=== PATIENT | female | born 1965 | race Asian ===

== ENCOUNTER 2020-07-30 09:34 | Outpatient (REF) | payer OTHER, SELFPAY ==
[2020-07-30 11:17] LABS: MANUAL DIFF FLAG NO
[2020-07-30 11:41] LABS: Basophils Percent Auto 0.4 % (0-2); Eosinophils Absolute Auto 0.1 X10*3/uL (0.0-0.4); Eosinophils Percent Auto 1.9 % (0-4); Hematocrit 39.3 % (37-47); Imm Gran Abs Auto 0.02 X10*3/uL (0.00-0.03); Imm Gran Pct Auto 0.3 % (0.0-0.4); Lymphocytes Absolute Auto 1.4 X10*3/uL (1.2-4.9); Lymphocytes Percent Auto 20.5 % (20-40); Mean Corpuscular HGB Conc 33.1 g/dl (31.0-35.0); Mean Corpuscular Volume 93.6 fL (80-98); Mean Platelet Volume 9.7 fL (9.4-12.3); Monocytes Absolute Auto 0.4 X10*3/uL (0.1-1.2); Monocytes Percent Auto 6.2 % (2-11); Neutrophils Absolute Auto 4.9 X10*3/uL (2.0-8.3); Neutrophils Percent Auto 70.7 % (45-73); Platelet Count 332 X10*3/uL (160-400); Red Cell Distribution Width 12.4 % (11.0-16.0)
[2020-07-30 12:25] LABS: Alanine Aminotransferase 29 U/L (0-31); Albumin Level 4.3 g/dL (3.5-5.0); Alkaline Phosphatase 74 U/L (39-117); Amylase 59 U/L (28-100); Anion Gap 15 (12-20); Aspartate Amino Transferase 17 U/L (5-31); Bilirubin Total 0.6 mg/dL (0.0-1.0); Blood Urea Nitrogen 9 mg/dL (9-16); Calcium 9.4 mg/dL (8.4-10.2); Carbon Dioxide 32 mmol/L (22-29); Chloride 99 mmol/L (96-108); Estimated Glomerular Filt Rate > 60; Glucose Random 104 mg/dL (60-115); Lipase 21 U/L (8-78); Potassium 3.5 mmol/L (3.3-5.1); Sodium 142 mmol/L (135-145); Total Protein 7.9 g/dL (6.5-8.0)
[2020-07-30 12:26] LABS: TSH reflex Free T4 (Prenatal) 0.55 uIU/mL (0.32-4.0)
== END 2020-07-30 09:35 | disposition home or self-care (01) ==
LOC: HO.HMGCLDS 09:34
PROVIDERS: PCP Internal Medicine; Visit Provider Nurse Practitioner Family
DX: R10.13 Epigastric pain (principal)
CPT/HCPCS: 36415; 80053; 82150; 83690; 85025

== ENCOUNTER 2020-08-19 11:58 | Outpatient (REF) | payer OTHER, SELFPAY ==
--- NOTE | ~2020-08-19 | CT_ITS ---
EXAMINATION: CT ABDOMEN AND PELVIS WITH CONTRAST CLINICAL INFORMATION: Epigastric pain COMPARISON: None TECHNIQUE: Multidetector volumetric images were obtained from the superior aspect of the liver through the pubic symphysis following administration 85 mL of Omnipaque 350 intravenous contrast. Sagittal and coronal reformatted images were obtained on the technologist's workstation. Oral contrast: Yes This CT examination was performed using dose optimization techniques as appropriate, variously including the following: *Automated exposure control *Adjustment of mA and/or kV according to patient size (this includes techniques or standardized protocols for targeted exams where dose is matched to indication/reason for exam; i.e. extremities or head) *Use of iterative reconstruction technique DLP: 447 mGy-cm FINDINGS: LUNG BASES: The visualized lung bases are unremarkable. LIVER, GALLBLADDER, AND BILIARY TREE: The liver is low in attenuation suggestive of fatty infiltration. No focal liver lesion is seen. There is no biliary duct dilatation. The gallbladder is unremarkable with no evidence of radiopaque gallstones, gallbladder wall thickening, or obvious pericholecystic inflammatory changes. PANCREAS: Unremarkable. SPLEEN: Unremarkable. ADRENAL GLANDS: Unremarkable. KIDNEYS AND URETERS: The kidneys are normal in size, shape, and attenuation. No hydronephrosis, hydroureter, or calculi seen. No perinephric stranding. BLADDER: Unremarkable. GASTROINTESTINAL TRACT: The small and large bowel are unremarkable. The appendix is not seen. The stomach is normal appearing. ABDOMINAL WALL: No significant hernia is appreciated. LYMPH NODES: Normal. VASCULAR: Unremarkable. PELVIC VISCERA: Uterus appears heterogeneous in attenuation. There is a question of a central low-attenuation in the endometrial cavity suggestive of endometrial fluid or thickening. There is a low-attenuation lesion in the anterior uterine body probably representing a fibroid. Adnexa appear unremarkable. OSSEOUS STRUCTURES: There are degenerative changes of the spine. CT/CT abdomen pelvis w con IMPRESSION: Fatty liver. Heterogeneous-appearing uterus with question endometrial fluid or thickening and fibroid. This could be better evaluated with pelvic ultrasound if clinically indicated, i.e. history of bleeding.
[2020-08-19] MEDS: iohexoL 350 MG/ML 100 ML INFUS..BTL IV (14:55)
== END 2020-08-19 11:59 | disposition home or self-care (01) ==
LOC: HO.CT 11:58
PROVIDERS: PCP Internal Medicine; Visit Provider Nurse Practitioner Family
DX: R10.13 Epigastric pain (principal); R14.0 Abdominal distension (gaseous); R10.9 Unspecified abdominal pain
CPT/HCPCS: 74177; Q9967

== ENCOUNTER → 2020-09-09 10:05 | Outpatient (BNVA) | payer OTHER, SELFPAY | PROVIDERS: PCP Internal Medicine; Visit Provider Obstetrics & Gynecology | DX: R93.5 Abnormal findings on diagnostic imaging of other abdominal regions, including retroperitoneum (principal) | CPT/HCPCS: 99212 ==

== ENCOUNTER → 2020-09-29 14:11 | Outpatient (BNVA) | payer OTHER, SELFPAY | PROVIDERS: PCP Internal Medicine; Visit Provider Obstetrics & Gynecology ==

== ENCOUNTER 2020-11-13 08:58 | Outpatient (REF) | payer OTHER, SELFPAY ==
--- NOTE | ~2020-11-13 | MM_ITS ---
EXAMINATION: MM SCREENING DIGITAL BREAST TOMOSYNTHESIS, BILATERAL CLINICAL INFORMATION: Screening. Asymptomatic. Prior benign right stereotactic biopsy by Dr. Blake on 12/21/2016. The lifetime risk of breast cancer based on the Tyrer-Cuzick Model is 13%. COMPARISON: Mammography: 11/08/2019, 01/15/2018, 07/12/2017, 12/21/2016 TECHNIQUE: Digital breast tomosynthesis is performed in both the craniocaudal and mediolateral oblique views along with computer-aided detection (CAD). Synthesized 2D images are generated from the tomosynthesis. FINDINGS: There are scattered areas of fibroglandular density (ACR BI-RADS breast composition Category b). Parenchymal pattern is similar to prior exams. There is no developing density or interval mass or interval architectural abnormality. Minor smooth subdermal scarring inferior left breast on MLO view is stable. There are scattered bilateral punctate calcifications again seen. The axilla are unremarkable. There are no significant changes. MM/MM tomosynthesis screening BI IMPRESSION: No significant changes from prior studies. ASSESSMENT: BI-RADS 2: Benign RECOMMENDATION: Routine annual mammography screening. This patient's information was entered into a reminder system with a target due date for their next mammogram.
== END 2020-11-13 08:59 | disposition home or self-care (01) ==
LOC: HO.MAMMO 08:58
PROVIDERS: PCP Internal Medicine; Visit Provider Internal Medicine
DX: Z12.31 Encounter for screening mammogram for malignant neoplasm of breast (principal)
CPT/HCPCS: 77063; 77067

== ENCOUNTER 2021-02-15 14:14 | Outpatient (REF) | payer OTHER, SELFPAY ==
--- NOTE | ~2021-02-15 | XR_ITS ---
EXAMINATION: XR FOOT, LEFT XR FOOT, RIGHT CLINICAL INFORMATION: Other specified soft tissue disorder COMPARISON: Left foot x-ray October 2012 TECHNIQUE: 3 views of each foot FINDINGS: Left: Bone alignment is normal. No fracture or dislocation is seen. The joint spaces are normal. There is a small bony osteophyte projecting off the lateral aspect of the 5th metatarsal head. This is similar to 2013 exam. There are small calcaneal spurs. Right: Bone alignment is normal. No fracture or dislocation is seen. There are postoperative osteotomy changes of the 1st metatarsal head. The joint spaces are normal. There is a small osteophyte projecting off the lateral aspect of the 5th metatarsal head. There are calcaneal spurs. XR/XR foot RT min 3V IMPRESSION: Postoperative changes to the right 1st metatarsal head. Bilateral calcaneal spurs. Small osteophytes projecting off the lateral lateral 5th metatarsal headS.
--- NOTE | ~2021-02-15 | XR_ITS ---
EXAMINATION: XR FOOT, LEFT XR FOOT, RIGHT CLINICAL INFORMATION: Other specified soft tissue disorder COMPARISON: Left foot x-ray October 2012 TECHNIQUE: 3 views of each foot FINDINGS: Left: Bone alignment is normal. No fracture or dislocation is seen. The joint spaces are normal. There is a small bony osteophyte projecting off the lateral aspect of the 5th metatarsal head. This is similar to 2013 exam. There are small calcaneal spurs. Right: Bone alignment is normal. No fracture or dislocation is seen. There are postoperative osteotomy changes of the 1st metatarsal head. The joint spaces are normal. There is a small osteophyte projecting off the lateral aspect of the 5th metatarsal head. There are calcaneal spurs. XR/XR foot LT min 3V IMPRESSION: Postoperative changes to the right 1st metatarsal head. Bilateral calcaneal spurs. Small osteophytes projecting off the lateral lateral 5th metatarsal headS.
[2021-02-15 14:29] LABS: MANUAL DIFF FLAG NO
[2021-02-15 16:36] LABS: Basophils Percent Auto 0.3 % (0-2); Eosinophils Absolute Auto 0.1 X10*3/uL (0.0-0.4); Eosinophils Percent Auto 1.8 % (0-4); Hematocrit 39.1 % (37.0-47.0); Hemoglobin 13.3 g/dl (12.0-16.0); Imm Gran Abs Auto 0.03 X10*3/uL (0.00-0.03); Imm Gran Pct Auto 0.4 % (0.0-0.4); Lymphocytes Absolute Auto 1.8 X10*3/uL (1.2-4.9); Lymphocytes Percent Auto 24.8 % (20-40); Mean Corpuscular Hemoglobin 31.1 pg (27.0-33.0); Mean Corpuscular Volume 91.6 fL (80.0-98.0); Mean Platelet Volume 9.9 fL (9.4-12.3); Monocytes Absolute Auto 0.3 X10*3/uL (0.1-1.2); Monocytes Percent Auto 4.3 % (2-11); Neutrophils Absolute Auto 4.9 x10*3/uL (2.0-8.3); Neutrophils Percent Auto 68.4 % (45-73); Platelet Count 342 X10*3/uL (160-400); Red Blood Count 4.27 X10*6/uL (4.20-5.50); White Blood Count 7.2 X10*3/uL (4.8-10.8)
[2021-02-15 16:48] LABS: Alanine Aminotransferase 24 U/L (0-31); Anion Gap 13 (12-20); Aspartate Amino Transferase 17 U/L (5-31); Blood Urea Nitrogen 12 mg/dL (9-16); C Reactive Protein 0.63 mg/dL (< or = 0.50); Calcium 9.6 mg/dL (8.4-10.2); Carbon Dioxide 32 mmol/L (22-29); Chloride 99 mmol/L (96-108); Cholesterol 215 mg/dL; Estimated Glomerular Filt Rate > 60; Glucose Fasting 165 mg/dL (60-99); HDL Cholesterol 70 mg/dL; Iron 117 mcg/dL (30-160); LDL Cholesterol Calculated 116 mg/dl; Percent Iron Saturation 46 % (15-50); Sodium 141 mmol/L (135-145); Total Iron Binding Capacity 252 mcg/dL (228-428); Triglycerides 148 mg/dL; Unsaturated Iron Binding 135 ug/dL
[2021-02-15 16:59] LABS: Uric Acid 7.5 mg/dL (2.4-5.7)
[2021-02-15 17:08] LABS: Free T4 (Free Thyroxine) 1.17 ng/dL (0.71-1.85); Vitamin D 25-OH Total 74.5 ng/mL (>30)
[2021-02-15 17:55] LABS: Erythrocyte Sedimentation Rate 33 MM/HR (0-20)
== END 2021-02-15 14:15 | disposition home or self-care (01) ==
LOC: HO.HMGCX 14:14
PROVIDERS: PCP Internal Medicine; Visit Provider Internal Medicine
DX: Z00.00 Encounter for general adult medical examination without abnormal findings (principal); I10 Essential (primary) hypertension; E03.9 Hypothyroidism, unspecified; M79.671 Pain in right foot; M79.672 Pain in left foot; M79.89 Other specified soft tissue disorders
CPT/HCPCS: 36415; 73630; 80048; 80061; 82306; 83540; 84439; 84443; 84450; 84460; 84550; 85025; 85652; 86140

== ENCOUNTER 2021-03-19 08:30 | Outpatient (REF) | payer OTHER, SELFPAY ==
[2021-03-19 11:44] LABS: Anion Gap 11 (12-20); Blood Urea Nitrogen 8 mg/dL (9-16); Calcium 9.7 mg/dL (8.4-10.2); Carbon Dioxide 31 mmol/L (22-29); Chloride 106 mmol/L (96-108); Estimated Glomerular Filt Rate > 60; Glucose Fasting 94 mg/dL (60-99); Potassium 4.3 mmol/L (3.3-5.1); Sodium 144 mmol/L (135-145); Uric Acid 5.9 mg/dL (2.4-5.7)
[2021-03-19 11:48] LABS: Estimated Average Glucose 100 mg/dL; Hemoglobin A1c % 5.1 %
== END 2021-03-19 08:31 | disposition home or self-care (01) ==
LOC: HO.HMGCLDS 08:30
PROVIDERS: PCP Internal Medicine; Visit Provider Internal Medicine
DX: E79.0 Hyperuricemia without signs of inflammatory arthritis and tophaceous disease (principal); E87.6 Hypokalemia; I10 Essential (primary) hypertension; R73.9 Hyperglycemia, unspecified
CPT/HCPCS: 36415; 80048; 83036; 84550

== ENCOUNTER 2021-10-25 14:24 | Outpatient (REF) | payer OTHER, SELFPAY ==
--- NOTE | ~2021-10-25 | XR_ITS ---
EXAMINATION: XR KNEE, RIGHT CLINICAL INFORMATION: Right knee effusion COMPARISON: None TECHNIQUE: Four views of the right knee. FINDINGS: Small joint effusion. No acute fracture or dislocation. Joint spaces appear fairly well-maintained. There are small patellar marginal osteophytes compatible with mild osteoarthritis. Small 2 mm calcification projects along the posterior lateral joint line of the knee, possibly a small intra-articular body. Prominent enthesophyte formation at the superior patellar pole. No osseous lesion. XR/XR knee RT 4V IMPRESSION: 1. Small knee joint effusion. No acute fracture or dislocation. 2. Mild patellofemoral compartment osteoarthropathy and small 2 mm calcification possibly a tiny intra-articular body in the posterolateral joint.
== END 2021-10-25 14:25 | disposition home or self-care (01) ==
LOC: HO.HMGCX 14:24
PROVIDERS: PCP Internal Medicine; Visit Provider Physician Assistant
DX: M25.461 Effusion, right knee (principal)
CPT/HCPCS: 73564

== ENCOUNTER 2021-10-27 08:43 | Outpatient (REF) | payer OTHER, SELFPAY ==
--- NOTE | ~2021-10-27 | XR_ITS ---
EXAMINATION: XR KNEE AP STANDING. Right knee. CLINICAL INFORMATION: Pain right knee. COMPARISON: None TECHNIQUE: AP bilateral standing view of the knees was obtained. FINDINGS: AP bilateral knee standing: There is minimal loss of medial compartment joint space both knees. No bony erosive changes. No visible acute fracture, dislocation or subluxation seen. There is no bony erosive changes. Right knee: There is small to moderate joint effusion. Small superior patellar spur and anterior superior moderate size enthesophyte is seen. No visible fracture, loose body or bony erosive changes. XR/XR knee standing BI IMPRESSION: Mild degenerative changes medial compartment both knees. Small spur and enthesophyte along the superior patella right knee and small suprapatellar joint effusion. No visible acute fracture or dislocation seen.
--- NOTE | ~2021-10-27 | XR_ITS ---
EXAMINATION: XR KNEE AP STANDING. Right knee. CLINICAL INFORMATION: Pain right knee. COMPARISON: None TECHNIQUE: AP bilateral standing view of the knees was obtained. FINDINGS: AP bilateral knee standing: There is minimal loss of medial compartment joint space both knees. No bony erosive changes. No visible acute fracture, dislocation or subluxation seen. There is no bony erosive changes. Right knee: There is small to moderate joint effusion. Small superior patellar spur and anterior superior moderate size enthesophyte is seen. No visible fracture, loose body or bony erosive changes. XR/XR knee RT 1V IMPRESSION: Mild degenerative changes medial compartment both knees. Small spur and enthesophyte along the superior patella right knee and small suprapatellar joint effusion. No visible acute fracture or dislocation seen.
== END 2021-10-27 08:44 | disposition home or self-care (01) ==
LOC: HO.HOSX 08:43
PROVIDERS: Visit Provider Physician Assistant
DX: M23.91 Unspecified internal derangement of right knee (principal); M23.92 Unspecified internal derangement of left knee
CPT/HCPCS: 20610; 73560; 73565; 99202; J1040

== ENCOUNTER 2021-11-01 17:57 | Outpatient (REF) | payer OTHER, SELFPAY ==
--- NOTE | ~2021-11-01 | MR_ITS ---
EXAMINATION: MR KNEE WITHOUT CONTRAST, RIGHT CLINICAL INFORMATION: Arthritis. Patient reports pain, fall. COMPARISON: X-ray 10/27/2021 TECHNIQUE: MRI of the knee without contrast was performed using routine sequences on a high-field scanner. FINDINGS: MENISCI: Medial Meniscus: Horizontal and undersurface tear in the body. Horizontal, undersurface and free edge tearing in the posterior horn. Lateral Meniscus: Intact LIGAMENTS: Cruciate: Intact Collateral: Intact EXTENSOR MECHANISM: Intact. Mild distal quadriceps tendinosis. Insertional enthesopathy. ARTICULAR CARTILAGE/BONE: Patellofemoral Compartment: Mild lateral patellar subluxation. No significant cartilage loss. Medial Compartment: Marginal osteophytes, mild joint space loss, foci of cartilage thinning and irregularity in the weightbearing compartment. Lateral Compartment: No significant cartilage loss. No fracture. JOINT FLUID AND BURSAE: Small to moderate effusion. Tiny Carias's cyst. There are small loose bodies posteriorly in the region of the popliteus myotendinous region.. MR/MR knee RT wo con IMPRESSION: 1. Tear of the medial meniscal body and posterior horn. 2. Mild distal quadriceps tendinosis. 3. Mild medial compartment arthritis. 4. Small to moderate effusion. Tiny Carias's cyst. Loose bodies in the region of the popliteus myotendinous region.
== END 2021-11-01 17:58 | disposition home or self-care (01) ==
LOC: HO.MRI 17:57
PROVIDERS: Visit Provider Physician Assistant
DX: M17.11 Unilateral primary osteoarthritis, right knee (principal); M23.90 Unspecified internal derangement of unspecified knee
CPT/HCPCS: 73721

== ENCOUNTER 2021-11-24 10:53 | Outpatient (REF) | payer OTHER, SELFPAY ==
--- NOTE | ~2021-11-24 | MM_ITS ---
EXAMINATION: MM SCREENING DIGITAL BREAST TOMOSYNTHESIS, BILATERAL CLINICAL INFORMATION: Screening. Asymptomatic. The lifetime risk of breast cancer based on the Tyrer-Cuzick Model is 8.9%. COMPARISON: Mammography: November 13, 2020 and studies dating back to September 27, 2009 TECHNIQUE: Digital breast tomosynthesis is performed in both the craniocaudal and mediolateral oblique views along with computer-aided detection (CAD). Synthesized 2D images are generated from the tomosynthesis. FINDINGS: The breasts are heterogeneously dense, which may obscure small masses (ACR BI-RADS breast composition Category c). There are no new significant masses, abnormal calcifications, or other abnormalities. MM/MM tomosynthesis screening BI IMPRESSION: No significant changes from prior exam. ASSESSMENT: BI-RADS 1: Negative RECOMMENDATION: Routine annual mammography screening. This patient's information was entered into a reminder system with a target due date for their next mammogram.
== END 2021-11-24 10:54 | disposition home or self-care (01) ==
LOC: HO.MAMMO 10:53
PROVIDERS: Visit Provider Internal Medicine
DX: Z12.31 Encounter for screening mammogram for malignant neoplasm of breast (principal)
CPT/HCPCS: 77063; 77067

== ENCOUNTER → 2021-11-25 10:21 | Outpatient (BNVA) | payer OTHER, SELFPAY | PROVIDERS: PCP Internal Medicine; Visit Provider Orthopaedic Surgery | DX: S83.206A Unspecified tear of unspecified meniscus, current injury, right knee, initial encounter (principal); M17.11 Unilateral primary osteoarthritis, right knee | CPT/HCPCS: 99212 ==

== ENCOUNTER 2021-12-03 09:50 | Outpatient (REF) | payer OTHER, SELFPAY ==
[2021-12-03 12:20] LABS: Alanine Aminotransferase 14 U/L (0-31); Anion Gap 17 (12-20); Aspartate Amino Transferase 13 U/L (5-31); Blood Urea Nitrogen 11 mg/dL (9-16); Calcium 9.5 mg/dL (8.4-10.2); Carbon Dioxide 31 mmol/L (22-29); Chloride 99 mmol/L (96-108); Cholesterol 226 mg/dL; Estimated Glomerular Filt Rate > 60; Glucose Fasting 101 mg/dL (60-99); HDL Cholesterol 78 mg/dL; LDL Cholesterol Calculated 128 mg/dl; Potassium 3.4 mmol/L (3.3-5.1); Sodium 144 mmol/L (135-145); Triglycerides 101 mg/dL; Vitamin D 25-OH Total 62.4 ng/mL (>30)
== END 2021-12-03 09:51 | disposition home or self-care (01) ==
LOC: HO.HMGCLDS 09:50
PROVIDERS: PCP Internal Medicine; Visit Provider Internal Medicine
DX: Z00.01 Encounter for general adult medical examination with abnormal findings (principal); S83.206A Unspecified tear of unspecified meniscus, current injury, right knee, initial encounter; E79.0 Hyperuricemia without signs of inflammatory arthritis and tophaceous disease; I10 Essential (primary) hypertension
CPT/HCPCS: 36415; 80048; 80061; 82306; 84450; 84460; 84550

== ENCOUNTER 2022-02-16 08:00 | Outpatient (RCR) | payer OTHER, SELFPAY ==
--- NOTE | 2021-12-15 11:02 | MHC.PT.EP ---
[facility] [place] Office [place] Office [place] Office [address] Hermelinda Valverde [address] [phone] F: [phone] F: [phone] F: [phone] F: [phone] Physical Therapy Plan of Care Date of Evaluation: Date of Surgery: Diagnosis: injury to R knee/ unspecified tear of R meniscus. Assessment: Pt is a 56 y/o female referred to PT PT for eval and treat of R knee meniscal injury who reports long Hx of off and on R knee pain though states about 1 month ago she was negotiating her stairs and reports a shooting pain of her knee with swelling. She presents with R knee dysfunction resulting in decreased tolerance for walking, performing stairs, squatting activities, heavy HH chores, and standing for duration secondary to decreased R knee ROM and strength, decreased hip strength, gait abnormality, evidence of meniscal injury on MRI, and pain. Pt is deemed an appropriate candidate to receive skilled PT in order to address her physical limitations to improve her functional ability. Frequency and Duration: The patient will be seen 2 x /wk x 5 wks. Short Term Goals: initiate HEP. Improve baseline pain with activity to < 6/10; initial: 8/10. Regional Driver Goals: I with HEP. Pt will be able to perform heavy HH chores with at most a little bit of difficulty. Pt will be able to walk 2 blocks without difficulty; initial: moderate difficulty. Improve R knee extension MMT by at least 1/2 MMT grade; initial: 4/5 limited by pain. Treatment Plan: Modalities to reduce pain, spasms and effusion. Manual therapy to restore motion and function. Therapeutic exercise to improve strength and flexibility. Neuromuscular re-education for posture and balance. Therapeutic activities to return to functional activities of daily living. Electronically signed by: Basilio Lindsey PT. Please sign and return to therapist. Thank you for your referral.
--- NOTE | 2022-04-15 07:04 | MHC.PT.DC ---
[facility] [place] Office [place] Office [place] Office [address] Hermelinda Valverde [address] [facility] [phone] F: [phone] F: [phone] F: [phone] F: [phone] Physical Therapy Discharge Report Diagnosis: injury to R knee/ unspecified tear of R meniscus. Date of Surgery: Date of Evaluation: 12/15/21 Date of Discharge: Treatments to Date: 9 Cancellations to Date: No Shows to Date: Discharge Status: Patient Elected to Stop Discharge Summary: Pt elected for surgery. Electronically signed by: Basilio Lindsey PT. Please sign and return to therapist. Thank you for your referral.
== END 2022-04-15 07:07 | disposition home or self-care (01) ==
LOC: HO.PTCHIC 08:00
PROVIDERS: PCP Internal Medicine; Visit Provider Internal Medicine
DX: S83.206A Unspecified tear of unspecified meniscus, current injury, right knee, initial encounter (principal)
CPT/HCPCS: 97110; 97112; 97161

== ENCOUNTER → 2022-02-21 09:45 | Outpatient (BNVA) | payer OTHER, SELFPAY | PROVIDERS: PCP Internal Medicine; Visit Provider Orthopaedic Surgery | DX: S83.241D Other tear of medial meniscus, current injury, right knee, subsequent encounter (principal) | CPT/HCPCS: 99212 ==

== ENCOUNTER → 2022-03-25 11:26 | Outpatient (BNVA) | payer OTHER, SELFPAY | PROVIDERS: PCP Internal Medicine; Visit Provider Physician Assistant | DX: Z01.818 Encounter for other preprocedural examination (principal); S83.206A Unspecified tear of unspecified meniscus, current injury, right knee, initial encounter | CPT/HCPCS: 99212 ==

== ENCOUNTER 2022-03-29 07:28 | Day surgery (SDC) | payer OTHER, SELFPAY ==
--- NOTE | 2022-03-25 09:14 | HO.ANESPROP2 ---
Documented by User: Irena Michaud NP 03/25/22 09:15 HPI - Anesthesia Eval Consult details Narrative: 56yo F for Right Knee Arthroscopy PMFSH Active Problems Active Problems: All Active Problems (Updated 03/22/22 @ 14:50 by Annemarie Rodriguez RN) Right knee meniscal tear (Acute) Hyperuricemia (Acute) Essential hypertension (Acute) Uterine fibroid (Acute) Past Medical History Medical History Essential hypertension History of palpitations Hyperuricemia Lactose intolerance JASON (obstructive sleep apnea) Seasonal allergies Uterine fibroid Surgical History Surgical History History of appendectomy History of repair of right rotator cuff Hx of colonoscopy Hx of left breast biopsy S/P removal of left ovary S/P thyroid biopsy Social History Social History Housing: House Alcohol intake: current Alcohol intake frequency: does not drink Patient Tobacco Use Status: Never used Tobacco e-Cigarette/Vaping Use: Never Used Second Hand Smoke Exposure: No Are you DNR?: No Advance Directives: No Advance Directives Information Provided: Yes Recently lost weight without trying: No Nutrition Risks: No Nutritional Risk service: No Current occupational status: employed 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 Gender identity: Female Cognitive needs: No Hearing needs: No Vision needs: Yes Meds Allergies Allergy/AdvReac Type Severity Reaction Status Date / Time adhesive [ADHESIVE] Allergy Intermediate ITCHING Verified 03/25/22 11:41 FRUIT, SKINS Allergy Severe THROAT Uncoded 03/22/22 14:47 CLOSES Home Medications Medication Instructions Recorded Confirmed Last Taken Type cholecalciferol (vitamin D3) 50 50 mcg PO DAILY 12/01/20 03/25/22 03/28/22 History mcg (2,000 unit) capsule Exam Exam Date and Time: March 25, 2022 0914 Pertinent Lab Results Pertinent Lab Results: Laboratory Tests 12/03/21 09:57 Sodium 144 Potassium 3.4 D Chloride 99 Carbon Dioxide 31 H BUN 11 Creatinine 0.67 Assessment and Plan Assessment Anesthesia Assessment: Chart Reviewed Documented by User: Laron Bobby MD 03/29/22 10:21 [facility] Past Medical History Medical History Essential hypertension History of palpitations Hyperuricemia Lactose intolerance JASON (obstructive sleep apnea) Seasonal allergies Uterine fibroid Family History Family history of problems with anesthesia: No Surgical History Surgical History History of appendectomy History of repair of right rotator cuff Hx of colonoscopy Hx of left breast biopsy S/P removal of left ovary S/P thyroid biopsy History of Problems with Anesthesia: No Social History Social History Housing: House Alcohol intake: current Alcohol intake frequency: does not drink Patient Tobacco Use Status: Never used Tobacco e-Cigarette/Vaping Use: Never Used Second Hand Smoke Exposure: No Are you DNR?: No Advance Directives: No Advance Directives Information Provided: Yes Recently lost weight without trying: No Nutrition Risks: No Nutritional Risk service: No Current occupational status: employed 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 Gender identity: Female Cognitive needs: No Hearing needs: No Vision needs: Yes Meds Allergies Allergy/AdvReac Type Severity Reaction Status Date / Time adhesive [ADHESIVE] Allergy Intermediate ITCHING Verified 03/25/22 11:41 FRUIT, SKINS Allergy Severe THROAT Uncoded 03/22/22 14:47 CLOSES Home Medications Medication Instructions Recorded Confirmed Last Taken Type cholecalciferol (vitamin D3) 50 50 mcg PO DAILY 12/01/20 03/25/22 03/28/22 History mcg (2,000 unit) capsule Exam Airway Mallampati Class: II TM Dist: >3cm Neck ROM: Full Loose/Missing/Broken Teeth: No Assessment and Plan Assessment Anesthesia Assessment: Anesthesia Plan Discussed Final Anesthetic Review Family History of Problems with Anesthesia: No History of Problems with Anesthesia: No NPO: Yes ASA Class: III Final Preanesthetic Review: No Changes in Pt Med Stat, Meds/Allgs Chart Reviewed, Consent Obtained/Reviewed and Anes Risks/Benef Reviewed Patient Risk: Low Procedure Risk: Low Anesthetic Plan Anesthetic Plan: GA Disposition: Standard PACU
[2022-03-29] VITALS (11 sets, daily range): BP systolic 97–128; BP diastolic 47–71; PULSE 58–73; RESP 18–20; TEMP 36.1–36.3; O2SAT 96–100
[2022-03-29] MEDS: Lactated Ringers 1,000 ML 100 ML IVCONT (08:08)
--- NOTE | 2022-03-29 09:30 | MHC.SHP ---
Pre-Procedural Eval Section A Date of Service: 03/29/22 The patient is an INPATIENT: No Changes since office visit: No Cold of Flu in the past 2 weeks, No New Medical Problems, No Changes in Medication and No Patient answered all questions The History & Physical has been completed within 30 days and I have reviewed it.: Yes Section B Chief Complaint: Unspecified tear of unspecified meniscus, current Allergies: Allergies Allergy/AdvReac Type Severity Reaction Status Date / Time adhesive [ADHESIVE] Allergy Intermediate ITCHING Verified 03/25/22 11:41 FRUIT, SKINS Allergy Severe THROAT Uncoded 03/22/22 14:47 CLOSES Plan I have reviewed the history and physical and performed a pertinent physical examination on my patient. No changes have occurred unless specified. Time Spent With Patient Time: Total time managing care of this patient today ____ minutes.
--- NOTE | 2022-03-29 10:37 | PM.OP ---
Brief Operative Note Date of Service: 03/29/22 Pre-op diagnosis: right knee MMT Post-op diagnosis: other (1) right knee OA 2) right knee MMT 3) Right knee plica) Procedure: Chondroplasty with partial medial meniscectomy and plica resection Implants: none Surgeon: Joseluis Sweet MD Anesthesia: GETA and local Was an Consumer Experience Consultant used for this Procedure?: No Estimated blood loss (mL): 0 Tourniquet time (min): 18 IV fluids (mL): 600 Pathology: none sent Condition: stable Disposition: PACU
--- NOTE | 2022-03-29 10:44 | W.PM.OPN ---
Operative Note Operative Note Date of Service: 03/29/22 Narrative: Date of Service: 03/29/22 Pre-op diagnosis: right knee MMT Post-op diagnosis: other (1) right knee OA 2) right knee MMT 3) Right knee plica) Procedure: Chondroplasty with partial medial meniscectomy and plica resection Implants: none Surgeon: Joseluis Sweet MD Anesthesia: GETA and local Was an Armature Connector used for this Procedure?: No Estimated blood loss (mL): 0 Tourniquet time (min): 18 IV fluids (mL): 600 Pathology: none sent Condition: stable Disposition: PACU Procedure in detail: Patient was brought to the operating room placed supine on the arthroscopic table and prepped and draped in standard sterile fashion. A time-out was called to identify proper site proper procedure proper surgeon and IV antibiotics per weight were administered. I began by exsanguinating the limb and insufflating tourniquet to 300 mm Hg. Then made a standard anterolateral stab incision. THe knee was insufflated with water and 30 degree arthroscope was placed. There was grade 0 fibrillations of the patella and the suprapatellar pouch was plane and the gutters were clean. I descended into the medial compartment where I made my medial portal under direct visualization. There was a mecial plica that made entry into the medial compartment difficult. Onmce I established my medial portal the plica was resected with a shaver. There was an obvious of complex tear of the body and posterior horn of the medial meniscus. The root was intact and there was grade 3/4 changes of the plateau and the MFC. I used a combination of biter shaver and cautery to remove unstable portions of the meniscus. Approximately 40% of the meniscal volume was removed. Once I was happy with this the ACL was examined and found to be intact and the lateral compartment also was without the need for intervention. I then removed all instrumentation and closed the portals with skin glue. 25 mL of 2% Marcaine with epinephrine was injected into the joint and the surrounding soft tissues. Patient was then placed in sterile dressing extubated brought recovery room stable condition. There were no known complications.
[2022-03-29] MEDS: Acetaminophen 325 MG TABLET 650 MG PO (11:51)
[2022-03-29] MEDS: Ketorolac Tromethamine 15 MG/ML VIAL IVPUSH (11:52)
[2022-03-29] MEDS: oxyCODONE HCl Immed Release 5 MG TABLET PO (11:53)
== END 2022-03-29 13:19 | disposition home or self-care (01) ==
LOC: HO.SSS 07:29
PROVIDERS: PCP Internal Medicine; Visit Provider Orthopaedic Surgery
PROC: (CPT 29870; principal; 2022-03-29 09:40)
DX: S83.231A Complex tear of medial meniscus, current injury, right knee, initial encounter (principal); M17.11 Unilateral primary osteoarthritis, right knee; M67.51 Plica syndrome, right knee; M25.561 Pain in right knee; M25.461 Effusion, right knee; M71.21 Synovial cyst of popliteal space [Baker], right knee; X58.XXXA Exposure to other specified factors, initial encounter; Y93.9 Activity, unspecified; Y92.9 Unspecified place or not applicable; Y99.8 Other external cause status; I10 Essential (primary) hypertension; E79.0 Hyperuricemia without signs of inflammatory arthritis and tophaceous disease; J30.2 Other seasonal allergic rhinitis; Z79.899 Other long term (current) drug therapy; Z91.040 Latex allergy status
CPT/HCPCS: 29881; 29875; A4649; J0171; J0690; J1100; J1170; J1885; J2250; J2405; J2795; J3010

== ENCOUNTER → 2022-04-11 08:31 | Outpatient (BNVA) | payer OTHER, SELFPAY | PROVIDERS: PCP Internal Medicine; Visit Provider Physician Assistant | DX: Z13.89 Encounter for screening for other disorder (principal) ==

== ENCOUNTER 2022-07-11 08:37 | Outpatient (REF) | payer OTHER, SELFPAY ==
[2022-07-11 11:10] LABS: MANUAL DIFF FLAG NO
[2022-07-11 11:23] LABS: Basophils Percent Auto 0.4 % (0-2); Eosinophils Absolute Auto 0.1 X10*3/uL (0.0-0.4); Eosinophils Percent Auto 2.1 % (0-4); Hematocrit 39.4 % (37.0-47.0); Hemoglobin 13.2 g/dl (12.0-16.0); Imm Gran Abs Auto 0.03 X10*3/uL (0.00-0.03); Imm Gran Pct Auto 0.4 % (0.0-0.4); Lymphocytes Absolute Auto 1.5 X10*3/uL (1.2-4.9); Lymphocytes Percent Auto 22.9 % (20-40); Mean Corpuscular HGB Conc 33.5 g/dl (31.0-35.0); Mean Corpuscular Hemoglobin 31.2 pg (27.0-33.0); Mean Corpuscular Volume 93.1 fL (80.0-98.0); Mean Platelet Volume 10.1 fL (9.4-12.3); Monocytes Absolute Auto 0.4 X10*3/uL (0.1-1.2); Monocytes Percent Auto 5.8 % (2-11); Neutrophils Absolute Auto 4.6 x10*3/uL (2.0-8.3); Neutrophils Percent Auto 68.4 % (45-73); Platelet Count 311 X10*3/uL (160-400); Red Blood Count 4.23 X10*6/uL (4.20-5.50); Red Cell Distribution Width 12.3 % (11.0-16.0); White Blood Count 6.7 X10*3/uL (4.8-10.8)
[2022-07-11 11:58] LABS: Alanine Aminotransferase 27 U/L (0-31); Anion Gap 14 (12-20); Aspartate Amino Transferase 19 U/L (5-31); Blood Urea Nitrogen 11 mg/dL (9-16); Calcium 9.4 mg/dL (8.4-10.2); Carbon Dioxide 34 mmol/L (22-29); Chloride 101 mmol/L (96-108); Cholesterol 223 mg/dL; Estimated Glomerular Filt Rate > 60; Glucose Fasting 101 mg/dL (60-99); HDL Cholesterol 74 mg/dL; Iron 126 mcg/dL (30-160); LDL Cholesterol Calculated 128 mg/dl; Percent Iron Saturation 57 % (15-50); Potassium 3.9 mmol/L (3.3-5.1); Sodium 145 mmol/L (135-145); Total Iron Binding Capacity 223 mcg/dL (228-428); Triglycerides 109 mg/dL; Unsaturated Iron Binding 97 ug/dL; Uric Acid 7.4 mg/dL (2.4-5.7); Vitamin D 25-OH Total 82.7 ng/mL (>30)
== END 2022-07-11 08:38 | disposition home or self-care (01) ==
LOC: HO.HMGCLDS 08:37
PROVIDERS: PCP Internal Medicine; Visit Provider Internal Medicine
DX: I10 Essential (primary) hypertension (principal); E66.9 Obesity, unspecified; E79.0 Hyperuricemia without signs of inflammatory arthritis and tophaceous disease; Z86.2 Personal history of diseases of the blood and blood-forming organs and certain disorders involving the immune mechanism
CPT/HCPCS: 36415; 80048; 80061; 82306; 83540; 84450; 84460; 84550; 85025

== ENCOUNTER → 2022-09-30 07:54 | Outpatient (BNVA) | payer OTHER, SELFPAY | PROVIDERS: PCP Internal Medicine; Visit Provider Nurse Practitioner Family | DX: G47.33 Obstructive sleep apnea (adult) (pediatric) (principal); Z99.89 Dependence on other enabling machines and devices | CPT/HCPCS: 99202 ==

== ENCOUNTER 2022-11-28 07:29 | Outpatient (REF) | payer OTHER, SELFPAY ==
--- NOTE | ~2022-11-28 | MM_ITS ---
EXAMINATION: MM SCREENING DIGITAL BREAST TOMOSYNTHESIS, BILATERAL CLINICAL INFORMATION: Screening. Asymptomatic. Prior benign right stereotactic biopsy by Dr. Blake on 12/21/2016. COMPARISON: Mammography: 11/24/2021, 11/13/2020, 11/08/2019, and dating back to 2014. TECHNIQUE: Digital breast tomosynthesis is performed in both the craniocaudal and mediolateral oblique views along with computer-aided detection (CAD). Synthesized 2D images are generated from the tomosynthesis. FINDINGS: There are scattered areas of fibroglandular density (ACR BI-RADS breast composition Category b). There are bilateral scattered punctate likely skin calcifications present. Parenchymal pattern is similar to prior exams. There is no developing density or interval mass or interval architectural abnormality. Minor smooth subdermal scarring inferior left breast on MLO view is stable. A small circumscribed oval nodule seen on the CC projection of the right breast just lateral to the nipple line, mid depth, is unchanged over several prior exams. This is benign. No change in left axillary lymph node with large fatty hilum. MM/MM tomosynthesis screening BI IMPRESSION: No mammographic evidence of malignancy. Stable benign findings. ASSESSMENT: BI-RADS BI-RADS 2 - Benign Findings RECOMMENDATION: Routine annual mammography screening. 1 year F/U This examination should not preclude the clinical evaluation of a suspicious palpable abnormality. This patient's information was entered into a reminder system with a target due date for their next mammogram.
== END 2022-11-28 07:30 | disposition home or self-care (01) ==
LOC: HO.MAMMO 07:29
PROVIDERS: PCP Internal Medicine; Visit Provider Internal Medicine
DX: Z12.31 Encounter for screening mammogram for malignant neoplasm of breast (principal)
CPT/HCPCS: 77063; 77067

== ENCOUNTER → 2022-11-28 07:30 | Outpatient (BNV) | payer OTHER, SELFPAY | PROVIDERS: PCP Internal Medicine; Visit Provider Radiology Diagnostic Radiology | DX: Z12.31 Encounter for screening mammogram for malignant neoplasm of breast (principal) | CPT/HCPCS: 77063; 77067 ==

== ENCOUNTER 2022-12-06 08:58 | Outpatient (AMB) | payer OTHER, SELFPAY ==
[2022-12-06 09:05] VITALS: BP 110/78; PULSE 75; O2SAT 97; BMI 29.6
--- NOTE | 2022-12-06 09:05 | A.OFFPC_ITS ---
Vital Signs 12/06/22 09:05 Height 5 ft 2 in Weight 162 lb BMI 29.6 BP 110/78 Blood Pressure Location Lt brachial Position Sitting Pulse 75 Pulse Source Pulse Oximeter Pulse Oximetry (%) 97 Oxygen Delivery Method Room Air Intake Visit Reasons: Annual PE Intake Note: Pt is here today for her PE Allergies adhesive [ADHESIVE] Allergy (Intermediate, Verified 12/12/22 16:10) ITCHING FRUIT, SKINS Allergy (Severe, Uncoded 12/12/22 16:10) THROAT CLOSES Medication List - Last Reconciled 12/06/22 by Jacqueline De Leon MD cholecalciferol (vitamin D3) 50 mcg PO DAILY ferrous sulfate 325 mg PO DAILY hydrochlorothiazide 25 mg PO QAM Tobacco use date assessed: 12/06/22 Dental Screening Dental Screen Date: 12/06/22 Did you have a dental visit in the last 12 months?: Yes Did you have a dental problem in the last 6 months where you did not have access to dental care?: No Was dental information given to patient?: Patient has dentist HPI Annual PE HPI Details 57-year-old lady with history of prediab etes, obesity, hyperuricemia, hypertension, here today for her physical exam. She has been feeling well, has been trying to lose weight but has been unsuccessful through diet and exercise, place golf regularly, cutting back on a lot of her carb intake especially rice. Would like to try taking Mounjaro for assistance with losing weight. She is currently being followed at [facility] for follow-up on her obstructive sleep apnea, getting a recheck on her CPAP. She is up-to-date with her screening mammogram as well as her colonoscopy [place] [address] Hallman, with removal of hyperplastic polyp, screening to be repeated again in 2025. She has an appointment for [facility]. She is up-to-date with all her vaccinations including her COVID vaccine, reminded to get the booster. [facility] Medical History (Updated 12/12/22 @ 16:19 by Jacqueline De Leon MD) History of iron deficiency anemia Annual visit for general adult medical examination with abnormal findings Environmental and seasonal allergies Obesity JASON on CPAP Lactose intolerance Hyperuricemia Essential hypertension Uterine fibroid Surgical History S/P thyroid biopsy History of appendectomy Hx of left breast biopsy Hx of colonoscopy History of repair of right rotator cuff S/P removal of left ovary Family History Father HTN (hypertension) Heart disease Emphysema of lung Mother HTN (hypertension) Dementia Seizure Family/Other HTN (hypertension) Cancer Social History Housing: House Alcohol intake: current Alcohol intake frequency: does not drink Patient Tobacco Use Status: Never used Tobacco e-Cigarette/Vaping Use: Never Used Second Hand Smoke Exposure: No service: No Current occupational status: employed 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 1. Little interest or pleasure in doing things: not at all 2. Feeling down, depressed, or hopeless: not at all 3. Trouble falling or staying asleep, or sleeping too much: several days 4. Feeling tired or having little energy: several days 5. Poor appetite or overeating: not at all 6. Feeling bad about yourself - or that you are a failure or have let yourself or your family down: not at all 7. Trouble concentrating on things, such as reading the newspaper or watching television: not at all 8. Moving or speaking so slowly that other people could have noticed. Or the opposite - being so fidgety or restless that you have been moving around a lot more than usual: not at all 9. Thoughts that you would be better off or of hurting yourself in some way: not at all Total score: 2 Depression Screening Interpretation: Negative [id number] - PHQ-9 Billing: Yes Source: Developed by Drs. Garth Youssef, Maria Isabel Beckman, Jose Farley and colleagues, with an educational yahaira from [employer]. Thrive Questionnaire Date Thrive assessed: 12/06/22 I am a: Patient What is your living situation today?: I have a steady place to live Within the past 12 months, did the food you bought not last and you didn't have the money to get more?: Never true Within the past 12 months, did you worry whether your food would run out before you got money to buy more?: Never true Do you have trouble paying for medicines?: No Do you have trouble getting transportation to medical appointments?: No Do you have trouble paying your heating and electricity bill?: No Do you have trouble taking care of your child, family member or friend?: No Do you have trouble with day-to-day activities such as bathing, preparing meals, shopping, managing finances, etc.?: No Are you currently unemployed and looking for a job?: No Are you interested in more education?: No MERCEDEZ-7 AMB Questionnaire MERCEDEZ-7 Date MERCEDEZ - 7 assessed: 12/06/22 Feeling nervous, anxious, or on edge: 0 = Not at all Not being able to stop or control worryin = Not at all Worrying too much about different things: 0 = Not at all Trouble relaxin = Not at all Being so restless that it is hard to sit still: 0 = Not at all Becoming easily annoyed or irritable: 0 = Not at all Feeling afraid as if something awful might happen: 0 = Not at all Total MERCEDEZ-7 score (0-4 normal; 5-9 mild; 10-14 moderate; 15-21 severe): 0 Source: Developed by Drs. Garth Youssef, Maria Isabel Beckman, Jose Farley and colleagues, with an educational yahaira from [employer]. MERCEDEZ-7 Assessment Billing MERCEDEZ-7 Assessment Tool: MERCEDEZ-7 Assessment 07761 Review of Systems Const Denies body aches, Denies fatigue, Denies headache(s) and Denies weakness Eyes Denies change in vision ENT Denies dizziness, Denies headache(s), Denies nasal congestion, Denies disequilibrium and Denies sore throat Card Denies chest pain, Denies lightheadedness, Denies palpitations and Denies dyspnea Resp Denies chest congestion, Denies cough and Denies dyspnea GI Denies abdominal pain and Denies change in bowel habits Reports no additional complaints Musc Details: Has intermittent pain in her right elbow, and shoulder Skin/Breast Denies breast pain, Denies breast mass, Denies change in breast shape, Denies lesions and Denies rash Neuro Denies dizziness, Denies headache(s), Denies disequilibrium and Denies weakness Psych Reports no additional complaints Endo Denies fatigue, Denies polydipsia, Denies polyuria and Denies palpitations Oral/Lymph Denies easy bleeding and Denies easy bruising Aller/Immun Denies seasonal rhinorrhea Physical exam (Primary Care) Vital Signs: Last Vital Signs Pulse 75 12/06/22 09:05 BP 110/78 12/06/22 09:05 Pulse Ox 97 12/06/22 09:05 Oxygen Delivery Method Room Air 12/06/22 09:05 BMI result Body Mass Index 29.6 Tobacco/Smoking Status: Tobacco use Status Tobacco use date assessed 12/06/22 12/06/22 09:07 Patient Tobacco Use Status Never used Tobacco 12/06/22 09:07 e-Cigarette/Vaping Use Never Used 12/06/22 09:07 PHQ-9: PHQ-9 Score PHQ-9: Total score 3 12/12/22 16:09 Depression Screening Interpretation: Negative Thrive Assessment: Date of Thrive Assessment Date Thrive assessed 12/06/22 12/06/22 09:14 Const General: comfortable, no acute distress, alert, awake and Physically active Nutritional Appearance: obese Orientation/consciousness: patient oriented x3 Limitations: no limitations HENMT Head: Yes normocephalic Ears: hearing grossly normal bilaterally, external ears normal, TM's normal bilaterally and EAC's normal General nose exam: Normal external nose present and No nasal discharge present Face and sinus: Yes face symmetric Mouth: Normal oral and palatal mucosa present, oropharynx normal and moist mucous membranes Eyes General: appearance normal, both eyes and all related structures Neck Other: Supple with no lymphadenopathy, full range of motion Chest Chest palpation & inspection: normal inspection of the chest Breast/axilla palpation: normal palpation of the breasts and normal palpation of the axillae Resp Effort & Inspection: normal respiratory effort and able to speak in complete sentences Auscultation: clear to auscultation bilaterally Cardio Rate: regular rate Rhythm: regular rhythm Heart sounds: S1 normal heart sound present and S2 normal heart sound present GI Inspection: Yes obesity Palpation (GI): Soft to palpation, nontender, no guarding and no masses Auscultation: normal bowel sounds General: Yes no CVA tenderness Back/Spine/Pelvis Back: no CVA tenderness and No back tenderness Skin General skin exam: no rashes or lesions noted Neuro General: patient oriented x3, tone normal, moves all extremities, Normal light touch and pain sensation, no focal motor deficits and CN's II-XI intact bilaterally Extrem General: Yes full ROM, Yes no joint enlargement, Yes no clubbing, cyanosis or edema, Yes no calf tenderness and Yes normal gait Psych Appearance: grossly normal Mental Status: mental status grossly normal Speech and movement: Normal speech and movement present Affect: normal affect Attitude: cooperative Thought process: Normal thought process present Thought content: Normal thought content present Assessment and Plan Assessment & Plan (1) Annual visit for general adult medical examination with abnormal findings: Code(s): Z00.01 - Encounter for general adult medical examination with abnormal findings Plan: Will check appropriate labs. Continue regular dental visit every 6 months and regular eye exams, at least every 2 years. Take adequate calcium in diet and vitamin-D 3 at 2000 IU per cap once a day, in addition to weight-bearing exercises to help maintain good muscle tone and weight control. Instructed to do self-breast exam, and continue to get yearly mammogram, currently up-to-date. Goes to [facility] for her routine Pap and pelvic exam. Up-to-date with her screening colonoscopy due again in 2025. Reminded to get her COVID booster, coming out soon, get her yearly flu vaccine, up-to-date with her Shingrix vaccination and Tdap (2) Essential hypertension: Code(s): I10 - Essential (primary) hypertension Plan: Blood pressure at goal of less than 130/80. Continue with current medication. Reinforced importance of following a low sodium diet, getting regular exercise, and lowering stress levels. (3) Obesity: Code(s): E66.9 - Obesity, unspecified Plan: Recommended focusing on improving your health instead of dieting. : Eat Medi terranean diet, limit foods high in fat, sugar, and calories, eat slowly, pay attention to portion sizes, plan your meals ahead of time, continue with regular physical activity 150 minutes of moderate intensity exercise or 90 minutes/week of vigorous exercise and increase water intake. Will try on Mounjaro 2.5 mg per injection to administer subcutaneously once a week, as possible adverse reaction from medication which may include nausea abdominal cramping diarrhea. (4) Hyperuricemia: Code(s): E79.0 - Hyperuricemia without signs of inflammatory arthritis and tophaceous disease Plan: Stressed importance of following a low purine diet. (5) JASON on CPAP: Comment: previously seen at [facility] 2018 Code(s): G47.33 - Obstructive sleep apnea (adult) (pediatric); Z99.89 - Dependence on other enabling machines and devices Plan: Currently followed at [facility] Orders: Orders Alanine Aminotransferase 12/07/22 E66.9 - Obesity, unspecified, E79.0 - Hyperuricemia without signs of inflammatory arthritis and tophaceous disease, I10 - Essential (primary) hypertension, Z00.01 - Encounter for general adult medical examination with abnormal findings Aspartate Amino Transferase 12/07/22 E66.9 - Obesity, unspecified, E79.0 - Hyperuricemia without signs of inflammatory arthritis and tophaceous disease, I10 - Essential (primary) hypertension, Z00.01 - Encounter for general adult medical examination with abnormal findings Lipid Panel 12/07/22 E66.9 - Obesity, unspecified, E79.0 - Hyperuricemia without signs of inflammatory arthritis and tophaceous disease, I10 - Essential (primary) hypertension, Z00.01 - Encounter for general adult medical examination with abnormal findings Basic Metabolic Panel Fasting 12/07/22 E66.9 - Obesity, unspecified, E79.0 - Hyperuricemia without signs of inflammatory arthritis and tophaceous disease, I10 - Essential (primary) hypertension, Z00.01 - Encounter for general adult medical examination with abnormal findings Uric Acid 12/07/22 E66.9 - Obesity, unspecified, E79.0 - Hyperuricemia without signs of inflammatory arthritis and tophaceous disease, I10 - Essential (primary) hypertension, Z00.01 - Encounter for general adult medical examination with abnormal findings Medications: New tirzepatide (Mounjaro) 2.5 mg (0.5 mL) subcut QWEEK 4 weeks 2 mL 0RF Coding Level of Care Code Est Pt Prev Care 40-64y(52075) Diagnoses Annual visit for general adult medical examination with abnormal findings Z00.01 Essential hypertension I10 Obesity E66.9 Hyperuricemia E79.0 JASON on CPAP G47.33; Z99.89 Additional Codes MERCEDEZ-7 Assessment Billing - MERCEDEZ-7 Assessment Tool: MERCEDEZ-7 Assessment 33619 ([id number])
== END 2022-12-06 10:07 | disposition home or self-care (01) ==
PROVIDERS: PCP Internal Medicine; Visit Provider Internal Medicine
DX: Z00.00 Encounter for general adult medical examination without abnormal findings (principal); I10 Essential (primary) hypertension; E66.9 Obesity, unspecified; Z68.29 Body mass index [BMI] 29.0-29.9, adult; E79.0 Hyperuricemia without signs of inflammatory arthritis and tophaceous disease; G47.33 Obstructive sleep apnea (adult) (pediatric); Z99.89 Dependence on other enabling machines and devices
CPT/HCPCS: 99396

== ENCOUNTER 2022-12-07 10:47 | Outpatient (REF) | payer OTHER, SELFPAY ==
[2022-12-07 13:44] LABS: Alanine Aminotransferase 25 U/L (0-31); Anion Gap 16 (12-20); Aspartate Amino Transferase 19 U/L (5-31); Blood Urea Nitrogen 9 mg/dL (9-16); Calcium 9.7 mg/dL (8.4-10.2); Carbon Dioxide 33 mmol/L (22-29); Chloride 99 mmol/L (96-108); Cholesterol 214 mg/dL (<200); Estimated Glomerular Filt Rate > 60; Glucose Fasting 96 mg/dL (60-99); HDL Cholesterol 70 mg/dL (>40); LDL Cholesterol Calculated 124 mg/dL (<100); Sodium 145 mmol/L (135-145); Triglycerides 100 mg/dL (<150); Uric Acid 7.3 mg/dL (2.4-5.7)
== END 2022-12-07 10:48 | disposition home or self-care (01) ==
LOC: HO.HMGCLDS 10:47
PROVIDERS: PCP Internal Medicine; Visit Provider Internal Medicine
DX: Z00.01 Encounter for general adult medical examination with abnormal findings (principal); E66.9 Obesity, unspecified; E79.0 Hyperuricemia without signs of inflammatory arthritis and tophaceous disease; I10 Essential (primary) hypertension
CPT/HCPCS: 36415; 80048; 80061; 84450; 84460; 84550

== ENCOUNTER → 2022-12-12 10:48 | Outpatient (REF) | payer OTHER, SELFPAY | LOC: HO.SL 10:48 | PROVIDERS: PCP Internal Medicine; Visit Provider Nurse Practitioner Family | DX: G47.33 Obstructive sleep apnea (adult) (pediatric) (principal); G47.19 Other hypersomnia; Z99.89 Dependence on other enabling machines and devices | CPT/HCPCS: 95806 ==

== ENCOUNTER → 2022-12-12 11:09 | Outpatient (BNV) | payer OTHER, SELFPAY | PROVIDERS: PCP Internal Medicine; Visit Provider Internal Medicine | DX: G47.33 Obstructive sleep apnea (adult) (pediatric) (principal) | CPT/HCPCS: 95806 ==

== ENCOUNTER 2023-01-03 09:03 | Outpatient (AMB) | payer OTHER, SELFPAY ==
--- NOTE | 2023-01-03 09:06 | A.OFFVIS_ITS ---
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 The home sleep study result was significant for moderate degree of sleep apnea. The AHI was 18/hr and oxygen beronica was 80%. Pt is on APAP [id number]. The compliance and therapy response report (09/23/21-10/22/22) is available and reviewed. The usage days 50% and the average usage hours 6 hrs and 20 min. The max pressure was 11.5 and the residual AHI was 2/hr. ON LICENSE OF [facility] Medical History (Updated 01/09/23 @ 15:54 by Jacqueline De Leon MD) Pre-diabetes History of iron deficiency anemia Annual visit for general adult medical examination with abnormal findings Environmental and seasonal allergies Obesity JASON on CPAP Lactose intolerance Hyperuricemia Essential hypertension Uterine fibroid Surgical History S/P thyroid biopsy History of appendectomy Hx of left breast biopsy Hx of colonoscopy History of repair of right rotator cuff S/P removal of left ovary Family History Father HTN (hypertension) Heart disease Emphysema of lung Mother HTN (hypertension) Dementia Seizure Family/Other HTN (hypertension) Cancer Social History Housing: House Alcohol intake: current Alcohol intake frequency: does not drink Patient Tobacco Use Status: Never used Tobacco e-Cigarette/Vaping Use: Never Used Second Hand Smoke Exposure: No service: No Current occupational status: employed 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 New mask fitting prescription and supply order given to patient. Stressed compliance, use CPAP nightly and more than 4 hrs. Coding Level of Care Code Est Pt Level 3 (07560) Diagnoses JASON on CPAP G47.33; Z99.89
[2023-01-03 09:09] VITALS: BP 120/68; PULSE 78; O2SAT 99
== END 2023-01-03 09:36 | disposition home or self-care (01) ==
PROVIDERS: PCP Internal Medicine; Visit Provider Nurse Practitioner Family
DX: G47.33 Obstructive sleep apnea (adult) (pediatric) (principal); Z99.89 Dependence on other enabling machines and devices
CPT/HCPCS: 99213

== ENCOUNTER → 2023-01-03 09:03 | Outpatient (BNVA) | payer OTHER, SELFPAY | PROVIDERS: PCP Internal Medicine; Visit Provider Nurse Practitioner Family | DX: G47.33 Obstructive sleep apnea (adult) (pediatric) (principal); Z99.89 Dependence on other enabling machines and devices | CPT/HCPCS: 99212 ==

== ENCOUNTER 2023-01-04 10:24 | Outpatient (AMB) | payer OTHER, SELFPAY ==
--- NOTE | 2023-01-04 11:02 | MHC.PC.OV ---
Vital Signs 01/04/23 11:05 Height 5 ft 2 in Weight 161 lb BMI 29.4 BP 140/72 H Blood Pressure Location Lt brachial Position Sitting Pulse 86 Pulse Source Pulse Oximeter Pulse Oximetry (%) 100 Oxygen Delivery Method Room Air Intake Visit Reasons: 4 week follow up Intake Note: Pt is here today for f/u wgt in Allergies adhesive [ADHESIVE] Allergy (Intermediate, Verified 01/04/23 11:24) ITCHING FRUIT, SKINS Allergy (Severe, Uncoded 01/04/23 11:24) THROAT CLOSES Medication List - Last Reconciled 01/04/23 by Jacqueline De Leon MD cholecalciferol (vitamin D3) 50 mcg PO DAILY ferrous sulfate 325 mg PO DAILY phentermine 15 mg PO DAILY Tobacco use date assessed: 12/06/22 Dental Screening Dental Screen Date: 01/04/23 Did you have a dental visit in the last 12 months?: Yes Did you have a dental problem in the last 6 months where you did not have access to dental care?: No Was dental information given to patient?: Patient has dentist HPI 4 week follow up HPI Details 57-year-old lady here today for follow-up after starting phentermine 15 mg per tablet taken once a day on last visit here approximately a month ago for help with weight loss. She has been taking it as instructed, has been following recommended diet, and stays active, plays golf every week and walks for exercise. She however states that medication has not helped curb her appetite, has not lost any weight while taking it and has made her blood pressure go up. She has tried also several diets in the past but has not been successful and making her lose weight. Reviewed last labs done, it was noted she had hypokalemia with a potassium of 3.0. Patient denies any leg weakness, no muscle cramps. She also had elevated uric acid on last blood work. [facility] Medical History (Updated 01/09/23 @ 15:54 by Jacqueline De Leon MD) Pre-diabetes History of iron deficiency anemia Annual visit for general adult medical examination with abnormal findings Environmental and seasonal allergies Obesity JASON on CPAP Lactose intolerance Hyperuricemia Essential hypertension Uterine fibroid Surgical History S/P thyroid biopsy History of appendectomy Hx of left breast biopsy Hx of colonoscopy History of repair of right rotator cuff S/P removal of left ovary Family History Father HTN (hypertension) Heart disease Emphysema of lung Mother HTN (hypertension) Dementia Seizure Family/Other HTN (hypertension) Cancer Social History Housing: House Alcohol intake: current Alcohol intake frequency: does not drink Patient Tobacco Use Status: Never used Tobacco e-Cigarette/Vaping Use: Never Used Second Hand Smoke Exposure: No service: No Current occupational status: employed 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 Depression Screening Interpretation: Negative Depression Screening Done: Yes Source: Developed by Drs. Garth Youssef, Maria Isabel Beckman, Jose Farley and colleagues, with an educational yahaira from [employer]. Thrive Questionnaire Date Thrive assessed: 12/06/22 MERCEDEZ-7 AMB Questionnaire MERCEDEZ-7 Date MERCEDEZ - 7 assessed: 12/06/22 Source: Developed by Drs. Garth Youssef, Maria Isabel Beckman, Jose Farley and colleagues, with an educational yahaira from [employer]. Review of Systems Const Denies body aches, Denies fatigue, Denies headache(s) and Denies weakness ENT Denies dizziness, Denies headache(s), Denies nasal congestion and Denies disequilibrium Card Denies chest pain, Denies lightheadedness, Denies palpitations and Denies dyspnea Resp Denies chest congestion, Denies cough and Denies dyspnea GI Denies abdominal pain and Denies change in bowel habits Reports no additional complaints Neuro Denies dizziness, Denies headache(s), Denies disequilibrium and Denies weakness Psych Reports no additional complaints Endo Denies fatigue, Denies polydipsia, Denies polyuria and Denies palpitations Oral/Lymph Denies easy bleeding and Denies easy bruising Aller/Immun Denies seasonal rhinorrhea Physical exam (Primary Care) Vital Signs: Last Vital Signs Pulse 86 01/04/23 11:05 BP 140/72 H 01/04/23 11:05 Pulse Ox 100 01/04/23 11:05 Oxygen Delivery Method Room Air 01/04/23 11:05 BMI result Body Mass Index 29.4 Tobacco/Smoking Status: Tobacco use Status Tobacco use date assessed 12/06/22 01/04/23 11:07 Patient Tobacco Use Status Never used Tobacco 01/04/23 11:07 e-Cigarette/Vaping Use Never Used 01/04/23 11:07 Depression Screening Interpretation: Negative Thrive Assessment: Date of Thrive Assessment Date Thrive assessed 12/06/22 01/04/23 11:07 Const General: no acute distress, alert, awake and Physically active Nutritional Appearance: obese Orientation/consciousness: patient oriented x3 HENMT Head: Yes normocephalic Ears: hearing grossly normal bilaterally and external ears normal General nose exam: Normal external nose present Face and sinus: Yes face symmetric Mouth: Normal oral and palatal mucosa present, oropharynx normal and moist mucous membranes Eyes General: appearance normal, both eyes and all related structures Neck Other: Supple with no lymphadenopathy, full range of motion Resp Effort & Inspection: normal respiratory effort and able to speak in complete sentences Auscultation: clear to auscultation bilaterally Cardio Rate: regular rate Rhythm: regular rhythm Heart sounds: S1 normal heart sound present and S2 normal heart sound present GI Inspection: Yes obesity Palpation (GI): Soft to palpation, nontender, no guarding and no masses Auscultation: normal bowel sounds Back/Spine/Pelvis Back: No back tenderness Neuro General: patient oriented x3, tone normal, moves all extremities, Normal light touch and pain sensation, no focal motor deficits and CN's II-XI intact bilaterally Extrem General: Yes full ROM, Yes no joint enlargement, Yes no clubbing, cyanosis or edema, Yes no calf tenderness and Yes normal gait Results Reviewed Results Reviewed: NTERED: 12/07/22-[address]: ORDERED: Met Prof Fast, Uric, AST, ALT, Lipid Panel Test Result Flag Reference Site Sodium 145 135-145 mmol/L Potassium 3.0 # L 3.3-5.1 mmol/L CL 99 96-108 mmol/L CO2 33 H 22-29 mmol/L Gap 16 12-20 BUN 9 9-16 mg/dL Creat 0.68 0.5-1.4 mg/dL EGFR > 60 NOTE: For -[place] individuals, multiply the result by 1.210. Chronic Kidney Disease: Estimated GFR < 60 mL/min/1.73m2 Severe Kidney Disease: Estimated GFR < 15 mL/min/1.73m2 FBS 96 60-99 mg/dL Uric Acid 7.3 H 2.4-5.7 mg/dL CA 9.7 8.4-10.2 mg/dL AST (GOT) 19 5-31 U/L ALT (GPT) 25 0-31 U/L Triglyceride 100 <150 mg/dL Desirable Triglyceride: less than 150 mg/dL Borderline High Triglyceride 150-199 mg/dL High Triglyceride: 200-499 mg/dL Very High Triglyceride: greater than or equal to 5OO mg/dL Cholesterol 214 H <200 mg/dL Desirable Cholesterol: less than 200 mg/dL Borderline High Cholesterol: 200-239 mg/dL High Cholesterol: greater than 239 mg/dL LDL Calculated 124 H <100 mg/dL Desirable LDL: less than 100 mg/dL Near Optimal/Above Optimal LDL: 110-129 mg/dL Borderline High LDL: 130-159 mg/dL High LDL: 160-189 mg/dL Very High LDL: greater than or equal to 190 mg/dL HDL 70 >40 mg/dL Desirable HDL: greater than 40 mg/dL Assessment and Plan Assessment & Plan (1) Obesity: Code(s): E66.9 - Obesity, unspecified Qualifiers: Body mass index: BMI 30.0-30.9 Obesity classification: adult class 1 (BMI 30 - 34.9) Obesity type: due to excess calories Serious obesity comorbidity presence: without serious comorbidity Qualified Code(s): E66.09 - Other obesity due to excess calories; Z68.30 - Body mass index [BMI] 30.0-30.9, adult Plan: Patient unable to tolerate phentermine, was not successful with losing weight on medication, and it was making her blood pressure go up. Will try her on Wegovy, to use as directed, and combine it with adhering to healthy eating habits and getting regular exercise. Will see her back for follow-up 4 weeks after starting the medication (2) Pre-diabetes: Code(s): R73.03 - Prediabetes Plan: Your fasting blood sugars in the past were elevated above 100 mg/dL. Impaired glucose metabolism O2 at risk for developing diabetes mellitus type 2, as well as heart attack and stroke later on. Lifestyle changes at just weight loss, healthy eating habits, and regular exercise are important, and can prevent the progression to diabetes (3) Hypokalemia: Code(s): E87.6 - Hypokalemia Plan: Prescription sent for potential chloride ER 10 mg per tablet to take once a day for 7 days, repeat another potassium level after a week (4) Hyperuricemia: Code(s): E79.0 - Hyperuricemia without signs of inflammatory arthritis and tophaceous disease Plan: Prescription started for allopurinol 100 mg per tablet to take once a day, advised to follow a low purine diet. (5) Essential hypertension: Code(s): I10 - Essential (primary) hypertension Plan: Blood pressure mildly elevated, discontinued phentermine . Her hydrochlorothiazide was discontinued as well due to development of hypokalemia. Will monitor blood pressure, goal is less than 130/80, stressed importance of following a low-salt diet and continue with regular exercise Orders: Orders Potassium 1 Week E87.6 - Hypokalemia Medications: New allopurinol 100 mg PO DAILY 90 tabs 1RF potassium chloride ER 10 mEq PO DAILY 7 caps 0RF E87.6 - Hypokalemia Wegovy (semaglutide (weight loss)) administer weeks 1 through 4 of therapy 0.25 mg (0.5 mL) subcut QWEEK 4 weeks 2 mL 0RF NS E66.9 - Obesity, unspecified, R73.03 - Prediabetes Discontinued phentermine must administer 2 hours after breakfast Discontinued Reason: Doctor's Order 15 mg PO DAILY 30 caps 0RF E66.9 - Obesity, unspecified Coding Level of Care Code Est Pt Level 4 (79741) Diagnoses Class 1 obesity due to excess calories without serious comorbidity with body mass index (BMI) of 30.0 to 30.9 in adult E66.09; Z68.30 Body mass index: BMI 30.0-30.9 Obesity classification: adult class 1 (BMI 30 - 34.9) Obesity type: due to excess calories Serious obesity comorbidity presence: without serious comorbidity Pre-diabetes R73.03 Hypokalemia E87.6 Hyperuricemia E79.0 Essential hypertension I10
[2023-01-04 11:05] VITALS: BP 140/72; PULSE 86; O2SAT 100; BMI 29.4
== END 2023-01-04 11:44 | disposition home or self-care (01) ==
PROVIDERS: PCP Internal Medicine; Visit Provider Internal Medicine
DX: E66.09 Other obesity due to excess calories (principal); Z68.30 Body mass index [BMI] 30.0-30.9, adult; R73.03 Prediabetes; E87.6 Hypokalemia; E79.0 Hyperuricemia without signs of inflammatory arthritis and tophaceous disease; I10 Essential (primary) hypertension
CPT/HCPCS: 99214

== ENCOUNTER 2023-01-27 10:24 | Outpatient (REF) | payer OTHER, SELFPAY ==
[2023-01-27 13:52] LABS: Potassium 3.5 mmol/L (3.3-5.1)
== END 2023-01-27 10:25 | disposition home or self-care (01) ==
LOC: HO.HMGCLDS 10:24
PROVIDERS: PCP Internal Medicine; Visit Provider Internal Medicine
DX: E87.6 Hypokalemia (principal)
CPT/HCPCS: 36415; 84132

== ENCOUNTER 2023-02-01 10:55 | Outpatient (AMB) | payer OTHER, SELFPAY ==
--- NOTE | 2023-02-01 10:58 | AM.OFFWIN_ITS ---
Intake Vital Signs 02/01/23 11:02 Height 5 ft 1 in Weight 160 lb BMI 30.2 BP 140/72 H Blood Pressure Location Rt brachial Position Sitting Pulse 85 Pulse Source Pulse Oximeter Temp 97.1 F Temp Source Temporal Artery Scan Pulse Oximetry (%) 96 Oxygen Delivery Method Room Air Intake Visit Reasons: EP Right eye concern due to recent diag 01/29/23 Intake Note: Pt is here c/o right eye discomfort. Pt states she was diagnosed with moreno's palsy at the emergency room on 01/29/23. Patient Tobacco Use Status: Never used Tobacco Allergies adhesive [ADHESIVE] Allergy (Intermediate, Verified 02/01/23 10:59) ITCHING FRUIT, SKINS Allergy (Severe, Uncoded 02/01/23 10:59) THROAT CLOSES Do you need a note to return to daycare/school/sports/work: No HPI HPI Comments History of Present Illness Details 57-year-old female recently diagnosed with Moreno's palsy presents for concern of worsening symptoms. States it feels like eyelid is drooping more was told of her vision changes to come be seen again. [facility] Medical History (Updated 01/09/23 @ 15:54 by Jacqueline De Leon MD) Pre-diabetes History of iron deficiency anemia Annual visit for general adult medical examination with abnormal findings Environmental and seasonal allergies Obesity JASON on CPAP Lactose intolerance Hyperuricemia Essential hypertension Uterine fibroid Surgical History S/P thyroid biopsy History of appendectomy Hx of left breast biopsy Hx of colonoscopy History of repair of right rotator cuff S/P removal of left ovary Family History Father HTN (hypertension) Heart disease Emphysema of lung Mother HTN (hypertension) Dementia Seizure Family/Other HTN (hypertension) Cancer Social History Housing: House Alcohol intake: current Alcohol intake frequency: does not drink Patient Tobacco Use Status: Never used Tobacco e-Cigarette/Vaping Use: Never Used Second Hand Smoke Exposure: No service: No Current occupational status: employed 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 Gender identity: Female Cognitive needs: No Hearing needs: No Vision needs: Yes Review of Systems Eyes Details: Excessive tearing and droopy eyelid Physical Exam Vital Signs: Last Vital Signs Temp 97.1 F 02/01/23 11:02 Pulse 85 02/01/23 11:02 BP 140/72 H 02/01/23 11:02 Pulse Ox 96 02/01/23 11:02 Oxygen Delivery Method Room Air 02/01/23 11:02 BMI result Body Mass Index 30.2 Const General: cooperative, healthy appearing, no acute distress and alert Orientation/consciousness: patient oriented x3 Limitations: no limitations HEENT Head: Yes normal to inspection Ears: hearing grossly normal bilaterally General nose exam: Normal external nose present Resp Effort & Inspection: normal respiratory effort and able to speak in complete sentences Cardio Rate: regular rate Skin General skin exam: no rashes or lesions noted Neuro General: patient oriented x3 Extrem General: Yes normal to inspection Assessment & Plan Assessment & Plan (1) Moreno's palsy: Code(s): G51.0 - Moreno's palsy Plan: VSs. Discussed and counseled with patient that the concern is for actual visual changes such as corneal abrasions or ulcerations due to dry eyes. Some form of eyelid drooping is expected. Discuss with patient if her vision should change she should present to the emergency department where they have access to further tools to assess her eye better. Discharge instructions, follow up and treatment are discussed with patient in my usual fashion. Alternatives in treatment are also discussed. The patient will return for worsening symptoms or as needed. Advised that any labs/imaging ordered will be followed up on and contact made if further treatment needed. Counseled that patient's condition may require further evaluation and/or treatment. Symptoms of concern for worsening disorder discussed in detail in my customary manner. Patient does verbalize understanding of the plan, there are no apparent barriers to communication. The patient is given the opportunity to ask questions and have them answered to his/her satisfaction Coding Level of Care Code Est Pt Level 3 (08818) Diagnoses Moreno's palsy G51.0
[2023-02-01 11:02] VITALS: BP 140/72; PULSE 85; TEMP 36.2; O2SAT 96; BMI 30.2
== END 2023-02-01 11:16 | disposition home or self-care (01) ==
PROVIDERS: PCP Internal Medicine; Visit Provider Physician Assistant
DX: G51.0 Bell's palsy (principal)
CPT/HCPCS: 99213

== ENCOUNTER 2023-02-15 13:36 | Outpatient (AMB) | payer OTHER, SELFPAY ==
--- NOTE | 2023-02-15 14:15 | MHC.PC.OV ---
Vital Signs 02/15/23 14:16 Height 5 ft 1 in Weight 162 lb 4 oz BMI 30.7 BP 160/88 H Blood Pressure Location Lt brachial Position Sitting Pulse 87 Pulse Source Pulse Oximeter Pulse Oximetry (%) 98 Oxygen Delivery Method Room Air Intake Visit Reasons: 4W follow up Intake Note: pt is here for 4 week follow up for wegovy but pt has not been able to get it pt potassium level has been off and she was Dx with Moreno's Palsy Allergies adhesive [ADHESIVE] Allergy (Intermediate, Verified 03/29/23 09:36) ITCHING FRUIT, SKINS Allergy (Severe, Uncoded 03/29/23 09:36) THROAT CLOSES Medication List - Last Reconciled 02/15/23 by Jacqueline De Leon MD allopurinol 100 mg PO DAILY cholecalciferol (vitamin D3) 50 mcg PO DAILY ferrous sulfate 325 mg PO DAILY Tobacco use date assessed: 02/15/23 Dental Screening Dental Screen Date: 02/15/23 Did you have a dental visit in the last 12 months?: Yes Did you have a dental problem in the last 6 months where you did not have access to dental care?: No Was dental information given to patient?: Patient has dentist HPI 4W follow up HPI Details 57-year-old lady with obesity, who prescribed every go very on last visit but was unable to get prescription filled. She however has been trying to lose weight through avoidance of lot of carbohydrates in her diet, and has been trying to get regular exercise. She also recently developed Moreno's palsy, currently slowly resolving. Blood pressure noted to be elevated on this visit. Denies any accompanying chest pain no headache no lightheadedness, shortness of breath or chest pressure. No antihypertensive medications taken at this time. [facility] Medical History History of Moreno's palsy Pre-diabetes History of iron deficiency anemia Annual visit for general adult medical examination with abnormal findings Environmental and seasonal allergies Obesity JASON on CPAP Lactose intolerance Hyperuricemia Essential hypertension Uterine fibroid Surgical History S/P thyroid biopsy History of appendectomy Hx of left breast biopsy Hx of colonoscopy History of repair of right rotator cuff S/P removal of left ovary Family History Father HTN (hypertension) Heart disease Emphysema of lung Mother HTN (hypertension) Dementia Seizure Family/Other HTN (hypertension) Cancer Social History Housing: House Alcohol intake: current Alcohol intake frequency: does not drink Patient Tobacco Use Status: Never used Tobacco e-Cigarette/Vaping Use: Never Used Second Hand Smoke Exposure: No service: No Current occupational status: employed 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 Garth Youssef, Maria Isabel Beckman, Jose Farley and colleagues, with an educational yahaira from [employer]. Review of Systems Const Denies body aches, Denies fatigue, Denies headache(s) and Denies weakness Eyes Denies change in vision, Denies irritation, Denies itchy eyes and Denies eye pain ENT Denies dizziness, Denies otalgia, Denies facial pain, Denies headache(s) and Denies disequilibrium Card Denies chest pain, Denies lightheadedness, Denies palpitations and Denies dyspnea Resp Denies cough and Denies dyspnea GI Denies abdominal pain and Denies change in bowel habits Reports no additional complaints Neuro Denies dizziness, Denies headache(s), Denies disequilibrium and Denies weakness Endo Denies fatigue, Denies polydipsia, Denies polyuria and Denies palpitations Aller/Immun Denies itchy eyes and Denies seasonal rhinorrhea Physical exam (Primary Care) Vital Signs: Last Vital Signs Pulse 87 02/15/23 14:16 BP 160/88 H 02/15/23 14:16 Pulse Ox 98 02/15/23 14:16 Oxygen Delivery Method Room Air 02/15/23 14:16 BMI result Body Mass Index 30.7 Tobacco/Smoking Status: Tobacco use Status Tobacco use date assessed 02/15/23 02/15/23 14:23 Patient Tobacco Use Status Never used Tobacco 02/15/23 14:17 e-Cigarette/Vaping Use Never Used 02/15/23 14:17 Thrive Assessment: Date of Thrive Assessment Date Thrive assessed 12/06/22 02/15/23 14:17 Const General: no acute distress, alert and awake Nutritional Appearance: obese Orientation/consciousness: patient oriented x3 HENWY Head: Yes normocephalic Ears: external ears normal General nose exam: Normal external nose present Face and sinus: Yes face symmetric Mouth: Normal oral and palatal mucosa present, oropharynx normal and moist mucous membranes Eyes Other: Slight drooping of right upper lid, Alignment and Position: alignment normal and position normal Conjunctivae: conjunctivae normal Sclerae: sclerae normal Pupils: Equal, round and reactive pupils present EOM: EOMs intact bilaterally Neck Other: Supple with no lymphadenopathy, full range of motion Resp Effort & Inspection: normal respiratory effort and able to speak in complete sentences Auscultation: clear to auscultation bilaterally Cardio Rate: regular rate Rhythm: regular rhythm Heart sounds: S1 normal heart sound present and S2 normal heart sound present GI Inspection: Yes obesity Palpation (GI): Soft to palpation, nontender, no guarding and no masses Auscultation: normal bowel sounds Back/Spine/Pelvis Back: No back tenderness Neuro General: patient oriented x3, tone normal, moves all extremities, Normal light touch and pain sensation, no focal motor deficits and CN's II-XI intact bilaterally Cranial nerves: Yes Equal, round and reactive pupils present Extrem General: Yes full ROM, Yes no joint enlargement, Yes no clubbing, cyanosis or edema, Yes no calf tenderness and Yes normal gait Assessment and Plan Assessment & Plan (1) History of Moreno's palsy: Code(s): Z86.69 - Personal history of other diseases of the nervous system and sense organs Plan: Symptoms slowly resolving, patient with no limitations in visual field (2) Essential hypertension: Code(s): I10 - Essential (primary) hypertension Plan: Systolic Blood pressure elevated. Will start on hydrochlorothiazide 25 mg per tablet to take once a day in a.m.. Blood pressure goal is less than 130/80. Reinforced importance of following a low sodium diet, getting regular exercise, and lowering stress levels. Return to the clinic in a month for blood pressure follow-up Medications: New hydrochlorothiazide 25 mg PO QAM 30 tabs 0RF Refilled potassium chloride ER 10 mEq PO DAILY 30 caps 0RF Coding Level of Care Code Est Pt Level 3 (13535) Diagnoses History of Moreno's palsy Z86.69 Essential hypertension I10
[2023-02-15 14:16] VITALS: BP 160/88; PULSE 87; O2SAT 98; BMI 30.7
== END 2023-02-15 14:37 | disposition home or self-care (01) ==
PROVIDERS: PCP Internal Medicine; Visit Provider Internal Medicine
DX: Z86.69 Personal history of other diseases of the nervous system and sense organs (principal); I10 Essential (primary) hypertension
CPT/HCPCS: 99213; 99499

== ENCOUNTER 2023-03-29 08:32 | Outpatient (AMB) | payer OTHER, SELFPAY ==
[2023-03-29 08:50] VITALS: BP 138/82; PULSE 80; O2SAT 95; BMI 30.5
--- NOTE | 2023-03-29 08:50 | MHC.PC.OV ---
Vital Signs 03/29/23 08:50 Height 5 ft 1 in Weight 161 lb 6 oz BMI 30.5 BP 138/82 Blood Pressure Location Lt brachial Position Sitting Pulse 80 Pulse Source Pulse Oximeter Pulse Oximetry (%) 95 Oxygen Delivery Method Room Air Intake Visit Reasons: BP Check per Dr. De Leon Allergies adhesive [ADHESIVE] Allergy (Intermediate, Verified 03/29/23 09:36) ITCHING FRUIT, SKINS Allergy (Severe, Uncoded 03/29/23 09:36) THROAT CLOSES Medication List - Last Reconciled 03/29/23 by Jacqueline De Leon MD allopurinol 100 mg PO DAILY cholecalciferol (vitamin D3) 50 mcg PO DAILY ferrous sulfate 325 mg PO DAILY hydrochlorothiazide 25 mg PO QAM potassium chloride ER 10 mEq PO DAILY Tobacco use date assessed: 03/29/23 Dental Screening Dental Screen Date: 03/29/23 Did you have a dental visit in the last 12 months?: Yes Did you have a dental problem in the last 6 months where you did not have access to dental care?: No Was dental information given to patient?: Patient has dentist HPI BP Check per Dr. De Leon HPI Details 57-year-old lady with hypertension, here today for follow-up on her blood pressure. She is currently taking hydrochlorothiazide 25 mg mg tablet taken once in the morning, and has been staying away from salty food and meat products. Has been feeling well, with no complaints at present time. Systolic Blood pressure however remains slightly elevated still above normal range, but lower than previous blood pressure readings. [facility] Medical History History of Moreno's palsy Pre-diabetes History of iron deficiency anemia Annual visit for general adult medical examination with abnormal findings Environmental and seasonal allergies Obesity JASON on CPAP Lactose intolerance Hyperuricemia Essential hypertension Uterine fibroid Surgical History S/P thyroid biopsy History of appendectomy Hx of left breast biopsy Hx of colonoscopy History of repair of right rotator cuff S/P removal of left ovary Family History Father HTN (hypertension) Heart disease Emphysema of lung Mother HTN (hypertension) Dementia Seizure Family/Other HTN (hypertension) Cancer Social History Housing: House Alcohol intake: current Alcohol intake frequency: does not drink Patient Tobacco Use Status: Never used Tobacco e-Cigarette/Vaping Use: Never Used Second Hand Smoke Exposure: No service: No Current occupational status: employed 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 Garth Youssef, Maria Isabel Beckman, Jose Farley and colleagues, with an educational yahaira from [employer]. Review of Systems Const Denies headache(s) and Denies weakness ENT Denies dizziness, Denies headache(s) and Denies disequilibrium Card Denies chest pain, Denies lightheadedness and Denies dyspnea Resp Denies cough and Denies dyspnea GI Denies abdominal pain and Denies change in bowel habits Neuro Denies dizziness, Denies headache(s), Denies disequilibrium and Denies weakness Aller/Immun Denies seasonal rhinorrhea Physical exam (Primary Care) Vital Signs: Last Vital Signs Pulse 80 03/29/23 08:50 BP 138/82 03/29/23 08:50 Pulse Ox 95 03/29/23 08:50 Oxygen Delivery Method Room Air 03/29/23 08:50 BMI result Body Mass Index 30.5 Tobacco/Smoking Status: Tobacco use Status Tobacco use date assessed 03/29/23 03/29/23 09:01 Patient Tobacco Use Status Never used Tobacco 03/29/23 08:50 e-Cigarette/Vaping Use Never Used 03/29/23 08:50 Thrive Assessment: Date of Thrive Assessment Date Thrive assessed 12/06/22 03/29/23 08:50 Const General: no acute distress, alert, awake and Physically active Nutritional Appearance: obese Orientation/consciousness: patient oriented x3 HENMT Head: Yes normocephalic Ears: external ears normal General nose exam: Normal external nose present Face and sinus: Yes face symmetric Mouth: Normal oral and palatal mucosa present, oropharynx normal and moist mucous membranes Eyes General: appearance normal, both eyes and all related structures Neck Other: Supple with no lymphadenopathy, full range of motion Resp Effort & Inspection: normal respiratory effort and able to speak in complete sentences Auscultation: clear to auscultation bilaterally Cardio Rate: regular rate Rhythm: regular rhythm Heart sounds: S1 normal heart sound present and S2 normal heart sound present GI Inspection: Yes obesity Palpation (GI): Soft to palpation, nontender, no guarding and no masses Auscultation: normal bowel sounds Back/Spine/Pelvis Back: No back tenderness Neuro General: patient oriented x3, tone normal, moves all extremities, Normal light touch and pain sensation, no focal motor deficits and CN's II-XI intact bilaterally Extrem General: Yes full ROM, Yes no joint enlargement, Yes no clubbing, cyanosis or edema, Yes no calf tenderness and Yes normal gait Assessment and Plan Assessment & Plan (1) Essential hypertension: Code(s): I10 - Essential (primary) hypertension Plan: Blood pressure not at goal of less than 130/80. Stopped hydrochlorothiazide, and switched to lisinopril-HCTZ at 10-12.5 mg per tablet taken once a day in a.m.. Reinforced importance of following a low sodium diet, getting regular exercise, and lowering stress levels. Medications: New lisinopril-hydrochlorothiazide 10-12.5 mg 1 tab PO DAILY 30 tabs 1RF Coding Level of Care Code Est Pt Level 3 (82202) Diagnoses Essential hypertension I10
== END 2023-03-29 09:53 | disposition home or self-care (01) ==
PROVIDERS: PCP Internal Medicine; Visit Provider Internal Medicine
DX: I10 Essential (primary) hypertension (principal)
CPT/HCPCS: 99213

== ENCOUNTER 2023-04-13 08:39 | Outpatient (AMB) | payer OTHER, SELFPAY ==
--- NOTE | 2023-04-13 08:41 | A.OFFVIS_ITS ---
Intake Intake Visit Reasons: ov- right knee 03/30/22 NE Intake Note: Barby is a 57 year old female who presents today for a follow up of her right knee. History of Right Knee Arthroscopy 03/30/2022. Patient reports that her pain has worsened about 3 weeks ago, denies injury. Pain dilshad felt on the medial aspect of the knee, pain was felt on and off with no particular triggers. She epxlains that the pain has improved today. Allergies adhesive [ADHESIVE] Allergy (Intermediate, Verified 03/29/23 09:36) ITCHING FRUIT, SKINS Allergy (Severe, Uncoded 03/29/23 09:36) THROAT CLOSES HPI ov- right knee 03/30/22 NE HPI Details Barby is a 57 year old woman who presents with complaints of right knee pain. She is ~1 year S/P right knee chondroplasty with partial medial meniscectomy and plica resection. She complains of pain primarily in the medial aspect of her knee, which she says began ~3 weeks ago. She denies any falls or known injury and cannot identify what triggers her pain, just that it is intermittent. She did pretty well after surgery but over the last several months has been having worsening pain. She still active in the pain does not prevent her from doing things but it certainly decreases her enjoyment of daily activities. [facility] Medical History (Updated 04/13/23 @ 10:24 by Joseluis Sweet MD) History of Moreno's palsy Pre-diabetes History of iron deficiency anemia Annual visit for general adult medical examination with abnormal findings Environmental and seasonal allergies Obesity JASON on CPAP Lactose intolerance Hyperuricemia Essential hypertension Uterine fibroid Surgical History S/P thyroid biopsy History of appendectomy Hx of left breast biopsy Hx of colonoscopy History of repair of right rotator cuff S/P removal of left ovary Family History Father HTN (hypertension) Heart disease Emphysema of lung Mother HTN (hypertension) Dementia Seizure Family/Other HTN (hypertension) Cancer Social History Housing: House Alcohol intake: current Alcohol intake frequency: does not drink Patient Tobacco Use Status: Never used Tobacco e-Cigarette/Vaping Use: Never Used Second Hand Smoke Exposure: No service: No Current occupational status: employed 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 Gender identity: Female Cognitive needs: No Hearing needs: No Vision needs: Yes Review of Systems Const All systems reviewed & are unremarkable except as noted in HPI and below Physical Exam Const General: no acute distress, alert and awake Orientation/consciousness: patient oriented x3 HEENT Head: Yes normocephalic and Yes atraumatic Eyes EOM: EOMs intact bilaterally Resp Effort & Inspection: normal respiratory effort and able to speak in complete sentences Cardio Jugular venous distension: no JVD Skin General skin exam: turgor normal Rashes: no rashes Neuro General: patient oriented x3 Extrem Other: No effusion Full range of motion Tenderness to palpation medial joint line 1+ varus instability Psych Appearance: grossly normal Affect: normal affect Attitude: cooperative Office Procedures Joint Injection/Drain Joint Injection/Drain Details: Injected 1 mL of Decadron and 3 mL 1% lidocaine and 3 mL of 0.25% Marcaine. Site was prepped using aseptic technique. Patient tolerated the procedure well. Primary Site: right knee Approach Used: anterolateral Coding - Large joint Procedure code (CPT) selection complete Assessment & Plan Assessment & Plan (1) Arthritis of right knee: Code(s): M17.11 - Unilateral primary osteoarthritis, right knee Plan: This is a 57-year-old woman with right knee osteoarthritis. She is active. She had meniscal surgery a year ago in which grade 3/4 changes of the medial compar tment were identified. We discussed this. I injected her knee with cortisone today. I ordered an unloading brace. She will see me in 3 months. Plan Scribed for Joseluis Sweet MD by Kirill Madera, medical administrative technician, on 04/13/23 at 8:45 AM, EST. Coding Level of Care Code Est Pt Level 3 (40528) Diagnoses Arthritis of right knee M17.11 CPT Codes Coding - Large joint: 98408 - Large joint ([id number])
== END 2023-04-13 09:26 | disposition home or self-care (01) ==
PROVIDERS: PCP Internal Medicine; Visit Provider Orthopaedic Surgery
DX: M17.11 Unilateral primary osteoarthritis, right knee (principal)
CPT/HCPCS: 20610; 99213

== ENCOUNTER → 2023-04-13 08:39 | Outpatient (BNVA) | payer OTHER, SELFPAY | PROVIDERS: PCP Internal Medicine; Visit Provider Orthopaedic Surgery | DX: M17.11 Unilateral primary osteoarthritis, right knee (principal) | CPT/HCPCS: 20610; 99212; J0665; J1100 ==

== ENCOUNTER 2023-06-17 08:21 | Outpatient (REF) | payer OTHER, SELFPAY ==
[2023-06-17 12:37] LABS: Alanine Aminotransferase 16 U/L (0-31); Anion Gap 15 (12-20); Aspartate Amino Transferase 13 U/L (5-31); Blood Urea Nitrogen 10 mg/dL (9-16); Calcium 9.2 mg/dL (8.4-10.2); Carbon Dioxide 30 mmol/L (22-29); Chloride 103 mmol/L (96-108); Cholesterol 193 mg/dL (<200); Estimated Glomerular Filt Rate > 60; Glucose Fasting 94 mg/dL (60-99); HDL Cholesterol 64 mg/dL (>40); LDL Cholesterol Calculated 110 mg/dL (<100); Potassium 3.9 mmol/L (3.3-5.1); Sodium 144 mmol/L (135-145); Triglycerides 99 mg/dL (<150); Uric Acid 6.1 mg/dL (2.4-5.7)
[2023-06-17 12:53] LABS: Vitamin D 25-OH Total 80.1 ng/mL (>30)
== END 2023-06-17 08:22 | disposition home or self-care (01) ==
LOC: HO.HMGCLDS 08:21
PROVIDERS: PCP Internal Medicine; Visit Provider Internal Medicine
DX: R73.03 Prediabetes (principal); E66.09 Other obesity due to excess calories; E79.0 Hyperuricemia without signs of inflammatory arthritis and tophaceous disease; I10 Essential (primary) hypertension; Z68.30 Body mass index [BMI] 30.0-30.9, adult; Z78.0 Asymptomatic menopausal state
CPT/HCPCS: 36415; 80048; 80061; 82306; 84450; 84460; 84550

== ENCOUNTER 2023-06-20 11:29 | Outpatient (AMB) | payer OTHER, SELFPAY ==
[2023-06-20 11:35] VITALS: BP 114/64; PULSE 91; O2SAT 97; BMI 31.4
--- NOTE | 2023-06-20 11:35 | MHC.PC.OV ---
Vital Signs 06/20/23 11:35 Height 5 ft 1 in Weight 166 lb BMI 31.4 BP 114/64 Blood Pressure Location Lt brachial Position Sitting Pulse 91 Pulse Source Pulse Oximeter Pulse Oximetry (%) 97 Oxygen Delivery Method Room Air Intake Visit Reasons: 3 month follow up Intake Note: Pt is here today for her 3 months f/u Allergies adhesive [ADHESIVE] Allergy (Intermediate, Verified 06/20/23 13:27) ITCHING FRUIT, SKINS Allergy (Severe, Uncoded 06/20/23 13:27) THROAT CLOSES Medication List - Last Reconciled 06/20/23 by Jacqueline De Leon MD allopurinol 300 mg PO DAILY cephalexin 500 mg PO Q12H cholecalciferol (vitamin D3) 50 mcg PO DAILY lisinopril-hydrochlorothiazide 10-12.5 mg 1 tab PO DAILY montelukast 10 mg PO DAILY Tobacco use date assessed: 06/20/23 Dental Screening Dental Screen Date: 06/20/23 Did you have a dental visit in the last 12 months?: Yes Did you have a dental problem in the last 6 months where you did not have access to dental care?: No Was dental information given to patient?: Patient has dentist HPI 3 month follow up HPI Details 57-year-old lady with history of obstructive sleep apnea , obesity, osteoarthritis, followed by Dr. Sweet, here today for follow-up on her hypertension and hyperuricemia. She has been compliant with her medications, but admits to not frequently non compliance with diet, admits to eating a lot of [place] food, she goes to the gym for exercise but has not been able to do much due to osteoarthritis in her right knee. She has already received cortisone injection in her right knee as well as physical therapy by Dr. Sweet with not much improvement, now was given a brace to wear for added support. Complains of a burning pain with rash on her lower abdomen which started 2 days ago. She also has been complaining of frequent nasal congestion and postnasal drainage present now for the last several weeks. She has been taking Claritin D 12 hour tablets which affords temporary relief. [facility] Medical History (Updated 06/20/23 @ 13:35 by Jacqueline De Leon MD) Cellulitis History of Moreno's palsy Pre-diabetes History of iron deficiency anemia Environmental and seasonal allergies Obesity JASON on CPAP Lactose intolerance Hyperuricemia Essential hypertension Uterine fibroid Surgical History S/P thyroid biopsy History of appendectomy Hx of left breast biopsy Hx of colonoscopy History of repair of right rotator cuff S/P removal of left ovary Family History Father HTN (hypertension) Heart disease Emphysema of lung Mother HTN (hypertension) Dementia Seizure Family/Other HTN (hypertension) Cancer Social History Housing: House Alcohol intake: current Alcohol intake frequency: does not drink Patient Tobacco Use Status: Never used Tobacco e-Cigarette/Vaping Use: Never Used Second Hand Smoke Exposure: No service: No Current occupational status: employed 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 1. Little interest or pleasure in doing things: not at all 2. Feeling down, depressed, or hopeless: not at all 3. Trouble falling or staying asleep, or sleeping too much: several days 4. Feeling tired or having little energy: several days 5. Poor appetite or overeating: not at all 6. Feeling bad about yourself - or that you are a failure or have let yourself or your family down: not at all 7. Trouble concentrating on things, such as reading the newspaper or watching television: not at all 8. Moving or speaking so slowly that other people could have noticed. Or the opposite - being so fidgety or restless that you have been moving around a lot more than usual: not at all 9. Thoughts that you would be better off or of hurting yourself in some way: not at all Total score: 2 Depression Screening Interpretation: Negative Depression Screening Done: Yes 74498 - PHQ-9 Billing: Yes Source: Developed by Drs. Garth Youssef, Maria Isabel Beckman, Jose Farley and colleagues, with an educational yahaira from [employer]. Thrive Questionnaire Date Thrive assessed: 06/20/23 I am a: Patient What is your living situation today?: I have a steady place to live Within the past 12 months, did the food you bought not last and you didn't have the money to get more?: Never true Within the past 12 months, did you worry whether your food would run out before you got money to buy more?: Never true Do you have trouble paying for medicines?: No Do you have trouble getting transportation to medical appointments?: No Do you have trouble paying your heating and electricity bill?: No Do you have trouble taking care of your child, family member or friend?: No Do you have trouble with day-to-day activities such as bathing, preparing meals, shopping, managing finances, etc.?: No Are you currently unemployed and looking for a job?: No Are you interested in more education?: No Please select the resources that you would like help with: Food THRIVE Score: 0 AUDIT C Alcohol Use Questionnaire (AUDIT-C) 1. How often do you have a drink containing alcohol?: Monthly or less 2. How many drinks containing alcohol do you have on a typical day when you are drinking?: 1 or 2 3. How often do you have six or more drinks on one occasion?: Never Total Score: 1 MERCEDEZ-7 AMB Questionnaire MERCEDEZ-7 Date MERCEDEZ - 7 assessed: 06/20/23 Feeling nervous, anxious, or on edge: 0 = Not at all Not being able to stop or control worryin = Not at all Worrying too much about different things: 0 = Not at all Trouble relaxin = Several days Being so restless that it is hard to sit still: 0 = Not at all Becoming easily annoyed or irritable: 1 = Several days Feeling afraid as if something awful might happen: 0 = Not at all Total MERCEDEZ-7 score (0-4 normal; 5-9 mild; 10-14 moderate; 15-21 severe): 2 Source: Developed by Drs. Garth Youssef, Maria Isabel Beckman, Jose Farley and colleagues, with an educational yahaira from [employer]. MERCEDEZ-7 Assessment Billing MERCEDEZ-7 Assessment Tool: MERCEDEZ-7 Assessment 48409 Review of Systems Const Denies headache(s) and Denies weakness ENT Denies dizziness, Denies headache(s) and Denies disequilibrium Card Denies chest pain, Denies lightheadedness and Denies dyspnea Resp Denies cough, Denies dyspnea and Denies wheezing GI Denies abdominal pain and Denies change in bowel habits Reports no additional complaints Musc Reports as per HPI Neuro Denies dizziness, Denies headache(s), Denies disequilibrium and Denies weakness Endo Reports no additional complaints Aller/Immun Reports seasonal rhinorrhea and Denies wheezing Physical exam (Primary Care) Vital Signs: Last Vital Signs Pulse 91 06/20/23 11:35 BP 114/64 06/20/23 11:35 Pulse Ox 97 06/20/23 11:35 Oxygen Delivery Method Room Air 06/20/23 11:35 BMI result Body Mass Index 31.4 Tobacco/Smoking Status: Tobacco use Status Tobacco use date assessed 06/20/23 06/20/23 11:39 Patient Tobacco Use Status Never used Tobacco 06/20/23 11:39 e-Cigarette/Vaping Use Never Used 06/20/23 11:39 PHQ-9: PHQ-9 Score PHQ-9: Total score 3 06/20/23 12:02 Depression Screening Interpretation: Negative Thrive Assessment: Date of Thrive Assessment Date Thrive assessed 06/20/23 06/20/23 11:42 Const General: no acute distress, alert and awake Nutritional Appearance: obese Orientation/consciousness: patient oriented x3 HENMT Head: Yes normocephalic Ears: external ears normal General nose exam: Normal external nose present Face and sinus: Yes face symmetric Mouth: Normal oral and palatal mucosa present, oropharynx normal and moist mucous membranes Eyes General: appearance normal, both eyes and all related structures Neck Other: Supple with no lymphadenopathy, full range of motion Resp Effort & Inspection: normal respiratory effort and able to speak in complete sentences Auscultation: clear to auscultation bilaterally Cardio Rate: regular rate Rhythm: regular rhythm Heart sounds: S1 normal heart sound present and S2 normal heart sound present GI Inspection: Yes obesity Palpation (GI): Soft to palpation, nontender, no guarding and no masses Auscultation: normal bowel sounds Back/Spine/Pelvis Back: No back tenderness Neuro General: patient oriented x3, tone normal, moves all extremities, Normal light touch and pain sensation, no focal motor deficits and CN's II-XI intact bilaterally Extrem General: Yes full ROM, Yes no joint enlargement, Yes no clubbing, cyanosis or edema, Yes no calf tenderness and Yes normal gait Results Reviewed Results Reviewed: cct#: [id number] Unit#: [id number] Attend Dr: Jacqueline De Leon MD Re06/17/23 Status: DEP REF Location: [facility] Disch: SPEC : [id number] DAIN: 06/17/23 STATUS: COMP REQ : [id number] RECD: 06/17/23-[address]: Jacqueline De Leon MD COMP: 06/17/23-1252 ENTERED: 06/17/23-[address] [facility] [address]: ORDERED: Met Prof Fast, Uric, AST, ALT, Lipid Panel, Vitamin D 25-OH Test Result Flag Reference Sodium 144 135-145 mmol/L Potassium 3.9 3.3-5.1 mmol/L CL 103 96-108 mmol/L CO2 30 H 22-29 mmol/L Gap 15 12-20 BUN 10 9-16 mg/dL Creat 0.59 0.5-1.4 mg/dL EGFR > 60 NOTE: For -[place]rist[place] individuals, multiply the result by 1.210. Chronic Kidney Disease: Estimated GFR < 60 mL/min/1.73m2 Severe Kidney Disease: Estimated GFR < 15 mL/min/1.73m2 FBS 94 60-99 mg/dL Uric Acid 6.1 H 2.4-5.7 mg/dL CA 9.2 8.4-10.2 mg/dL AST (GOT) 13 5-31 U/L ALT (GPT) 16 0-31 U/L Triglyceride 99 <150 mg/dL Desirable Triglyceride: less than 150 mg/dL Borderline High Triglyceride 150-199 mg/dL High Triglyceride: 200-499 mg/dL Very High Triglyceride: greater than or equal to 5OO mg/dL Cholesterol 193 <200 mg/dL Desirable Cholesterol: less than 200 mg/dL Borderline High Cholesterol: 200-239 mg/dL High Cholesterol: greater than 239 mg/dL LDL Calculated 110 H <100 mg/dL Desirable LDL: less than 100 mg/dL Near Optimal/Above Optimal LDL: 110-129 mg/dL Borderline High LDL: 130-159 mg/dL High LDL: 160-189 mg/dL Very High LDL: greater than or equal to 190 mg/dL HDL 64 >40 mg/dL Desirable HDL: greater than 40 mg/dL Note: This HDL assay may give artificially low results in patients with liver disease. Vit D 25-OH Tot 80.1 >30 ng/mL Health Based Reference Values* < 20 ng/mL Deficient 20-30 ng/mL Insufficient > 30 ng/mL Sufficient Assessment and Plan Assessment & Plan (1) Cellulitis: Code(s): L03.90 - Cellulitis, unspecified Qualifiers: Site of cellulitis: trunk Site of cellulitis of trunk: umbilicus Qualified Code(s): L03.316 - Cellulitis of umbilicus Plan: Started on cephalexin 500 mg per capsule to take 1 every 12 hours for 10 days. Advised to call if symptoms unresolved after completion of antibiotic. (2) Environmental and seasonal allergies: Code(s): J30.89 - Other allergic rhinitis Plan: Will start on montelukast 10 mg per tablet to take once a day in a.m.. Avoid taking Claritin D for a long time as it can raise blood pressure may just continue taking [id number]-ifybbis Claritin 10 mg tablet once a day. Advised to do saline nasal washes to flush out allergen (3) Obesity: Code(s): E66.9 - Obesity, unspecified Qualifiers: Obesity type: due to excess calories Obesity classification: adult class 1 (BMI 30 - 34.9) Serious obesity comorbidity presence: without serious comorbidity Body mass index: BMI 30.0-30.9 Qualified Code(s): E66.09 - Other obesity due to excess calories; Z68.30 - Body mass index [BMI] 30.0-30.9, adult Plan: Try eating a Mediterranean diet, limit foods high in fat, sugar, and calories, eat slowly, pay attention to portion sizes, plan your meals ahead of time, start regular physical activity 150 minutes of moderate intensity exercise or 90 minutes/week of vigorous exercise and increase water intake. (4) Hyperuricemia: Code(s): E79.0 - Hyperuricemia without signs of inflammatory arthritis and tophaceous disease Plan: Serum uric acid still mildly elevated at 6.1, will increase allopurinol dose to 300 mg taken once a day. (5) Essential hypertension: Code(s): I10 - Essential (primary) hypertension Plan: Blood pressure at goal of less than 130/80. Continue with lisinopril-HCTZ 10-12.5 mg tablet taken once daily in a.m.. Reinforced importance of following a low sodium diet, getting regular exercise, and lowering stress levels. Medications: New cephalexin 500 mg PO Q12H 20 caps 0RF L03.90 - Cellulitis, unspecified montelukast 10 mg PO DAILY 90 tabs 1RF Changed From allopurinol 100 mg PO DAILY 90 tabs 1RF To allopurinol 300 mg PO DAILY 90 tabs 2RF Coding Level of Care Code Est Pt Level 4 (48329) Diagnoses Cellulitis of umbilicus L03.316 Site of cellulitis: trunk Site of cellulitis of trunk: umbilicus Environmental and seasonal allergies J30.89 Class 1 obesity due to excess calories without serious comorbidity with body mass index (BMI) of 30.0 to 30.9 in adult E66.09; Z68.30 Obesity type: due to excess calories Obesity classification: adult class 1 (BMI 30 - 34.9) Serious obesity comorbidity presence: without serious comorbidity Body mass index: BMI 30.0-30.9 Hyperuricemia E79.0 Essential hypertension I10 Additional Codes MERCEDEZ-7 Assessment Billing - MERCEDEZ-7 Assessment Tool: MERCEDEZ-7 Assessment 26826 ([id number])
== END 2023-06-20 12:32 | disposition home or self-care (01) ==
PROVIDERS: PCP Internal Medicine; Visit Provider Internal Medicine
DX: L03.316 Cellulitis of umbilicus (principal); J30.89 Other allergic rhinitis; E66.09 Other obesity due to excess calories; Z68.30 Body mass index [BMI] 30.0-30.9, adult; E79.0 Hyperuricemia without signs of inflammatory arthritis and tophaceous disease; I10 Essential (primary) hypertension
CPT/HCPCS: 99214

== ENCOUNTER → 2023-07-05 09:23 | Outpatient (BNVA) | payer OTHER, SELFPAY | PROVIDERS: PCP Internal Medicine; Visit Provider Nurse Practitioner Family | DX: G47.33 Obstructive sleep apnea (adult) (pediatric) (principal); Z99.89 Dependence on other enabling machines and devices | CPT/HCPCS: 99212 ==

== ENCOUNTER 2023-07-05 09:25 | Outpatient (AMB) | payer OTHER, SELFPAY ==
--- NOTE | 2023-07-05 09:36 | A.OFFVIS_ITS ---
Intake Vital Signs 07/05/23 09:41 Height 5 ft 1 in Weight 160 lb 8 oz BMI 30.3 BP 122/70 Blood Pressure Location Lt brachial Position Sitting Intake Visit Reasons: 6m f/u JASON - CONF w/address Intake Note: Patient presents for 6 months F/U. wasn't able to record Sp02 and bpm. Allergies adhesive [ADHESIVE] Allergy (Intermediate, Verified 07/05/23 09:40) ITCHING FRUIT, SKINS Allergy (Severe, Uncoded 06/20/23 13:27) THROAT CLOSES HPI HPI Comments History of Present Illness Details 57 y/o female patient presents for follo w up of JASON on CPAP. The home sleep study result was significant for moderate degree of sleep apnea. The AHI was 18/hr and oxygen beronica was 80%. Pt is on APAP [id number]. The compliance and therapy response report (04/04/23-07/02/23) is available and reviewed. The usage days 62 % and the average usage hours 4 hrs and 40 min. The max pressure was 10.9 and the residual AHI was 1.9/hr. Pt reports she forgets to use CPAP sometimes, but feels better and refreshed in the morning when she uses CPAP. She still wakes up frequently at night. [facility] Medical History (Updated 06/20/23 @ 13:35 by Jacqueline De Leon MD) Cellulitis History of Moreno's palsy Pre-diabetes History of iron deficiency anemia Environmental and seasonal allergies Obesity JASON on CPAP Lactose intolerance Hyperuricemia Essential hypertension Uterine fibroid Surgical History S/P thyroid biopsy History of appendectomy Hx of left breast biopsy Hx of colonoscopy History of repair of right rotator cuff S/P removal of left ovary Family History Father HTN (hypertension) Heart disease Emphysema of lung Mother HTN (hypertension) Dementia Seizure Family/Other HTN (hypertension) Cancer Social History Housing: House Alcohol intake: current Alcohol intake frequency: does not drink Patient Tobacco Use Status: Never used Tobacco e-Cigarette/Vaping Use: Never Used Second Hand Smoke Exposure: No service: No Current occupational status: employed 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 Gender identity: Female Cognitive needs: No Hearing needs: No Vision needs: Yes Review of Systems Const All systems reviewed & are unremarkable except as noted in HPI and below ENT Reports Normal hearing present Neuro Reports Normal hearing present Physical Exam Vital Signs: Last Vital Signs BP 122/70 07/05/23 09:41 BMI result Body Mass Index 30.3 Const General: cooperative Nutritional Appearance: average body habitus Orientation/consciousness: patient oriented x3 Neck Neck: Yes full ROM and Yes supple Resp Effort & Inspection: normal respiratory effort and able to speak in complete sentences Neuro General: patient oriented x3 Cranial nerves: Yes Bilaterally intact EOM present, Yes Normal facial strength present, Yes Midline tongue present, Yes Normal hearing present, Yes Ability to bilaterally rotate head present and Yes Ability to bilaterally elevate shoulders present Cognition (Neuro): normal cognition Gait exam (Neuro): Antalgic gait present Motor exam (neuro): 5/5 motor strength present throughout, Pronator motor function not present and no tremor noted Psych Appearance: grossly normal Mental Status: mental status grossly normal Speech and movement: Normal speech and movement present Affect: normal affect Attitude: cooperative Assessment & Plan Assessment & Plan (1) JASON on CPAP: Comment: previously seen at [facility] sleep clinic 2019 Code(s): G47.33 - Obstructive sleep apnea (adult) (pediatric); Z99.89 - Dependence on other enabling machines and devices Plan Advised patient to continue to use APAP [id number], as patient experiences good clinical effects. Stressed compliance, use CPAP nightly and more than 4 hrs. Advised patient to try melatonin 3 mg and manesium 400 mg qHS for sleep. Continue to practice good sleep hygiene. Coding Level of Care Code Est Pt Level 3 (72535) Diagnoses JASON on CPAP G47.33; Z99.89
[2023-07-05 09:41] VITALS: BP 122/70; BMI 30.3
== END 2023-07-05 10:04 | disposition home or self-care (01) ==
PROVIDERS: PCP Internal Medicine; Visit Provider Nurse Practitioner Family
DX: G47.33 Obstructive sleep apnea (adult) (pediatric) (principal); Z99.89 Dependence on other enabling machines and devices
CPT/HCPCS: 99213

== ENCOUNTER 2023-07-14 09:28 | Outpatient (AMB) | payer OTHER, SELFPAY ==
--- NOTE | 2023-07-14 09:31 | MHC.OFFVIS ---
Intake Vital Signs 07/14/23 09:38 Height 5 ft 1 in Weight 160 lb BMI 30.2 Intake Visit Reasons: OV - Right Knee OA Intake Note: Barby is a 57 year old female who presents today for a follow up of her right knee OA. Hx of Right Knee 03/30/2022. Last injection done 04/13/23. Patient reports she still has discomfort in her right knee, her unloading brace does give her relief but she is only able to wear it for about 4 hours a day due to skin irritation on the posterior aspect of her knee. She states her last injection gave her no relief but does want to try another injection today. Allergies adhesive [ADHESIVE] Allergy (Intermediate, Verified 07/14/23 09:36) ITCHING FRUIT, SKINS Allergy (Severe, Uncoded 06/20/23 13:27) THROAT CLOSES HPI OV - Right Knee OA HPI Details Barby is a 57 year old female who presents today for a follow up of her right knee OA. Hx of Right Knee 03/30/2022. Last injection done 04/13/23. Patient reports she still has discomfort in her right knee, her unloading brace does give her relief but she is only able to wear it for about 4 hours a day due to skin irritation on the posterior aspect of her knee. She states her last injection gave her no relief but does want to try another injection today. [facility] Medical History Cellulitis History of Moreno's palsy Pre-diabetes History of iron deficiency anemia Environmental and seasonal allergies Obesity JASON on CPAP Lactose intolerance Hyperuricemia Essential hypertension Uterine fibroid Surgical History S/P thyroid biopsy History of appendectomy Hx of left breast biopsy Hx of colonoscopy History of repair of right rotator cuff S/P removal of left ovary Family History Father HTN (hypertension) Heart disease Emphysema of lung Mother HTN (hypertension) Dementia Seizure Family/Other HTN (hypertension) Cancer Social History Housing: House Alcohol intake: current Alcohol intake frequency: does not drink Patient Tobacco Use Status: Never used Tobacco e-Cigarette/Vaping Use: Never Used Second Hand Smoke Exposure: No service: No Current occupational status: employed 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 She will get a neoprene sleeve for discomfort under the brace but was given cotton stockinette in the meantime. Follow up once approval for viscosupplementation is received Coding Level of Care Code Est Pt Level 3 (44833) Diagnoses Arthritis of right knee M17.11
[2023-07-14 09:38] VITALS: BMI 30.2
== END 2023-07-14 09:59 | disposition home or self-care (01) ==
PROVIDERS: PCP Internal Medicine; Visit Provider Orthopaedic Surgery
DX: M17.11 Unilateral primary osteoarthritis, right knee (principal)
CPT/HCPCS: 99213

== ENCOUNTER → 2023-07-14 09:28 | Outpatient (BNVA) | payer OTHER, SELFPAY | PROVIDERS: PCP Internal Medicine; Visit Provider Orthopaedic Surgery | DX: M17.11 Unilateral primary osteoarthritis, right knee (principal) | CPT/HCPCS: 99212 ==

== ENCOUNTER 2023-09-11 14:08 | Outpatient (AMB) | payer OTHER, SELFPAY ==
[2023-09-11 14:20] VITALS: BMI 30.2
--- NOTE | 2023-09-11 14:20 | A.OFFVIS_ITS ---
Vital Signs 09/11/23 14:20 Height 5 ft 1 in Weight 160 lb BMI 30.2 Intake Visit Reasons: O/V RT knee Euflexxa #1 Intake Note: Barby is a 57 year old female who presents today for her first right knee Euflexxa injection. Allergies adhesive [ADHESIVE] Allergy (Intermediate, Verified 09/11/23 14:21) ITCHING FRUIT, SKINS Allergy (Severe, Uncoded 06/20/23 13:27) THROAT CLOSES HPI HPI O/V RT knee Euflexxa #1: Details: Barby is a 57 year old female who presents today for her first right knee Euflexxa injection. [facility] Medical History Cellulitis History of Moreno's palsy Pre-diabetes History of iron deficiency anemia Environmental and seasonal allergies Obesity JASON on CPAP Lactose intolerance Hyperuricemia Essential hypertension Uterine fibroid Surgical History S/P thyroid biopsy History of appendectomy Hx of left breast biopsy Hx of colonoscopy History of repair of right rotator cuff S/P removal of left ovary Family History Father HTN (hypertension) Heart disease Emphysema of lung Mother HTN (hypertension) Dementia Seizure Family/Other HTN (hypertension) Cancer Social History Housing: House Alcohol intake: current Alcohol intake frequency: does not drink Patient Tobacco Use Status: Never used Tobacco e-Cigarette/Vaping Use: Never Used Second Hand Smoke Exposure: No service: No Current occupational status: employed 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 Site was prepped using aseptic technique. Patient tolerated the procedure well. Primary Site: right knee Approach Used: anterolateral Coding 11691 - Large joint Procedure code (CPT) selection complete Assessment & Plan Assessment & Plan (1) Arthritis of right knee: Code(s): M17.11 - Unilateral primary osteoarthritis, right knee Category: Medical Plan: Euflexxa#1 Coding Level of Care Code Est Pt Level 2 (79316) Diagnoses Arthritis of right knee M17.11 CPT Codes Coding - 28289 Large joint: 81453 - Large joint ([id number])
== END 2023-09-11 14:31 | disposition home or self-care (01) ==
PROVIDERS: PCP Internal Medicine; Visit Provider Orthopaedic Surgery
DX: M17.11 Unilateral primary osteoarthritis, right knee (principal)
CPT/HCPCS: 20610

== ENCOUNTER → 2023-09-11 14:08 | Outpatient (BNVA) | payer OTHER, SELFPAY | PROVIDERS: PCP Internal Medicine; Visit Provider Orthopaedic Surgery | DX: M17.11 Unilateral primary osteoarthritis, right knee (principal) | CPT/HCPCS: 20610; J7323 ==

== ENCOUNTER 2023-09-18 14:11 | Outpatient (AMB) | payer OTHER, SELFPAY ==
--- NOTE | 2023-09-18 14:16 | A.OFFVIS_ITS ---
Vital Signs 09/18/23 14:17 Height 5 ft 1 in Weight 160 lb BMI 30.2 Intake Visit Reasons: O/V RT knee Euflexxa #2 Intake Note: Barby is a 57 year old female who presents today for her second right knee euflexxa injection. Patient reports the location of the pain has moved from the laterals aspects to the medial aspect of the right knee. Allergies adhesive [ADHESIVE] Allergy (Intermediate, Verified 09/18/23 14:22) ITCHING FRUIT, SKINS Allergy (Severe, Uncoded 09/18/23 14:22) THROAT CLOSES HPI HPI O/V RT knee Euflexxa #2: Details: Barby is a 57 year old female who presents today for her second right knee euflexxa injection. Patient reports the location of the pain has moved from the laterals aspects to the medial aspect of the right knee. [facility] Medical History Cellulitis History of Moreno's palsy Pre-diabetes History of iron deficiency anemia Environmental and seasonal allergies Obesity JASON on CPAP Lactose intolerance Hyperuricemia Essential hypertension Uterine fibroid Surgical History S/P thyroid biopsy History of appendectomy Hx of left breast biopsy Hx of colonoscopy History of repair of right rotator cuff S/P removal of left ovary Family History Father HTN (hypertension) Heart disease Emphysema of lung Mother HTN (hypertension) Dementia Seizure Family/Other HTN (hypertension) Cancer Social History Housing: House Alcohol intake: current Alcohol intake frequency: does not drink Patient Tobacco Use Status: Never used Tobacco e-Cigarette/Vaping Use: Never Used Second Hand Smoke Exposure: No service: No Current occupational status: employed 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 Site was prepped using aseptic technique. Patient tolerated the procedure well. Primary Site: right knee Approach Used: anterolateral Coding 89303 - Large joint Procedure code (CPT) selection complete Assessment & Plan Assessment & Plan (1) Arthritis of right knee: Code(s): M17.11 - Unilateral primary osteoarthritis, right knee Category: Medical Plan: Euflexxa#2 Coding Level of Care Code Est Pt Level 2 (74409) Diagnoses Arthritis of right knee M17.11 CPT Codes Coding - 74591 Large joint: 13469 - Large joint ([id number])
[2023-09-18 14:17] VITALS: BMI 30.2
== END 2023-09-18 14:35 | disposition home or self-care (01) ==
PROVIDERS: PCP Internal Medicine; Visit Provider Orthopaedic Surgery
DX: M17.11 Unilateral primary osteoarthritis, right knee (principal)
CPT/HCPCS: 20610

== ENCOUNTER → 2023-09-18 14:11 | Outpatient (BNVA) | payer OTHER, SELFPAY | PROVIDERS: PCP Internal Medicine; Visit Provider Orthopaedic Surgery | DX: M17.11 Unilateral primary osteoarthritis, right knee (principal) | CPT/HCPCS: 20610; J7323 ==

== ENCOUNTER 2023-09-25 14:02 | Outpatient (AMB) | payer OTHER, SELFPAY ==
[2023-09-25 14:21] VITALS: BMI 30.2
--- NOTE | 2023-09-25 14:21 | MHC.OFFVIS ---
Vital Signs 09/25/23 14:21 Height 5 ft 1 in Weight 160 lb BMI 30.2 Intake Visit Reasons: O/V RT knee Euflexxa #3 Intake Note: Barby is a 57 yr old female who presents today for her RT knee Euflexxa injection. She reports pain in the back of her neck as well and is looking to go to physical therapy. Allergies adhesive [ADHESIVE] Allergy (Intermediate, Verified 09/25/23 14:22) ITCHING FRUIT, SKINS Allergy (Severe, Uncoded 09/25/23 14:22) THROAT CLOSES HPI HPI O/V RT knee Euflexxa #3: Details: No issues since last visit PFSH Medical History Cellulitis History of Moreno's palsy Pre-diabetes History of iron deficiency anemia Environmental and seasonal allergies Obesity JASON on CPAP Lactose intolerance Hyperuricemia Essential hypertension Uterine fibroid Surgical History S/P thyroid biopsy History of appendectomy Hx of left breast biopsy Hx of colonoscopy History of repair of right rotator cuff S/P removal of left ovary Family History Father HTN (hypertension) Heart disease Emphysema of lung Mother HTN (hypertension) Dementia Seizure Family/Other HTN (hypertension) Cancer Social History Housing: House Alcohol intake: current Alcohol intake frequency: does not drink Patient Tobacco Use Status: Never used Tobacco e-Cigarette/Vaping Use: Never Used Second Hand Smoke Exposure: No service: No Current occupational status: employed 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 Site was prepped using aseptic technique. Patient tolerated the procedure well. Primary Site: right knee Approach Used: anterolateral Coding 50875 - Large joint Procedure code (CPT) selection complete Assessment & Plan Assessment & Plan (1) Arthritis of right knee: Code(s): M17.11 - Unilateral primary osteoarthritis, right knee Category: Medical Plan: Injected Euflexxa #3. f.u 3 months Coding Level of Care Code Est Pt Level 2 (23697) Diagnoses Arthritis of right knee M17.11 CPT Codes Coding - 13539 Large joint: 74432 - Large joint ([id number])
== END 2023-09-25 14:46 | disposition home or self-care (01) ==
PROVIDERS: PCP Internal Medicine; Visit Provider Orthopaedic Surgery
DX: M17.11 Unilateral primary osteoarthritis, right knee (principal)
CPT/HCPCS: 20610

== ENCOUNTER → 2023-09-25 14:02 | Outpatient (BNVA) | payer OTHER, SELFPAY | PROVIDERS: PCP Internal Medicine; Visit Provider Orthopaedic Surgery | DX: M17.11 Unilateral primary osteoarthritis, right knee (principal) | CPT/HCPCS: 20610; J7323 ==

== ENCOUNTER 2023-12-11 07:21 | Outpatient (REF) | payer MEDICAID, SELFPAY ==
--- NOTE | ~2023-12-11 | MM_ITS ---
EXAMINATION: MM SCREENING DIGITAL BREAST TOMOSYNTHESIS, BILATERAL CLINICAL INFORMATION: Screening. Asymptomatic. COMPARISON: Mammography: Comparison is made with available priors TECHNIQUE: Digital breast mammography with tomosynthesis is performed in both the craniocaudal and mediolateral oblique views along with computer-aided detection (CAD). FINDINGS: The breasts are heterogeneously dense, which may obscure small masses (ACR BI-RADS breast composition Category c). There are no significant masses, abnormal calcifications, or other abnormalities. MM/MM tomosynthesis screening BI IMPRESSION: No mammographic evidence of malignancy. ASSESSMENT: BI-RADS BI-RADS 1 - Negative RECOMMENDATION: Routine annual mammography screening. 1 year F/U This examination should not preclude the clinical evaluation of a suspicious palpable abnormality. This patient's information was entered into a reminder system with a target due date for their next mammogram. Electronically signed by: Raven Casas DO 12/25/2023 06:18 AM EDT
== END 2023-12-11 07:22 | disposition home or self-care (01) ==
LOC: HO.MAMMO 07:21
PROVIDERS: PCP Internal Medicine; Visit Provider Internal Medicine
DX: Z12.31 Encounter for screening mammogram for malignant neoplasm of breast (principal)
CPT/HCPCS: 77063; 77067

== ENCOUNTER → 2023-12-11 07:30 | Outpatient (BNV) | payer MEDICAID, SELFPAY | PROVIDERS: PCP Internal Medicine; Visit Provider Internal Medicine | DX: Z12.31 Encounter for screening mammogram for malignant neoplasm of breast (principal) | CPT/HCPCS: 77063; 77067 ==

== ENCOUNTER 2024-01-03 12:39 | Outpatient (AMB) | payer OTHER, SELFPAY ==
[2024-01-03 12:48] VITALS: BP 122/70; PULSE 90; O2SAT 98; BMI 27.8
--- NOTE | 2024-01-03 12:48 | MHC.PC.OV ---
Vital Signs 01/03/24 12:48 Height 5 ft 1 in Weight 147 lb BMI 27.8 BP 122/70 Blood Pressure Location Lt brachial Position Sitting Pulse 90 Pulse Source Pulse Oximeter Pulse Oximetry (%) 98 Oxygen Delivery Method Room Air Intake Visit Reasons: Annual physical Intake Note: Pt is here today for PE. Allergies adhesive [ADHESIVE] Allergy (Intermediate, Verified 01/03/24 13:18) ITCHING FRUIT, SKINS Allergy (Severe, Uncoded 01/03/24 13:18) THROAT CLOSES Medication List - Last Reconciled 01/03/24 by Jacqueline De Leon MD allopurinol 300 mg PO DAILY cholecalciferol (vitamin D3) 50 mcg PO DAILY lisinopril-hydrochlorothiazide 10-12.5 mg 1 tab PO DAILY montelukast 10 mg PO DAILY tirzepatide (Mounjaro) 10 mg subcut QWEEK Tobacco use date assessed: 01/03/24 Dental Screening Dental Screen Date: 01/03/24 Did you have a dental visit in the last 12 months?: Yes Did you have a dental problem in the last 6 months where you did not have access to dental care?: No Was dental information given to patient?: Patient has dentist HPI Annual physical HPI Details 58-year-old lady with history of obesity, hyperuricemia, hypertension, obstructive sleep apnea on CPAP, impaired fasting glucose, here today for physical exam. She is up-to-date with her screening mammogram, has never had a bone density scan done. Sees Dr. Hays her OBGYN for her routine Pap and pelvic exam, which patient states is currently up-to-date as well. She had a screening mammogram done in 2015 with removal of hyperplastic polyp by Dr. Hallman, due again in 2025. She has lost weight, through diet and exercise in addition to using Mounjaro, now at 10 mg dose which she only injects every 3 weeks. Has been combining this with eating a healthy habit, and exercises regularly, plays golf. Patient states that she is getting her Mounjaro from a weight loss spot and has lost approximately 20 lb since starting it. Denies having any side effects from taking the medication. Has been feeling well with no complaints at present time. [facility] Medical History History of Moreno's palsy Pre-diabetes History of iron deficiency anemia Environmental and seasonal allergies Obesity JASON on CPAP Lactose intolerance Hyperuricemia Essential hypertension Uterine fibroid Surgical History S/P thyroid biopsy History of appendectomy Hx of left breast biopsy Hx of colonoscopy History of repair of right rotator cuff S/P removal of left ovary Family History Father HTN (hypertension) Heart disease Emphysema of lung Mother HTN (hypertension) Dementia Seizure Family/Other HTN (hypertension) Cancer Social History Housing: House Alcohol intake: current Alcohol intake frequency: does not drink Patient Tobacco Use Status: Never used Tobacco e-Cigarette/Vaping Use: Never Used Second Hand Smoke Exposure: No service: No Current occupational status: employed 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 1. Little interest or pleasure in doing things: not at all 2. Feeling down, depressed, or hopeless: not at all 3. Trouble falling or staying asleep, or sleeping too much: not at all 4. Feeling tired or having little energy: not at all 5. Poor appetite or overeating: not at all 6. Feeling bad about yourself - or that you are a failure or have let yourself or your family down: not at all 7. Trouble concentrating on things, such as reading the newspaper or watching television: not at all 8. Moving or speaking so slowly that other people could have noticed. Or the opposite - being so fidgety or restless that you have been moving around a lot more than usual: not at all 9. Thoughts that you would be better off or of hurting yourself in some way: not at all Total score: 0 Depression Screening Interpretation: Negative Depression Screening Done: Yes 21351 - PHQ-9 Billing: Yes Source: Developed by Drs. Garth Youssef, Maria Isabel Beckman, Jose Farley and colleagues, with an educational yahaira from [employer]. Thrive Questionnaire Date Thrive assessed: 01/03/24 I am a: Patient What is your living situation today?: I have a steady place to live Within the past 12 months, did the food you bought not last and you didn't have the money to get more?: Often true Within the past 12 months, did you worry whether your food would run out before you got money to buy more?: Never true Do you have trouble paying for medicines?: No Do you have trouble getting transportation to medical appointments?: No Do you have trouble paying your heating and electricity bill?: No Do you have trouble taking care of your child, family member or friend?: No Do you have trouble with day-to-day activities such as bathing, preparing meals, shopping, managing finances, etc.?: No Are you interested in more education?: No Please select the resources that you would like help with: None Currently or been in a relationship where the following occur: No concerns reported THRIVE Score: 1 AUDIT C Alcohol Use Questionnaire (AUDIT-C) 1. How often do you have a drink containing alcohol?: Never 3. How often do you have six or more drinks on one occasion?: Never Total Score: 0 MERCEDEZ-7 AMB Questionnaire MERCEDEZ-7 Date MERCEDEZ - 7 assessed: 01/03/24 Feeling nervous, anxious, or on edge: 0 = Not at all Not being able to stop or control worryin = Not at all Worrying too much about different things: 0 = Not at all Trouble relaxin = Not at all Being so restless that it is hard to sit still: 0 = Not at all Becoming easily annoyed or irritable: 0 = Not at all Feeling afraid as if something awful might happen: 0 = Not at all Total MERCEDEZ-7 score (0-4 normal; 5-9 mild; 10-14 moderate; 15-21 severe): 0 Source: Developed by Drs. Garth Youssef, Maria Isabel Beckman, Jose Farley and colleagues, with an educational yahaira from [employer]. MERCEDEZ-7 Assessment Billing MERCEDEZ-7 Assessment Tool: MERCEDEZ-7 Assessment 21521 Review of Systems Const Denies body aches, Denies fatigue, Denies headache(s), Denies poor appetite, Denies weakness and Reports weight loss Eyes Denies change in vision and Reports requires corrective lenses ENT Denies dizziness, Denies headache(s) and Denies disequilibrium Card Denies chest pain, Denies lightheadedness and Denies dyspnea Resp Denies cough, Denies dyspnea and Denies wheezing GI Denies abdominal pain and Denies change in bowel habits Reports no additional complaints Musc Reports as per HPI Skin/Breast Denies breast pain and Denies breast mass Neuro Denies dizziness, Denies headache(s), Denies disequilibrium and Denies weakness Psych Reports no additional complaints Endo Reports no additional complaints and Denies fatigue Oral/Lymph Reports no additional complaints Aller/Immun Reports seasonal rhinorrhea and Denies wheezing Physical exam (Primary Care) Vital Signs: Last Vital Signs Pulse 90 01/03/24 12:48 BP 122/70 01/03/24 12:48 Pulse Ox 98 01/03/24 12:48 Oxygen Delivery Method Room Air 01/03/24 12:48 BMI result Body Mass Index 27.8 Tobacco/Smoking Status: Tobacco use Status Tobacco use date assessed 01/03/24 01/03/24 12:53 Patient Tobacco Use Status Never used Tobacco 01/03/24 12:53 e-Cigarette/Vaping Use Never Used 01/03/24 12:49 PHQ-9: PHQ-9 Score PHQ-9: Total score 0 01/03/24 13:41 Depression Screening Interpretation: Negative Thrive Assessment: Date of Thrive Assessment Date Thrive assessed 01/03/24 01/03/24 12:53 Currently or been in a relationship where the following occur: No concerns reported Const General: no acute distress, alert and awake Nutritional Appearance: obese Orientation/consciousness: patient oriented x3 HENMT Head: Yes normocephalic Ears: external ears normal General nose exam: Normal external nose present Face and sinus: Yes face symmetric Mouth: Normal oral and palatal mucosa present, oropharynx normal and moist mucous membranes Eyes General: appearance normal, both eyes and all related structures Neck Other: Supple with no lymphadenopathy, full range of motion Chest Breast/axilla palpation: normal palpation of the breasts Resp Effort & Inspection: normal respiratory effort and able to speak in complete sentences Auscultation: clear to auscultation bilaterally Cardio Rate: regular rate Rhythm: regular rhythm Heart sounds: S1 normal heart sound present and S2 normal heart sound present GI Palpation (GI): Soft to palpation, nontender, no guarding and no masses Auscultation: normal bowel sounds Other: Booster on OBGYN Dr. Hays for her routine Pap and pelvic exam General: Yes deferred Back/Spine/Pelvis Back: No back tenderness Skin General skin exam: no rashes or lesions noted Neuro General: patient oriented x3, tone normal, moves all extremities, Normal light touch and pain sensation, no focal motor deficits and CN's II-XI intact bilaterally Extrem General: Yes full ROM, Yes no joint enlargement, Yes no clubbing, cyanosis or edema, Yes no calf tenderness and Yes normal gait Psych Appearance: grossly normal and well kempt Mental Status: mental status grossly normal Speech and movement: Normal speech and movement present Affect: normal affect Attitude: cooperative Coding Level of Care Code Est Pt Prev Care 40-64y(64439) Diagnoses Hyperuricemia E79.0 Essential hypertension I10 Pre-diabetes R73.03 JASON on CPAP G47.33; Z99.89 Annual visit for general adult medical examination with abnormal findings Z00.01 Additional Codes MERCEDEZ-7 Assessment Billing - MERCEDEZ-7 Assessment Tool: MERCEDEZ-7 Assessment 20541 ([id number]) Assessment & Plan Assessment & Plan (1) Hyperuricemia: Code(s): E79.0 - Hyperuricemia without signs of inflammatory arthritis and tophaceous disease Category: Medical Plan: Continue on allopurinol 300 mg once a day, in addition to adhering to a low purine diet, advised to stay well-hydrated (2) Essential hypertension: Code(s): I10 - Essential (primary) hypertension Category: Medical Plan: Blood pressure at goal of less than 130/80. Continue lisinopril-HCTZ. Reinforced importance of following a low sodium diet, getting regular exercise, and lowering stress levels. (3) Pre-diabetes: Code(s): R73.03 - Prediabetes Category: Medical Plan: Your previous fasting blood sugars were elevated above 100 mg/dL. Impaired glucose metabolism increases the risk for developing diabetes mellitus type 2, as well as heart attack and stroke later on. Lifestyle changes that promotes weight loss, healthy eating habits, and regular exercise are important, and can prevent the progression to diabetes (4) JASON on CPAP: Comment: previously seen at [facility] sleep clinic 2019 Code(s): G47.33 - Obstructive sleep apnea (adult) (pediatric); Z99.89 - Dependence on other enabling machines and devices Category: Medical Plan: Compliant with CPAP (5) Annual visit for general adult medical examination with abnormal findings: Code(s): Z00.01 - Encounter for general adult medical examination with abnormal findings Category: Medical Plan: Will check appropriate labs. Continue with regular dental visit every 6 months and regular eye exams, at least every 2 years. Take adequate calcium in diet and vitamin-D 3 at 2000 IU per cap once a day, in addition to weight-bearing exercises to help maintain good muscle tone and weight control. Instructed to do self-breast exam, and continue with yearly mammogram, she sees Dr. Hays for routine Pap and pelvic exam, which is currently up-to-date. She is up-to-date with her screening colonoscopy due again in 2025. Reminded to get her flu shot and COVID booster Orders: Orders Alanine Aminotransferase 01/03/24 E66.3 - Overweight, E79.0 - Hyperuricemia without signs of inflammatory arthritis and tophaceous disease, I10 - Essential (primary) hypertension, R73.03 - Prediabetes Aspartate Amino Transferase 01/03/24 E66.3 - Overweight, E79.0 - Hyperuricemia without signs of inflammatory arthritis and tophaceous disease, I10 - Essential (primary) hypertension, R73.03 - Prediabetes Basic Metabolic Panel Fasting 01/03/24 E66.3 - Overweight, E79.0 - Hyperuricemia without signs of inflammatory arthritis and tophaceous disease, I10 - Essential (primary) hypertension, R73.03 - Prediabetes Lipid Panel 01/03/24 E66.3 - Overweight, E79.0 - Hyperuricemia without signs of inflammatory arthritis and tophaceous disease, I10 - Essential (primary) hypertension, R73.03 - Prediabetes Uric Acid 01/03/24 E66.3 - Overweight, E79.0 - Hyperuricemia without signs of inflammatory arthritis and tophaceous disease, I10 - Essential (primary) hypertension, R73.03 - Prediabetes TSH reflex Free T4 01/03/24 E66.3 - Overweight, E79.0 - Hyperuricemia without signs of inflammatory arthritis and tophaceous disease, I10 - Essential (primary) hypertension, R73.03 - Prediabetes Vitamin D 25-OH Total 01/03/24 E66.3 - Overweight, E79.0 - Hyperuricemia without signs of inflammatory arthritis and tophaceous disease, I10 - Essential (primary) hypertension, R73.03 - Prediabetes
== END 2024-01-03 13:38 | disposition home or self-care (01) ==
PROVIDERS: PCP Internal Medicine; Visit Provider Internal Medicine
DX: Z00.00 Encounter for general adult medical examination without abnormal findings (principal); E79.0 Hyperuricemia without signs of inflammatory arthritis and tophaceous disease; I10 Essential (primary) hypertension; R73.03 Prediabetes; G47.33 Obstructive sleep apnea (adult) (pediatric); Z99.89 Dependence on other enabling machines and devices

== ENCOUNTER → 2024-01-03 12:39 | Outpatient (BNVA) | payer OTHER, SELFPAY | PROVIDERS: PCP Internal Medicine; Visit Provider Internal Medicine | DX: Z00.00 Encounter for general adult medical examination without abnormal findings (principal); E79.0 Hyperuricemia without signs of inflammatory arthritis and tophaceous disease; I10 Essential (primary) hypertension; R73.03 Prediabetes; G47.33 Obstructive sleep apnea (adult) (pediatric); Z79.899 Other long term (current) drug therapy; Z99.89 Dependence on other enabling machines and devices | CPT/HCPCS: 96127; 99396 ==

== ENCOUNTER 2024-02-27 12:10 | Outpatient (AMB) | payer OTHER, SELFPAY ==
--- NOTE | 2024-02-27 12:29 | A.OFFVIS_ITS ---
Intake Visit Reasons: OV - Right Knee OA - S/P Euflexxa Intake Note: Barby is a 58 year old female who presents today for a follow up of her right knee OA. Euflexxa series 09/10-09/24. Patient reports that the Euflexxa was helpful for her lateral right knee pain but she continues to have pain in the medial aspect of the knee. She also mentions pain in the medial aspect of the left knee. She takes Ibuprofen which is not helpful Allergies adhesive [ADHESIVE] Allergy (Intermediate, Verified 01/03/24 13:18) ITCHING FRUIT, SKINS Allergy (Severe, Uncoded 01/03/24 13:18) THROAT CLOSES HPI HPI OV - Right Knee OA - S/P Euflexxa: Details: Barby is a 58 year old female who presents today for a follow up of her right knee OA. Euflexxa series 09/10-09/24. She continues to have focal right knee medial compartment tenderness to palpation. She has an unloading brace and she has tried gel. She had arthroscopic surgery for partial meniscectomy which revealed grade 3/4 changes of the medial compartment. She has no anterior or lateral pain. She is very active. She likes to travel, walk and play golf. [facility] Medical History History of Moreno's palsy Pre-diabetes History of iron deficiency anemia Environmental and seasonal allergies Obesity JASON on CPAP Lactose intolerance Hyperuricemia Essential hypertension Uterine fibroid Surgical History S/P thyroid biopsy History of appendectomy Hx of left breast biopsy Hx of colonoscopy History of repair of right rotator cuff S/P removal of left ovary Family History Father HTN (hypertension) Heart disease Emphysema of lung Mother HTN (hypertension) Dementia Seizure Family/Other HTN (hypertension) Cancer Social History Housing: House Alcohol intake: current Alcohol intake frequency: does not drink Patient Tobacco Use Status: Never used Tobacco e-Cigarette/Vaping Use: Never Used Second Hand Smoke Exposure: No service: No Current occupational status: employed 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 Gender identity: Female Cognitive needs: No Hearing needs: No Vision needs: Yes Physical Exam Const General: no acute distress, alert and awake Orientation/consciousness: patient oriented x3 HEENT Head: Yes normocephalic and Yes atraumatic Eyes EOM: EOMs intact bilaterally Resp Effort & Inspection: normal respiratory effort and able to speak in complete sentences Cardio Jugular venous distension: no JVD Skin General skin exam: turgor normal Rashes: no rashes Neuro General: patient oriented x3 Extrem Other: No effusion Full range of motion Tenderness to palpation medial compartment 1+ varus instability Stable Dez's Negative posterior drawer Psych Appearance: grossly normal Affect: normal affect Attitude: cooperative Results Reviewed Results Reviewed: I personally reviewed relevant radiographs. MRI and intraoperative images and x-rays were reviewed and they all demonstrate moderate to severe medial compartment osteoarthritis right knee Assessment & Plan Assessment & Plan (1) Arthritis of right knee: Code(s): M17.11 - Unilateral primary osteoarthritis, right knee Category: Medical Plan: This is a very pleasant 58-year-old woman who is active and has right knee medial compartment osteoarthritis that has been refractory to corticosteroids, viscosupplementation, unloading bracing, knee arthroscopy and physical therapy. I recommend a unicompartmental knee arthroplasty of the right medial compartment. I reviewed with her the risks, benefits and alternatives as well as the rationale for a Uni versus a total. She is healthy and has isolated medial compartment pain. I think this will allow her to resume activities more quickly. I explained the risk of infection, aseptic loosening, septic loosening, stiffness, medical complications associated with surgery such as blood clots and pulmonary emboli among others. She expressed understanding and we will proceed forward accordingly. Coding Level of Care Code Est Pt Level 4 (39575) Diagnoses Arthritis of right knee M17.11
== END 2024-02-27 13:31 | disposition home or self-care (01) ==
PROVIDERS: PCP Internal Medicine; Visit Provider Orthopaedic Surgery
DX: M17.11 Unilateral primary osteoarthritis, right knee (principal)
CPT/HCPCS: 99214

== ENCOUNTER → 2024-02-27 12:10 | Outpatient (BNVA) | payer OTHER, SELFPAY | PROVIDERS: PCP Internal Medicine; Visit Provider Orthopaedic Surgery | DX: M17.11 Unilateral primary osteoarthritis, right knee (principal) | CPT/HCPCS: 99212 ==

== ENCOUNTER 2024-03-22 11:17 | Outpatient (REF) | payer OTHER, SELFPAY ==
--- NOTE | ~2024-03-22 | MM_ITS ---
EXAMINATION: BONE DENSITOMETRY CLINICAL INDICATION: Postmenopausal. COMPARISON: This is the patient's baseline examination. TECHNIQUE: Using a [employer] DXA System (software version: 13.1) manufactured by [employer], dual-energy x-ray absorptiometry was performed of the lumbar spine and left hip. The images are of good technical quality. Summary results are attached. FINDINGS: LEFT FEMUR, NECK: BMD 1.056 g/cm2, Z-score 1.3, T-score 0.1, normal. LEFT FEMUR, TOTAL: BMD 1.186 g/cm2, Z-score 2.3, T-score 1.4, normal. AP SPINE L1-L4: BMD 1.593 g/cm2, Z-score 4.6, T-score 3.4, normal. IDENTIFIED RISK FACTORS: Menopause, left oophorectomy, thiazide. HISTORY OF FRACTURE: None listed. MEDICATIONS: Calcium, vitamin D. MM/XR DEXA axial skeleton IMPRESSION: 1. DIAGNOSIS: Normal bone density based on the lowest T-score value of 0.1 in the femoral neck applying World Health Organization criteria. 2. 10-YEAR FRACTURE RISK PREDICTION, FRAX: According to the guidelines, FRAX calculation should only be performed on patients in the osteopenia bone density category. Therefore, FRAX was not performed on this patient. 3. Treatment Recommendations: NOF guidelines recommend consideration for treatment in postmenopausal women and men age 50 and older presenting with the following: -A hip or vertebral (clinical or morphometric) fracture. -T-score less than or equal to -2.5 at the femoral neck or spine after appropriate evaluation to exclude secondary causes. -Low bone mass at the hip or spine and a 10-year fracture probability by FRAX of greater than or equal to 3% for hip fracture or greater than or equal to 20% for major osteoporotic fracture based on the [place] adapted WHO algorithm. 4. Other Recommendations: All treatment decisions require clinical judgment and consideration of individual patient factors, including patient preferences, comorbidities, previous drug use, risk factors not captured in the FRAX model (e.g. frailty, falls, vitamin D deficiency, increased bone turnover, interval significant decline in bone density) and possible under or overestimation of fracture risk by FRAX. FUTURE SCAN RECOMMENDATION: People with diagnosed cases of osteoporosis or at high risk for fracture should have regular bone mineral density tests. For patients eligible for Medicare, routine testing is allowed once every 2 years. The testing frequency can be increased to one year for patients who have rapidly progressing disease, those who are receiving or discontinuing medical therapy to restore bone mass, or have additional risk factors. Electronically signed by: Jose Benson MD 03/22/2024 01:53 PM SIM VELAZQUEZ
== END 2024-03-22 11:18 | disposition home or self-care (01) ==
LOC: HO.MAMMO 11:17
PROVIDERS: PCP Internal Medicine; Visit Provider Obstetrics & Gynecology Gynecology
DX: Z13.820 Encounter for screening for osteoporosis (principal)
CPT/HCPCS: 77080

== ENCOUNTER 2024-04-16 11:24 | Outpatient (AMB) | payer OTHER, SELFPAY ==
[2024-04-16 11:56] VITALS: BP 106/60; PULSE 86; O2SAT 96; BMI 28.0
--- NOTE | 2024-04-16 11:56 | MHC.PC.OV ---
Vital Signs 04/16/24 11:56 Height 5 ft 1 in Weight 148 lb BMI 28.0 BP 106/60 Blood Pressure Location Rt brachial Position Sitting Pulse 86 Pulse Source Pulse Oximeter Pulse Oximetry (%) 96 Oxygen Delivery Method Room Air Intake Visit Reasons: Rt knee partial replacement Dr. Sweet 06/18/24 Intake Note: Pt is here today for her pre-op for Rt knee partial replacement by Dr. Sweet on 06/18/24 Allergies adhesive [ADHESIVE] Allergy (Intermediate, Verified 04/20/24 02:37) ITCHING FRUIT, SKINS Allergy (Severe, Uncoded 04/20/24 02:37) THROAT CLOSES Medication List - Last Reconciled 04/16/24 by Jacqueline De Leon MD allopurinol 300 mg PO DAILY cholecalciferol (vitamin D3) 50 mcg PO DAILY lisinopril-hydrochlorothiazide 10-12.5 mg 1 tab PO DAILY montelukast 10 mg PO DAILY tirzepatide (Mounjaro) 10 mg subcut QWEEK walker Folding Front wheeled walker DURATION 99 DAYS Tobacco use date assessed: 04/16/24 Dental Screening Dental Screen Date: 04/16/24 Did you have a dental visit in the last 12 months?: Yes Did you have a dental problem in the last 6 months where you did not have access to dental care?: No Was dental information given to patient?: Patient has dentist HPI Rt knee partial replacement Dr. Sweet 06/18/24 HPI Details 58 year old lady with past medical history of Hypertension , JASON on CPAP, seasonal allergies , and Osteoarthritis presents today for a preoperative examination for Right knee partial replacement. She has right knee medial compartment osteoarthritis making it difficult to walk for extended periods of time, has been refractory to corticosteroids, viscous supplementation, unloading bracing, knee arthroscopy and physical therapy, and it was recommend by her orthopedist that the next step is to do a unicompartmental knee arthroplasty of the right medial compartment. She has been feeling well, still remains active, plays golf frequently and continues to travel. Blood pressure is stable controlled on present treatment, and [place] an [place] [facility] [place] with regards to intermittent episodes of palpitations. She is currently asymptomatic..She has been going to a [facility] weight loss clinic, and was prescribed Mounjaro which has helped with losing weight . She states that she has just been taking it every 3 weeks instead of once a week. [facility] Medical History History of Moreno's palsy Pre-diabetes History of iron deficiency anemia Environmental and seasonal allergies Obesity JASON on CPAP Lactose intolerance Hyperuricemia Essential hypertension Uterine fibroid Surgical History S/P thyroid biopsy History of appendectomy Hx of left breast biopsy Hx of colonoscopy History of repair of right rotator cuff S/P removal of left ovary Family History Father HTN (hypertension) Heart disease Emphysema of lung Mother HTN (hypertension) Dementia Seizure Family/Other HTN (hypertension) Cancer Social History Housing: House Alcohol intake: current Alcohol intake frequency: does not drink Patient Tobacco Use Status: Never used Tobacco e-Cigarette/Vaping Use: Never Used Second Hand Smoke Exposure: No service: No Current occupational status: employed Current occupation: [employer] Gender identity: Female Cognitive needs: No Hearing needs: No Vision needs: Yes Questionnaire PHQ-9 Over the last 2 weeks, how often have you been bothered by any of the following problems? 1. Little interest or pleasure in doing things: not at all 2. Feeling down, depressed, or hopeless: not at all 3. Trouble falling or staying asleep, or sleeping too much: not at all 4. Feeling tired or having little energy: not at all 5. Poor appetite or overeating: not at all 6. Feeling bad about yourself - or that you are a failure or have let yourself or your family down: not at all 7. Trouble concentrating on things, such as reading the newspaper or watching television: not at all 8. Moving or speaking so slowly that other people could have noticed. Or the opposite - being so fidgety or restless that you have been moving around a lot more than usual: not at all 9. Thoughts that you would be better off or of hurting yourself in some way: not at all Total score: 0 Depression Screening Interpretation: Negative Depression Screening Done: Yes 49934 - PHQ-9 Billing: Yes Source: Developed by Drs. Garth Youssef, Maria Isabel Beckman, Jose Farley and colleagues, with an educational yahaira from [employer]. Thrive Questionnaire Date Thrive assessed: 04/16/24 I am a: Patient What is your living situation today?: I have a steady place to live Within the past 12 months, did the food you bought not last and you didn't have the money to get more?: Never true Within the past 12 months, did you worry whether your food would run out before you got money to buy more?: Never true Do you have trouble paying for medicines?: No Do you have trouble getting transportation to medical appointments?: No Do you have trouble paying your heating and electricity bill?: No Do you have trouble taking care of your child, family member or friend?: No Do you have trouble with day-to-day activities such as bathing, preparing meals, shopping, managing finances, etc.?: No Are you currently unemployed and looking for a job?: No Are you interested in more education?: No Please select the resources that you would like help with: None Currently or been in a relationship where the following occur: No concerns reported THRIVE Score: 0 AUDIT C Alcohol Use Questionnaire (AUDIT-C) 1. How often do you have a drink containing alcohol?: Monthly or less 2. How many drinks containing alcohol do you have on a typical day when you are drinking?: 1 or 2 3. How often do you have six or more drinks on one occasion?: Never Total Score: 1 MERCEDEZ-7 AMB Questionnaire MERCEDEZ-7 Date MERCEDEZ - 7 assessed: 04/16/24 Feeling nervous, anxious, or on edge: 0 = Not at all Not being able to stop or control worryin = Not at all Worrying too much about different things: 0 = Not at all Trouble relaxin = Not at all Being so restless that it is hard to sit still: 0 = Not at all Becoming easily annoyed or irritable: 0 = Not at all Feeling afraid as if something awful might happen: 0 = Not at all Total MERCEDEZ-7 score (0-4 normal; 5-9 mild; 10-14 moderate; 15-21 severe): 0 Source: Developed by Maria Isabel AngelesW. Rk, Jose Farley and colleagues, with an educational yahaira from [employer]. MERCEDEZ-7 Assessment Billing MERCEDEZ-7 Assessment Tool: MERCEDEZ-7 Assessment 57814 Review of Systems Const Denies body aches, Denies fatigue, Denies headache(s), Denies poor appetite and Denies weakness Eyes Denies change in vision and Reports requires corrective lenses ENT Denies dizziness, Denies headache(s) and Denies disequilibrium Card Denies chest pain, Denies lightheadedness and Denies dyspnea Resp Denies cough, Denies dyspnea and Denies wheezing GI Denies abdominal pain and Denies change in bowel habits Reports no additional complaints Musc Reports as per HPI Skin/Breast Denies breast pain and Denies breast mass Neuro Denies dizziness, Denies headache(s), Denies disequilibrium and Denies weakness Psych Reports no additional complaints Endo Reports no additional complaints and Denies fatigue Oral/Lymph Reports no additional complaints Aller/Immun Reports seasonal rhinorrhea and Denies wheezing Physical exam (Primary Care) Vital Signs: Last Vital Signs Pulse 86 04/16/24 11:56 BP 106/60 04/16/24 11:56 Pulse Ox 96 04/16/24 11:56 Oxygen Delivery Method Room Air 04/16/24 11:56 BMI result Body Mass Index 28.0 Tobacco/Smoking Status: Tobacco use Status Tobacco use date assessed 04/16/24 04/16/24 11:59 Patient Tobacco Use Status Never used Tobacco 04/16/24 11:59 e-Cigarette/Vaping Use Never Used 04/16/24 11:59 PHQ-9: PHQ-9 Score PHQ-9: Total score 0 04/16/24 12:30 Depression Screening Interpretation: Negative Thrive Assessment: Date of Thrive Assessment Date Thrive assessed 04/16/24 04/16/24 11:59 Currently or been in a relationship where the following occur: No concerns reported Const General: no acute distress and alert Nutritional Appearance: obese HENMT Head: Yes normocephalic Ears: external ears normal General nose exam: Normal external nose present Face and sinus: Yes face symmetric Mouth: Normal oral and palatal mucosa present, oropharynx normal and moist mucous membranes Eyes General: appearance normal, both eyes and all related structures Neck Other: Supple with no lymphadenopathy, full range of motion Chest Breast/axilla palpation: normal palpation of the breasts Resp Effort & Inspection: normal respiratory effort and able to speak in complete sentences Auscultation: clear to auscultation bilaterally Cardio Rate: regular rate Rhythm: regular rhythm Heart sounds: S1 normal heart sound present and S2 normal heart sound present GI Palpation (GI): Soft to palpation, nontender, no guarding and no masses Auscultation: normal bowel sounds General: Yes deferred Back/Spine/Pelvis Back: No back tenderness Skin General skin exam: no rashes or lesions noted Neuro General: tone normal, moves all extremities, Normal light touch and pain sensation, no focal motor deficits and CN's II-XI intact bilaterally Extrem Other: Slight tenderness on palpation over medial aspect of right need road, no swelling seen General: Yes full ROM, Yes no joint enlargement, Yes no clubbing, cyanosis or edema, Yes no calf tenderness and Yes normal gait Psych Appearance: grossly normal and well kempt Mental Status: mental status grossly normal Speech and movement: Normal speech and movement present Affect: normal affect Attitude: cooperative Coding Level of Care Code Est Pt Level 4 (11059) Diagnoses Preoperative examination Z01.818 Arthritis of right knee M17.11 Environmental and seasonal allergies J30.89 JASON on CPAP G47.33; Z99.89 Essential hypertension I10 Additional Codes PHQ-9 - 27988 - PHQ-9 Billing: Yes ([id number]) MERCEDEZ-7 Assessment Billing - MERCEDEZ-7 Assessment Tool: MERCEDEZ-7 Assessment 15596 ([id number]) Assessment & Plan Assessment & Plan (1) Preoperative examination: Code(s): Z01.818 - Encounter for other preprocedural examination Plan: 58 year old lady, here for preoperative clearance for right knee partial arthroplasty . She has hypertension currently stable controlled on present treatment, she has Obstructive Sleep apnea, compliant with his CPAP. She has an appointment with Cardiology on 05/10/2024 for evaluation of intermittent palpitations. She has no known history of coronary artery disease or pulmonary disease, preoperative exam is unremarkable. She has an appointment scheduled with Cardiology on 05/10/2024 for further evaluation of intermittent palpitations and obtain cardiac clearance forf scheduled surgery. She has a low cardiac risk index for proposed procedure (2) Arthritis of right knee: Code(s): M17.11 - Unilateral primary osteoarthritis, right knee Category: Medical Plan: Scheduled for partial right knee transplant (3) Environmental and seasonal allergies: Code(s): J30.89 - Other allergic rhinitis Category: Medical Plan: Continue with montelukast 10 mg daily. Prescription sent for Azelastine- fluticasone nasal spray with instructions to do 1 inhalation per nostril twice a day (4) JASON on CPAP: Comment: previously seen at [facility] sleep clinic 2019 Code(s): G47.33 - Obstructive sleep apnea (adult) (pediatric); Z99.89 - Dependence on other enabling machines and devices Category: Medical Plan: Compliant with CPAP, has lost weight with the help Daljit (5) Essential hypertension: Code(s): I10 - Essential (primary) hypertension Category: Medical Plan: Blood pressure at goal of less than 130/80. Continue with current medication. Reinforced importance of following a low sodium diet, getting regular exercise, and lowering stress levels. Medications: New azelastine-fluticasone 137-50 mcg/spray administer into each nostril 1 spray intranasal BID 23 grams 2RF
== END 2024-04-16 12:52 | disposition home or self-care (01) ==
PROVIDERS: PCP Internal Medicine; Visit Provider Internal Medicine
DX: Z01.818 Encounter for other preprocedural examination (principal); M17.11 Unilateral primary osteoarthritis, right knee; J30.89 Other allergic rhinitis; G47.33 Obstructive sleep apnea (adult) (pediatric); Z99.89 Dependence on other enabling machines and devices; I10 Essential (primary) hypertension

== ENCOUNTER → 2024-04-16 11:24 | Outpatient (BNVA) | payer OTHER, SELFPAY | PROVIDERS: PCP Internal Medicine; Visit Provider Internal Medicine | DX: Z01.818 Encounter for other preprocedural examination (principal); M17.11 Unilateral primary osteoarthritis, right knee; I10 Essential (primary) hypertension; G47.33 Obstructive sleep apnea (adult) (pediatric); J30.89 Other allergic rhinitis; Z99.89 Dependence on other enabling machines and devices | CPT/HCPCS: 96127; 99212 ==

== ENCOUNTER → 2024-05-10 10:47 | Outpatient (AMB) | payer OTHER, SELFPAY | END | disposition home or self-care (01) | PROVIDERS: PCP Internal Medicine; Visit Provider Internal Medicine Cardiovascular Disease | CPT/HCPCS: 93010; 99204; G2211 ==

== ENCOUNTER → 2024-05-10 10:47 | Outpatient (BNVA) | payer OTHER, SELFPAY | PROVIDERS: PCP Internal Medicine; Visit Provider Internal Medicine Cardiovascular Disease | DX: R00.2 Palpitations (principal) | CPT/HCPCS: 93005; 99202 ==

== ENCOUNTER 2024-05-16 10:33 | Outpatient (AMB) | payer OTHER, SELFPAY ==
--- OUTSIDE RECORDS SUMMARY | 2024-05-16 11:15 | XMS_ITS ---
Author Organization [facility] [employer] [facility] Address [address] [address] Care Team Providers Care Conveyor Feeder Offbearer Name Role Phone YESI SANFORD, SHILPI Primary Care Provider Meghna Ambriz Unavailable [phone] Allergies No Known Allergies Results Component Value Reference Range Notes Urinalysis Reviewed date:02/28/2024 08:39:44 AM Interpretation: Performing Lab: Notes/Report: PH 5.0 PROTEIN Neg GLUCOSE Neg BLOOD Neg REASON FOR VISIT Annual TEACHER LIP READING Physical, Annual TEACHER LIP READING Physical 60-85+ Medications Medication SIG (Take, Route, Frequency, Duration) Notes Start Date End Date Status hydroCHLOROthiazide 25 MG Oral for 90 Active Allopurinol 100 MG Oral for 90 Active Social History Tobacco Use: Social History Observation Description Date Details (start date - stop date) Never Smoker NA - NA Sexual History Question Answer Notes Had sex in the past 12 months (vaginal, oral, or anal)? No Have you ever had a Sexually transmitted disease ? No AUDIT-C (Standard) Question Answer Notes Did you have a drink containing alcohol in the p ast year? No Points 0 Interpretation Negative Tobacco Control (Standard) Question Answer Notes Tobacco use: Nonsmoker Vital Signs Temperature 98.1 degrees Fahrenheit 02/28/20 24 Blood pressure systolic 108 mm Hg 02/28/20 24 Blood pressure diastolic 64 mm Hg 024 Height 61 in 02/28/2024 Weight 143 lbs 02/28/2024 BMI 27.02 kg/m2 02/28/2024 Encounters Encounter Location Date Provider Diagnosis [facility] [employer] [facility] [address] [facility] [address] [place] [address] 02/28/2024 Meghna Hays Encounter for screening mammogram for malignant neoplasm of breast Z12.31 ; Encounter for screening for osteoporosis Z13.820 and Encounter for gynecological examination (general) (routine) without abnormal findings Z01.419 Assessments Encounter Date Diagnosis (ICD Code) Assessment Notes Treatment Notes Treatment Clinical Notes Section Notes 02/28/2024 Encounter for screening mammogram for malignant neoplasm of breast (ICD-10 - Z12.31) REGULAR MAMMOGRAMS AND SBE'S WERE RECOMMENDED. 02/28/2024 Encounter for screening for osteoporosis (ICD-10 - Z13.820) PAT IS OF DISCENT AND IS THIN BONED. HER MOTHER WAS OSTEOPOROTIC AT AGE 60. WE WILL ORDER A BONE DENSITY STUDY FOR THIS PAT. ADEQUATE CALCIUM AND VIT D. WEIGHT BEARING EXERCISES. 02/28/2024 Encounter for gynecological examination (general) (routine) without abnormal findings (ICD-10 - Z01.419) NO PAP TEST, DUE IN 2025. Plan Of Treatment Treatment Notes Assessment Notes Encounter for screening mamm ogram for malignant neoplasm of breast REGULAR MAMMOGRAMS AND SBE'S WERE RECOMMENDED. Encounter for screening for osteoporosis PAT IS OF DISCENT AND IS THIN BONED. HER MOTHER WAS OSTEOPOROTIC AT AGE 60. WE WILL ORDER A BONE DENSITY STUDY FOR THIS PAT. ADEQUATE CALCIUM AND VIT D. WEIGHT BEARING EXERCISES. Encounter for gynecological examination (general) (routine) without abnormal findings NO PAP TEST, DUE IN 2025. Pending Test Test Name Order Date MAMMOGRAM, SCREENING 02/28/2024 BONE DENSITY 02/28/2024 MM Digital Mammo Screening 02/28/2024 Next Appt Details Follow Up: 1 Year, Reason: Provider Name:Meghna cr, 03/06/2025 08:40:00 AM[facility] [address] [address], [place], [address], Progress Notes * REYES ANDUJAROB:1965 (58 yo F)Acc No.[id number]:02/28/2024 PROGRESS NOTES Patient:?GALEN ANDUJAR Appointment Provider:?Meghna cr M.D. :1965???Age:58 Y???Sex:Female D ate:02/28/2024 Address:[address] [place], [place] Pcp:SHILPI KEY MD Subjective: * Chief Complaints: * ???Annual TEACHER LIP READING PhysicalAnnual TEACHER LIP READING Physical 60-85+ * HPI: ???New/Follow-up Patient Consult:? PAT ENTERED MENOPAUSE IN 2019.? HER HAD PROSTATE CA.? THEY ARE NOT SEXUALLY ACTIVE. CT SCAN IN 2020 SHOWED A THICKENED ENDOMETRIUM.? PELVIC US SHOWED A 4.2MM THIN ENDOMETRIUM AND EMB WAS BENIGN. LEFT BREAST BX DONE IN 2014 AND RIGHT BREAST BIOPSY IN 2016 WERE BOTH NEGATIVE. SHE HAS HAD MAMMOGRAMS DONE AT [facility] IN 2022 AND 2023 BUT WE DO NOT HAVE THE RESULTS.? SHE WILL HAVE THEM FAX THE REPORTS TO US. HER LAST PAP TEST IN 2022 WAS NEGATIVE AND HPV NEGATIVE. SHE HAS NOT HAD A BMD DONE YET.? HER MOTHER WAS OSTEOPOROTIC AT AGE 60.? WE WILL ORDER A BMD THIS YEAR. SHE HAD A COLONOSCOPY DONE IN 2015. PFIZER X 3. ???Annual:? Patient presents for annual exam, ages 60-85, postmenopausal. ?General Health Maintenance:?Current breast complaints:?no breast pain, mass, discharge, or skin changes ?Urinary problems:?patient reports no urinary health problems or bowel health problems ?Calcium intake:?takes adequate calcium via diet and supplementation ?Significant TEACHER LIP READING problems:?no significant coordinator of placement symptoms or problems * ROS:?general:?no?chest pain.?no?palpitations.?no?headache.?no?cough.?no?shortness of breath.?no?fever.?no?unexplained weight loss.?no?nausea/vomiting.?no?change in bowel movements.?no blood in stool.?no?genitourinary complaints.?no?skin complaints.? * Medical History:? 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 * OB History:?Total pregnancies?4.?Total living children?3.?NVD?3.?Miscarriage(s)?1.? * Surgical History:?Rt Breast Bx - Benign 2016Right Shoulder Torn Rotator Cuff 04/2019Right Knee Surgery ppendectomy 1979 * Hospitalization/Major Diagno stic Procedure:?3 Vaginal Deliveries See Surgical Hx * Family History:?Mother: aliv e, Hyperlipidemia, Dementia, diagnosed with Unspecified heart disease, Unspecified essential hypertension.?Father: , hyperlipidemia, diagnosed with Unspecified essential hypertension, Unspecified heart disease.? Sister - Hypertension Brother: Lung Cancer. * Social History:?Tobacco Use:?Tobacco Control (Standard)?Tobacco use:?Nonsmoker ???Sexual History:?Sexual History?Had sex in the past 12 months (vaginal, oral, or anal)??No ?Have you ever had a Sexually transmitted disease??No ?Details of Sexual History?Are you sexually active??No ???Drugs/Alcohol:?Drugs?Have you used drugs other than those for medical reasons in the past 12 months??No ???Miscellaneous:?Children: yes, 3. ?Exercise: yes, walking, golfing, weight training. ?Home smoke detector use: yes. ?Living with: spouse. ?Marital status: . ?Natural support system: yes. 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 ?Sexually active: no. ???Drug/Alcohol:?AUDIT-C (Standard)?Did you have a drink containing alcohol in the past year??No ?Points?0 ?Interpretation?Negative * Medications:?TakinghydroCHLO ROthiazide 25 MG Tablet Oral Allopurinol 100 MG Tablet Oral Taking hydroCHLOROthiazide 25 MG Tablet Oral Taking Allopurinol 100 MG Tablet Oral DiscontinuedPotassium Chloride ER 10 MEQ Capsule Extended Release Oral Ferrous Sulfate 325 (65 Fe) MG Tablet Oral miSOPROStol 200 MCG Tablet 2 Orally night before procedure Medication List reviewed and reconciled with the patientDiscontinued Potassium Chloride ER 10 MEQ Capsule Extended Release Oral Discontinued Ferrous Sulfate 325 (65 Fe) MG Tablet Oral Discontinued miSOPROStol 200 MCG Tablet 2 Orally night before procedure Medication List reviewed and reconciled with the patient * Allergies:?N.K.D.A.no[Allerg ies Verified] Objective: * Vitals:?Ht: 61 in, Wt:143lbs , BMI:27.02Index, BP:108/64mm Hg, Temp:98.1F. * Examination: ???General Exam: ?CONSTITUTIONAL:?NECK/THYROID:?RESPIRATORY:?Auscultation: clear to auscultation bilaterally, Respiratory Effort: normal.?CARDIOVASCULAR:?Auscultation: regular rate and rhythm.?BREAST, Right:?BREAST, Left:?GASTROINTESTINAL:?MUSCULOSKELETAL:?SKIN:?NEURO/PSYCH:?Genitourinary: ?EXTERNAL GENITALIA:?VAGINA:?BLADDER:?URETHRA:?CERVIX:?UTERUS:?ADNEXA:?ANUS AND PERINEUM:? Assessment: * Assessment: 1.?Encounter for screening m ammogram for malignant neoplasm of breast - Z12.31???2.?Encounter for screening for osteoporosis - Z13.820???3.?Encounter for gynecological examination (general) (routine) without abnormal findings - Z01.419 (Primary)??? Plan: * Treatment: 2.?Encounter for screening m ammogram for malignant neoplasm of breast?Imaging: MM Digital Mammo Screening Notes: REGULAR MAMMOGRAMS AND SBE'S WERE RECOMMENDED.?? 3.?Encounter for screening f or osteoporosis?Imaging: BONE DENSITY Notes: PAT IS OF DISCENT AND IS THIN BONED. HER MOTHER WAS OSTEOPOROTIC AT AGE 60. WE WILL ORDER A BONE DENSITY STUDY FOR THIS PAT. ADEQUATE CALCIUM AND VIT D. WEIGHT BEARING EXERCISES.?? * Imaging:? * ?Imaging: MAMMOGRAM, SCR EENING * Labs:? * ?Lab: Urinalysis ([facility] tion Date & Time - 02/28/2024) ? Value Reference Range ?PH 5.0 * ?PROTEIN Neg * ?GLUCOSE Neg * ?BLOOD Neg * D.RADU 02/28/2024 08:39:4 1 AM EST > * Procedure Codes:? * Preventive Medicine:? ??YOUR PREVENTIVE WELLNESS PLAN:?Osteoporosis prevention?Calcium, D, strength training.?Breast Cancer Screening (Mammogram):?annually.?Cervical Cancer Screening (Pap Smear):?q 3 years with HPV screen.?Colorectal Cancer Screening:?q 10 years.? * Follow Up:?1 Year * Images: Billing Information: * Visit Code:? [id number] Preventive Care Est Pt. Age 65 and over. * Procedure Codes:? * Sign off status: Completed true * Appointment Provider:?Meghna Hays M.D. Date:?02/28/2024 Generated for Norbert escobar/Bola/eTbriansmitting on:?05/16/2024 11:15 AM EST History and Physical Notes * HPI (History of Present Illness) Category Sub-Category Detail Notes Category Not es New/Follow-up Patient Consult PAT ENTERED MENOPAUSE IN 2019. HER HAD PROSTATE CA. THEY ARE NOT SEXUALLY ACTIVE. CT SCAN IN 2020 SHOWED A THICKENED ENDOMETRIUM. PELVIC US SHOWED A 4.2MM THIN ENDOMETRIUM AND EMB WAS BENIGN. LEFT BREAST BX DONE IN 2014 AND RIGHT BREAST BIOPSY IN 2016 WERE BOTH NEGATIVE. SHE HAS HAD MAMMOGRAMS DONE AT [facility] IN 2022 AND 2023 BUT WE DO NOT HAVE THE RESULTS. SHE WILL HAVE THEM FAX THE REPORTS TO US. HER LAST PAP TEST IN 2022 WAS NEGATIVE AND HPV NEGATIVE. SHE HAS NOT HAD A BMD DONE YET. HER MOTHER WAS OSTEOPOROTIC AT AGE 60. WE WILL ORDER A BMD THIS YEAR. SHE HAD A COLONOSCOPY DONE IN 2015. Struq X 3. Annual General Health Maintenance: Current breast complaints:: no breast pain, mass, discharge, or skin changes Urinary problems:: patient r eports no urinary health problems or bowel health problems Calcium intake:: takes adequ ate calcium via diet and supplementation Significant TEACHER LIP READING problems:: n o significant coordinator of placement symptoms or problems Examination Category Sub-Category Detail Notes Category Not es General Exam CONSTITUTIONAL: General Appearan ce:: alert, in no acute distress, normal, well nourished NECK/THYROID: Thyroid:: normal size and shape Inspection/Palpation:: normal RESPIRATORY: Auscultation: clear to auscultation bilaterally, Respiratory Effort: normal CARDIOVASCULAR: Auscultation: regula r rate and rhythm GASTROINTESTINAL: Hernias:: no hernias present, no inguinal adenopathy Liver and Spleen:: normal Abdomen:: no masses, nontender, nondiste nded MUSCULOSKELETAL: Inspection/Palpation:: no clubb ing, cyanosis, or edema SKIN: Skin:: normal NEURO/PSYCH: Mood/Affect:: normal Orientation:: time , place, person BREAST, Right: Inspection/Palpation :: no discharge, no masses present, no nipple retraction, no skin changes, no skin dimpling, no tenderness, no lymphadenopathy, no axillary mass, no axillary tenderness BREAST, Left: Inspection/Palpation :: no discharge, no masses present, no nipple retraction, no skin changes, no skin dimpling, no tenderness, no lymphadenopathy, no axillary mass, no axillary tenderness Genitourinary EXTERNAL GENITALIA: External Genitalia:: nor mal, no lesions VAGINA: Vagina:: normal appearance, no a bnormal discharge, no lesions BLADDER: Bladder:: no mass, nontender URETHRA: Urethra:: no erythema or lesions present CERVIX: Cervix:: no lesions, nontender UTERUS: Uterus:: nontender, normal conto ur, normal mobility, normal size ADNEXA: Adnexa:: no masses, no tendernes s ANUS AND PERINEUM: Anus/Perineum:: visually norm al
--- OUTSIDE RECORDS SUMMARY | 2024-05-16 11:15 | XMS_ITS | Encounter Summary ---
Author Organization [employer] Address [address] [place] [address] [address] [place] [address] Care Team Providers Care Automatic Washer Mechanic Name Role Phone Unavailable Primary Care Provider Unavailabl e Encounter Details Date Type Department Care Team (Latest Contact Info) Description 10/24/2018 Abstract C CONVERSIONS Dental, Provider, DDS Social History Tobacco Use Types Packs/Day Years Used Date Smoking Tobacco: Never Assessed Comments Unknown Sex and Gender Information Value Date Recorded Sex Assigned at Female 01/31/2022 10:24 AM EDT Legal Sex Female 10:24 AM EDT Gender Identity Female 01/31/2022 10:24 AM EDT Sexual Orientation Straight 01/31/2022 10 :24 AM EDT documented as of this encounter Plan of Treatment Not on file documented as of this encounter Visit Diagnoses Not on filedocumented in this encounter
--- OUTSIDE RECORDS SUMMARY | 2024-05-16 11:15 | XMS_ITS | Clinical Summary ---
Author Organization [employer] Address [address] [place] [address] [address] [place] [address] Care Team Providers Care Association Executive Name Role Phone Unavailable Primary Care Provider Unavailabl e Social History Tobacco Use Types Packs/Day Years Used Date Smoking Tobacco: Never Assessed Comments Unknown Sex and Gender Information Value Date Recorded Sex Assigned at Female 01/31/2022 10:24 AM EDT Legal Sex Female 10:24 AM EDT Gender Identity Female 01/31/2022 10:24 AM EDT Sexual Orientation Straight 01/31/2022 10 :24 AM EDT Plan of Treatment Health Maintenance Due Date Last Done Comments CT Colonography 1965 Colonoscopy 1965 Colorectal Cancer Screening 1965 Depression Screening 1965 FIT DNA/Cologuard 1965 FIT 1965 FOBT 1965 Sigmoidoscopy 1965 Alcohol/Substance Use Screening 1975 Tobacco Screening 1975 DTaP/Tdap/Td Vaccines (1 - Tdap) 10/16/1982 Pap Smear 10/16/1984 Cervical Cancer Screening 10/16/1993 HPV/Cotest 10/16/1993 Mammogram 2003 Pneumococcal Vaccine: 50+ Ye ars (1 of 1 - PCV) 10/16/2013 Zoster Vaccines (1 of 2) 10/16/2013 COVID-19 Vaccine ( - 2023-2 5 season) 2023 Influenza Vaccine (#1) 2023 RSV Patients and Pa tients Aged 60 years or older (1 - 1-dose 75+ series) 10/16/2038 HIB Vaccines Aged Out No longer eligi ble based on patient's age to complete this topic HPV Vaccines Aged Out No longer eligi ble based on patient's age to complete this topic Hepatitis A Vaccines Aged Out No long er eligible based on patient's age to complete this topic Hepatitis B Vaccines Aged Out No long er eligible based on patient's age to complete this topic IPV Vaccines Aged Out No longer eligi ble based on patient's age to complete this topic Meningococcal Vaccine Aged Out No edd marta eligible based on patient's age to complete this topic Pneumococcal Vaccine: Pediat rics (0 to 5 Years) and At-Risk Patients (6 to 49) Years) Aged Out No longer eligible b ased on patient's age to complete this topic RSV under 20 months Aged Out No longe r eligible based on patient's age to complete this topic Rotavirus Vaccines Aged Out No longer eligible based on patient's age to complete this topic
--- OUTSIDE RECORDS SUMMARY | 2024-05-16 11:15 | XMS_ITS ---
Author Organization [employer] [facility] Address [address] [place] [address] Care Team Providers Care Sheep Herder Name Role Phone YESI SANFORD, SHILPI Primary Care Provider Brandieleigha erica Meghna Hasy Unavailable [phone] Results Component Value Reference Range Notes SURGICAL PATHOLOGY Reviewed date:03/09/2023 09:16:37 AM Interpretation: Performing Lab:Testing performed or reported by [facility], a Service of [facility], [address] [place] [address] Faustino Anthony MD, Car Dumper Operator Helper [facility]# [id number] Notes/Report: Patient Name: GALEN ANDUJAR Lab Patient : 1965 (Age: 57) Collection Date: 03/03/2023 Accession Date: 03/04/2023 Sign Out Date: 03/09/2023 Tissue Source: 1:ENDOMETRIUM BIOPSY Final Diagnosis: Endometrium, biopsy: - Scant superficial glandular tissue fragments (see note). - Endocervical glandular mucosa with squamous metaplasia, and abundant mucus. Note: The scant quantity of tissue received may not be security representative of the endometrium. Primary Pathologist:Nahomi Santana M.D.,Ph.D. electronically signed out by: Nahomi Santana M.D.,Ph.D. / [facility] Clinical History: Abnormal findings on diagnostic imaging. Gross Description: Labeled EMB . Received in formalin is a 1.7 x 1.2 x 0.3 cm aggregate of predominantly mucus containing scant granados and red-brown tissue fragments which is entirely submitted in 1 cassette following filtering. 1?multiple pieces, x 2. (MN)* Phone #: [phone], On-Call Pathologist: [id number] REASON FOR VISIT HSONO/EB/? THICK ENDO Medications Medication SIG (Take, Route, Frequency, Duration) Notes Start Date End Date Status miSOPROStol 200 MCG 2 Orally night befor e procedure for 1 days 02/22/2023 Active Ferrous Sulfate 325 (65 Fe) MG Oral for 90 Active Allopurinol 100 MG Oral for 90 Active Potassium Chloride ER 10 MEQ Oral for 30 Active hydroCHLOROthiazide 25 MG Oral for 90 Active Problems Problem Type SNOMED Code ICD Code Onset Dates Problem Status W/U Status Risk Notes Problem Imaging result abnormal (308233093) Abnormal findings on diagnostic imaging of other specified body structures (R93.89) Active confirmed Encounters Encounter Location Date Provider Diagnosis [facility] [address] [place] [address] 03/03/2023 Meghna Hays Abnormal findings on diagnostic imaging of other specified body structures R93.89 Assessments Encounter Date Diagnosis (ICD Code) Assessment Notes Treatment Notes Treatment Clinical Notes Section Notes 03/03/2023 Abnormal findings on diagnostic imaging of other specified body structures (ICD-10 - R93.89) DISCUSSED FINDINGS ON HSONO. THE ENDOMETRIUMM LOOKED SMOOTH AND MEASURED 4.2MM. PAT WAS GIVEN THE OPTION OF EITHER PROCEEDING WITH EMB OR DEFERRING IT. SHE CHOSE THE FORMER. EMB WAS PERFORMED AND SPECIMEN SENT TO PATHOLOGY. SHE TOLERATED BOTH PROCEDURES WELL. WILL CALL HER WITH EMB RESULTS. Plan Of Treatment Treatment Notes Assessment Notes Abnormal findings on diagnos tic imaging of other specified body structures DISCUSSED FINDINGS ON HSONO. THE ENDOMETRIUMM LOOKED SMOOTH AND MEASURED 4.2MM. PAT WAS GIVEN THE OPTION OF EITHER PROCEEDING WITH EMB OR DEFERRING IT. SHE CHOSE THE FORMER. EMB WAS PERFORMED AND SPECIMEN SENT TO PATHOLOGY. SHE TOLERATED BOTH PROCEDURES WELL. WILL CALL HER WITH EMB RESULTS. Next Appt Details Follow Up: prn, Reason: Provider Name:Meghna cr, 03/06/2025 08:40:00 AM, [address], [address], [place], [address], Procedure Notes * Category Sub-Category Detail Notes Endometrial biopsy Test: Not indic ated Indication: Abnormal endometrial stripe Consent: General procedure, i ndications, risks, benefits, alternative treatments, and expected outcomes have been discussed with this patient. She has had an opportunity to ask questions, and all questions have been answered by me. She verbalizes understanding and to the best of my knowledge I feel the patient has been adequately informed and consented. The consent form has been signed. Prep: The patient was plac ed in the dorsal lithotomy position and a pelvic examination performed with the results documented above. A speculum was inserted into the vagina and the cervix cleaned with an antiseptic solution Procedure: A speculum was place d in the vaginal vault. The cervix was visualized and cleansed with an aseptic solution. The cervix was grasped with a tenaculum. Gentle traction was used to align the cervix and uterine canal. A flexible endometrial biopsy instrument was then passed through the cervical canal into the uterine cavity without difficulty. The uterine cavity was sounded to 7.5 cm. An adequate specimen was obtained and submitted for pathological evaluation and hemostasis achieved. The instruments were removed from the vagina and the patient advised to report bleeding, fever, dizziness, or other symptoms. She tolerated the procedure well. She was discharged from the office in stable condition with follow-up instructions. Follow-up treatment will be determined when the results of the biopsy are available in approximately one week. Sonohysterogram procedure Cervix prepped with aseptic solution , Catheter advanced easily , Lining thick at 4.2 mm , Lining smooth Progress Notes * CON REYESOB:1965 (57 yo F)Acc No.[id number]:03/03/2023 Patient:?GALEN ANDUJAR Appointment Provider:?Meghna cr M.D. :1965???Age:57 Y???Sex:Female D ate:03/03/2023 Address:[address] [place], [place] [id number] Pcp:SHILPI KEY MD Subjective: * Chief Complaints: * ???HSONO/EB/? THICK ENDO * HPI: ???New/Follow-up Patient Consult:? PAT HAD A CT SCAN IN 2020 SHOWING A CENTRAL LOW ATTENUATION IN ENDOMETRIAL CAVITY SUGGESTIVE OF ENDOMETRIAL FLUID OR THICKENING. SHE HAS NOT HAD ANY PMB. SHE ENTERED MENOPAUSE IN 2020. SHE IS HERE FOR HSONO AND POSSIBLE EMB. * Medical History:? * Medications:?TakinghydroCHLO ROthiazide 25 MG Tablet Oral Potassium Chloride ER 10 MEQ Capsule Extended Release Oral Allopurinol 100 MG Tablet Oral Ferrous Sulfate 325 (65 Fe) MG Tablet Oral miSOPROStol 200 MCG Tablet 2 Orally night before procedureTaking hydroCHLOROthiazide 25 MG Tablet Oral Taking Potassium Chloride ER 10 MEQ Capsule Extended Release Oral Taking Allopurinol 100 MG Tablet Oral Taking Ferrous Sulfate 325 (65 Fe) MG Tablet Oral Taking miSOPROStol 200 MCG Tablet 2 Orally night before procedure Objective: Assessment: * Assessment: 1.?Abnormal findings on diag nostic imaging of other specified body structures - R93.89 (Primary)? Plan: * Treatment: ? Value Reference Range ?SURGICAL PATHOLOGY Patient Name: GALEN ANDUJAR - * ENDOMETRIAL BX Notes: DISCUSSED FINDINGS ON HSONO. THE ENDOMETRIUMM LOOKED SMOOTH AND MEASURED 4.2MM. PAT WAS GIVEN THE OPTION OF EITHER PROCEEDING WITH EMB OR DEFERRING IT. SHE CHOSE THE FORMER. EMB WAS PERFORMED AND SPECIMEN SENT TO PATHOLOGY. SHE TOLERATED BOTH PROCEDURES WELL. WILL CALL HER WITH EMB RESULTS.?? * Procedures:?Sonohysterogram:?procedure?Cervix prepped with aseptic solution ?, Catheter advanced easily ?, Lining thick at 4.2 mm ?, Lining smooth.?Endometrial biopsy :? Test:?Not indicated.?Indication:?Abnormal endometrial stripe.?Consent:?General procedure, indications, risks, benefits, alternative treatments, and expected outcomes have been discussed with this patient. She has had an opportunity to ask questions, and all questions have been answered by me. She verbalizes understanding and to the best of my knowledge I feel the patient has been adequately informed and consented. The consent form has been signed..?Prep:?The patient was placed in the dorsal lithotomy position and a pelvic examination performed with the results documented above. A speculum was inserted into the vagina and the cervix cleaned with an antiseptic solution.?Procedure:?A speculum was placed in the vaginal vault. The cervix was visualized and cleansed with an aseptic solution. The cervix was grasped with a tenaculum. Gentle traction was used to align the cervix and uterine canal. A flexible endometrial biopsy instrument was then passed through the cervical canal into the uterine cavity without difficulty. The uterine cavity was sounded to?7.5 cm. An adequate specimen was obtained and submitted for pathological evaluation and hemostasis achieved. The instruments were removed from the vagina and the patient advised to report bleeding, fever, dizziness, or other symptoms. She tolerated the procedure well. She was discharged from the office in stable condition with follow-up instructions. Follow-up treatment will be determined when the results of the biopsy are available in approximately one week..?UNDER STERILE CONDITIONS, HSONO WAS PERFORMED AND ENDOMETRIUM WAS SLIGHTLY THICKENED BUT SMOOTH. IT MEASURED 4.2MM. NO POLYPS WERE NOTED. EMB WAS PERFORMED AND SPECIMEN SENT TO PATHOLOGY. SHE TOLERATED BOTH PROCEDURES WELL. WILL CALL HER WITH EMB RESULTS. ? * Procedure Codes:? * Follow Up:?prn * Images: Billing Information: * Visit Code:? * Procedure Codes:? * Sign off status: Completed true * Appointment Provider:?Meghna Hays M.D. Date:?03/03/2023 Generated for Norbert escobar/Bola/Jolynnitting on:?05/16/2024 11:14 AM EST History and Physical Notes * HPI (History of Present Illness) Category Sub-Category Detail Notes Category Not es New/Follow-up Patient Consult PAT HAD A CT SCAN IN 2020 SHOWING A CENTRAL LOW ATTENUATION IN ENDOMETRIAL CAVITY SUGGESTIVE OF ENDOMETRIAL FLUID OR THICKENING. SHE HAS NOT HAD ANY PMB. SHE ENTERED MENOPAUSE IN 2020. SHE IS HERE FOR HSONO AND POSSIBLE EMB.
--- OUTSIDE RECORDS SUMMARY | 2024-05-16 11:15 | XMS_ITS ---
Author Organization [employer] [facility] Address [address] [place] [address] Care Team Providers Care Medical Office Technology Instructor Name Role Phone YESI SANFORD, SHILPI Primary Care Provider Meghna Ambriz Unavailable [phone] Allergies No Known Allergies Results Component Value Reference Range Notes Urinalysis Reviewed date:02/22/2023 12:09:55 PM Interpretation: Performing Lab: Notes/Report: PH 5.0 PROTEIN NEG GLUCOSE NEG BLOOD NEG THIN PREP,HPV,IVY IF HPV+ ( >29YR)(DIAG) Reviewed date:03/01/2023 11:41:10 AM Interpretation: Performing Lab:Testing performed or reported by [facility], a Service of [facility], [address] [place] [address] Faustino Anthony MD, Peer Specialist [facility]# [id number] Notes/Report: Patient Name: GALEN ANDUJAR Patient : 1965 (Age: 57) Lab Collection Date: 02/22/2023 Accession Date: 02/22/2023 Sign Out Date: 03/01/2023 Tissue Source: 1: THINPREP LIEUTENANT GENERAL PAP TEST, CERVICAL/VAGINAL: Final Diagnosis: NEGATIVE FOR INTRAEPITHELIAL LESION OR MALIGNANCY. Atrophy. Satisfactory for evaluation. Endocervical/transformation zone ABSENT. Procedures/Addenda: Human Papilloma Virus, High-Risk(Reflex GT) Status: Signed Out Interpretation: Negative Methodology: EyeQuant Aptima HPV mRNA assay (Nucleic Acid Amplification Test, NAAT) Clinical History: Date of Last Menstrual Period: anoop Menstrual History: not available Contraceptive History: not available Ancillary Testing: HPV (Reflex GT) Case imaged by the ThinPrep Imaging System with manual rescreening or review. Performed at [facility] department of Cytology, [place], [facility] Clinical History (other): Z01.419 Phone #: [phone], On-Call Pathologist: [id number] REASON FOR VISIT Annual LIEUTENANT GENERAL Physical, Annual LIEUTENANT GENERAL Physical 50-59* Medications Medication SIG (Take, Route, Frequency, Duration) Notes Start Date End Date Status miSOPROStol 200 MCG 2 Orally night befor e procedure for 1 days 02/22/2023 Active hydroCHLOROthiazide 25 MG Oral for 90 Active Potassium Chloride ER 10 MEQ Oral for 30 Active Allopurinol 100 MG Oral for 90 Active Ferrous Sulfate 325 (65 Fe) MG Oral for 90 Active Social History Tobacco Use: Social History Observation Description Date Details (start date - stop date) Never Smoker NA - NA Tobacco Use/Smoking Question Answer Notes Are you a nonsmoker Alcohol Screen (Audit-C) Question Answer Notes Did you have a drink containing alcohol in the p ast year? No Points 0 Interpretation Negative Sexual History Question Answer Notes Had sex in the past 12 months (vaginal, oral, or anal)? No Have you ever had a Sexually transmitted disease ? No Problems Problem Type SNOMED Code ICD Code Onset Dates Problem Status W/U Status Risk Notes Problem Autoimmune thyroiditis (19495702) Autoimmune thyroiditis (E06.3) Active confirmed Vital Signs Temperature 97.3 degrees Fahrenheit 02/23/20 23 Blood pressure systolic 122 mm Hg 02/23/20 23 Blood pressure diastolic 66 mm Hg 023 Height 61 in 02/22/2023 Weight 158 lbs 02/22/2023 BMI 29.85 kg/m2 02/22/2023 Encounters Encounter Location Date Provider Diagnosis Total [address] [place] [address] 02/22/2023 Meghna Hays Encounter for gynecological examination (general) (routine) without abnormal findings Z01.419 ; Encounter for screening mammogram for malignant neoplasm of breast Z12.31 and Other specified noninflammatory disorders of uterus N85.8 Assessments Encounter Date Diagnosis (ICD Code) Assessment Notes Treatment Notes Treatment Clinical Notes Section Notes 02/22/2023 Encounter for gynecological examination (general) (routine) without abnormal findings (ICD-10 - Z01.419) PAP TEST WITH HPV TYPING WAS OBTAINED. 02/22/2023 Encounter for screening mammogram for malignant neoplasm of breast (ICD-10 - Z12.31) REGULAR MAMMOGRAMS AND SBE'S WERE RECOMMENDED. 02/22/2023 Other specified noninflammatory disorders of uterus (ICD-10 - N85.8) DISCUSSED CT SCAN RESULTS AND NEED FOR FURTHER EVALUATION. DISCUSSED HSONO AND WHAT THIS ENTAILS AND WHAT THIS MAY SHOW. PAT AGREED TO PROCEED WITH HSONO. MISO/MOTRIN Plan Of Treatment Medication Medication Name Sig Start Date Stop Date Notes miSOPROStol 200 MCG 2 Orally night befor e procedure for 1 days 02/22/2023 Treatment Notes Assessment Notes Encounter for gynecological examination (general) (routine) without abnormal findings PAP TEST WITH HPV TYPING WAS OBTAINED. Encounter for screening mamm ogram for malignant neoplasm of breast REGULAR MAMMOGRAMS AND SBE'S WERE RECOMMENDED. Other specified noninflammat ory disorders of uterus DISCUSSED CT SCAN RESULTS AND NEED FOR FURTHER EVALUATION. DISCUSSED HSONO AND WHAT THIS ENTAILS AND WHAT THIS MAY SHOW. PAT AGREED TO PROCEED WITH HSONO. MISO/MOTRIN Pending Test Test Name Order Date Sonohysterogram 02/22/2023 ENDOMETRIAL BX 02/22/2023 MM Digital Mammo Screening 02/22/2023 Next Appt Details Follow Up: 1 Year, Reason: Provider Name:Meghna cr, 03/06/2025 08:40:00 AM[address] [facility] [address], [place], [address], Progress Notes * REYES ANDUJAROB:1965 (57 yo F)Acc No.[id number]:02/22/2023 PROGRESS NOTES Patient:?GALEN ANDUJAR Appointment Provider:?Meghna cr M.D. :1965???Age:57 Y???Sex:Female D ate:02/22/2023 Address:[address] [place], [place] [id number] Pcp:SHILPI KEY MD Subjective: * Chief Complaints: * ???Annual LIEUTENANT GENERAL PhysicalAnnual LIEUTENANT GENERAL Physical 50-59* * HPI: ???New/Follow-up Patient Consult:? PAT WAS LAST HERE IN 2017. ? SHE HAD A CT SCAN IN 2020 THAT SHOWED A CENTRAL LOW ATTENUATION IN THE ENDOMETRIAL CAVITY SUGGESTIVE OF ENDOMETRIAL FLUID OR THICKENING . THIS IS THE FIRST TIME I HAVE BEEN MADE AWARE OF THIS. JOSSELYN HAS NOT HAD ANY PMB SHE HAD ENTERED MENOPAUSE IN 2020. ?JOSSELYN'S HAD PROSTATE CA. THEY ARE NOT SEXUALLY ACTIVE. ?MIRENA IUD WAS INSERTED IN 2013 TO DECREASE MENORRHAGIA AND WAS REMOVED WHEN SHE ENTERED MENOPAUSE. ?LEFT BREAST BIOPSY DONE IN 2014 AND RIGHT BREAST BIOPSY DONE IN 2016 WERE BOTH NEGATIVE. ?HER LAST MAMMOGRAM DONE IN NOV 2022 WAS DONE AT [facility]. WE WILL GET THE RESULTS. ?HER LAST PAP TEST IN 2016 WAS NEGATIVE AND HPV NEGATIVE. SHE HAS NO HX OF ABNORMAL PAP TESTS. ?SHE HAD A COLONOSCOPY DONE IN 2015. ?PFIZER X 3. ???Annual:? Patient presents for annual exam, ages 50-59. ?General Health Maintenance:?Current breast complaints:?no breast pain, mass, discharge, or skin changes ?Urinary problems:?patient reports no urinary health problems or bowel health problems ?Calcium intake:?takes adequate calcium via diet and supplementation ?Significant LIEUTENANT GENERAL problems:?no significant certified nursing attendant symptoms or problems * ROS:?general:?no?chest pain.?no?palpitations.?no?headache.?no?cough.?no?shortness of breath.?no?fever.?no?unexplained weight loss.?no?nausea/vomiting.?no?change in bowel movements.?no blood in stool.?no?genitourinary complaints.?no?skin complaints.? * Medical History:? * Collar Worker History:?/ Para?4/3.?Sexual activity?currently sexually active.?Last Pap Smear:?01/31/17 NIL, NEG HPV, 08/29/13, neg.?Mammogram:?11/23/22, 10/2016 Bilateral Mammo with additional views and Biopsy Rt Breast - Benign.?LMP and menses?Anoop 2019.?Colonoscopy?2016.? * OB History:?Total pregnancies?4.?Total living children?3.?NVD?3.?Miscarriage(s)?1.? * Surgical History:?Rt Breast Bx - Benign 2016Right Shoulder Torn Rotator Cuff 04/2019Right Knee Surgery ppendectomy 1979 * Hospitalization/Major Diagno stic Procedure:?3 Vaginal Deliveries See Surgical Hx * Family History:?Mother: aliv e, Hyperlipidemia, Dementia, diagnosed with Unspecified essential hypertension, Unspecified heart disease.?Father: , hyperlipidemia, diagnosed with Unspecified essential hypertension, Unspecified heart disease.? Sister - Hypertension Brother: Lung Cancer. * Social History:?Tobacco Use:?Tobacco Use/Smoking?Are you a?nonsmoker ???Sexual History:?Sexual History?Had sex in the past 12 months (vaginal, oral, or anal)??No ?Have you ever had a Sexually transmitted disease??No ?Details of Sexual History?Are you sexually active??No ???Drugs/Alcohol:?Drugs?Have you used drugs other than those for medical reasons in the past 12 months??No ?Alcohol Screen (Audit-C)?Did you have a drink containing alcohol in the past year??No ?Points?0 ?Interpretation?Negative ???Miscellaneous:?Children: yes, 3. ?Exercise: yes, walking, golfing, weight training. ?Home smoke detector use: yes. ?Living with: spouse. ?Marital status: . ?Natural support system: yes. 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 ?no Sexually active. * Medications:?TakinghydroCHLO ROthiazide 25 MG Tablet Oral Potassium Chloride ER 10 MEQ Capsule Extended Release Oral Allopurinol 100 MG Tablet Oral Ferrous Sulfate 325 (65 Fe) MG Tablet Oral Taking hydroCHLOROthiazide 25 MG Tablet Oral Taking Potassium Chloride ER 10 MEQ Capsule Extended Release Oral Taking Allopurinol 100 MG Tablet Oral Taking Ferrous Sulfate 325 (65 Fe) MG Tablet Oral DiscontinuedMirena Lotrisone 1-0.05 % Cream 1 application to affected area Externally Twice a dayBactrim DS 800-160 MG Tablet 1 tablet Orally TWICE A DAYTerazol 7 0.4 % Cream 1 application at bedtime Vaginal Once a dayMedication List reviewed and reconciled with the patientDiscontinued Mirena Discontinued Lotrisone 1-0.05 % Cream 1 application to affected area Externally Twice a dayDiscontinued Bactrim DS 800-160 MG Tablet 1 tablet Orally TWICE A DAYDiscontinued Terazol 7 0.4 % Cream 1 application at bedtime Vaginal Once a dayMedication List reviewed and reconciled with the patient * Allergies:?N.K.D.A.no[Allerg ies Verified] Objective: * Vitals:?Ht: 61 in, Wt:158 lb s, BMI:29.85 Index, BP:122/66 mm Hg, Temp:97.3 F. * Examination: ???General Exam: ?CONSTITUTIONAL:?NECK/THYROID:?RESPIRATORY:?Auscultation: clear to auscultation bilaterally, Respiratory Effort: normal.?CARDIOVASCULAR:?Auscultation: regular rate and rhythm.?BREAST, Right:?BREAST, Left:?GASTROINTESTINAL:?MUSCULOSKELETAL:?SKIN:?NEURO/PSYCH:?Genitourinary: ?EXTERNAL GENITALIA:?VAGINA:?BLADDER:?URETHRA:?CERVIX:?UTERUS:?ADNEXA:?ANUS AND PERINEUM:? Assessment: * Assessment: 1.?Encounter for gynecologic al examination (general) (routine) without abnormal findings - Z01.419?2.?Encounter for screening mammogram for malignant neoplasm of breast - Z12.31?3.?Other specified noninflammatory disorders of uterus - N85.8? Plan: * Treatment: ?LAB: Urinalysis* ? Value Reference Range ?PH 5.0 * ?PROTEIN NEG * ?GLUCOSE NEG * ?BLOOD NEG * R,VY 02/22/2023 10:14:20 AM > ?Imaging: Sonohysterogram ?Imaging: ENDOMETRIAL BX* THICK ENDOMET ? POLYP ?FIBRO ID Notes: PAP TEST WITH HPV TYPING WAS OBTAINED.??2.?Encounter for screening mammogram for malignant neoplasm of breast?Imaging: MM Digital Mammo Screening Notes: REGULAR MAMMOGRAMS AND SBE'S WERE RECOMMENDED.??3.?Other specified noninflammatory disorders of uterus? Start miSOPROStol Tablet, 200 MCG, 2, Orally, night before procedure, 1 days, 2 Tablet, Refills 0. ? Notes: DISCUSSED CT SCAN RESULTS AND NEED FOR FURTHER EVALUATION. DISCUSSED HSONO AND WHAT THIS ENTAILS AND WHAT THIS MAY SHOW. PAT AGREED TO PROCEED WITH HSONO. MISO/MOTRIN?? * Procedure Codes:? * Preventive Medicine:? ??YOUR PREVENTIVE WELLNESS PLAN:?Osteoporosis prevention?Calcium, D, strength training.?Breast Cancer Screening (Mammogram):?annually.?Cervical Cancer Screening (Pap Smear):?q 3 years with HPV screen.?Colorectal Cancer Screening:?q 10 years.? * Follow Up:?1 Year * Images: Billing Information: * Visit Code:? 83330 Preventive Care New Pt. Age 40-64. 54536 Preventive Care Est Pt. Age 40-64. * Procedure Codes:? * Sign off status: Completed true * Appointment Provider:?Meghna Hays M.D. Date:?02/22/2023 Generated for Norbert escobar/Bola/Jolynnitting on:?05/16/2024 11:14 AM EST History and Physical Notes * HPI (History of Present Illness) Category Sub-Category Detail Notes Category Not es New/Follow-up Patient Consult JOSSELYN WAS LAST HERE IN 2016. SHE HAD A CT SCAN IN 2020 THAT SHOWED A CENTRAL LOW ATTENUATION IN THE ENDOMETRIAL CAVITY SUGGESTIVE OF ENDOMETRIAL FLUID OR THICKENING . THIS IS THE FIRST TIME I HAVE BEEN MADE AWARE OF THIS. JOSSELYN HAS NOT HAD ANY PMB SHE HAD ENTERED MENOPAUSE IN 2020. JOSSELYN'S HAD PROSTATE CA. THEY ARE NOT SEXUALLY ACTIVE. MIRENA IUD WAS INSERTED IN 2013 TO DECREASE MENORRHAGIA AND WAS REMOVED WHEN SHE ENTERED MENOPAUSE. LEFT BREAST BIOPSY DONE IN 2014 AND RIGHT BREAST BIOPSY DONE IN 2016 WERE BOTH NEGATIVE. HER LAST MAMMOGRAM DONE IN NOV 2022 WAS DONE AT [facility]. WE WILL GET THE RESULTS. HER LAST PAP TEST IN 2017 WAS NEGATIVE AND HPV NEGATIVE. SHE HAS NO HX OF ABNORMAL PAP TESTS. SHE HAD A COLONOSCOPY DONE IN 2015. PFIZER X 3. Annual General Health Maintenance: Current breast complaints:: no breast pain, mass, discharge, or skin changes Urinary problems:: patient r eports no urinary health problems or bowel health problems Calcium intake:: takes adequ ate calcium via diet and supplementation Significant LIEUTENANT GENERAL problems:: n o significant certified nursing attendant symptoms or problems Examination Category Sub-Category Detail [...]
--- OUTSIDE RECORDS SUMMARY | 2024-05-16 11:16 | XMS_ITS | Patient Health Record ---
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 Name Role Phone SHILPI KEY MD Primary Care Provider Meghna Ambriz Unavailable [phone] Allergies No Known Allergies Results Component Value Reference Range Notes Urinalysis Reviewed date:02/28/2024 08:39:44 AM Interpretation: Performing Lab: Notes/Report: PH 5.0 PROTEIN Neg GLUCOSE Neg BLOOD Neg Reason For Referral No Information Medications Medication SIG (Take, Route, Frequency, Duration) [...] (Standard) Question Answer Notes Tobacco use: Nonsmoker Section Notes: MARITAL STATUS: CHILDREN: 3 Children LIVES WITH: spouse OCCUPATION: employed full-time NUTRITION: average diet EXERCISE: none SEXUAL ACTIVITY: monogamous relationship. Heterosexual. CONTRACEPTION: N/A SMOKING: Never a smoker TOBACCO EXPOSURE: No smokers in home. .CE: ALCOHOL: occasional alcohol TEXT MESSAGING WHILE DRIVING: no SUNSCREEN: yes ILLICIT DRUGS: no SEATBEALT: yes Problems Problem Type SNOMED Code ICD Code Onset Dates Problem Status W/U Status Risk Notes Problem Autoimmune thyroiditis (42040946) Autoimmune thyroiditis (E06.3) Active confirmed Problem Imaging result abnormal (532513173) Abnormal findings on diagnostic imaging of other specified body structures (R93.89) Active confirmed Problem Candidal vulvovaginitis (95858148) Candidiasis of vulva and vagina (112.1) Active confirmed Other Problem Leiomyoma of uterus (09386251) Leiomyoma of uterus, unspecified (218.9) Active confirmed Major Problem Anemia (987669794) Unspecified anemia (285.9) Active confirmed Major Problem Excessive and frequent menstruation (487707883) Excessive or frequent menstruation (626.2) Active confirmed Major Problem Abnormal vaginal bleeding (907618029) Other disorder of menstruation and other abnormal bleeding from female genital tract (626.8) Active confirmed Major Problem Insertion of intrauterine contraceptive device (14073630) Insertion of intrauterine contraceptive device (V25.1) Active confirmed Major Problem Surveillance of intrauterine device contraception done (295310868903155) Surveillance of previously prescribed intrauterine contraceptive device (V25.42) Active confirmed Other Vital Signs Temperature 98.1 degrees Fahrenheit 02/28/2024 Blood pressure diastolic 64 mm Hg 02/28/2024 Height 61 in 02/28/2024 Blood pressure systolic 108 mm Hg 02/28/2024 Weight 143 lbs 02/28/2024 BMI 27.02 kg/m2 02/28/2024 Encounters Encounter Location Date Provider Diagnosis [address] [address] 02/28/2024 Meghna Hays Encounter for screening mammogram [...] TEST, DUE IN 2025. Plan Of Treatment Pending Test Test Name Order Date Sonohysterogram 02/22/2023 MAMMOGRAM, SCREENING 02/28/2024 ENDOMETRIAL BX 02/22/2023 COMPLETE URINALYSIS 02/08/2016 THIN PREP,HPV,IVY IF HPV+ (>29YR)(SCRN) 01/31/2017 URINE CULTURE 02/08/2016 BONE DENSITY 02/28/2024 MM Digital Mammo Screening 02/28/2024 MM Digital Mammo Screening 02/22/2023 MM Digital Mammo Screening 01/31/2017 Next Appt Details Provider Name:Meghna Raimrez shaye, 03/06/2025 08:40:00 AM, [address] [facility], [address], [place], [address], Insurance Providers Payer Name Payer Address Payer Phone Subscriber Number Group Number Insured Name Patient Relationship to Insured Coverage Start Date Coverage End Date [facility] [address] [address] [place] [address] [phone] [id number] GALEN ANDUJAR Self - patient is the insured Medical (General) History Medical History History ICD Code Excessive and frequent menstruation with regular cycle N92.0 Anemia, unspecified D64.9 Other specified abnormal uterine and vag inal bleeding N93.8 Insertion of intrauterine contraceptive device V25.1 Leiomyoma of uterus, unspecified D25.9 Candidiasis of vulva and vagina B37.3 Autoimmune thyroiditis E06.3 Abnormal findings on diagnostic imaging of other specified body structures R93.89 Surgical History Surgery Date(Month/Year) Rt Breast Bx - Benign 2016 Right Shoulder Torn Rotator Cuff 04/2019 Right Knee Surgery 03/2022 Appendectomy 1979 Hospitalization History Reason Date(Month/Year) See Surgical Hx 3 Vaginal Deliveries
[2024-05-16 11:29] VITALS: BP 100/60; PULSE 86; RESP 16; TEMP 36.7; O2SAT 97; BMI 27.8
--- NOTE | 2024-05-16 11:29 | A.OFFPC_ITS ---
Vital Signs 05/16/24 11:29 Height 5 ft 1 in Weight 147 lb BMI 27.8 BP 100/60 Blood Pressure Location Rt brachial Position Sitting Respiration 16 Pulse 86 Pulse Source Pulse Oximeter Temp 98.1 F Temp Source Oral Pulse Oximetry (%) 97 Oxygen Delivery Method Room Air Intake Visit Reasons: bilateral hands shooting pain Allergies adhesive [ADHESIVE] Allergy (Intermediate, Verified 04/20/24 02:37) ITCHING FRUIT, SKINS Allergy (Severe, Uncoded 04/20/24 02:37) THROAT CLOSES Medication List - Last Reconciled 05/16/24 by Jacqueline De Leon MD allopurinol 300 mg PO QAM azelastine-fluticasone 137-50 mcg/spray 1 spray intranasal BID cholecalciferol (vitamin D3) 50 mcg PO DAILY lisinopril-hydrochlorothiazide 10-12.5 mg 1 tab PO DAILY loratadine-pseudoephedrine 5-120 mg ER (Claritin-D 12 Hour) 1 tab PO Q12H PRN montelukast 10 mg PO BEDTIME tirzepatide (Mounjaro) 10 mg subcut Q3W walker Folding Front wheeled walker DURATION 99 DAYS Tobacco use date assessed: 05/16/24 Dental Screening Dental Screen Date: 04/16/24 HPI bilateral hands shooting pain HPI Details 58-year-old lady here today complaining of intermittent episodes of sharp shooting pains in palms of both hands were at more than left. Patient states that these are fleeting, comes and goes with no precipitating triggers. She states that it all started after going to the firing range several days ago. Not take anything for the pain as pain resolved spontaneously. Denies any accompanying weakness numbness in extremities. [facility] Medical History Gout James thyroiditis Palpitations Arthritis Iron deficiency anemia Moreno's palsy Pre-diabetes Environmental and seasonal allergies Obesity JASON on CPAP Lactose intolerance Hyperuricemia Essential hypertension Uterine fibroid Surgical History Hx of right knee surgery S/P thyroid biopsy History of appendectomy Hx of left breast biopsy Hx of colonoscopy History of repair of right rotator cuff S/P removal of left ovary Family History Father HTN (hypertension) Heart disease Emphysema of lung Mother HTN (hypertension) Dementia Seizure Family/Other HTN (hypertension) Cancer Social History Housing: House Are you a primary disabilities caregiver to a significant other at home: No Do you presently have visiting nurse or other home services: No Alcohol intake: current Alcohol intake frequency: holidays/special occasions only Comment: advised of trip hazard Patient Tobacco Use Status: Never used Tobacco e-Cigarette/Vaping Use: Never Used Second Hand Smoke Exposure: No service: No Current occupational status: employed 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 Gender identity: Female Cognitive needs: No Hearing needs: No Vision needs: Yes Questionnaire Thrive Questionnaire Date Thrive assessed: 04/16/24 I am a: Patient What is your living situation today?: I have a steady place to live Within the past 12 months, did the food you bought not last and you didn't have the money to get more?: Never true Within the past 12 months, did you worry whether your food would run out before you got money to buy more?: Never true Do you have trouble paying for medicines?: No Do you have trouble getting transportation to medical appointments?: No Do you have trouble paying your heating and electricity bill?: No Do you have trouble taking care of your child, family member or friend?: No Do you have trouble with day-to-day activities such as bathing, preparing meals, shopping, managing finances, etc.?: No Are you currently unemployed and looking for a job?: No Are you interested in more education?: No Please select the resources that you would like help with: None Currently or been in a relationship where the following occur: No concerns reported THRIVE Score: 0 MERCEDEZ-7 AMB Questionnaire MERCEDEZ-7 Date MERCEDEZ - 7 assessed: 04/16/24 Feeling nervous, anxious, or on edge: 0 = Not at all Not being able to stop or control worryin = Not at all Worrying too much about different things: 0 = Not at all Trouble relaxin = Not at all Being so restless that it is hard to sit still: 0 = Not at all Becoming easily annoyed or irritable: 0 = Not at all Feeling afraid as if something awful might happen: 0 = Not at all Total MERCEDEZ-7 score (0-4 normal; 5-9 mild; 10-14 moderate; 15-21 severe): 0 Source: Developed by Drs. Garth Youssef, Maria Isabel Beckman, Jose Farley and colleagues, with an educational yahaira from [employer]. Review of Systems Const All systems reviewed & are unremarkable except as noted in HPI and below Physical exam (Primary Care) Vital Signs: Last Vital Signs Temp 98.1 F 05/16/24 11:29 Pulse 86 05/16/24 11:29 Resp 16 05/16/24 11:29 BP 100/60 05/16/24 11:29 Pulse Ox 97 05/16/24 11:29 Oxygen Delivery Method Room Air 05/16/24 11:29 BMI result Body Mass Index 27.8 Tobacco/Smoking Status: Tobacco use Status Tobacco use date assessed 05/16/24 05/16/24 11:32 Patient Tobacco Use Status Never used Tobacco 05/16/24 11:32 e-Cigarette/Vaping Use Never Used 05/16/24 11:32 Thrive Assessment: Date of Thrive Assessment Date Thrive assessed 04/16/24 05/16/24 11:32 Currently or been in a relationship where the following occur: No concerns reported Const Other: Alert oriented x3, no acute distress noted ambulatory normal gait. Neck Other: Supple with no lymphadenopathy, motion of cervical spine noted Skin General skin exam: no rashes or lesions noted Extrem Other: With range of motion of finger joints and wrist in both hands. Negative Tinel's sign, no gross bone deformity or joint swelling seen in both hands Coding Level of Care Code Est Pt Level 3 (57233) Diagnoses Tendinitis of both hands M77.8 Assessment & Plan Assessment & Plan (1) Tendinitis of both hands: Code(s): M77.8 - Other enthesopathies, not elsewhere classified Category: Medical Plan: Likely due to recent activity in the firing range. Advised rest hands, may try massaging with absorbine jr or diclofenac gel to affected area palms of both hands. Return to clinic if no improvement of symptoms after 2 weeks
== END 2024-05-16 14:26 | disposition home or self-care (01) ==
PROVIDERS: PCP Internal Medicine; Visit Provider Internal Medicine
DX: M77.8 Other enthesopathies, not elsewhere classified (principal)

== ENCOUNTER → 2024-05-16 10:33 | Outpatient (BNVA) | payer OTHER, SELFPAY | PROVIDERS: PCP Internal Medicine; Visit Provider Internal Medicine | DX: M77.8 Other enthesopathies, not elsewhere classified (principal) | CPT/HCPCS: 99212 ==

== ENCOUNTER → 2024-05-21 08:55 | Outpatient (BNVA) | payer OTHER, SELFPAY | PROVIDERS: PCP Internal Medicine | DX: Z01.818 Encounter for other preprocedural examination (principal) ==

== ENCOUNTER 2024-05-27 09:39 | Outpatient (REF) | payer OTHER, SELFPAY ==
--- OUTSIDE RECORDS SUMMARY | 2024-05-27 10:33 | XMS_ITS | Clinical Summary ---
Author Organization [facility] Address [address] [place] [address] Care Team Providers Care Retail Management Keyholder Name Role Phone Jacqueline De Leon MD Primary Care Provider Social History Tobacco Use Types Packs/Day Years Used Date Smoking Tobacco: Never Smokeless Tobacco: Never Alcohol Use Standard Drinks/Week Comments Never 0 (1 standard drink = 0.6 oz pur e alcohol) Comments Unknown Sex and Gender Information Value Date Recorded Sex Assigned at Not on file Legal Sex Female 8:01 PM EST Gender Identity Not on file Sexual Orientation Not on file Obstetrics History Last Filed Vital Signs Vital Sign Reading Time Taken Comments Blood Pressure - - Pulse - - Temperature - - Respiratory Rate - - Oxygen Saturation - - Inhaled Oxygen Concentration - - Weight 71.7 kg (158 lb) 08/12/2021 8:17 AM EDT Height 157.5 cm (5' 2 ) 08/12/2021 8:17 AM EDT Body Mass Index 28.9 08/12/2021 8:17 AM EDT Plan of Treatment Health Maintenance Due Date Last Done Comments Breast Cancer Screening 1965 DTaP,Tdap,and Td Vaccines (1 - Tdap) 10/16/1982 Cervical Cancer Screening: P ap Smear 10/16/1984 Pneumococcal Vaccine: 50+ Ye ars (1 of 1 - PCV) 10/16/2013 Zoster Vaccines (1 of 2) 10/16/2013 Colorectal Cancer Screening: Colonoscopy 03/05/2022 Depression Screening 03/05/2022 HIV Screening 03/05/2022 Hepatitis C Screening 03/05/2022 Social Influencers of Health Screening 03/05/2022 COVID-19 Vaccine ( - 2023-2 5 season) 2023 Influenza Vaccine (#1) 2023 RSV Immunization Patients 60 + Years Old (1 - 1-dose 75+ series) 10/16/2038 HIB [...] on patient's age to complete this topic MMR Vaccines Aged Out No longer eligi ble based on patient's age to complete this topic Meningococcal ACWY Vaccine Aged Out N o longer eligible based on patient's age to complete this topic Meningococcal B Vacine Aged Out No lo nger eligible based on patient's age to complete this topic Pneumococcal Vaccine: Pediat rics (0 to 5 Years) and At-Risk Patients (6 to 64 Years) Aged Out No longer eligible b ased on patient's age to complete this topic RSV Immunization Patients Un chapo 20 months Aged Out No longer eligible b ased on patient's age to complete this topic Varicella Vaccines Aged Out No longer eligible based on patient's age to complete this topic Care Teams Retail Management Keyholder Relationship Specialty Start Date End Date Jacqueline De Leon MD [address] [place] [address] PCP - General Internal Medicine 04/01/21
--- OUTSIDE RECORDS SUMMARY | 2024-05-27 10:33 | XMS_ITS | Encounter Summary ---
Author Organization [employer] Address [address] [place] [address] [address] [place] [address] Care Team Providers Care Neonatal Icu Coordinator Name Role Phone Unavailable Primary Care Provider [...]
--- OUTSIDE RECORDS SUMMARY | 2024-05-27 10:33 | XMS_ITS | Clinical Summary ---
Author Organization [employer] Address [address] [place] [address] [address] [place] [address] Care Team Providers Care Exercise Instructor Name Role Phone Unavailable Primary Care Provider [...]
[2024-05-27 15:27] LABS: Alanine Aminotransferase 10 U/L (0-31); Anion Gap 15 (12-20); Aspartate Amino Transferase 21 U/L (5-31); Blood Urea Nitrogen 15 mg/dL (9-16); Calcium 9.2 mg/dL (8.4-10.2); Carbon Dioxide 27 mmol/L (22-29); Chloride 105 mmol/L (96-108); Cholesterol 189 mg/dL (<200); Estimated Glomerular Filt Rate > 60; Glucose Fasting 87 mg/dL (60-99); HDL Cholesterol 71 mg/dL (>40); LDL Cholesterol Calculated 106 mg/dL (<100); Potassium 4.5 mmol/L (3.3-5.1); Sodium 142 mmol/L (135-145); Triglycerides 63 mg/dL (<150); Uric Acid 4.4 mg/dL (2.4-5.7)
[2024-05-27 15:41] LABS: TSH reflex Free T4 0.88 uIU/mL (0.32-4.0); Vitamin D 25-OH Total 87.4 ng/mL (>30)
== END 2024-05-27 09:40 | disposition home or self-care (01) ==
LOC: HO.HMGCLDS 09:39
PROVIDERS: PCP Internal Medicine; Visit Provider Internal Medicine
DX: E79.0 Hyperuricemia without signs of inflammatory arthritis and tophaceous disease (principal); I10 Essential (primary) hypertension; R73.03 Prediabetes; E66.3 Overweight
CPT/HCPCS: 36415; 80048; 80061; 82306; 84443; 84450; 84460; 84550

== ENCOUNTER → 2024-06-04 07:42 | Outpatient (REF) | payer OTHER, SELFPAY ==
--- NOTE | 2024-06-04 07:45 | CA_ITS ---
Transthoracic Echocardiogram Patient (Last, First, Middle): Barby Steward L Gender: Female Date of : 1965 Age: 58 Procedure Date: 06/04/2024 Procedure Type: Transthoracic Echocardiogram Location: OP Height: 154.94 cm Weight: 75.75 kg BSA: 1.75 m2 Heart Rate: 72 bpm BP: 100 / 60 mmHg Medical Manager: AUBREE Referring MD: Shaun Jimenez MD Turnaround Engineer: Shaun Jimenez MD Symptoms: R00.2 - Palpitations Study Quality: Fair ECG Rhythm: Sinus Conclusions: - 1. Hyperdynamic LV ejection fraction greater than 70% with impaired relaxation filling pattern 2. Normal cardiac valvular Dopplers 3. Normal RV systolic pressure 4. No gross pericardial effusion Findings Procedure Information The quality of the study was technically difficult. The study quality is limited by lung artifact. Left Ventricle Normal left ventricular cavity size. There is normal left ventricular wall thickness. The left ventricular systolic function is hyperdynamic. The visually estimated ejection fraction is >70%. Spectral Doppler is indicative of an impaired relaxation filling pattern. E/E prime ratio is between 8 and 15 consistent with indeterminate filling pressures. Right Ventricle Normal right ventricular cavity size and systolic function. Atria The left atrium is normal in size. There is no evidence of interatrial shunt. The right atrium is normal in size. Aortic Valve Normal aortic valve structure and function. There is no aortic valve stenosis. There is no aortic valve regurgitation. Mitral Valve Normal mitral valve structure and function. There is trace mitral valve regurgitation. There is no mitral valve stenosis. Pulmonic Valve The pulmonic valve was not well visualized. Tricuspid Valve Likely normal tricuspid valve structure and function. There is trace tricuspid valve regurgitation. The right ventricular systolic pressure is normal. The right ventricular systolic pressure is 31 mmHg. Normal right atrial pressure. There is no evidence of pulmonary hypertension. Great Vessels All visible segments of the aorta are normal in size. The pulmonary artery was not well visualized. There is no dilatation of the ascending aorta measuring 3.20 cm. Venous The inferior vena cava is normal in size and collapses greater than 50% with inspiration. Pericardium/Pleural There is no evidence of pericardial effusion. Prior Study Comparison no previous study in the last 5 years for comparison Measurements 2D Linear Measurements IVSd: 0.89 0.6-0.9/0.6-1.0 cm LVIDd: 4.52 3.9-5.3/4.2-5.9 cm LVIDd Index: 2.58 2.4-3.2/2.2-3.1 cm/m2 LVIDs: 3.10 2.0-3.6 cm LVPWd: 0.90 0.7-1.1 cm LA Diam: 3.70 2.7-3.8/3.0-4.0 cm LAIDs Index: 2.11 1.5-2.3 cm/m2 LV Mass: 164.63 67-162/88-224 g LV Mass Index: 94.07 43-95/49-115 g/m2 LVOT Diam: 1.80 3.0+(-)1.3 cm 2D Systolic Function EF 4C: 74.80 >55% EF 2C: 73.10 >55% EF BiP: 72.90 >55% Mitral Valve MV Pk E: 0.85 MV PK A: 0.85 MV Decel Time: 225.00 E/A: 1.00 E'Lateral: 7.51 E'Medial: 6.74 E/E' Med: 12.60 E/E' Lat: 11.30 PHT: 66.00 MVA PHT: 3.33 Decel Sterling: 3.77 Aortic Valve AoV Pk Paulie: 1.19 AoV Pk Grad: 6.00 SWATI: 2.41 LVOT LVOT Pk Paulie: 1.13 LVOT Mn Paulie: 0.74 LVOT VTI: 0.24 LVOT Pk Grad: 5.00 LVOT Mn Grad: 3.00 LVOT Diam: 1.80 LVOT Area: 2.54 Diastolic Function MV Pk E: 0.85 MV Pk A: 0.85 E/A: 1.00 E'Medial: 6.74 E/E' Med: 12.60 E' Laterial: 7.51 E/E' Lat: 11.30 Right Ventricle TAPSE (mm): 24.20 TVS' Paulie: 11.20 Tricuspid Valve TR Pk Paulie: 2.63 TR Pk Grad: 28.00 RA Press: 3.00 RVSP: 31.00 Great Vessels Aorta Sinus of Valsalva: 2.60 2.0-3.5 cm Ao Asc: 3.20 2.1-3.4 cm Ao Arch: 2.90 Pulmonary Veins Pulm Vein S/D 1.40 Pulmonary Valve PV Pk Paulie: 0.94 Peak PV Grad: 4.00 Updated in Other Vendor System with Status of Final Shaun Jimenez MD electronically signed on 06/05/2024 3:40:23 PM with status of Final
--- OUTSIDE RECORDS SUMMARY | 2024-06-04 07:45 | XMS_ITS | Clinical Summary ---
Author Organization [facility] Address [address] [place] [address] Care Team Providers Care Turkey Egg Gatherer Name Role Phone Jacqueline De Leon MD [...] age to complete this topic Care Teams Turkey Egg Gatherer Relationship Specialty Start Date End Date Jacqueline De Leon MD [address] [place] [address] PCP - General Internal Medicine 04/01/21
--- OUTSIDE RECORDS SUMMARY | 2024-06-04 07:45 | XMS_ITS | Patient Health Record ---
Author Organization [facility] Address [address] [place] [address] Care Team Providers Care Sizer Machine Name Role Phone SHILPI KEY MD Primary Care Provider Meghna Ambriz Unavailable [phone] Allergies No Known Allergies Results Component Value [...] W/U Status Risk Notes Problem Autoimmune thyroiditis (00435928) Autoimmune thyroiditis (E06.3) Active confirmed Problem Imaging result abnormal (837144659) Abnormal findings on diagnostic imaging of other specified body structures (R93.89) Active confirmed Problem Candidal vulvovaginitis (53473282) Candidiasis of vulva and vagina (112.1) Active confirmed Other Problem Leiomyoma of uterus (17471430) Leiomyoma of uterus, unspecified (218.9) Active confirmed Major Problem Anemia (130990066) Unspecified anemia (285.9) Active confirmed Major Problem Excessive and frequent menstruation (164758428) Excessive or frequent menstruation (626.2) Active confirmed Major Problem Abnormal vaginal bleeding (086529511) Other disorder of menstruation and other abnormal bleeding from female genital tract (626.8) Active confirmed Major Problem Insertion of intrauterine contraceptive device (88897160) Insertion of intrauterine contraceptive device (V25.1) Active confirmed Major Problem Surveillance of intrauterine device contraception done (397661910389278) Surveillance of previously prescribed intrauterine contraceptive device (V25.42) Active confirmed Other Vital Signs Temperature 98.1 degrees Fahrenheit 02/28/2024 Blood pressure diastolic 64 mm Hg 02/28/2024 Height 61 in 02/28/2024 Blood pressure systolic 108 mm Hg 02/28/2024 Weight 143 lbs 02/28/2024 BMI 27.02 kg/m2 02/28/2024 Encounters Encounter Location Date Provider Diagnosis [address] [address] 02/28/2024 Meghna Hays Encounter for screening mammogram [...] Screening 01/31/2017 Next Appt Details Provider Name:Meghna Ramirez shaye, 03/06/2025 08:40:00 AM, [address] [facility], [address], [place], [address], Insurance Providers Payer Name Payer Address Payer Phone Subscriber Number Group Number Insured Name Patient Relationship to Insured Coverage Start Date Coverage End Date [facility] [address] [address] [place] [address] [phone] [id number] GALEN ANDUJAR Self - patient is the [...]
--- OUTSIDE RECORDS SUMMARY | 2024-06-04 07:45 | XMS_ITS ---
Author Organization [employer] [facility] Address [address] [place] [address] Care Team Providers Care Mixed Crop And Livestock Farmer Name Role Phone YESI SANFORD, SHILPI Primary Care Provider Meghna Ambriz Unavailable [phone] Allergies No Known Allergies Results Component Value Reference Range Notes Urinalysis Reviewed date:02/22/2023 12:09:55 PM Interpretation: Performing Lab: Notes/Report: PH 5.0 PROTEIN NEG GLUCOSE NEG BLOOD NEG THIN PREP,HPV,IVY IF HPV+ ( >29YR)(DIAG) Reviewed date:03/01/2023 11:41:10 AM Interpretation: Performing Lab:Testing performed or reported by [facility], a Service of [facility], [address] [place] [address] Faustino Anthony MD, Electromechanic [facility]# [id number] Notes/Report: Patient Name: GALEN ANDUJAR Patient : 1965 (Age: 57) Lab Collection Date: 02/22/2023 Accession Date: 02/22/2023 Sign Out Date: 03/01/2023 Tissue Source: 1: THINPREP TRANSVERSE ABDOMINAL MUSCLE SURGEON PAP TEST, CERVICAL/VAGINAL: Final Diagnosis: NEGATIVE FOR INTRAEPITHELIAL LESION OR MALIGNANCY. Atrophy. Satisfactory for evaluation. Endocervical/transformation zone ABSENT. Procedures/Addenda: Human Papilloma Virus, High-Risk(Reflex GT) Status: Signed Out Interpretation: Negative Methodology: [email or web address] Aptima HPV mRNA assay (Nucleic Acid Amplification Test, NAAT) Clinical History: Date of Last Menstrual Period: anoop Menstrual History: not available Contraceptive History: not available Ancillary Testing: HPV (Reflex GT) Case imaged by the ThinPrep Imaging System with manual rescreening or review. Performed at [facility] department of Cytology, [place], [facility] Clinical History (other): Z01.419 Phone #: [phone], On-Call Pathologist: [id number] REASON FOR VISIT Annual TRANSVERSE ABDOMINAL MUSCLE SURGEON Physical, Annual TRANSVERSE ABDOMINAL MUSCLE SURGEON Physical 50-59* Medications Medication SIG (Take, Route, [...] W/U Status Risk Notes Problem Autoimmune thyroiditis (93278049) Autoimmune thyroiditis (E06.3) Active confirmed Vital Signs Temperature 97.3 degrees Fahrenheit 02/23/20 23 Blood pressure systolic 122 mm Hg 02/23/20 23 Blood pressure diastolic 66 mm Hg 023 Height 61 in 02/22/2023 Weight 158 lbs 02/22/2023 BMI 29.85 kg/m2 02/22/2023 Encounters Encounter Location Date Provider Diagnosis Total [address] [place] [address] 02/22/2023 Meghna Hays Encounter for gynecological examination [...] Reason: Provider Name:Meghna cr, 03/06/2025 08:40:00 AM[facility] [address] [facility] [address], [place], [address], Progress Notes * REYES ANDUJAROB:1965 (57 yo F)Acc No.[id number]:02/22/2023 PROGRESS NOTES Patient:?GALEN ANDUJAR Appointment Provider:?Meghna cr M.D. :1965???Age:57 Y???Sex:Female D ate:02/22/2023 Address:[address] [place], [place] [id number] Pcp:SHILPI KEY MD Subjective: * Chief Complaints: * ???Annual TRANSVERSE ABDOMINAL MUSCLE SURGEON PhysicalAnnual TRANSVERSE ABDOMINAL MUSCLE SURGEON Physical 50-59* * HPI: ???New/Follow-up Patient Consult:? [...] DONE IN NOV 2022 WAS DONE AT [facility]. WE WILL GET THE RESULTS. ?HER LAST [...] adequate calcium via diet and supplementation ?Significant TRANSVERSE ABDOMINAL MUSCLE SURGEON problems:?no significant pressure tester operator symptoms or problems * ROS:?general:?no?chest pain.?no?palpitations.?no?headache.?no?cough.?no?shortness of breath.?no?fever.?no?unexplained weight loss.?no?nausea/vomiting.?no?change in bowel movements.?no blood in stool.?no?genitourinary complaints.?no?skin complaints.? * Medical History:? 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 * OB History:?Total pregnancies?4.?Total living children?3.?NVD?3.?Miscarriage(s)?1.? [...] Hg, Temp:97.3 F. * Examination: ???General Exam: ?CONSTITUTIONAL:?General Appearance:?alert, in no acute distress, normal, well nourished ?NECK/THYROID:?Inspection/Palpation:?normal ?Thyroid:?normal size and shape ?RESPIRATORY:?Auscultation: clear to auscultation bilaterally, Respiratory Effort: normal.?CARDIOVASCULAR:?Auscultation: regular rate and rhythm.?BREAST, Right:?Inspection/Palpation:?no discharge, no masses present, no nipple retraction, no skin changes, no skin dimpling, no tenderness, no lymphadenopathy, no axillary mass, no axillary tenderness ?BREAST, Left:?Inspection/Palpation:?no discharge, no masses present, no nipple retraction, no skin changes, no skin dimpling, no tenderness, no lymphadenopathy, no axillary mass, no axillary tenderness ?GASTROINTESTINAL:?Abdomen:?no masses, nontender, nondistended ?Liver and Spleen:?normal ?Hernias:?no hernias present, no inguinal adenopathy ?MUSCULOSKELETAL:?Inspection/Palpation:?no clubbing, cyanosis, or edema ?SKIN:?Skin:?normal ?NEURO/PSYCH:?Orientation:?time , place, person ?Mood/Affect:?normal?Genitourinary: ?EXTERNAL GENITALIA:?External Genitalia:?normal, no lesions ?VAGINA:?Vagina:?normal appearance, no abnormal discharge, no lesions ?BLADDER:?Bladder:?no mass, nontender ?URETHRA:?Urethra:?no erythema or lesions present ?CERVIX:?Cervix:?no lesions, nontender ?UTERUS:?Uterus:?nontender, normal contour, normal mobility, normal size ?ADNEXA:?Adnexa:?no masses, no tenderness ?ANUS AND PERINEUM:?Anus/Perineum:?visually normal??? Assessment: * Assessment: 1.?Encounter for gynecologic al [...] * Images: Billing Information: * Visit Code:? 27533 Preventive Care New Pt. Age 40-64. 15349 Preventive Care Est Pt. Age 40-64. * Procedure Codes:? * Sign off status: Completed true * Appointment Provider:?Meghna Hays M.D. Date:?02/22/2023 Generated for Norbert escobar/Bola/Lesa on:?06/04/2024 07:45 AM EST History and Physical Notes * [...] PMB SHE HAD ENTERED MENOPAUSE IN 2020. PAT'S HAD PROSTATE CA. THEY ARE NOT SEXUALLY ACTIVE. MIRENA IUD WAS INSERTED IN 2013 TO DECREASE MENORRHAGIA AND WAS REMOVED WHEN SHE ENTERED MENOPAUSE. LEFT BREAST BIOPSY DONE IN 2014 AND RIGHT BREAST BIOPSY DONE IN 2016 WERE BOTH NEGATIVE. HER LAST MAMMOGRAM DONE IN NOV 2022 WAS DONE AT [facility]. WE WILL GET THE RESULTS. HER LAST PAP TEST IN 2016 WAS NEGATIVE AND HPV NEGATIVE. SHE HAS NO HX OF ABNORMAL PAP TESTS. SHE HAD A COLONOSCOPY DONE IN 2015. [employer] X 3. Annual General Health Maintenance: Current breast complaints:: no breast pain, mass, discharge, or skin changes Urinary problems:: patient r eports no urinary health problems or bowel health problems Calcium intake:: takes adequ ate calcium via diet and supplementation Significant TRANSVERSE ABDOMINAL MUSCLE SURGEON problems:: n o significant pressure tester operator symptoms or problems Examination Category Sub-Category Detail [...]
--- OUTSIDE RECORDS SUMMARY | 2024-06-04 07:45 | XMS_ITS | Encounter Summary ---
Author Organization [employer] Address [address] [place] [address] 7 [place] [address] Care Team Providers Care Conditioning Coach Name Role Phone Unavailable Primary Care Provider [...]
--- OUTSIDE RECORDS SUMMARY | 2024-06-04 07:45 | XMS_ITS ---
Author Organization [employer] [facility] Address [address] [place] [address] Care Team Providers Care Component Overhaul Operator Name Role Phone YESI SANFORD, SHILPI Primary Care Provider Brandieleigha erica Meghna Hays Unavailable [phone] Results Component Value Reference Range Notes SURGICAL PATHOLOGY Reviewed date:03/09/2023 09:16:37 AM Interpretation: Performing Lab:Testing performed or reported by [facility], a Service of [facility], [address] [place] [address] Faustino Anthony MD, Front Desk Coordinator [facility]# [id number] Notes/Report: Patient Name: GALEN ANDUJAR Lab Patient : 1965 (Age: 57) Collection Date: 03/03/2023 Accession Date: 03/04/2023 Sign Out Date: 03/09/2023 Tissue Source: 1:ENDOMETRIUM BIOPSY Final Diagnosis: Endometrium, biopsy: - Scant superficial glandular tissue fragments (see note). - Endocervical glandular mucosa with squamous metaplasia, and abundant mucus. Note: The scant quantity of tissue received may not be sales representative facility services of the endometrium. Primary Pathologist:Nahomi Santana M.D.,Ph.D. electronically signed out by: Nahomi Santana M.D.,Ph.D. / [facility] Clinical History: Abnormal findings on diagnostic imaging. Gross Description: Labeled EMB . Received in formalin is a 1.7 x 1.2 x 0.3 cm aggregate of predominantly mucus containing scant granados and red-brown tissue fragments which is entirely submitted in 1 cassette following filtering. 1?multiple pieces, x 2. (MN)* Phone #: [phone], On-Call Pathologist: [id number] REASON FOR VISIT HSONO/EB/? THICK ENDO Medications [...] Status Risk Notes Problem Imaging result abnormal ([id number]) Abnormal findings on diagnostic imaging of other specified body structures (R93.89) Active confirmed Encounters Encounter Location Date Provider Diagnosis [facility] [address] [place] [address] 03/03/2023 Meghna Hays Abnormal findings on diagnostic [...] Provider Name:Meghna cr, 03/06/2025 08:40:00 AM, [address], [address], [place], [address], Procedure Notes * Category Sub-Category Detail Notes [...] Notes * CON REYESOB:1965 (57 yo F)Acc No.[id number]:03/03/2023 Patient:?GALEN ANDUJAR Appointment Provider:?Meghna cr M.D. :1965???Age:57 Y???Sex:Female D ate:03/03/2023 Address:[address] [place], [place] [id number] Pcp:SHILPI KEY MD Subjective: * Chief Complaints: [...] Hays M.D. Date:?03/03/2023 Generated for Norbert escobar/Bola/Jolynnitting on:?06/04/2024 07:44 AM EST History and Physical Notes * [...]
--- OUTSIDE RECORDS SUMMARY | 2024-06-04 07:45 | XMS_ITS | Clinical Summary ---
Author Organization [employer] Address [address] [place] [address] 7t [place] [address] Care Team Providers Care Gas Distribution And Emergency Clerk Name Role Phone Unavailable Primary Care Provider [...]
--- OUTSIDE RECORDS SUMMARY | 2024-06-04 07:45 | XMS_ITS ---
Author Organization [facility] Address [address] [address] Care Team Providers Care Tattoo Artist Name Role Phone YESI SANFORD, SHILPI Primary Care Provider Meghna Ambriz Unavailable [phone] Allergies No Known Allergies Results Component Value Reference Range Notes Urinalysis Reviewed date:02/28/2024 08:39:44 AM Interpretation: Performing Lab: Notes/Report: PH 5.0 PROTEIN Neg GLUCOSE Neg BLOOD Neg REASON FOR VISIT Annual RELIEF MASTER Physical, Annual RELIEF MASTER Physical 60-85+ Medications Medication SIG (Take, Route, [...] 02/28/2024 Encounters Encounter Location Date Provider Diagnosis [facility] [address] [place] [address] 02/28/2024 Meghna Hays Encounter for screening mammogram [...] Reason: Provider Name:Meghna cr, 03/06/2025 08:40:00 AM, [address], [facility] [address], [place], [address], Progress Notes * REYES ANDUJAROB:1965 (58 yo F)Acc No.[id number]:02/28/2024 PROGRESS NOTES Patient:?GALEN ANDUJAR Appointment Provider:?Meghna cr M.D. :1965???Age:58 Y???Sex:Female D ate:02/28/2024 Address[address] [place], [place] Pcp:SHILPI KEY MD Subjective: * Chief Complaints: * ???Annual RELIEF MASTER PhysicalAnnual RELIEF MASTER Physical 60-85+ * HPI: ???New/Follow-up Patient Consult:? PAT ENTERED MENOPAUSE IN 2019.? HER HAD PROSTATE CA.? THEY ARE NOT SEXUALLY ACTIVE. CT SCAN IN 2020 SHOWED A THICKENED ENDOMETRIUM.? PELVIC US SHOWED A 4.2MM THIN ENDOMETRIUM AND EMB WAS BENIGN. LEFT BREAST BX DONE IN 2014 AND RIGHT BREAST BIOPSY IN 2016 WERE BOTH NEGATIVE. SHE HAS HAD MAMMOGRAMS DONE AT [facility] IN 2022 AND 2023 BUT WE DO [...] adequate calcium via diet and supplementation ?Significant RELIEF MASTER problems:?no significant cardiovascular invasive specialist symptoms or problems * ROS:?general:?no?chest pain.?no?palpitations.?no?headache.?no?cough.?no?shortness of breath.?no?fever.?no?unexplained weight loss.?no?nausea/vomiting.?no?change in bowel movements.?no blood in stool.?no?genitourinary complaints.?no?skin complaints.? * Medical History:? 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 * OB History:?Total pregnancies?4.?Total living children?3.?NVD?3.?Miscarriage(s)?1.? [...] BP:108/64mm Hg, Temp:98.1F. * Examination: ???General Exam: ?CONSTITUTIONAL:?General Appearance:?alert, in [...] PERINEUM:?Anus/Perineum:?visually normal??? Assessment: * Assessment: 1.?Encounter for screening m [...] SCR EENING * Labs:? * ?Lab: Urinalysis ([facility] tion Date & Time - 02/28/2024) [...] * Images: Billing Information: * Visit Code:? 83490 Preventive Care Est Pt. Age 65 and over. * Procedure Codes:? * Sign off status: Completed true * Appointment Provider:?Meghna Hays M.D. Date:?02/28/2024 Generated for Norbert ecsobar/Bola/Lesa on:?06/04/2024 07:45 AM EST History and Physical [...] NEGATIVE. SHE HAS HAD MAMMOGRAMS DONE AT [facility] IN 2022 AND 2023 BUT WE DO [...] or skin changes Urinary problems:: patient r eportpanfilo no urinary health problems or bowel health problems Calcium intake:: takes adequ ate calcium via diet and supplementation Significant RELIEF MASTER problems:: n o significant cardiovascular invasive specialist symptoms or problems Examination Category Sub-Category Detail [...]
== END ==
LOC: HO.CARD 07:42
PROVIDERS: PCP Internal Medicine; Visit Provider Internal Medicine Cardiovascular Disease
DX: R00.2 Palpitations (principal)
CPT/HCPCS: 93246; 93306

== ENCOUNTER → 2024-06-04 07:45 | Outpatient (BNV) | payer OTHER, SELFPAY | PROVIDERS: PCP Internal Medicine; Visit Provider Internal Medicine Cardiovascular Disease | DX: I42.8 Other cardiomyopathies (principal) | CPT/HCPCS: 93306 ==

== ENCOUNTER 2024-06-13 09:08 | Outpatient (AMB) | payer OTHER, SELFPAY ==
--- NOTE | 2024-06-13 09:10 | MHC.OFFVIS ---
Intake Visit Reasons: Pre-Op: R Medial Compartment UKA w/NE 06/18/24 Intake Note: Barby is a 58 year old female who presents today for a pre-operative appointment. She is booked for a Right Medial Compartment UKA on 06/18/24. Patient was provided with the Pain management agreement form to review & sign. Patient has questions on how long she will be staying in hospital post operatively. Allergies adhesive [ADHESIVE] Allergy (Intermediate, Verified 06/13/24 09:23) ITCHING FRUIT, SKINS Allergy (Severe, Uncoded 06/13/24 09:23) THROAT CLOSES Medication List - Last Reconciled 06/13/24 by Birdie Faustin PA-C allopurinol 300 mg PO QAM azelastine-fluticasone 137-50 mcg/spray 1 spray intranasal BID cholecalciferol (vitamin D3) 50 mcg PO DAILY lisinopril-hydrochlorothiazide 10-12.5 mg 1 tab PO DAILY loratadine-pseudoephedrine 5-120 mg ER (Claritin-D 12 Hour) 1 tab PO Q12H PRN montelukast 10 mg PO BEDTIME tirzepatide (Mounjaro) 10 mg subcut Q3W walker Folding Front wheeled walker DURATION 99 DAYS HPI Comments Details: Ms Steward presents to the office today for preop visit. She is scheduled for right unicompartmental knee arthroplasty with Dr. Sweet. She continues to have ongoing pain and difficulty with ambulation in the right knee, which is affecting her quality of life; therefore, she has elected to move forward with surgery. [facility] Medical History Gout James thyroiditis Palpitations Arthritis Iron deficiency anemia Moreno's palsy Pre-diabetes Environmental and seasonal allergies Obesity JASON on CPAP Lactose intolerance Hyperuricemia Essential hypertension Uterine fibroid Surgical History Hx of right knee surgery S/P thyroid biopsy History of appendectomy Hx of left breast biopsy Hx of colonoscopy History of repair of right rotator cuff S/P removal of left ovary Family History Father HTN (hypertension) Heart disease Emphysema of lung Mother HTN (hypertension) Dementia Seizure Family/Other HTN (hypertension) Cancer Social History Housing: House Are you a primary client care manager to a significant other at home: No Do you presently have visiting nurse or other home services: No Alcohol intake: current Alcohol intake frequency: holidays/special occasions only Comment: advised of trip hazard Patient Tobacco Use Status: Never used Tobacco e-Cigarette/Vaping Use: Never Used Second Hand Smoke Exposure: No service: No Current occupational status: employed 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 Gender identity: Female Cognitive needs: No Hearing needs: No Vision needs: Yes Review of Systems Const All systems reviewed & are unremarkable except as noted in HPI and below Physical Exam Const General: cooperative, healthy appearing, comfortable, no acute distress, well developed and alert Orientation/consciousness: patient oriented x3 HEENT Head: Yes normal to inspection, Yes normocephalic and Yes atraumatic Eyes General: appearance normal, both eyes and all related structures EOM: EOMs intact bilaterally Neck Neck: Yes normal visual inspection and Yes no lymphadenopathy Resp Effort & Inspection: normal respiratory effort and able to speak in complete sentences Cardio Jugular venous distension: no JVD Rate: regular rate Peripheral pulses: Peripheral pulses 2+ throughout GI Inspection: Yes normal to inspection Palpation (GI): Soft to palpation Skin General skin exam: no rashes or lesions noted Rashes: no rashes Neuro General: patient oriented x3 Extrem Other: Skin intact, no open wounds or abraisons No effusion Full range of motion Tenderness to palpation medial compartment 1+ varus instability Stable Dez's Negative posterior drawer Psych Appearance: grossly normal Mental Status: mental status grossly normal Affect: normal affect Attitude: cooperative Results Reviewed Results Reviewed: Xrays were obtained in the office today and personally reviewed by me of the right knee for surgical planning Assessment & Plan Assessment & Plan (1) Arthritis of right knee: Code(s): M17.11 - Unilateral primary osteoarthritis, right knee Category: Medical Plan I discussed in detail the procedure and what to expect pre and post operatively. We discussed the risks, benefits and alternatives to the surgery as well as the rehabilitation course. The risks; which include, but are not limited to infection, bleeding, nerve injury, ongoing pain, swelling, and stiffness, perioperative risk of injury to bones and soft tissues, and blood clots. I?ve answered all questions and with their understanding they have consented to move forward with Right total knee arthroplasty with Dr. Sweet Confirmed patient has walker at home She has her son to help at home and transport home from hospital Plan; home with [facility] ASA post op PT order placed to attend [facility] CORE Orders: Orders Hemoglobin A1c Today R73.03 - Prediabetes XR knee RT 3V Today M17.11 - Unilateral primary osteoarthritis, right knee XR knee LT 1V Today M25.562 - Pain in left knee Type and Screen 25 Days Z01.818 - Encounter for other preprocedural examination Complete Blood Count Auto Diff Today M17.11 - Unilateral primary osteoarthritis, right knee Basic Metabolic Panel Today M17.11 - Unilateral primary osteoarthritis, right knee PT Evaluation and Treatment Today Z96.651 - Presence of right artificial knee joint Coding Level of Care Code Est Pt Level 3 (40706) Complex EM visit Add On G2211 Diagnoses Arthritis of right knee M17.11
--- OUTSIDE RECORDS SUMMARY | 2024-06-13 10:30 | XMS_ITS ---
Author Organization [employer] [facility] Address [address] [place] [address] Care Team Providers Care Autocad Designer Name Role Phone YESI SANFORD, SHILPI Primary Care Provider Bradnieleigha erica Meghna Hays Unavailable [phone] Results Component Value Reference Range Notes SURGICAL PATHOLOGY Reviewed date:03/09/2023 09:16:37 AM Interpretation: Performing Lab:Testing performed or reported by [facility], a Service of [facility], [address] [place] [address] Faustino Anthony MD, Crm Marketing Analyst [facility]# [id number] Notes/Report: Patient Name: GALEN ANDUJAR Lab Patient : 1965 (Age: 57) Collection Date: 03/03/2023 Accession Date: 03/04/2023 Sign Out Date: 03/09/2023 Tissue Source: 1:ENDOMETRIUM BIOPSY Final Diagnosis: Endometrium, biopsy: - Scant superficial glandular tissue fragments (see note). - Endocervical glandular mucosa with squamous metaplasia, and abundant mucus. Note: The scant quantity of tissue received may not be printing sales representative of the endometrium. Primary Pathologist:Nahomi Santana M.D.,Ph.D. electronically signed out by: Nahomi Santana M.D.,Ph.D. / [facility] Clinical History: Abnormal findings on diagnostic imaging. Gross Description: Labeled EMB . Received in formalin is a 1.7 x 1.2 x 0.3 cm aggregate of predominantly mucus containing scant granados and red-brown tissue fragments which is entirely submitted in 1 cassette following filtering. 1?multiple pieces, x 2. (MN)* Phone #: [phone], On-Call Pathologist: [id number] REASON FOR VISIT HSONO/EB/? THICK ENDO Medications [...] Status Risk Notes Problem Imaging result abnormal ([id number]) Abnormal findings on diagnostic imaging of other specified body structures (R93.89) Active confirmed Encounters Encounter Location Date Provider Diagnosis [facility] [address] [place] [address] 03/03/2023 Meghna Hays Abnormal findings on diagnostic [...] Provider Name:Meghna cr, 03/06/2025 08:40:00 AM, [address], [address], [place], [address], Procedure Notes * Category Sub-Category Detail Notes [...] Notes * CON REYESOB:1965 (57 yo F)Acc No.[id number]:03/03/2023 Patient:?GALEN ANDUJAR Appointment Provider:?Meghna cr M.D. :1965???Age:57 Y???Sex:Female D ate:03/03/2023 Address:[address] [place], [place] [id number] Pcp:SHILPI KEY MD Subjective: * Chief Complaints: [...] Hays M.D. Date:?03/03/2023 Generated for Norbert escobar/Bola/Jolynnitting on:?06/13/2024 10:29 AM EDT History and Physical Notes * HPI (History [...]
--- OUTSIDE RECORDS SUMMARY | 2024-06-13 10:30 | XMS_ITS ---
Author Organization [facility] [employer] [facility] Address [address] [address] Care Team Providers Care Escrow Secretary Name Role Phone YESI SANFORD, SHILPI Primary Care Provider Meghna Ambriz Unavailable [phone] Allergies No Known Allergies Results Component Value Reference Range Notes Urinalysis Reviewed date:02/28/2024 08:39:44 AM Interpretation: Performing Lab: Notes/Report: PH 5.0 PROTEIN Neg GLUCOSE Neg BLOOD Neg REASON FOR VISIT Annual DIETETIC TECH Physical, Annual DIETETIC TECH Physical 60-85+ Medications Medication SIG (Take, Route, [...] 02/28/2024 Encounters Encounter Location Date Provider Diagnosis [facility] [employer] [facility] [address] [facility] [address] [place] [address] 02/28/2024 Meghna Hays Encounter for screening mammogram [...] Reason: Provider Name:Meghna cr, 03/06/2025 08:40:00 AM, [address], [facility] [address], [place], [address], Progress Notes * REYES ANDUJAROB:1965 (58 yo F)Acc No.[id number]:02/28/2024 PROGRESS NOTES Patient:?GALEN ANDUJAR Appointment Provider:?Meghna cr M.D. :1965???Age:58 Y???Sex:Female D ate:02/28/2024 Address:[address] [place] [place] Pcp:SHILPI KEY MD Subjective: * Chief Complaints: * ???Annual DIETETIC TECH PhysicalAnnual DIETETIC TECH Physical 60-85+ * HPI: ???New/Follow-up Patient Consult:? PAT ENTERED MENOPAUSE IN 2019.? HER HAD PROSTATE CA.? THEY ARE NOT SEXUALLY ACTIVE. CT SCAN IN 2020 SHOWED A THICKENED ENDOMETRIUM.? PELVIC US SHOWED A 4.2MM THIN ENDOMETRIUM AND EMB WAS BENIGN. LEFT BREAST BX DONE IN 2014 AND RIGHT BREAST BIOPSY IN 2016 WERE BOTH NEGATIVE. SHE HAS HAD MAMMOGRAMS DONE AT [facility] IN 2022 AND 2023 BUT WE [...] adequate calcium via diet and supplementation ?Significant DIETETIC TECH problems:?no significant sales representative sales manager symptoms or problems * ROS:?general:?no?chest pain.?no?palpitations.?no?headache.?no?cough.?no?shortness of breath.?no?fever.?no?unexplained weight loss.?no?nausea/vomiting.?no?change in bowel movements.?no blood in stool.?no?genitourinary complaints.?no?skin complaints.? * Medical History:? 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 * OB History:?Total pregnancies?4.?Total living children?3.?NVD?3.?Miscarriage(s)?1.? [...] SCR EENING * Labs:? * ?Lab: Urinalysis ([facility] tion Date & Time - 02/28/2024) ? [...] * Images: Billing Information: * Visit Code:? 09106 Preventive Care Est Pt. Age 65 and over. * Procedure Codes:? * Sign off status: Completed true * Appointment Provider:?Meghna Hays M.D. Date:?02/28/2024 Generated for Norbert escobar/Bola/Lesa on:?06/13/2024 10:30 AM EDT History and Physical Notes * [...] SHE HAS HAD MAMMOGRAMS DONE AT [facility] IN 2022 AND 2023 BUT WE [...] or skin changes Urinary problems:: patient r lisa no urinary health problems or bowel health problems Calcium intake:: takes adequ ate calcium via diet and supplementation Significant DIETETIC TECH problems:: n o significant sales representative sales manager symptoms or problems Examination Category Sub-Category Detail [...]
--- OUTSIDE RECORDS SUMMARY | 2024-06-13 10:30 | XMS_ITS | Patient Health Record ---
Author Organization [facility] Address [address] [facility] [address] [place] [address] Care Team Providers Care Devil Tender Name Role Phone SHILPI KEY MD Primary Care Provider Meghna Ambriz Unavailable [phone] Allergies No Known Allergies Results Component Value [...] W/U Status Risk Notes Problem Autoimmune thyroiditis (34596701) Autoimmune thyroiditis (E06.3) Active confirmed Problem Imaging result abnormal (933519739) Abnormal findings on diagnostic imaging of other specified body structures (R93.89) Active confirmed Problem Candidal vulvovaginitis (70850902) Candidiasis of vulva and vagina (112.1) Active confirmed Other Problem Leiomyoma of uterus (31159526) Leiomyoma of uterus, unspecified (218.9) Active confirmed Major Problem Anemia (311481552) Unspecified anemia (285.9) Active confirmed Major Problem Excessive and frequent menstruation (360697483) Excessive or frequent menstruation (626.2) Active confirmed Major Problem Abnormal vaginal bleeding (086561958) Other disorder of menstruation and other abnormal bleeding from female genital tract (626.8) Active confirmed Major Problem Insertion of intrauterine contraceptive device (00097550) Insertion of intrauterine contraceptive device (V25.1) Active confirmed Major Problem Surveillance of intrauterine device contraception done (673807326440247) Surveillance of previously prescribed intrauterine contraceptive device (V25.42) Active confirmed Other Vital Signs Temperature 98.1 degrees Fahrenheit 02/28/2024 Blood pressure diastolic 64 mm Hg 02/28/2024 Height 61 in 02/28/2024 Blood pressure systolic 108 mm Hg 02/28/2024 Weight 143 lbs 02/28/2024 BMI 27.02 kg/m2 02/28/2024 Encounters Encounter Location Date Provider Diagnosis [address] [address] 02/28/2024 Meghna Hays Encounter for screening mammogram [...] Name:Meghna Ramirez shaye, 03/06/2025 08:40:00 AM, [address] [facility], [address], [place], [address], Insurance Providers Payer Name Payer Address Payer Phone Subscriber Number Group Number Insured Name Patient Relationship to Insured Coverage Start Date Coverage End Date [facility] [address] [address] [place] [address] [phone] [id number] GALEN ANDUJAR Self - patient is the [...]
--- OUTSIDE RECORDS SUMMARY | 2024-06-13 10:30 | XMS_ITS | Clinical Summary ---
Author Organization [facility] Address [address] [place] [address] Care Team Providers Care Teletypewriter Operator Name Role Phone Jacqueline De Leon MD [...] age to complete this topic Care Teams Teletypewriter Operator Relationship Specialty Start Date End Date Jacqueline De Leon MD [address] [place] [address] PCP - General Internal Medicine 04/01/21
--- OUTSIDE RECORDS SUMMARY | 2024-06-13 10:30 | XMS_ITS | Encounter Summary ---
Author Organization [employer] Address [address] [place] [address] [address] [place] [address] Care Team Providers Care Pigment Presser Name Role Phone Unavailable Primary Care Provider [...]
--- OUTSIDE RECORDS SUMMARY | 2024-06-13 10:30 | XMS_ITS | Clinical Summary ---
Author Organization [employer] Address [address] [place] [address] 7[address] [place] [address] Care Team Providers Care Warehouse Stocker Name Role Phone Unavailable Primary Care Provider [...]
== END 2024-06-13 09:56 | disposition home or self-care (01) ==
LOC: HO.HOS 09:08
PROVIDERS: PCP Internal Medicine; Visit Provider Physician Assistant
DX: M17.11 Unilateral primary osteoarthritis, right knee (principal)
CPT/HCPCS: 99024

== ENCOUNTER 2024-06-13 09:14 | Outpatient (REF) | payer OTHER, SELFPAY ==
--- NOTE | ~2024-06-13 | XR_ITS ---
EXAMINATION: XR KNEE, RIGHT CLINICAL INFORMATION: M17.11 - Unilateral primary osteoarthritis, right knee COMPARISON: 10/27/2021. MRI right knee 11/01/2021. TECHNIQUE: AP view bilateral knees standing, lateral and patellofemoral views right knee. FINDINGS: Left Knee: No fracture or dislocation. No bone lesion. Mild medial and lateral compartment osteoarthritis. Normal soft tissues. Right Knee: No fracture, dislocation, or suspicious bone lesion. Mild to moderate medial compartment and mild lateral compartment osteoarthritis. There is mild to moderate patellofemoral arthropathy, greatest in the lateral facet region. Mild lateral patellar tilt. There is a superior patellar enthesophyte. There is no joint effusion. Normal soft tissues. XR/XR knee RT 3V IMPRESSION: 1. Right knee demonstrating mild to moderate medial compartment and patellofemoral compartment osteoarthritis. There is mild lateral compartment arthritis. 2. Compared with the prior right knee exam, patellofemoral arthritis has progressed. 3. No right knee joint effusion. Electronically signed by: Den Elmore MD 06/13/2024 10:11 AM EDT
--- OUTSIDE RECORDS SUMMARY | 2024-06-14 10:00 | XMS_ITS ---
Author Organization [employer] [facility] Address [address] [facility] [address] [place] [address] Care Team Providers Care Stock Checker Name Role Phone YESI SANFORD, SHILPI Primary Care Provider Meghna Ambriz Unavailable [phone] Allergies No Known Allergies Results Component Value Reference Range Notes Urinalysis Reviewed date:02/22/2023 12:09:55 PM Interpretation: Performing Lab: Notes/Report: PH 5.0 PROTEIN NEG GLUCOSE NEG BLOOD NEG THIN PREP,HPV,IVY IF HPV+ ( >29YR)(DIAG) Reviewed date:03/01/2023 11:41:10 AM Interpretation: Performing Lab:Testing performed or reported by [facility], a Service of [facility], [address] [place] [address] Faustino Anthony MD, Inventory Control Analyst [facility]# [id number] Notes/Report: Patient Name: GALEN ANDUJAR Patient : 1965 (Age: 57) Lab Collection Date: 02/22/2023 Accession Date: 02/22/2023 Sign Out Date: 03/01/2023 Tissue Source: 1: THINPREP CHIEF MERCHANDISING OFFICER PAP TEST, CERVICAL/VAGINAL: Final Diagnosis: NEGATIVE FOR INTRAEPITHELIAL LESION OR MALIGNANCY. Atrophy. Satisfactory for evaluation. Endocervical/transformation zone ABSENT. Procedures/Addenda: Human Papilloma Virus, High-Risk(Reflex GT) Status: Signed Out Interpretation: Negative Methodology: Vsnap Aptima HPV mRNA assay (Nucleic Acid Amplification Test, NAAT) Clinical History: Date of Last Menstrual Period: anoop Menstrual History: not available Contraceptive History: not available Ancillary Testing: HPV (Reflex GT) Case imaged by the ThinPrep Imaging System with manual rescreening or review. Performed at [facility] department of Cytology, [place] [place], [facility] Clinical History (other): Z01.419 Phone #: [phone], On-Call Pathologist: [id number] REASON FOR VISIT Annual CHIEF MERCHANDISING OFFICER Physical, Annual CHIEF MERCHANDISING OFFICER Physical 50-59* Medications Medication SIG (Take, Route, [...] W/U Status Risk Notes Problem Autoimmune thyroiditis (02761855) Autoimmune thyroiditis (E06.3) Active confirmed Vital Signs Temperature 97.3 degrees Fahrenheit 02/23/20 23 Blood pressure systolic 122 mm Hg 02/23/20 23 Blood pressure diastolic 66 mm Hg 023 Height 61 in 02/22/2023 Weight 158 lbs 02/22/2023 BMI 29.85 kg/m2 02/22/2023 Encounters Encounter Location Date Provider Diagnosis [facility] [address] [place] [address] 02/22/2023 Meghna Hays Encounter for gynecological examination [...] Reason: Provider Name:Meghna cr, 03/06/2025 08:40:00 AM, [address], [facility] [address], [place], [address], Progress Notes * REYES ANDUJAROB:1965 (57 yo F)Acc No.[id number]:02/22/2023 PROGRESS NOTES Patient:?GALEN ANDUJAR Appointment Provider:?Meghna cr M.D. :1965???Age:57 Y???Sex:Female D ate:02/22/2023 Address:[address] [place] [id number] Pcp:SHILPI KEY MD Subjective: * Chief Complaints: * ???Annual CHIEF MERCHANDISING OFFICER PhysicalAnnual CHIEF MERCHANDISING OFFICER Physical 50-59* * HPI: ???New/Follow-up Patient Consult:? [...] DONE IN NOV 2022 WAS DONE AT [facility]. WE WILL GET THE RESULTS. ?HER LAST [...] adequate calcium via diet and supplementation ?Significant CHIEF MERCHANDISING OFFICER problems:?no significant rx specialist symptoms or problems * ROS:?general:?no?chest pain.?no?palpitations.?no?headache.?no?cough.?no?shortness of breath.?no?fever.?no?unexplained weight loss.?no?nausea/vomiting.?no?change in bowel movements.?no blood in stool.?no?genitourinary complaints.?no?skin complaints.? * Medical History:? 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 19239 Preventive Care New Pt. Age 40-64. 45281 Preventive Care Est Pt. Age 40-64. * Procedure Codes:? * Sign off status: Completed true * Appointment Provider:?Meghna Hays M.D. Date:?02/22/2023 Generated for Norbert escobar/Bola/Lesa on:?06/14/2024 10:00 AM EDT History and Physical Notes * HPI (History of Present Illness) Category Sub-Category Detail Notes Category Not es New/Follow-up Patient Consult PAT WAS LAST HERE IN 2016. SHE HAD [...] DONE IN NOV 2022 WAS DONE AT [facility]. WE WILL GET THE RESULTS. HER LAST PAP TEST IN 2016 WAS NEGATIVE AND HPV NEGATIVE. SHE HAS NO HX OF ABNORMAL PAP TESTS. SHE HAD A COLONOSCOPY DONE IN 2015. RFMarq X 3. Annual General Health Maintenance: Current breast complaints:: no breast pain, mass, discharge, or skin changes Urinary problems:: patient r eports no urinary health problems or bowel health problems Calcium intake:: takes adequ ate calcium via diet and supplementation Significant CHIEF MERCHANDISING OFFICER problems:: n o significant rx specialist symptoms or problems Examination Category Sub-Category [...]
--- OUTSIDE RECORDS SUMMARY | 2024-06-14 10:00 | XMS_ITS | Clinical Summary ---
Author Organization [employer] Address [address] [place] [address] [address]t [place] [address] Care Team Providers Care General Teller Name Role Phone Unavailable Primary Care Provider [...]
--- OUTSIDE RECORDS SUMMARY | 2024-06-14 10:00 | XMS_ITS | Encounter Summary ---
Author Organization [employer] Address [address] [place] [address] 7 [place] [address] Care Team Providers Care Spot Man Name Role Phone Unavailable Primary Care Provider [...]
--- OUTSIDE RECORDS SUMMARY | 2024-06-14 10:00 | XMS_ITS ---
Author Organization [employer] [facility] Address [address] [facility] [address] [place] [address] Care Team Providers Care Aluminum Pourer Name Role Phone YESI SANFORD, SHILPI Primary Care Provider Brandieleigha erica Meghna Hays Unavailable [phone] Results Component Value Reference Range Notes SURGICAL PATHOLOGY Reviewed date:03/09/2023 09:16:37 AM Interpretation: Performing Lab:Testing performed or reported by [facility], a Service of [facility], [address] [place] [address] Faustino Anthony MD, Vacuum Conditioner Operator [facility]# [id number] Notes/Report: Patient Name: GALEN ANDUJAR Lab Patient : 1965 (Age: 57) Collection Date: 03/03/2023 Accession Date: 03/04/2023 Sign Out Date: 03/09/2023 Tissue Source: 1:ENDOMETRIUM BIOPSY Final Diagnosis: Endometrium, biopsy: - Scant superficial glandular tissue fragments (see note). - Endocervical glandular mucosa with squamous metaplasia, and abundant mucus. Note: The scant quantity of tissue received may not be wireless sales representative of the endometrium. Primary Pathologist:Nahomi Santana M.D.,Ph.D. electronically signed out by: Nahomi Santana M.D.,Ph.D. / [facility] Clinical History: Abnormal findings on diagnostic imaging. Gross Description: Labeled EMB . Received in formalin is a 1.7 x 1.2 x 0.3 cm aggregate of predominantly mucus containing scant granados and red-brown tissue fragments which is entirely submitted in 1 cassette following filtering. 1?multiple pieces, x 2. (MN)* Phone #: [phone], On-Call Pathologist: [id number] REASON FOR VISIT HSONO/EB/? THICK ENDO Medications [...] Status Risk Notes Problem Imaging result abnormal (351092821) Abnormal findings on diagnostic imaging of other specified body structures (R93.89) Active confirmed Encounters Encounter Location Date Provider Diagnosis [facility] [address] [place] [address] 03/03/2023 Meghna Hays Abnormal findings on diagnostic [...] Provider Name:Meghna cr, 03/06/2025 08:40:00 AM, [address], [address], [place], [address], Procedure Notes * Category Sub-Category Detail Notes [...] Notes * CON REYESOB:1965 (57 yo F)Acc No.[id number]:03/03/2023 Patient:?GALEN ANDUJAR Appointment Provider:?Meghna cr M.D. :1965???Age:57 Y???Sex:Female D ate:03/03/2023 Address:[address] [place], [place] [id number] Pcp:SHILPI KEY MD Subjective: * Chief Complaints: [...] Hays M.D. Date:?03/03/2023 Generated for Norbert escobar/Bola/Jolynnitting on:?06/14/2024 10:00 AM EDT History and Physical [...]
--- OUTSIDE RECORDS SUMMARY | 2024-06-14 10:01 | XMS_ITS | Patient Health Record ---
Author Organization [facility] Address [address] [facility] [address] [place] [address] Care Team Providers Care Mail Reader Name Role Phone SHILPI KEY MD Primary Care Provider Meghna Ambriz Unavailable [phone] Allergies No Known Allergies Results Component Value [...] W/U Status Risk Notes Problem Autoimmune thyroiditis (34526096) Autoimmune thyroiditis (E06.3) Active confirmed Problem Imaging result abnormal (460958963) Abnormal findings on diagnostic imaging of other specified body structures (R93.89) Active confirmed Problem Candidal vulvovaginitis (91424450) Candidiasis of vulva and vagina (112.1) Active confirmed Other Problem Leiomyoma of uterus (83713708) Leiomyoma of uterus, unspecified (218.9) Active confirmed Major Problem Anemia (053695552) Unspecified anemia (285.9) Active confirmed Major Problem Excessive and frequent menstruation (232374964) Excessive or frequent menstruation (626.2) Active confirmed Major Problem Abnormal vaginal bleeding (324192428) Other disorder of menstruation and other abnormal bleeding from female genital tract (626.8) Active confirmed Major Problem Insertion of intrauterine contraceptive device (71837643) Insertion of intrauterine contraceptive device (V25.1) Active confirmed Major Problem Surveillance of intrauterine device contraception done (074682946618618) Surveillance of previously prescribed intrauterine contraceptive device (V25.42) Active confirmed Other Vital Signs Temperature 98.1 degrees Fahrenheit 02/28/2024 Blood pressure diastolic 64 mm Hg 02/28/2024 Height 61 in 02/28/2024 Blood pressure systolic 108 mm Hg 02/28/2024 Weight 143 lbs 02/28/2024 BMI 27.02 kg/m2 02/28/2024 Encounters Encounter Location Date Provider Diagnosis [address] [address] 02/28/2024 Meghna Hays Encounter for screening mammogram [...] Name:Meghna Ramirez shaye, 03/06/2025 08:40:00 AM, [address] [facility] [facility], [address], [place], [address], Insurance Providers Payer Name Payer Address Payer Phone Subscriber Number Group Number Insured Name Patient Relationship to Insured Coverage Start Date Coverage End Date [facility] [address] [address] [place] [address] [phone] [id number] GALEN ANDUJAR Self - patient is the [...]
--- OUTSIDE RECORDS SUMMARY | 2024-06-14 10:01 | XMS_ITS | Clinical Summary ---
Author Organization [facility] Address [address] [place] [address] Care Team Providers Care Fulfillment Representative Name Role Phone Jacqueline DeL eon MD Primary Care Provider [phone] Social History Tobacco Use Types Packs/Day Years [...] age to complete this topic Care Teams Fulfillment Representative Relationship Specialty Start Date End Date Jacqueline De Leon MD [address] [place] [address] PCP - General Internal Medicine 04/01/21
--- OUTSIDE RECORDS SUMMARY | 2024-06-14 10:01 | XMS_ITS ---
Author Organization [facility] [employer] [facility] Address [address] [address] Care Team Providers Care Aerial Gunner Superintendent Name Role Phone YESI SANFORD, SHILPI Primary Care Provider Meghna Ambriz Unavailable [phone] Allergies No Known Allergies Results Component Value Reference Range Notes Urinalysis Reviewed date:02/28/2024 08:39:44 AM Interpretation: Performing Lab: Notes/Report: PH 5.0 PROTEIN Neg GLUCOSE Neg BLOOD Neg REASON FOR VISIT Annual FOOTWEAR SALES COORDINATOR Physical, Annual FOOTWEAR SALES COORDINATOR Physical 60-85+ Medications Medication SIG (Take, Route, [...] 02/28/2024 Encounters Encounter Location Date Provider Diagnosis [facility] [facility] [address] [facility] [address] [place] [address] 02/28/2024 Meghna Hays Encounter for screening mammogram [...] Reason: Provider Name:Meghna cr, 03/06/2025 08:40:00 AM, [facility] [address], [facility] [address], [place], [address], Progress Notes * REYES ANDUJAROB:1965 (58 yo F)Acc No.[id number]:02/28/2024 PROGRESS NOTES Patient:?GALEN ANDUJAR Appointment Provider:?Meghna cr M.D. :1965???Age:58 Y???Sex:Female D ate:02/28/2024 Address:[address] [place], [place] Pcp:SHILPI KEY MD Subjective: * Chief Complaints: * ???Annual FOOTWEAR SALES COORDINATOR PhysicalAnnual FOOTWEAR SALES COORDINATOR Physical 60-85+ * HPI: ???New/Follow-up Patient Consult:? PAT ENTERED MENOPAUSE IN 2019.? HER HAD PROSTATE CA.? THEY ARE NOT SEXUALLY ACTIVE. CT SCAN IN 2020 SHOWED A THICKENED ENDOMETRIUM.? PELVIC US SHOWED A 4.2MM THIN ENDOMETRIUM AND EMB WAS BENIGN. LEFT BREAST BX DONE IN 2014 AND RIGHT BREAST BIOPSY IN 2016 WERE BOTH NEGATIVE. SHE HAS HAD MAMMOGRAMS DONE AT [facility] IN 2022 AND 2023 BUT [...] adequate calcium via diet and supplementation ?Significant FOOTWEAR SALES COORDINATOR problems:?no significant tool repairer bench symptoms or problems * ROS:?general:?no?chest pain.?no?palpitations.?no?headache.?no?cough.?no?shortness of breath.?no?fever.?no?unexplained weight loss.?no?nausea/vomiting.?no?change in bowel movements.?no blood in stool.?no?genitourinary complaints.?no?skin complaints.? * Medical History:? 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 * OB History:?Total pregnancies?4.?Total living children?3.?NVD?3.?Miscarriage(s)?1.? [...] SCR EENING * Labs:? * ?Lab: Urinalysis ([facility] tion Date & Time - 02/28/2024) [...] * Images: Billing Information: * Visit Code:? 55850 Preventive Care Est Pt. Age 65 and over. * Procedure Codes:? * Sign off status: Completed true * Appointment Provider:?Meghna Hays M.D. Date:?02/28/2024 Generated for Norbert escobar/Bola/Lesa on:?06/14/2024 10:00 AM [...] NEGATIVE. SHE HAS HAD MAMMOGRAMS DONE AT [facility] IN 2022 AND 2023 BUT [...] ate calcium via diet and supplementation Significant FOOTWEAR SALES COORDINATOR problems:: n o significant tool repairer bench symptoms or problems Examination Category Sub-Category Detail [...]
== END 2024-06-13 09:15 | disposition home or self-care (01) ==
LOC: HO.HOSX 09:14
PROVIDERS: Visit Provider Physician Assistant
DX: Z01.818 Encounter for other preprocedural examination (principal); M17.11 Unilateral primary osteoarthritis, right knee
CPT/HCPCS: 73562; 99212

== ENCOUNTER → 2024-06-13 09:17 | Outpatient (BNV) | payer OTHER, SELFPAY | PROVIDERS: Visit Provider Radiology Diagnostic Radiology | DX: M17.11 Unilateral primary osteoarthritis, right knee (principal) | CPT/HCPCS: 73562 ==

== ENCOUNTER 2024-06-18 07:05 | Day surgery (SDC) | payer OTHER, SELFPAY ==
[2024-05-14 10:17] VITALS: BP 112/58; PULSE 73; RESP 18; O2SAT 98; BMI 28.3
--- NOTE | 2024-05-14 10:36 | HO.ANESPROP2 ---
Documented by User: Irena Michaud NP 05/14/24 10:42 HPI - Anesthesia Eval Consult details Narrative: 58yo F for Right Medial Knee Replacement Uni-Compartmental, 06/18/24 Medically optimized Cardiac clearance pending echo, holter (referred by pcp for palps) No recent illness No CP/SOB with walking outside, occassional gym JASON: CPAP QHS Anesthesia Pre-Procedure Meds Is the patient on any of the following meds?: GLP1/DPP4 PMFSH Active Problems Active Problems: All Active Problems Palpitations (Acute) Arthritis of right knee (Acute) Right knee meniscal tear (Acute) Pre-diabetes (Acute) Environmental and seasonal allergies (Acute) JASON on CPAP (Acute) Hyperuricemia (Acute) Essential hypertension (Acute) Uterine fibroid (Acute) Past Medical History Medical History Gout James thyroiditis Palpitations Arthritis Iron deficiency anemia Moreno's palsy Pre-diabetes Environmental and seasonal allergies Obesity JASON on CPAP Lactose intolerance Hyperuricemia Essential hypertension Uterine fibroid Family History Family History Father HTN (hypertension) Heart disease Emphysema of lung Mother HTN (hypertension) Dementia Seizure Family/Other HTN (hypertension) Cancer Family history of problems with anesthesia: No Surgical History Surgical History Hx of right knee surgery S/P thyroid biopsy History of appendectomy Hx of left breast biopsy Hx of colonoscopy History of repair of right rotator cuff S/P removal of left ovary History of Problems with Anesthesia: No Social History Social History Housing: House Are you a primary neonatal intensive care nurse to a significant other at home: No Do you presently have visiting nurse or other home services: No Alcohol intake: current Alcohol intake frequency: holidays/special occasions only Comment: advised of trip hazard Patient Tobacco Use Status: Never used Tobacco e-Cigarette/Vaping Use: Never Used Second Hand Smoke Exposure: No Use of substances other than those prescribed or required for medical reasons: No Have you been hit, kicked, punched, or otherwise hurt by someone within the past year? 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 Gender identity: Female Cognitive needs: No Hearing needs: No Vision needs: Yes Meds Allergies Allergy/AdvReac Type Severity Reaction Status Date / Time adhesive [ADHESIVE] Allergy Intermediate ITCHING Verified 06/13/24 09:23 FRUIT, SKINS Allergy Severe THROAT Uncoded 06/13/24 09:23 CLOSES Home Medications ?Medication ?Instructions ?Recorded ?Confirmed ?Last Taken ?Type cholecalciferol (vitamin D3) 50 50 mcg PO DAILY 12/01/20 06/18/24 03/28/22 History mcg (2,000 unit) capsule tirzepatide 10 mg/0.5 mL 10 mg subcut Q3W 01/03/24 06/18/24 06/04/24 History subcutaneous pen injector (Mounjaro) allopurinol 300 mg tablet 300 mg PO QAM 05/14/24 06/18/24 06/18/24 History loratadine 5 mg-pseudoephedrine ER 1 tab PO Q12H PRN Allergy Symptoms 05/14/24 06/18/24 Unknown History 120 mg tablet,extended release,12hr (Claritin-D 12 Hour) montelukast 10 mg tablet 10 mg PO BEDTIME 05/14/24 06/18/24 Unknown History Exam Height,Weight and Vital Signs: Height 5 ft 1 in Weight 68.039 kg Last Vital Signs Pulse 73 05/14/24 10:17 Resp 18 05/14/24 10:17 BP 112/58 L 05/14/24 10:17 Pulse Ox 98 05/14/24 10:17 O2 Del Method Room Air 05/14/24 10:17 Narrative Narrative: EKG 05/2024 NSR Airway Mallampati Class: III TM Dist: >3cm Neck ROM: Full Loose/Missing/Broken Teeth: No (crowns on sides) Heart: RRR Lungs: CTAB Assessment and Plan Assessment Anesthesia Assessment: Anesthesia Plan Discussed and PAT Visit Final Anesthetic Review Family History of Problems with Anesthesia: No History of Problems with Anesthesia: No Documented by User: Yuliana Lynn MD 06/18/24 08:26 HPI - Anesthesia Eval Anesthesia Pre-Procedure Meds If yes to any meds - educate patient: Pt education - increased risk of aspiration and/or euvolemic DKA PMFSH Past Medical History Medical History Gout James thyroiditis Palpitations Arthritis Iron deficiency anemia Moreno's palsy Pre-diabetes Environmental and seasonal allergies Obesity JASON on CPAP Lactose intolerance Hyperuricemia Essential hypertension Uterine fibroid Family History Family History Father HTN (hypertension) Heart disease Emphysema of lung Mother HTN (hypertension) Dementia Seizure Family/Other HTN (hypertension) Cancer Surgical History Surgical History Hx of right knee surgery S/P thyroid biopsy History of appendectomy Hx of left breast biopsy Hx of colonoscopy History of repair of right rotator cuff S/P removal of left ovary Social History Social History Housing: House Are you a primary neonatal intensive care nurse to a significant other at home: No Do you presently have visiting nurse or other home services: No Alcohol intake: current Alcohol intake frequency: holidays/special occasions only Comment: advised of trip hazard Patient Tobacco Use Status: Never used Tobacco e-Cigarette/Vaping Use: Never Used Second Hand Smoke Exposure: No Use of substances other than those prescribed or required for medical reasons: No Have you been hit, kicked, punched, or otherwise hurt by someone within the past year? 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 Gender identity: Female Cognitive needs: No Hearing needs: No Vision needs: Yes Meds Allergies Allergy/AdvReac Type Severity Reaction Status Date / Time adhesive [ADHESIVE] Allergy Intermediate ITCHING Verified 06/13/24 09:23 FRUIT, SKINS Allergy Severe THROAT Uncoded 06/13/24 09:23 CLOSES Home Medications ?Medication ?Instructions ?Recorded ?Confirmed ?Last Taken ?Type cholecalciferol (vitamin D3) 50 50 mcg PO DAILY 12/01/20 06/18/24 03/28/22 History mcg (2,000 unit) capsule tirzepatide 10 mg/0.5 mL 10 mg subcut Q3W 01/03/24 06/18/24 06/04/24 History subcutaneous pen injector (Mounjaro) allopurinol 300 mg tablet 300 mg PO QAM 05/14/24 06/18/24 06/18/24 History loratadine 5 mg-pseudoephedrine ER 1 tab PO Q12H PRN Allergy Symptoms 05/14/24 06/18/24 Unknown History 120 mg tablet,extended release,12hr (Claritin-D 12 Hour) montelukast 10 mg tablet 10 mg PO BEDTIME 05/14/24 06/18/24 Unknown History Assessment and Plan Final Anesthetic Review NPO: Yes ASA Class: II Final Preanesthetic Review: No Changes in Pt Med Stat, Meds/Allgs Chart Reviewed, Consent Obtained/Reviewed, Anes Risks/Benef Reviewed and DNR Form (If Appl.) Patient Risk: Intermediate Procedure Risk: Intermediate Anesthetic Plan Anesthetic Plan: MAC:, Spinal and Regional Block Disposition: Standard PACU
[2024-05-14 11:51] LABS: Hematocrit 39.6 % (37.0-47.0); Mean Corpuscular HGB Conc 32.8 g/dl (31.0-35.0); Mean Corpuscular Hemoglobin 31.3 pg (27.0-33.0); Mean Corpuscular Volume 95.2 fL (80.0-98.0); Mean Platelet Volume 9.5 fL (9.4-12.3); Platelet Count 312 X10*3/uL (160-400); Red Blood Count 4.16 X10*6/uL (4.20-5.50); Red Cell Distribution Width 12.6 % (11.0-16.0); White Blood Count 6.1 X10*3/uL (4.8-10.8)
[2024-05-14 12:31] LABS: Anion Gap 11 (12-20); Blood Urea Nitrogen 15 mg/dL (9-16); Calcium 9.6 mg/dL (8.4-10.2); Carbon Dioxide 32 mmol/L (22-29); Chloride 103 mmol/L (96-108); Creatinine Clr Calc Pharmacy 75.4; Estimated Glomerular Filt Rate > 60; Glucose Random 79 mg/dL (60-115); Potassium 4.1 mmol/L (3.3-5.1); Sodium 142 mmol/L (135-145)
[2024-05-14 12:53] LABS: MRSA Nasal PCR NEGATIVE (Negative); SA Nasal PCR NEGATIVE (Negative)
[2024-06-13 10:33] LABS: MANUAL DIFF FLAG NO
[2024-06-13 10:47] LABS: Basophils Percent Auto 0.4 % (0-2); Eosinophils Absolute Auto 0.1 X10*3/uL (0.0-0.4); Eosinophils Percent Auto 2.2 % (0-4); Hematocrit 37.6 % (37.0-47.0); Hemoglobin 12.4 g/dl (12.0-16.0); Imm Gran Abs Auto 0.01 X10*3/uL (0.00-0.03); Imm Gran Pct Auto 0.2 % (0.0-0.4); Lymphocytes Absolute Auto 1.3 X10*3/uL (1.2-4.9); Lymphocytes Percent Auto 28.4 % (20-40); Mean Corpuscular Hemoglobin 31.2 pg (27.0-33.0); Mean Corpuscular Volume 94.7 fL (80.0-98.0); Mean Platelet Volume 9.3 fL (9.4-12.3); Monocytes Absolute Auto 0.3 X10*3/uL (0.1-1.2); Monocytes Percent Auto 6.6 % (2-11); Neutrophils Absolute Auto 2.8 x10*3/uL (2.0-8.3); Neutrophils Percent Auto 62.2 % (45-73); Platelet Count 276 X10*3/uL (160-400); Red Blood Count 3.97 X10*6/uL (4.20-5.50); Red Cell Distribution Width 12.4 % (11.0-16.0); White Blood Count 4.6 X10*3/uL (4.8-10.8)
[2024-06-13 10:53] LABS: Estimated Average Glucose 97 mg/dL; Hemoglobin A1C 103.1404 umol/L; Total Hemoglobin (HGBA1C) 3257.9374 umol/L
[2024-06-13 14:42] LABS: Anion Gap 11 (12-20); Blood Urea Nitrogen 11 mg/dL (9-16); Calcium 9.5 mg/dL (8.4-10.2); Carbon Dioxide 32 mmol/L (22-29); Chloride 105 mmol/L (96-108); Creatinine Clr Calc Pharmacy 69.4; Estimated Glomerular Filt Rate > 60; Glucose Random 77 mg/dL (60-115); Potassium 4.1 mmol/L (3.3-5.1); Sodium 144 mmol/L (135-145)
[2024-06-18] VITALS (9 sets, daily range): BP systolic 93–130; BP diastolic 55–65; PULSE 63–82; RESP 14–18; TEMP 36–37.1; O2SAT 95–100; BMI 31.6
--- NOTE | ~2024-06-18 | XR_ITS ---
EXAMINATION: XR KNEE 1-2 VIEWS RIGHT HISTORY: s/p rt knee uni COMPARISON: Comparison is made with the prior examination dated 06/13/2024. FINDINGS: AP and lateral views of the right knee are submitted. The patient is status post medial hemiarthroplasty. The orthopedic elements are in anatomic alignment. There is no fracture or dislocation. Postoperative changes are noted in the soft tissues. XR/XR knee RT 2V IMPRESSION: Status post medial hemiarthroplasty. Electronically signed by: Garth Tang MD 06/18/2024 12:34 PM EDT
[2024-06-18 08:33] LABS: Hemoglobin 12.3 g/dl (12.0-16.0)
[2024-06-18] MEDS: Lactated Ringers 1,000 ML 100 ML IVCONT ×3 (08:54→23:37)
--- NOTE | 2024-06-18 09:14 | MHC.SHP ---
Pre-Procedural Eval Section A - 24 Hr Update-Section A only Date of Service: 06/18/24 The patient is an INPATIENT: No Changes since office visit: No Cold of Flu in the past 2 weeks, No New Medical Problems, No Changes in Medication and No Patient answered all questions The patient has been examined within 24 hours of the surgical procedure. The History & Physical has been completed within 30 days and I have reviewed it.: Yes Section B - Complete if H&P > 30 days Chief Complaint: Unilateral primary osteoarthritis, right knee Allergies: Allergies Allergy/AdvReac Type Severity Reaction Status Date / Time adhesive [ADHESIVE] Allergy Intermediate ITCHING Verified 06/13/24 09:23 FRUIT, SKINS Allergy Severe THROAT Uncoded 06/13/24 09:23 CLOSES Plan I have reviewed the history and physical and performed a pertinent physical examination on my patient. No changes have occurred unless specified. Time Spent With Patient Time: Total time managing care of this patient today ____ minutes.
[2024-06-18] MEDS: ceFAZolin Sodium/Dextrose,Iso 2 GM/50 ML PIGGYBACK IV ×2 (09:40→15:42)
--- NOTE | 2024-06-18 09:41 | PM.DS ---
DS: Providers Provider Date of Service: 06/19/24 Date of discharge: 06/19/24 Primary care physician: Jacqueline De Leon MD DS: Summary Hospital Course Hospital Course: The patient underwent a successful right knee unicompartment arthroplasty, they were transferred to PACU and then to the floor to recover. During their stay, their vitals were stable, afebrile at 98.0. Labs were unremarkable, H/H 11.3/34.2. POD 1 they were started on Aspirin 325mg po bid for DVT ppx, they also received Physical Therapy services twice a day. Prior to discharge, their dressing was clean dry and intact, new Aquacel dressing applied and the plan was to be discharged home with VNA services. Time Attestation Discharge Coordination Time (in mins): 30 Quality: Safe Use of Opioids Does Pt have an Active Cancer Diagnosis on the Problem List?: No Quality: Stroke Does the patient have a stroke diagnosis?: No Physical Exam Vital Signs: Vital Signs: Last Vital Signs Temp 98.6 F 06/18/24 08:18 Pulse 74 06/18/24 08:18 Resp 14 06/18/24 08:18 BP 123/65 06/18/24 08:18 Pulse Ox 99 06/18/24 08:18 O2 Del Method Room Air 06/18/24 08:18 BMI result Body Mass Index 28.3 Const: General: cooperative, healthy appearing and no acute distress Resp: Effort & Inspection: normal respiratory effort and able to speak in complete sentences Cardio: Rate: regular rate Peripheral pulses: Peripheral pulses 2+ throughout GI: Palpation (GI): Soft to palpation Skin: Lesions: no lesions Rashes: no rashes Extrem: Other: right knee dressing is c/d/i. Able to dorsi/plantar flex. Calf is supple and nontender. Sensation intact. Pedal pulse intact. DS: Data Data Completed and Pending Labs on day of discharge: Laboratory Results - last 24 hr 06/18/24 08:20 Hgb 12.3 Hct 36.0 L Discharge Plan Discharge Patient Disposition: Home Health Service Referrals: Birdie Faustin PA-C [Physician Enterprise Project Manager] - 07/04/24 12:45 pm Discharge Medications: New celecoxib 200 mg Capsule 200 mg PO BID 30 Days Qty: 60 0RF acetaminophen 325 mg Tablet 650 mg PO Q6H PRN (Reason: Pain, Mild 1-3,Fever,Headache) 30 Days Qty: 240 0RF aspirin 325 mg Tablet 325 mg PO BID 42 Days Qty: 84 0RF docusate sodium 100 mg Capsule 100 mg PO BID 30 Days Qty: 60 0RF oxycodone 5 mg Tablet 5 mg PO Q4H PRN (Reason: Pain, Moderate(Pain Scale 4-6)) 7 Days Qty: 42 0RF Rx Instructions: Partial Fill upon patient request. Continued lisinopril-hydrochlorothiazide 10-12.5 mg tablet 1 tab PO DAILY Qty: 90 4RF (DME) walker [facility] [place] See Rx Instructions .MEDSUPPLY Qty: 1 0RF Rx Instructions: Folding Front wheeled walker DURATION 99 DAYS Claritin-D 12 Hour 5-120 mg Tablet Extended Release 12 Hr 1 tab PO Q12H PRN (Reason: Allergy Symptoms) montelukast 10 mg tablet 10 mg PO BEDTIME allopurinol 300 mg tablet 300 mg PO QAM cholecalciferol (vitamin D3) 50 mcg (2,000 unit) capsule 50 mcg PO DAILY Mounjaro 10 mg/0.5 mL pen injector 10 mg subcut Q3W Rx Instructions: takes every 3 weeks on Monday azelastine-fluticasone 137-50 mcg/spray spray,non-aerosol 1 spray intranasal BID Qty: 23 2RF Rx Instructions: administer into each nostril Discharge Orders: Discharge Order (Routine); Ordered 06/19/24 Ordered By: Annette Recinos Diet: Advance to usual diet Activity on Discharge: Use cane or walker Activity Restrictions/Additional Instructions: Physical Therapy for ROM 0-120, quad strength, gait training. Use walker for ambulation Limit stair climbing, No shower, No tub bath, No driving Continue anticoagulant x ASA Keep Aquacel dressing clean, dry and intact. Follow up with orthopedics in 2 weeks Print Language: Paraguayan
--- NOTE | 2024-06-18 09:42 | P.F2F_ITS ---
Service Date Service Date: 06/18/24 Encounter Date of encounter: 06/19/24 Reasons for Services Signs and symptoms assessed: s/p right knee unicompartment arthroplasty Pt. is considered homebound due to recent surgery. Unable to drive, poor balance, poor gait mechanics. Reason for physical therapy: home safety and mobility, therapeutic exercises, restore joint function, gait/transfer training and ADL training Homebound: Leaving the home is medically contraindicated at this time without the asist of a device and/or another person due th the listed conditions above and below. Reason homebound: unsteady gait / fall risk, leg weakness, pain with ambulation, pain with transfers, poor balance / fall risk and unable to drive Certification: Based on the above findings, I certify that this patient is confined to the home and needs intermittent detention care, physical therapy and/or speech therapy, or continues to need occupational therapy. The patient is under my care, and I have initiated the establishment of the plan of care. The patient will be followed by a physician who will periodically review the plan of care. Time Spent With Patient Time: Total time managing care of this patient today ____ minutes.
--- NOTE | 2024-06-18 11:47 | PM.OP ---
Brief Operative Note Date of Service: 06/18/24 Pre-op diagnosis: Right knee medial compartment OA Post-op diagnosis: same Procedure: Right knee unicompartmental arthroplasty Implants: Ashley Persona 2C10, cemented Surgeon: Joseluis Sweet MD Anesthesia: regional and spinal Was an Targeting Acquisition Officer used for this Procedure?: Yes Targeting Acquisition Officer: Annette Recinos Estimated blood loss (mL): 25 Tourniquet time (min): 87 IV fluids (mL): 1,000 Pathology: other Condition: stable Disposition: PACU
--- NOTE | 2024-06-18 11:52 | W.PM.OPN ---
Operative Note Operative Note Date of Service: 06/18/24 Narrative: Date of Service: 06/18/24 Pre-op diagnosis: Right knee medial compartment OA Post-op diagnosis: same Procedure: Right knee unicompartmental arthroplasty Implants: Ashley Persona 2C10, cemented Surgeon: Joseluis Sweet MD Anesthesia: regional and spinal Was an Case Reviewer used for this Procedure?: Yes Case Reviewer: Annette Recinos Estimated blood loss (mL): 25 Tourniquet time (min): 87 IV fluids (mL): 1,000 Pathology: other Condition: stable Disposition: PACU Procedure in detail: The patient was brought to the operating room and prepped and draped in standard sterile fashion. A time-out was called to identify proper site proper procedure proper surgeon and IV antibiotics were administered. 1 g of IV tranexamic acid was administered. I began by making a medial incision to the retinaculum and performed a medial parapatellar arthrotomy. I extended the arthrotomy up to the quad tendon. The patella was protected with a vivek in the notch and the knee was flexed up. There were no changes of the PFJ or lateral compartment. I performed a medial peel and palced a vivek in the notch to protect the patella and a home medially to protect the MCL. I placed my extension guide and, in alignement with the tibial tubercle and tibial shaft I made a 4mm cut. Care was taken to protect the posterior soft tissues and I removed the bone and excess debris. I trialed with an extension block. I released the medial capsule with a baer and removed tibial osteophytes and removed the meniscus. . I was satisfied with the amount of resection using the trial . I then made my saggital cut with a saggital saw a saw just medial to the tibial insertion of the ACL. All bone was removed and I placed my 9mm extension block to make my distal femoral cut in terminal extension. Once my cut was made and all bony debris was removed and assessed my flexion and extension gaps and was satisfied with the balance and tightness. I therefore placed my sizing guide and sized a 2 femur. I placed my chamfer cutting guide and made my chamfer cuts as well as my lug holes. I then turned my attention to the tibia and sized a c tibia. A guide was placed and my lug holes drilled. I then trialed a 2C10 and was satisfied with the balance and stability. One bag of Biomet bone cement was mixed on the back table with 3rd gen cementation technique. I then cemented in the femur and tibia in standard fashion while applying axial compression using a 10 tibial insert. Once the cement was hard on the back table all excess cement was removed and I trialed different inserts until I selected a #10insert. The lollipop was inserted and removed easily but not too loosely. The final insert was placed. I irrigated copiously and the knee was then closed with a running Quill suture, a 3 0 Vicryl and paige on the skin. Patient was then placed in sterile dressing and brought to recovery room in stable condition there were no known complications.
--- NOTE | 2024-06-18 13:25 | PM.IMCN ---
History of Present Illness Data of Consult Service Date: 06/18/24 Primary Care Provider: Jacqueline De Leon MD HPI Reason for consult: htn, jason, gout 58F PMH hypertension, gout, JASON, osteoarthritis admitted to Orthopedic surgery status post right knee arthroplasty. Patient denies any active medical complaints. He was treated for gout, hypertension, wears CPAP at night for JASON. [facility] Medical History Gout James thyroiditis Palpitations Arthritis Iron deficiency anemia Moreno's palsy Pre-diabetes Environmental and seasonal allergies Obesity JASON on CPAP Lactose intolerance Hyperuricemia Essential hypertension Uterine fibroid Family History Father HTN (hypertension) Heart disease Emphysema of lung Mother HTN (hypertension) Dementia Seizure Family/Other HTN (hypertension) Cancer Surgical History Hx of right knee surgery S/P thyroid biopsy History of appendectomy Hx of left breast biopsy Hx of colonoscopy History of repair of right rotator cuff S/P removal of left ovary Social History Household Members: Spouse Housing: House Are you a primary home health aide caregiver to a significant other at home: No Do you presently have visiting nurse or other home services: No Alcohol intake: current Alcohol intake frequency: holidays/special occasions only Comment: advised of trip hazard Patient Tobacco Use Status: Never used Tobacco Smoked in Last 30 Days: No e-Cigarette/Vaping Use: Never Used Patient Interested in Nicotine Replacement: No Patient Given Instructions on How to Stop Smoking: No Second Hand Smoke Exposure: No Use of substances other than those prescribed or required for medical reasons: No Currently Displaying Signs/Symptoms of Drug Intoxication Withdrawal: No Any prior treatment program specific to substance use: No Have you been hit, kicked, punched, or otherwise hurt by someone within the past year? If so, by whom?: No Do you feel safe in your current relationship?: Yes Is there a partner from a previous relationship who is making you feel unsafe now?: No Are you made to feel afraid or neglected: No Spiritual Healthcare Practices: none [facility] Practices: L[employer] Cultural Healthcare Practices: none Are you DNR?: Yes Advance Directives Information Provided: Yes (as above noted-advised to bring copy DOS) Advance Directives on File: No Do you have a plan to hurt others: No Plan Recently lost weight without trying: No Eating poorly because of decreased appetite: No Nutrition Risks: No Nutritional Risk Patient : No FDLMP: n/a : No Poor oral hygiene: No service: No Current occupational status: employed 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 Gender identity: Female Cognitive needs: No Hearing needs: No Vision needs: Yes Meds Allergies Allergy/AdvReac Type Severity Reaction Status Date / Time adhesive [ADHESIVE] Allergy Intermediate ITCHING Verified 06/13/24 09:23 FRUIT, SKINS Allergy Severe THROAT Uncoded 06/13/24 09:23 CLOSES Active Medications: Current Medications Acetaminophen (Acetaminophen 325 Mg Tablet) 650 mg PO Q6H PRN PRN Reason: Pain, Mild 1-3,fever,headache Allopurinol (Allopurinol 300 Mg Tablet) 300 mg PO DAILY [facility] Aspirin (Aspirin 325 Mg Tablet) 325 mg PO BID [facility] Celecoxib (Celecoxib 200 Mg Capsule) 200 mg PO BID [facility] Lisinopril 10 mg/ (Hydrochlorothiazide 12.5 mg) 0 mg PO DAILY [facility] Docusate Sodium (Docusate Sodium 100 Mg Capsule) 100 mg PO BID [facility] Fluticasone Propionate (Fluticasone Propionate Nasal 16 Gm [place]) 1 spray NOSTRIL-B BID PRN PRN Reason: Allergic Symptoms Hydromorphone HCl (Hydromorphone Hcl 0.5 Mg/0.5 Ml Syringe) 0.25 mg IVPUSH Q4H PRN; Protocol PRN Reason: Pain, Severe (Pain Scale 7-10) Lactated Ringer's (Lr) 1,000 mls @ 100 mls/hr IVCONT .Q10H [facility] Last Admin: 06/18/24 13:02 Dose: 100 mls/hr Cefazolin Sodium/Dextrose (Ancef) 2 gm in 50 mls @ 100 mls/hr IV POSTOP ONE Stop: 06/18/24 15:29 Loratadine (Loratadine 10 Mg Tablet) 10 mg PO DAILY PRN PRN Reason: Allergy Symptoms Magnesium Hydroxide (Milk Of Magnesia 30 Ml Oral.Susp) 30 ml PO DAILY PRN PRN Reason: Constipation Montelukast Sodium (Montelukast Sodium 10 Mg Tablet) 10 mg PO BEDTIME MARTIR Ondansetron HCl (Ondansetron Hcl 4 Mg/2 Ml Vial) 4 mg IVPUSH Q8H PRN PRN Reason: Nausea and Vomiting Oxycodone HCl (Oxycodone Hcl Immed Release 5 Mg Tablet) 5 mg PO Q4H PRN PRN Reason: Pain, Moderate(Pain Scale 4-6) Oxycodone HCl (Oxycodone Hcl Er 10 Mg Tab.Er.12h) 10 mg PO BID [facility] Sodium Chloride (0.9 % Sodium Chloride Flush 3 Ml Syringe) 3 ml IVFLUSH QSHIFT [facility] Vitamin D (Cholecalciferol (Vitamin D3) 25 Mcg Tablet) 50 mcg PO DAILY [facility] Home Medications ?Medication ?Instructions ?Recorded ?Confirmed ?Last Taken ?Type cholecalciferol (vitamin D3) 50 50 mcg PO DAILY 12/01/20 06/18/24 03/28/22 History mcg (2,000 unit) capsule tirzepatide 10 mg/0.5 mL 10 mg subcut Q3W 01/03/24 06/18/24 06/04/24 History subcutaneous pen injector (Daljit) allopurinol 300 mg tablet 300 mg PO QAM 05/14/24 06/18/24 06/18/24 History loratadine 5 mg-pseudoephedrine ER 1 tab PO Q12H PRN Allergy Symptoms 05/14/24 06/18/24 Unknown History 120 mg tablet,extended release,12hr (Claritin-D 12 Hour) montelukast 10 mg tablet 10 mg PO BEDTIME 05/14/24 06/18/24 Unknown History Physical Exam Vital Signs and Narrative: Vital Signs: Last Vital Signs Temp 96.8 F 06/18/24 12:37 Pulse 63 06/18/24 12:37 Resp 16 06/18/24 12:37 BP 130/58 L 06/18/24 12:37 Pulse Ox 98 06/18/24 12:37 O2 Del Method Room Air 06/18/24 12:37 O2 Flow Rate 6 06/18/24 11:50 BMI result Body Mass Index 31.6 General: AO X 3, no acute distress Resp: CTA bilateral, no accessory muscles used CVS: S1,S2,RRR GI: soft, non tender, non distended Neuro: motor grossly intact, alert Psych: appropriate affect, appropriate insight Results Labs 06/18/24 08:20 06/13/24 14:04 Imaging Radiologist's Impressions: Impressions Knee X-Ray 06/18/24 11:50 IMPRESSION: Status post medial hemiarthroplasty. Electronically signed by: Garth Tang MD 06/18/2024 12:34 PM EDT RP Assessment and Plan (1) Essential hypertension: Status: Acute Plan 58F PMH hypertension, gout, JASON, osteoarthritis admitted to Orthopedic surgery status post right knee arthroplasty htn lisinopril/hctz gout allopurinol jason cpap at night will sign off for now, please recall if needed
--- NOTE | 2024-06-18 13:54 | PHA.MEDREC ---
Pharmacy Consult ? Medication Reconciliation Pharmacy has reviewed the medication reconciliation done by nursing.
[2024-06-18] MEDS: HYDROmorphone HCl 0.5 MG/0.5 ML SYRINGE 0.25 MG IVPUSH (15:38)
[2024-06-18] MEDS: 0.9 % Sodium Chloride Flush 3 ML SYRINGE IVFLUSH (15:42)
[2024-06-18] MEDS: Acetaminophen 325 MG TABLET 650 MG PO (17:41)
[2024-06-18] MEDS: oxyCODONE HCl ER 10 MG TAB.ER.12H PO (20:21)
[2024-06-18] MEDS: Docusate Sodium 100 MG CAPSULE PO (20:21)
[2024-06-18] MEDS: Celecoxib 200 MG CAPSULE PO (20:21)
[2024-06-18] MEDS: Montelukast Sodium 10 MG TABLET PO (20:22)
[2024-06-18] MEDS: oxyCODONE HCl Immed Release 5 MG TABLET PO (20:22)
[2024-06-19] VITALS: BP 114/55; PULSE 65; RESP 18; TEMP 36.8; O2SAT 97
[2024-06-19 04:00] VITALS: BP 117/58; PULSE 80; RESP 18; TEMP 36.9; O2SAT 98
[2024-06-19] MEDS: oxyCODONE HCl Immed Release 5 MG TABLET PO ×2 (04:28→10:15)
[2024-06-19 06:50] LABS: MANUAL DIFF FLAG NO
[2024-06-19 06:59] LABS: Basophils Percent Auto 0.1 % (0-2); Hematocrit 34.2 % (37.0-47.0); Hemoglobin 11.3 g/dl (12.0-16.0); Imm Gran Abs Auto 0.07 X10*3/uL (0.00-0.03); Imm Gran Pct Auto 0.5 % (0.0-0.4); Lymphocytes Absolute Auto 0.9 X10*3/uL (1.2-4.9); Monocytes Absolute Auto 0.7 X10*3/uL (0.1-1.2); Monocytes Percent Auto 4.9 % (2-11); Neutrophils Absolute Auto 12.7 x10*3/uL (2.0-8.3); Neutrophils Percent Auto 88.5 % (45-73); Platelet Count 270 X10*3/uL (160-400); Red Blood Count 3.64 X10*6/uL (4.20-5.50); Red Cell Distribution Width 12.5 % (11.0-16.0); White Blood Count 14.3 X10*3/uL (4.8-10.8)
[2024-06-19 07:08] LABS: Anion Gap 13 (12-20); Blood Urea Nitrogen 12 mg/dL (9-16); Calcium 8.9 mg/dL (8.4-10.2); Carbon Dioxide 28 mmol/L (22-29); Chloride 104 mmol/L (96-108); Creatinine Clr Calc Pharmacy 92.9; Estimated Glomerular Filt Rate > 60; Glucose Fasting 138 mg/dL (60-99); Potassium 4.3 mmol/L (3.3-5.1); Sodium 141 mmol/L (135-145)
[2024-06-19] MEDS: Cholecalciferol (Vitamin D3) 25 MCG TABLET 50 MCG PO (07:37)
[2024-06-19] MEDS: oxyCODONE HCl ER 10 MG TAB.ER.12H PO (07:38)
[2024-06-19 07:39] VITALS: BP 120/59; PULSE 84; RESP 18; TEMP 36.7; O2SAT 98
[2024-06-19 07:40] VITALS: BP 124/68
[2024-06-19] MEDS: Celecoxib 200 MG CAPSULE PO (07:40)
[2024-06-19] MEDS: lisinopriL 10 MG, hydroCHLOROthiazide 12.5 MG PO (07:40)
[2024-06-19] MEDS: Docusate Sodium 100 MG CAPSULE PO (07:48)
[2024-06-19] MEDS: allopurinoL 300 MG TABLET PO (07:48)
[2024-06-19] MEDS: Acetaminophen 325 MG TABLET 650 MG PO (08:41)
[2024-06-19] MEDS: Aspirin 325 MG TABLET PO (10:15)
--- NOTE | 2024-06-19 10:38 | MHC.CM.PN ---
pt is dcd home with hvns prior ro being seen by cm
--- NOTE | 2024-06-19 11:45 | HO.POSTANES ---
Post Anesthesia Evaluation Post Anesthesia Evaluation Date of Service: 06/19/24 Vital Signs: Vital Signs Temp Pulse Resp BP Pulse Ox O2 Del Method 06/19/24 07:40 124/68 06/19/24 07:39 98.0 F 84 18 120/59 L 98 Room Air 06/19/24 04:00 98.4 F 80 18 117/58 L 98 Room Air 06/19/24 00:00 98.2 F 65 18 114/55 L 97 Room Air Anesthesia: Spinal Mental Status: Awake Pain Control: Satisfactory Nausea/Vomiting: None Hydration: Adequate Anesthesia-Related Issues: No Anes. Related Issues
[2024-06-19 11:46] VITALS: BP 129/59; PULSE 63; RESP 18; TEMP 37.1; O2SAT 99
== END 2024-06-19 12:10 | disposition home health service (06) ==
LOC: HO.SSS 09:42 → HO.S3 10:33
PROVIDERS: Nurse Practitioner; Physician Assistant; PCP Internal Medicine; Visit Provider Orthopaedic Surgery
PROC: (CPT 27446; principal; 2024-06-18 09:50)
DX: M17.11 Unilateral primary osteoarthritis, right knee (principal); M25.561 Pain in right knee; R26.2 Difficulty in walking, not elsewhere classified; I10 Essential (primary) hypertension; R73.03 Prediabetes; E06.3 Autoimmune thyroiditis; E73.9 Lactose intolerance, unspecified; G47.33 Obstructive sleep apnea (adult) (pediatric); M10.9 Gout, unspecified; J30.2 Other seasonal allergic rhinitis; Z79.85 Long-term (current) use of injectable non-insulin antidiabetic drugs; Z79.899 Other long term (current) drug therapy; Z99.89 Dependence on other enabling machines and devices; L23.1 Allergic contact dermatitis due to adhesives; Z66 Do not resuscitate; Z98.890 Other specified postprocedural states
CPT/HCPCS: 27446; 36415; 73560; 80048; 83036; 85014; 85018; 85025; 85027; 86850; 86900; 86901; 87640; 87641; 88304; 88305; 88311; 97161; C1713; C1776; J0131; J0665; J0690; J1100; J1171; J2003; J2250; J2371; J2405; J2704; J2795; J7120

== ENCOUNTER → 2024-06-18 07:05 | Outpatient (BNV) | payer OTHER, SELFPAY | PROVIDERS: PCP Internal Medicine; Visit Provider Internal Medicine | DX: I10 Essential (primary) hypertension (principal); M17.11 Unilateral primary osteoarthritis, right knee; G47.33 Obstructive sleep apnea (adult) (pediatric) | CPT/HCPCS: 99222 ==

== ENCOUNTER → 2024-06-18 07:05 | Outpatient (BNV) | payer OTHER, SELFPAY | PROVIDERS: PCP Internal Medicine; Visit Provider Orthopaedic Surgery | DX: Z47.1 Aftercare following joint replacement surgery (principal); Z96.651 Presence of right artificial knee joint | CPT/HCPCS: 27446; 99024; G0180 ==

== ENCOUNTER → 2024-06-18 09:38 | Outpatient (BNV) | payer OTHER, SELFPAY | PROVIDERS: PCP Internal Medicine; Visit Provider Radiology Diagnostic Radiology | DX: M17.11 Unilateral primary osteoarthritis, right knee (principal) | CPT/HCPCS: 73560 ==

== ENCOUNTER 2024-07-04 09:33 | Outpatient (AMB) | payer OTHER, SELFPAY ==
--- NOTE | 2024-07-04 09:34 | MHC.OFFVIS ---
Vital Signs 07/04/24 09:36 Height 5 ft 1 in Weight 151 lb BMI 28.5 BP 124/74 Blood Pressure Location Rt brachial Position Sitting Intake Visit Reasons: Follow up JASON Intake Note: Patient presents follow up JASON. Compliance in chart Allergies adhesive [ADHESIVE] Allergy (Intermediate, Verified 07/09/24 08:58) ITCHING FRUIT, SKINS Allergy (Severe, Uncoded 07/09/24 08:58) THROAT CLOSES HPI Comments Details: History of Present Illness The patient is a 58-year-old female presenting with sleep disturbances and management of obstructive sleep apnea. She experiences night awakenings and variable sleep durations despite CPAP usage. Post-operative knee pain is noted, with indications of disrupted sleep patterns. She drinks coffee in the morning and avoids caffeine later, reports discomfort with her current CPAP mask, and uses a mini CPAP device for travel. Reports compliance with CPAP settings but occasional use of non-distilled water. Supplements and melatonin were previously recommended, and sleep hygiene practices were discussed. CPAP compliance review: Does patient have sufficient PAP supplies? Yes Does patient clean PAP supplies on a regular basis? Yes Does the patient use distilled water in their PAP machine water reservoir? usually Home respiratory company: [facility] Home PAP compliance report reviewed. 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 - Caffeine Intake: Limited to morning coffee. - Exercise: Limited due to post-operative knee pain. - Sleep Hygiene: Consistent bedtime but affected by recent surgery. Review of Systems - Respiratory: Reports no daytime sleepiness. - Musculoskeletal: Reports post-operative knee pain. - Sleep: Reports frequent awakenings, variable sleep duration. [facility] Medical History Essential hypertension Anemia Gout James thyroiditis Palpitations Arthritis Iron deficiency anemia Moreno's palsy Pre-diabetes Environmental and seasonal allergies Obesity JASON on CPAP Lactose intolerance Hyperuricemia Uterine fibroid Surgical History History of arthroplasty of right knee Hx of right knee surgery S/P thyroid biopsy History of appendectomy Hx of left breast biopsy Hx of colonoscopy History of repair of right rotator cuff S/P removal of left ovary Family History Father HTN (hypertension) Heart disease Emphysema of lung Mother HTN (hypertension) Dementia Seizure Pneumonia Family/Other HTN (hypertension) Cancer Brother Cancer Social History Household Members: Spouse Housing: House Are you a primary hospice patient care secretary to a significant other at home: No Do you presently have visiting nurse or other home services: No Alcohol intake: current Alcohol intake frequency: holidays/special occasions only Comment: advised of trip hazard Patient Tobacco Use Status: Never used Tobacco e-Cigarette/Vaping Use: Never Used Second Hand Smoke Exposure: No service: No Current occupational status: employed 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 Gender identity: Female Cognitive needs: No Hearing needs: No Vision needs: Yes Physical Exam Vital Signs: Last Vital Signs BP 124/74 07/04/24 09:36 BMI result Body Mass Index 28.5 Const General: no acute distress Orientation/consciousness: patient oriented x3 Resp Effort & Inspection: normal respiratory effort and able to speak in complete sentences Neuro General: patient oriented x3 Psych Mental Status: mental status grossly normal Speech and movement: Clear speech present Attitude: cooperative Assessment & Plan Assessment & Plan (1) JASON on CPAP: Comment: 12/12/2022 home sleep study showed moderate sleep apnea with AHI 18.4 per hour, O2 beronica 80% with SpO2 94% and SpO2 under 88% for 6.3 minutes of study time. Mild snoring. Code(s): G47.33 - Obstructive sleep apnea (adult) (pediatric); Z99.89 - Dependence on other enabling machines and devices Category: Medical Plan Discussion Notes I discussed with the patient the importance of CPAP compliance and reviewed her current settings and usage data. We talked about the benefits of ensuring distilled water in the device to prevent respiratory irritation. We explored mask discomfort management options, such as trying newer masks available from [employer], which may improve her comfort during use. We addressed the disruption in sleep due to knee pain, advising magnesium for muscle relaxation, and melatonin as a sleep aid. Regular physical activity as tolerated and establishing consistent sleep routines were advised. We agreed on monitoring her progress post-knee surgery and encouraged a follow-up to assess improvement in sleep quality. Plan and patient instructions: CPAP compliance emphasized with exploration of new mask options for comfort. Magnesium suggested for post-operative knee pain and melatonin for short-term sleep aid. Recommended regular physical activity as tolerated and consistent sleep routines. Follow-up planned for adherence and symptom relief evaluation. - Continue to use APAP 5-15 cmH2O with EPR 3 nightly with a goal of greater than 4 hours nightly, as patient is experiencing good clinical effect from use. - You may continue to use Resmed AirMini while traveling. - May use melatonin daily in evening to optimize sleep. - May continue magnesium 400 mg daily at bedtime. - Clean and change PAP supplies routinely, including filters, masks, tubing, and water reservoir. - Use distilled water in PAP water reservoir. Patient was informed and verbally consented to the use of an ambient scribe for clinic note documentation during this visit. Coding Level of Care Code Est Pt Level 3 (51374) Diagnoses JASON on CPAP G47.33; Z99.89
[2024-07-04 09:36] VITALS: BP 124/74; BMI 28.5
--- OUTSIDE RECORDS SUMMARY | 2024-07-04 10:01 | XMS_ITS ---
Author Organization [facility] Address [address] [place] [address] Care Team Providers Care Leather Stamper Name Role Phone YESI SANFORD, SHILPI Primary Care Provider Meghna Ambriz Unavailable [phone] Allergies No Known Allergies Results Component Value Reference Range Notes Urinalysis Reviewed date:02/22/2023 12:09:55 PM Interpretation: Performing Lab: Notes/Report: PH 5.0 PROTEIN NEG GLUCOSE NEG BLOOD NEG THIN PREP,HPV,IVY IF HPV+ ( >29YR)(DIAG) Reviewed date:03/01/2023 11:41:10 AM Interpretation: Performing Lab:Testing performed or reported by [facility], a Service of [facility], [address] [place] [address] Faustino Anthony MD, Motor Installer [facility]# [id number] Notes/Report: Patient Name: GALEN ANDUJAR Patient : 1965 (Age: 57) Lab Collection Date: 02/22/2023 Accession Date: 02/22/2023 Sign Out Date: 03/01/2023 Tissue Source: 1: THINPREP GREEN BUILDING MATERIALS DESIGNER PAP TEST, CERVICAL/VAGINAL: Final Diagnosis: NEGATIVE FOR INTRAEPITHELIAL LESION OR MALIGNANCY. Atrophy. Satisfactory for evaluation. Endocervical/transformation zone ABSENT. Procedures/Addenda: Human Papilloma Virus, High-Risk(Reflex GT) Status: Signed Out Interpretation: Negative Methodology: Salezeo Aptima HPV mRNA assay (Nucleic Acid Amplification Test, NAAT) Clinical History: Date of Last Menstrual Period: anoop Menstrual History: not available Contraceptive History: not available Ancillary Testing: HPV (Reflex GT) Case imaged by the ThinPrep Imaging System with manual rescreening or review. Performed at [facility] department of Cytology, [place], [facility] Clinical History (other): Z01.419 Phone #: [phone], On-Call Pathologist: [id number] REASON FOR VISIT Annual GREEN BUILDING MATERIALS DESIGNER Physical, Annual GREEN BUILDING MATERIALS DESIGNER Physical 50-59* Medications Medication SIG (Take, Route, [...] W/U Status Risk Notes Problem Autoimmune thyroiditis (00764915) Autoimmune thyroiditis (E06.3) Active confirmed Vital Signs Temperature 97.3 degrees Fahrenheit 02/23/20 23 Blood pressure systolic 122 mm Hg 02/23/20 23 Blood pressure diastolic 66 mm Hg 023 Height 61 in 02/22/2023 Weight 158 lbs 02/22/2023 BMI 29.85 kg/m2 02/22/2023 Encounters Encounter Location Date Provider Diagnosis Total [address] [place] [address] 02/22/2023 Meghna Hays Encounter for gynecological examination [...] Reason: Provider Name:Meghna cr, 03/06/2025 08:40:00 AM[facility] [address] [facility] [address], [place], [address], Progress Notes * REYES ANDUJAROB:1965 (57 yo F)Acc No.[id number]:02/22/2023 PROGRESS NOTES Patient:?GALEN ANDUJAR Appointment Provider:?Meghna cr M.D. :1965???Age:57 Y???Sex:Female D ate:02/22/2023 Address:[address] [place], [place] [id number] Pcp:SHILPI KEY MD Subjective: * Chief Complaints: * ???Annual GREEN BUILDING MATERIALS DESIGNER PhysicalAnnual GREEN BUILDING MATERIALS DESIGNER Physical 50-59* * HPI: ???New/Follow-up Patient Consult:? [...] DONE IN NOV 2022 WAS DONE AT [facility]. WE WILL GET THE RESULTS. [...] adequate calcium via diet and supplementation ?Significant GREEN BUILDING MATERIALS DESIGNER problems:?no significant sales representative girls' apparel symptoms or problems * ROS:?general:?no?chest pain.?no?palpitations.?no?headache.?no?cough.?no?shortness of breath.?no?fever.?no?unexplained weight loss.?no?nausea/vomiting.?no?change in bowel movements.?no blood in stool.?no?genitourinary complaints.?no?skin complaints.? * Medical History:? 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 * OB History:?Total pregnancies?4.?Total living children?3.?NVD?3.?Miscarriage(s)?1.? [...] * Images: Billing Information: * Visit Code:? 80025 Preventive Care New Pt. Age 40-64. 00788 Preventive Care Est Pt. Age 40-64. * Procedure Codes:? * Sign off status: Completed true * Appointment Provider:?Meghna Hays M.D. Date:?02/22/2023 Generated for Norbert escobar/Bola/Jolynnitting on:?07/04/2024 10:01 AM EDT History and Physical Notes * [...] DONE IN NOV 2022 WAS DONE AT [facility]. WE WILL GET THE RESULTS. HER LAST PAP TEST IN 2016 WAS NEGATIVE AND HPV NEGATIVE. SHE HAS NO HX OF ABNORMAL PAP TESTS. SHE HAD A COLONOSCOPY DONE IN 2015. Inktank X 3. Annual General Health Maintenance: Current breast complaints:: no breast pain, mass, discharge, or skin changes Urinary problems:: patient r eports no urinary health problems or bowel health problems Calcium intake:: takes adequ ate calcium via diet and supplementation Significant GREEN BUILDING MATERIALS DESIGNER problems:: n o significant sales representative girls' apparel symptoms or problems Examination Category Sub-Category Detail [...]
--- OUTSIDE RECORDS SUMMARY | 2024-07-04 10:01 | XMS_ITS | Encounter Summary ---
Author Organization [employer] Address [address] [place] [address] 7 [place] [address] Care Team Providers Care Industrial Insulator Name Role Phone Unavailable Primary Care Provider [...]
--- OUTSIDE RECORDS SUMMARY | 2024-07-04 10:01 | XMS_ITS ---
Author Organization [employer] [facility] Address [address] [place] [address] Care Team Providers Care Card Clothier Name Role Phone YESI SANFORD, SHILPI Primary Care Provider Brandieleigha erica Meghna Hays Unavailable [phone] Results Component Value Reference Range Notes SURGICAL PATHOLOGY Reviewed date:03/09/2023 09:16:37 AM Interpretation: Performing Lab:Testing performed or reported by [facility], a Service of [facility], [address] [place] [address] Faustino Anthony MD, Drum Plater [facility]# [id number] Notes/Report: Patient Name: GALEN ANDUJAR Lab Patient : 1965 (Age: 57) Collection Date: 03/03/2023 Accession Date: 03/04/2023 Sign Out Date: 03/09/2023 Tissue Source: 1:ENDOMETRIUM BIOPSY Final Diagnosis: Endometrium, biopsy: - Scant superficial glandular tissue fragments (see note). - Endocervical glandular mucosa with squamous metaplasia, and abundant mucus. Note: The scant quantity of tissue received may not be district representative of the endometrium. Primary Pathologist:Nahomi Santana M.D.,Ph.D. electronically signed out by: Nahomi Santana M.D.,Ph.D. / [facility] Clinical History: Abnormal findings on diagnostic imaging. Gross Description: Labeled EMB . Received in formalin is a 1.7 x 1.2 x 0.3 cm aggregate of predominantly mucus containing scant granados and red-brown tissue fragments which is entirely submitted in 1 cassette following filtering. 1?multiple pieces, x 2. (MN)* Phone #: [phone], On-Call Pathologist: [id number] REASON FOR VISIT HSONO/EB/? THICK ENDO Medications [...] Status Risk Notes Problem Imaging result abnormal (374756081) Abnormal findings on diagnostic imaging of other specified body structures (R93.89) Active confirmed Encounters Encounter Location Date Provider Diagnosis [facility] [address] [place] [address] 03/03/2023 Meghna Hays Abnormal findings on diagnostic [...] Provider Name:Meghna cr, 03/06/2025 08:40:00 AM, [address], [address], [place], [address], Procedure Notes * Category Sub-Category Detail Notes [...] Notes * CON REYESOB:1965 (57 yo F)Acc No.[id number]:03/03/2023 Patient:?GALEN ANDUJAR Appointment Provider:?Meghna cr M.D. :1965???Age:57 Y???Sex:Female D ate:03/03/2023 Address:[address] [place], [place] [id number] Pcp:SHILPI KEY MD Subjective: * Chief Complaints: [...] Hays M.D. Date:?03/03/2023 Generated for Norbert escobar/Bola/Jolynnitting on:?07/04/2024 10:01 AM [...]
--- OUTSIDE RECORDS SUMMARY | 2024-07-04 10:01 | XMS_ITS | Clinical Summary ---
Author Organization [employer] Address [address] [place] [address] 7t [place] [address] Care Team Providers Care Screen Repairer Crusher Name Role Phone Unavailable Primary Care Provider [...]
--- OUTSIDE RECORDS SUMMARY | 2024-07-04 10:02 | XMS_ITS | Patient Health Record ---
Author Organization [facility] Address [address] [place] [address] Care Team Providers Care Folder Seamer Automatic Name Role Phone SHILPI KEY MD Primary Care Provider Meghna Ambriz Unavailable [phone] Allergies No Known Allergies Results Component Value [...] W/U Status Risk Notes Problem Autoimmune thyroiditis (82716595) Autoimmune thyroiditis (E06.3) Active confirmed Problem Imaging result abnormal (783194835) Abnormal findings on diagnostic imaging of other specified body structures (R93.89) Active confirmed Problem Candidal vulvovaginitis (71980349) Candidiasis of vulva and vagina (112.1) Active confirmed Other Problem Leiomyoma of uterus (71780965) Leiomyoma of uterus, unspecified (218.9) Active confirmed Major Problem Anemia (782367699) Unspecified anemia (285.9) Active confirmed Major Problem Excessive and frequent menstruation (518640366) Excessive or frequent menstruation (626.2) Active confirmed Major Problem Abnormal vaginal bleeding (714235159) Other disorder of menstruation and other abnormal bleeding from female genital tract (626.8) Active confirmed Major Problem Insertion of intrauterine contraceptive device (89405435) Insertion of intrauterine contraceptive device (V25.1) Active confirmed Major Problem Surveillance of intrauterine device contraception done (075052539269587) Surveillance of previously prescribed intrauterine contraceptive device (V25.42) Active confirmed Other Vital Signs Temperature 98.1 degrees Fahrenheit 02/28/2024 Blood pressure diastolic 64 mm Hg 02/28/2024 Height 61 in 02/28/2024 Blood pressure systolic 108 mm Hg 02/28/2024 Weight 143 lbs 02/28/2024 BMI 27.02 kg/m2 02/28/2024 Encounters Encounter Location Date Provider Diagnosis [address] [address] 02/28/2024 Meghna Hays Encounter for screening mammogram [...] Name:Meghna Ramirez shaye, 03/06/2025 08:40:00 AM, [address], [address], [place], [address], Insurance Providers Payer Name Payer Address Payer Phone Subscriber Number Group Number Insured Name Patient Relationship to Insured Coverage Start Date Coverage End Date [facility] [address] [address] [place] [address] [phone] [id number] GALEN ANDUJAR Self - patient is the [...]
--- OUTSIDE RECORDS SUMMARY | 2024-07-04 10:02 | XMS_ITS ---
Author Organization [facility] [employer] [facility] Address [address] [address] Care Team Providers Care Painting Manager Name Role Phone YESI SANFORD, SHILPI Primary Care Provider Meghna Ambriz Unavailable [phone] Allergies No Known Allergies Results Component Value Reference Range Notes Urinalysis Reviewed date:02/28/2024 08:39:44 AM Interpretation: Performing Lab: Notes/Report: PH 5.0 PROTEIN Neg GLUCOSE Neg BLOOD Neg REASON FOR VISIT Annual DIESEL PLANT OPERATOR Physical, Annual DIESEL PLANT OPERATOR Physical 60-85+ Medications Medication SIG (Take, Route, [...] 02/28/2024 Encounters Encounter Location Date Provider Diagnosis [facility] [employer] [facility] [address] [facility] [address] [place] [address] 02/28/2024 Meghna Hays Encounter for screening mammogram [...] Reason: Provider Name:Meghna cr, 03/06/2025 08:40:00 AM, [facility] [address] [facility] [address], [place], [address], Progress Notes * REYES ANDUJAROB:1965 (58 yo F)Acc No.[id number]:02/28/2024 PROGRESS NOTES Patient:?GALEN ANDUJAR Appointment Provider:?Meghna cr M.D. :1965???Age:58 Y???Sex:Female D ate:02/28/2024 Address:[address] [place], [phone] Pcp:SHILPI KEY MD Subjective: * Chief Complaints: * ???Annual DIESEL PLANT OPERATOR PhysicalAnnual DIESEL PLANT OPERATOR Physical 60-85+ * HPI: ???New/Follow-up Patient Consult:? PAT ENTERED MENOPAUSE IN 2019.? HER HAD PROSTATE CA.? THEY ARE NOT SEXUALLY ACTIVE. CT SCAN IN 2020 SHOWED A THICKENED ENDOMETRIUM.? PELVIC US SHOWED A 4.2MM THIN ENDOMETRIUM AND EMB WAS BENIGN. LEFT BREAST BX DONE IN 2014 AND RIGHT BREAST BIOPSY IN 2016 WERE BOTH NEGATIVE. SHE HAS HAD MAMMOGRAMS DONE AT [facility] IN 2022 AND 2023 BUT WE [...] adequate calcium via diet and supplementation ?Significant DIESEL PLANT OPERATOR problems:?no significant epic prelude analyst symptoms or problems * ROS:?general:?no?chest pain.?no?palpitations.?no?headache.?no?cough.?no?shortness of breath.?no?fever.?no?unexplained weight loss.?no?nausea/vomiting.?no?change in bowel movements.?no blood in stool.?no?genitourinary complaints.?no?skin complaints.? * Medical History:? 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 * OB History:?Total pregnancies?4.?Total living children?3.?NVD?3.?Miscarriage(s)?1.? [...] SCR EENING * Labs:? * ?Lab: Urinalysis ([facility] tion Date & Time - [...] * Images: Billing Information: * Visit Code:? 97278 Preventive Care Est Pt. Age 65 and over. * Procedure Codes:? * Sign off status: Completed true * Appointment Provider:?Meghna Hays M.D. Date:?02/28/2024 Generated for Norbert escobar/Bola/Lesa on:?07/04/2024 10:01 AM EDT History and Physical [...] NEGATIVE. SHE HAS HAD MAMMOGRAMS DONE AT [facility] IN 2022 AND 2023 BUT WE [...] ate calcium via diet and supplementation Significant DIESEL PLANT OPERATOR problems:: n o significant epic prelude analyst symptoms or problems Examination Category Sub-Category Detail [...]
--- OUTSIDE RECORDS SUMMARY | 2024-07-04 10:02 | XMS_ITS | Clinical Summary ---
Author Organization [facility] Address [address] [place] [address] Care Team Providers Care Curator Of Manuscripts Name Role Phone Jacqueline De Leon MD [...] - 2023-2 5 season) 2023 Influenza Vaccine (Season Ended) 2024 RSV Immunization Adult Patie nts (1 - 1-dose 75+ series) 10/16/2038 HIB [...] age to complete this topic Care Teams Curator Of Manuscripts Relationship Specialty Start Date End Date Jacqueline De Leon MD [address] [place] [address] PCP - General Internal Medicine 04/01/21
== END 2024-07-04 10:11 | disposition home or self-care (01) ==
LOC: HO.HSMS 09:33
PROVIDERS: PCP Internal Medicine; Visit Provider Nurse Practitioner Family
DX: G47.33 Obstructive sleep apnea (adult) (pediatric) (principal); Z99.89 Dependence on other enabling machines and devices
CPT/HCPCS: 99213

== ENCOUNTER → 2024-07-04 09:33 | Outpatient (BNVA) | payer OTHER, SELFPAY | PROVIDERS: PCP Internal Medicine; Visit Provider Nurse Practitioner Family | DX: G47.33 Obstructive sleep apnea (adult) (pediatric) (principal); Z47.1 Aftercare following joint replacement surgery; Z96.651 Presence of right artificial knee joint; Z99.89 Dependence on other enabling machines and devices | CPT/HCPCS: 99212 ==

== ENCOUNTER 2024-07-04 11:59 | Outpatient (AMB) | payer OTHER, SELFPAY ==
--- NOTE | 2024-07-04 12:39 | A.OFFVIS_ITS ---
Intake Visit Reasons: 2WK PO: R Medial Compartment UKA w/NE 06/18/24 Intake Note: Barby is a 58 year old female who presents today for a post operative visit s/p right medial compartment UKA, DOS 06/18/24. Patient reports that she is doing well, she has intermittent mild pain. States that her bandage leaked a clear liquid and she had felt a relief of pressure after drainage. She had to reinforce bandage with tape. Allergies adhesive [ADHESIVE] Allergy (Intermediate, Verified 07/04/24 09:37) ITCHING FRUIT, SKINS Allergy (Severe, Uncoded 07/04/24 09:37) THROAT CLOSES Medication List - Last Reconciled 07/04/24 by Birdie Faustin PA-C acetaminophen 650 mg (2 x 325 mg) PO Q6H PRN 30 days allopurinol 300 mg PO QAM aspirin 325 mg PO BID 42 days azelastine-fluticasone 137-50 mcg/spray 1 spray intranasal BID celecoxib 200 mg PO BID 30 days cholecalciferol (vitamin D3) 50 mcg PO DAILY lisinopril-hydrochlorothiazide 10-12.5 mg 1 tab PO DAILY loratadine-pseudoephedrine 5-120 mg ER (Claritin-D 12 Hour) 1 tab PO Q12H PRN montelukast 10 mg PO BEDTIME tirzepatide (Mounjaro) 10 mg subcut Q3W walker Folding Front wheeled walker DURATION 99 DAYS HPI HPI 2WK PO: R Medial Compartment UKA w/NE 06/18/24: Details: 58-year-old female returns to the office today status post right knee UKA on 06/18/[address] Sweet. She is ambulating with a cane and continues to work with physical therapy. No concerns today. [facility] Medical History Gout James thyroiditis Palpitations Arthritis Iron deficiency anemia Moreno's palsy Pre-diabetes Environmental and seasonal allergies Obesity JASON on CPAP Lactose intolerance Hyperuricemia Essential hypertension Uterine fibroid Surgical History (Updated 07/04/24 @ 13:43 by Birdie Faustin PA-C) H/O knee surgery Hx of right knee surgery S/P thyroid biopsy History of appendectomy Hx of left breast biopsy Hx of colonoscopy History of repair of right rotator cuff S/P removal of left ovary Family History Father HTN (hypertension) Heart disease Emphysema of lung Mother HTN (hypertension) Dementia Seizure Family/Other HTN (hypertension) Cancer Social History Household Members: Spouse Housing: House Are you a primary landcare facilitator to a significant other at home: No Do you presently have visiting nurse or other home services: No Alcohol intake: current Alcohol intake frequency: holidays/special occasions only Comment: advised of trip hazard Patient Tobacco Use Status: Never used Tobacco e-Cigarette/Vaping Use: Never Used Second Hand Smoke Exposure: No service: No Current occupational status: employed 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 No erythema or joint effusion. Range of motion 0-95 degrees. Calf supple nontender neurovascularly intact. Assessment & Plan Assessment & Plan (1) S/P right unicompartmental knee replacement: Code(s): Z96.651 - Presence of right artificial knee joint Category: Surgical Plan: Latoya removed today Steri-Strips applied. She will continue working with physical therapy and transition to outpatient therapy. She will avoid driving for the next 4 weeks. Continue with DVT prophylaxis. She will see us back in [address] Sweet sooner if needed. Coding Level of Care Code Global (65921) Diagnoses S/P right unicompartmental knee replacement Z96.651
--- OUTSIDE RECORDS SUMMARY | 2024-07-04 13:16 | XMS_ITS | Encounter Summary ---
Author Organization [employer] Address [address] [place] [address] [address] [place] [address] Care Team Providers Care Tray Drier Operator Name Role Phone Unavailable Primary Care Provider [...]
--- OUTSIDE RECORDS SUMMARY | 2024-07-04 13:16 | XMS_ITS | Clinical Summary ---
Author Organization [employer] Address [address] [place] [address] [address]t [place] [address] Care Team Providers Care Business Objects Architect Name Role Phone Unavailable Primary Care Provider [...]
--- OUTSIDE RECORDS SUMMARY | 2024-07-04 13:16 | XMS_ITS | Clinical Summary ---
Author Organization [facility] Address [address] [place] [address] Care Team Providers Care Medical Unit Secretary Name Role Phone Jacqueline De Leon MD [...] age to complete this topic Care Teams Medical Unit Secretary Relationship Specialty Start Date End Date Jacqueline De Leon MD [address] [place] [address] PCP - General Internal Medicine 04/01/21
== END 2024-07-04 13:30 | disposition home or self-care (01) ==
LOC: HO.HOS 12:00
PROVIDERS: PCP Internal Medicine; Visit Provider Physician Assistant
DX: Z96.651 Presence of right artificial knee joint (principal)
CPT/HCPCS: 99024

== ENCOUNTER 2024-07-09 08:02 | Outpatient (AMB) | payer OTHER, SELFPAY ==
--- OUTSIDE RECORDS SUMMARY | 2024-07-09 08:08 | XMS_ITS | Clinical Summary ---
Author Organization [employer] Address [address] [place] [address] [address] [place] [address] Care Team Providers Care Cake Press Operator Helper Name Role Phone Unavailable Primary Care Provider [...]
--- OUTSIDE RECORDS SUMMARY | 2024-07-09 08:08 | XMS_ITS ---
Author Organization [facility] Address [address] [place] [address] Care Team Providers Care Recordist Chief Name Role Phone YESI SANFORD, SHILPI Primary Care Provider Meghna Ambriz Unavailable [phone] Allergies No Known Allergies Results Component Value Reference Range Notes Urinalysis Reviewed date:02/22/2023 12:09:55 PM Interpretation: Performing Lab: Notes/Report: PH 5.0 PROTEIN NEG GLUCOSE NEG BLOOD NEG THIN PREP,HPV,IVY IF HPV+ ( >29YR)(DIAG) Reviewed date:03/01/2023 11:41:10 AM Interpretation: Performing Lab:Testing performed or reported by [facility], a Service of [facility], [address] [place] [address] Faustino Anthony MD, Elevator Runner [facility]# [id number] Notes/Report: Patient Name: GALEN ANDUJAR Patient : 1965 (Age: 57) Lab Collection Date: 02/22/2023 Accession Date: 02/22/2023 Sign Out Date: 03/01/2023 Tissue Source: 1: THINPREP FINISHER COLD ROLLING PAP TEST, CERVICAL/VAGINAL: Final Diagnosis: NEGATIVE FOR INTRAEPITHELIAL LESION OR MALIGNANCY. Atrophy. Satisfactory for evaluation. Endocervical/transformation zone ABSENT. Procedures/Addenda: Human Papilloma Virus, High-Risk(Reflex GT) Status: Signed Out Interpretation: Negative Methodology: [employer] Aptima HPV mRNA assay (Nucleic Acid Amplification Test, NAAT) Clinical History: Date of Last Menstrual Period: anoop Menstrual History: not available Contraceptive History: not available Ancillary Testing: HPV (Reflex GT) Case imaged by the ThinPrep Imaging System with manual rescreening or review. Performed at [facility] department of Cytology, [place], [facility] Clinical History (other): Z01.419 Phone #: [phone], On-Call Pathologist: [id number] REASON FOR VISIT Annual FINISHER COLD ROLLING Physical, Annual FINISHER COLD ROLLING Physical 50-59* Medications Medication SIG (Take, Route, [...] W/U Status Risk Notes Problem Autoimmune thyroiditis (55296536) Autoimmune thyroiditis (E06.3) Active confirmed Vital Signs Temperature 97.3 degrees Fahrenheit 02/23/20 23 Blood pressure systolic 122 mm Hg 02/23/20 23 Blood pressure diastolic 66 mm Hg 023 Height 61 in 02/22/2023 Weight 158 lbs 02/22/2023 BMI 29.85 kg/m2 02/22/2023 Encounters Encounter Location Date Provider Diagnosis Total [address] [place] [address] 02/22/2023 Meghna Hays Encounter for gynecological examination [...] Reason: Provider Name:Meghna cr, 03/06/2025 08:40:00 AM[facility] [address] [facility] [address], [place], [address], Progress Notes * REYES ANDUJAROB:1965 (57 yo F)Acc No.[id number]:02/22/2023 PROGRESS NOTES Patient:?GALEN ANDUJAR Appointment Provider:?Meghna cr M.D. :1965???Age:57 Y???Sex:Female D ate:02/22/2023 Address:[address] [place], [place] [id number] Pcp:SHILPI KEY MD Subjective: * Chief Complaints: * ???Annual FINISHER COLD ROLLING PhysicalAnnual FINISHER COLD ROLLING Physical 50-59* * HPI: ???New/Follow-up Patient Consult:? [...] DONE IN NOV 2022 WAS DONE AT [facility]. WE WILL GET THE RESULTS. ?HER [...] adequate calcium via diet and supplementation ?Significant FINISHER COLD ROLLING problems:?no significant locomotive firer symptoms or problems * ROS:?general:?no?chest pain.?no?palpitations.?no?headache.?no?cough.?no?shortness of breath.?no?fever.?no?unexplained weight loss.?no?nausea/vomiting.?no?change in bowel movements.?no blood in stool.?no?genitourinary complaints.?no?skin complaints.? * Medical History:? 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 * OB History:?Total pregnancies?4.?Total living children?3.?NVD?3.?Miscarriage(s)?1.? [...] * Images: Billing Information: * Visit Code:? 87379 Preventive Care New Pt. Age 40-64. 40914 Preventive Care Est Pt. Age 40-64. * Procedure Codes:? * Sign off status: Completed true * Appointment Provider:?Meghna Hays M.D. Date:?02/22/2023 Generated for Norbert escobar/Bola/Lesa on:?07/09/2024 08:08 AM EDT History and Physical Notes * [...] DONE IN NOV 2022 WAS DONE AT [facility]. WE WILL GET THE RESULTS. HER LAST PAP TEST IN 2016 WAS NEGATIVE AND HPV NEGATIVE. SHE HAS NO HX OF ABNORMAL PAP TESTS. SHE HAD A COLONOSCOPY DONE IN 2015. [place] X 3. Annual General Health Maintenance: Current breast complaints:: no breast pain, mass, discharge, or skin changes Urinary problems:: patient r eports no urinary health problems or bowel health problems Calcium intake:: takes adequ ate calcium via diet and supplementation Significant FINISHER COLD ROLLING problems:: n o significant locomotive firer symptoms or problems Examination Category Sub-Category Detail [...]
--- OUTSIDE RECORDS SUMMARY | 2024-07-09 08:09 | XMS_ITS ---
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 Physical 60-85+ Medications Medication SIG (Take, Route, [...] 02/28/2024 Encounters Encounter Location Date Provider Diagnosis [facility] [address] [facility] [address] [place] [address] 02/28/2024 Meghna Hays Encounter for screening mammogram [...] Reason: Provider Name:Meghna cr, 03/06/2025 08:40:00 AM[facility] [address] [facility] [address], [place], [address], Progress Notes * REYES ANDUJAROB:1965 (58 yo F)Acc No.[id number]:02/28/2024 PROGRESS NOTES Patient:?GALEN ANDUJAR Appointment Provider:?Meghna cr M.D. 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 PAT ENTERED MENOPAUSE IN 2019.? HER HAD PROSTATE CA.? THEY ARE NOT SEXUALLY ACTIVE. CT SCAN IN 2020 SHOWED A THICKENED ENDOMETRIUM.? PELVIC US SHOWED A 4.2MM THIN ENDOMETRIUM AND EMB WAS BENIGN. LEFT BREAST BX DONE IN 2014 AND RIGHT BREAST BIOPSY IN 2016 WERE BOTH NEGATIVE. SHE HAS HAD MAMMOGRAMS DONE AT [facility] IN 2022 AND 2023 BUT WE [...] adequate calcium via diet and supplementation ?Significant LOCOMOTIVE SUPERVISOR problems:?no significant obstetrics and gynecology professor symptoms or problems * ROS:?general:?no?chest pain.?no?palpitations.?no?headache.?no?cough.?no?shortness of breath.?no?fever.?no?unexplained weight loss.?no?nausea/vomiting.?no?change in bowel movements.?no blood in stool.?no?genitourinary complaints.?no?skin complaints.? * Medical History:? * Orthopaedic Nurse History:?/ Para?4/3.?Sexual activity?currently sexually active.?Last Pap Smear:?02/22/23 NIL, NEG HPV, 01/31/17 NIL, NEG HPV, 08/29/13, neg.?Mammogram:?12/2023 [place], 11/23/22, 10/2016 Bilateral Mammo with additional views and Biopsy Rt Breast - Benign.?LMP and menses?[place] 2019.?Colonoscopy?2016.? * OB History:?Total pregnancies?4.?Total living children?3.?NVD?3.?Miscarriage(s)?1.? [...] * Labs:? * ?Lab: Urinalysis ([facility] tion Date & Time - 02/28/2024) ? [...] * Images: Billing Information: * Visit Code:? 17369 Preventive Care Est Pt. Age 65 and over. * Procedure Codes:? * Sign off status: Completed true * Appointment Provider:?Meghna Hays M.D. Date:?02/28/2024 Generated for Norbert escobar/Bola/Lesa on:?07/09/2024 08:08 AM [...] NEGATIVE. SHE HAS HAD MAMMOGRAMS DONE AT [facility] IN 2022 AND 2023 BUT WE [...] ate calcium via diet and supplementation Significant LOCOMOTIVE SUPERVISOR problems:: n o significant obstetrics and gynecology professor symptoms or problems Examination Category Sub-Category Detail [...]
--- OUTSIDE RECORDS SUMMARY | 2024-07-09 08:09 | XMS_ITS | Clinical Summary ---
Author Organization [facility] Address [address] [place] [address] Care Team Providers Care Fisher Gill Net Name Role Phone Jacqueline De Leon MD Primary Care Provider [phone] Social History Tobacco Use Types Packs/Day Years [...] age to complete this topic Meningococcal B Vaccine Aged Out No l onger eligible based on patient's age to complete [...] age to complete this topic Care Teams Fisher Gill Net Relationship Specialty Start Date End Date Jacqueline De Leon MD [address] [place] [address] PCP - General Internal Medicine 04/01/21
--- OUTSIDE RECORDS SUMMARY | 2024-07-09 08:09 | XMS_ITS | Encounter Summary ---
Author Organization [employer] Address [address] [place] [address] [address] [place] [address] Care Team Providers Care Bead Machine Operator Name Role Phone Unavailable Primary Care [...]
--- OUTSIDE RECORDS SUMMARY | 2024-07-09 08:09 | XMS_ITS | Patient Health Record ---
Author Organization [facility] Address [address] [place] [address] Care Team Providers Care Livestock Farmer Name Role Phone SHILPI KEY MD Primary Care Provider Meghna Ambriz Unavailable [phone] Allergies No Known Allergies Results Component Value [...] W/U Status Risk Notes Problem Autoimmune thyroiditis (39923512) Autoimmune thyroiditis (E06.3) Active confirmed Problem Imaging result abnormal (589263385) Abnormal findings on diagnostic imaging of other specified body structures (R93.89) Active confirmed Problem Candidal vulvovaginitis (09626291) Candidiasis of vulva and vagina (112.1) Active confirmed Other Problem Leiomyoma of uterus (54434402) Leiomyoma of uterus, unspecified (218.9) Active confirmed Major Problem Anemia (820330250) Unspecified anemia (285.9) Active confirmed Major Problem Excessive and frequent menstruation (834872069) Excessive or frequent menstruation (626.2) Active confirmed Major Problem Abnormal vaginal bleeding (624185319) Other disorder of menstruation and other abnormal bleeding from female genital tract (626.8) Active confirmed Major Problem Insertion of intrauterine contraceptive device (45329560) Insertion of intrauterine contraceptive device (V25.1) Active confirmed Major Problem Surveillance of intrauterine device contraception done (136563754468176) Surveillance of previously prescribed intrauterine contraceptive device (V25.42) Active confirmed Other Vital Signs Temperature 98.1 degrees Fahrenheit 02/28/2024 Blood pressure diastolic 64 mm Hg 02/28/2024 Height 61 in 02/28/2024 Blood pressure systolic 108 mm Hg 02/28/2024 Weight 143 lbs 02/28/2024 BMI 27.02 kg/m2 02/28/2024 Encounters Encounter Location Date Provider Diagnosis [address] [address] 02/28/2024 Meghna Hays Encounter for screening mammogram [...] Name:Meghna Ramirez shaye, 03/06/2025 08:40:00 AM, [address] [facility], [address], [place], [address], Insurance Providers Payer Name Payer Address Payer Phone Subscriber Number Group Number Insured Name Patient Relationship to Insured Coverage Start Date Coverage End Date [facility] [address] [address] [place] [address] [phone] [id number] GALEN ANDUJAR Self - patient is the [...]
--- NOTE | 2024-07-09 08:13 | A.OFFPC_ITS ---
Vital Signs 07/09/24 08:17 Height 5 ft 1 in Weight 150 lb BMI 28.3 BP 120/60 Blood Pressure Location Rt brachial Position Sitting Respiration 16 Pulse 85 Pulse Source Pulse Oximeter Temp 98.3 F Temp Source Oral Pulse Oximetry (%) 99 Oxygen Delivery Method Room Air Intake Visit Reasons: 6m follow up Intake Note: Pt is here today for her 6mo. f/u labs Allergies adhesive [ADHESIVE] Allergy (Intermediate, Verified 07/09/24 08:58) ITCHING FRUIT, SKINS Allergy (Severe, Uncoded 07/09/24 08:58) THROAT CLOSES Medication List - Last Reconciled 07/09/24 by Jacqueline De Leon MD acetaminophen 650 mg (2 x 325 mg) PO Q6H PRN 30 days allopurinol 300 mg PO QAM aspirin 325 mg PO BID 42 days azelastine-fluticasone 137-50 mcg/spray 1 spray intranasal BID celecoxib 200 mg PO BID 30 days cholecalciferol (vitamin D3) 50 mcg PO DAILY lisinopril-hydrochlorothiazide 10-12.5 mg 1 tab PO DAILY loratadine-pseudoephedrine 5-120 mg ER (Claritin-D 12 Hour) 1 tab PO Q12H PRN montelukast 10 mg PO BEDTIME tirzepatide (Mounjaro) 10 mg subcut Q3W walker Folding Front wheeled walker DURATION 99 DAYS Tobacco use date assessed: 07/09/24 Dental Screening Dental Screen Date: 07/09/24 Did you have a dental visit in the last 12 months?: Yes Did you have a dental problem in the last 6 months where you did not have access to dental care?: No Was dental information given to patient?: Patient has dentist HPI 6m follow up HPI Details 58-year-old lady with history of hyperte nsion, obesity, seasonal allergies, gout, James's thyroiditis, osteoarthritis, obstructive sleep apnea on CPAP, and prediabetes, here today for follow-up. She recently had arthroplasty of right knee with good results. Has been feeling well, continues to take Mounjaro now at 10 mg which she administers subcutaneously every 3 weeks. She has leveled off on her weight loss since her surgery . Currently undergoing physical therapy. Blood pressure is well controlled on current dose of lisinopril-HCTZ. Has not had any attacks of gout, now on allopurinol 300 mg taken daily. [facility] Medical History (Updated 07/15/24 @ 02:55 by Jacqueline De Leon MD) Essential hypertension Anemia Gout James thyroiditis Palpitations Arthritis Iron deficiency anemia Moreno's palsy Pre-diabetes Environmental and seasonal allergies Obesity JASON on CPAP Lactose intolerance Hyperuricemia Uterine fibroid Surgical History (Updated 07/09/24 @ 08:59 by Jacqueline De Leon MD) History of arthroplasty of right knee Hx of right knee surgery S/P thyroid biopsy History of appendectomy Hx of left breast biopsy Hx of colonoscopy History of repair of right rotator cuff S/P removal of left ovary Family History Father HTN (hypertension) Heart disease Emphysema of lung Mother HTN (hypertension) Dementia Seizure Pneumonia Family/Other HTN (hypertension) Cancer Brother Cancer Social History Household Members: Spouse Housing: House Are you a primary intensive care unit registered nurse to a significant other at home: No Do you presently have visiting nurse or other home services: No Alcohol intake: current Alcohol intake frequency: holidays/special occasions only Comment: advised of trip hazard Patient Tobacco Use Status: Never used Tobacco e-Cigarette/Vaping Use: Never Used Second Hand Smoke Exposure: No service: No Current occupational status: employed 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 Garth Youssef, Maria Isabel Beckman, Jose Farley and colleagues, with an educational yahaira from [employer]. Review of Systems Const All systems reviewed & are unremarkable except as noted in HPI and below Physical exam (Primary Care) Vital Signs: Last Vital Signs Temp 98.3 F 07/09/24 08:17 Pulse 85 07/09/24 08:17 Resp 16 07/09/24 08:17 BP 120/60 07/09/24 08:17 Pulse Ox 99 07/09/24 08:17 Oxygen Delivery Method Room Air 07/09/24 08:17 BMI result Body Mass Index 28.3 Tobacco/Smoking Status: Tobacco use Status Tobacco use date assessed 07/09/24 07/09/24 08:22 Patient Tobacco Use Status Never used Tobacco 07/09/24 08:15 e-Cigarette/Vaping Use Never Used 07/09/24 08:15 Thrive Assessment: Date of Thrive Assessment Date Thrive assessed 04/16/24 07/09/24 08:15 Const General: no acute distress and alert HENMT Head: Yes normocephalic Ears: external ears normal General nose exam: Normal external nose present Face and sinus: Yes face symmetric Mouth: Normal oral and palatal mucosa present, oropharynx normal and moist mucous membranes Eyes General: appearance normal, both eyes and all related structures Neck Other: Supple with no lymphadenopathy, full range of motion Chest Breast/axilla palpation: normal palpation of the breasts Resp Effort & Inspection: normal respiratory effort and able to speak in complete sentences Auscultation: clear to auscultation bilaterally Cardio Rate: regular rate Rhythm: regular rhythm Heart sounds: S1 normal heart sound present and S2 normal heart sound present GI Palpation (GI): Soft to palpation, nontender, no guarding and no masses Auscultation: normal bowel sounds General: Yes deferred Back/Spine/Pelvis Back: No back tenderness Skin General skin exam: no rashes or lesions noted Neuro General: tone normal, moves all extremities, Normal light touch and pain sensation, no focal motor deficits and CN's II-XI intact bilaterally Extrem Other: Dry surgical scar on anterior aspect of right knee, nontender, no swelling seen General: Yes full ROM, Yes no joint enlargement, Yes no clubbing, cyanosis or edema, Yes no calf tenderness and Yes normal gait Psych Appearance: grossly normal and well kempt Mental Status: mental status grossly normal Speech and movement: Normal speech and movement present Affect: normal affect Attitude: cooperative Coding Level of Care Code Est Pt Level 4 (36906) Complex EM visit Add On G2211 Diagnoses Hyperuricemia E79.0 Pre-diabetes R73.03 S/P right unicompartmental knee replacement Z96.651 Anemia D64.9 Essential hypertension I10 James thyroiditis E06.3 Assessment & Plan Assessment & Plan (1) Hyperuricemia: Code(s): E79.0 - Hyperuricemia without signs of inflammatory arthritis and tophaceous disease Category: Medical Plan: Continue with allopurinol 300 mg daily, will check uric acid level (2) Pre-diabetes: Code(s): R73.03 - Prediabetes Category: Medical Plan: Currently on Mounjaro 10 mg injected subcutaneously every 3 weeks per patient. Impaired glucose metabolism increases the risk for developing diabetes mellitus type 2, as well as heart attack and stroke later on. Lifestyle changes that promotes weight loss, healthy eating habits, and regular exercise are important, and can prevent the progression to diabetes (3) S/P right unicompartmental knee replacement: Code(s): Z96.651 - Presence of right artificial knee joint Category: Surgical Plan: Currently undergoing physical therapy (4) Anemia: Code(s): D64.9 - Anemia, unspecified Category: Medical Plan: Last CBC showed mild anemia, will continue to monitor, iron profile, CBC ordered for next month (5) Essential hypertension: Code(s): I10 - Essential (primary) hypertension Category: Medical Plan: Blood pressure at goal of less than 130/80. Continue with current medication. Reinforced importance of following a low sodium diet, getting regular exercise, and lowering stress levels. (6) James thyroiditis: Comment: no Rx at present time-labs monitored by PCP Code(s): E06.3 - Autoimmune thyroiditis Category: Medical Plan: Ordered TSH, free T4 and thyroid peroxidase antibody to be drawn next month Orders: Orders IRON PROFILE 08/17/24 D64.9 - Anemia, unspecified, E79.0 - Hyperuricemia without signs of inflammatory arthritis and tophaceous disease, R73.03 - Prediabetes, Z13.220 - Encounter for screening for lipoid disorders, Z96.651 - Presence of right artificial knee joint Lipid Panel 08/17/24 D64.9 - Anemia, unspecified, E79.0 - Hyperuricemia without signs of inflammatory arthritis and tophaceous disease, R73.03 - Prediabetes, Z13.220 - Encounter for screening for lipoid disorders, Z96.651 - Presence of right artificial knee joint Vitamin D 25-OH Total 08/17/24 D64.9 - Anemia, unspecified, E79.0 - Hyper uricemia without signs of inflammatory arthritis and tophaceous disease, R73.03 - Prediabetes, Z13.220 - Encounter for screening for lipoid disorders, Z96.651 - Presence of right artificial knee joint Uric Acid 08/17/24 D64.9 - Anemia, unspecified, E79.0 - Hyperuricemia without signs of inflammatory arthritis and tophaceous disease, R73.03 - Prediabetes, Z13.220 - Encounter for screening for lipoid disorders, Z96.651 - Presence of right artificial knee joint Thyroid Peroxidase Antibodies 08/17/24 E06.3 - Autoimmune thyroiditis Thyroid Stimulating Hormone 08/17/24 E06.3 - Autoimmune thyroiditis Free T4 (Free Thyroxine) 08/17/24 E06.3 - Autoimmune thyroiditis Complete Blood Count Auto Diff 08/17/24 D64.9 - Anemia, unspecified, E79.0 - Hyperuricemia without signs of inflammatory arthritis and tophaceous disease, R73.03 - Prediabetes, Z13.220 - Encounter for screening for lipoid disorders, Z96.651 - Presence of right artificial knee joint Alanine Aminotransferase 08/17/24 D64.9 - Anemia, unspecified, E79.0 - Hyperuricemia without signs of inflammatory arthritis and tophaceous disease, R73.03 - Prediabetes, Z13.220 - Encounter for screening for lipoid disorders, Z96.651 - Presence of right artificial knee joint Aspartate Amino Transferase 08/17/24 D64.9 - Anemia, unspecified, E79.0 - Hyperuricemia without signs of inflammatory arthritis and tophaceous disease, R73.03 - Prediabetes, Z13.220 - Encounter for screening for lipoid disorders, Z96.651 - Presence of right artificial knee joint Basic Metabolic Panel Fasting 08/17/24 D64.9 - Anemia, unspecified, E79.0 - Hy peruricemia without signs of inflammatory arthritis and tophaceous disease, R73.03 - Prediabetes, Z13.220 - Encounter for screening for lipoid disorders, Z96.651 - Presence of right artificial knee joint
[2024-07-09 08:17] VITALS: BP 120/60; PULSE 85; RESP 16; TEMP 36.8; O2SAT 99; BMI 28.3
== END 2024-07-09 09:12 | disposition home or self-care (01) ==
LOC: HO.HMCC 08:02
PROVIDERS: PCP Internal Medicine; Visit Provider Internal Medicine
DX: E79.0 Hyperuricemia without signs of inflammatory arthritis and tophaceous disease (principal); R73.03 Prediabetes; Z96.651 Presence of right artificial knee joint; D64.9 Anemia, unspecified; I10 Essential (primary) hypertension; E06.3 Autoimmune thyroiditis

== ENCOUNTER → 2024-07-09 08:02 | Outpatient (BNVA) | payer OTHER, SELFPAY | PROVIDERS: PCP Internal Medicine; Visit Provider Internal Medicine | DX: I10 Essential (primary) hypertension (principal); E06.3 Autoimmune thyroiditis; M19.90 Unspecified osteoarthritis, unspecified site; G47.33 Obstructive sleep apnea (adult) (pediatric); R73.03 Prediabetes; E79.0 Hyperuricemia without signs of inflammatory arthritis and tophaceous disease; D64.9 Anemia, unspecified; Z96.651 Presence of right artificial knee joint; Z91.09 Other allergy status, other than to drugs and biological substances; Z99.89 Dependence on other enabling machines and devices; Z79.899 Other long term (current) drug therapy | CPT/HCPCS: 99212 ==

== ENCOUNTER 2024-07-25 13:48 | Outpatient (AMB) | payer OTHER, SELFPAY ==
--- NOTE | 2024-07-25 14:03 | MHC.OFFVIS ---
Vital Signs 07/25/24 14:04 Height 5 ft 1 in Weight 149 lb 14.629 oz BMI 28.3 BP 118/60 Blood Pressure Location Lt brachial Position Sitting Pulse 68 Pulse Source Pulse Oximeter Intake Visit Reasons: 2m follow up Allergies adhesive [ADHESIVE] Allergy (Intermediate, Verified 07/09/24 08:58) ITCHING FRUIT, SKINS Allergy (Severe, Uncoded 07/09/24 08:58) THROAT CLOSES Medication List - Last Reconciled 07/25/24 by Hira Carbajal NP acetaminophen 650 mg (2 x 325 mg) PO Q6H PRN 30 days allopurinol 300 mg PO QAM aspirin 325 mg PO BID 42 days azelastine-fluticasone 137-50 mcg/spray 1 spray intranasal BID PRN cholecalciferol (vitamin D3) 50 mcg PO DAILY lisinopril-hydrochlorothiazide 10-12.5 mg 1 tab PO DAILY loratadine-pseudoephedrine 5-120 mg ER (Claritin-D 12 Hour) 1 tab PO Q12H PRN montelukast 10 mg PO BEDTIME PRN tirzepatide (Mounjaro) 10 mg subcut Q3W walker Folding Front wheeled walker DURATION 99 DAYS HPI Comments Details: This is a 58-year-old female patient presenting for follow-up visit. Patient with a history of hypertension, sleep apnea, and obesity. Patient previously seen in the office for palpitations for which she underwent an echocardiogram and a Holter monitor. Today, the patient reports feeling well overall but continues to experience intermittent palpitations which are random in nature and typically lasting few minutes. She denies any associated symptoms such as exertional chest pain, shortness of breath, dizziness, fatigue, orthopnea, PND, leg edema, presyncope, or syncope. The patient affirms for compliance with all her medications. Denies any tobacco use or alcohol intake. [facility] Medical History Essential hypertension Anemia Gout James thyroiditis Palpitations Arthritis Iron deficiency anemia Moreno's palsy Pre-diabetes Environmental and seasonal allergies Obesity JASON on CPAP Lactose intolerance Hyperuricemia Uterine fibroid Surgical History History of arthroplasty of right knee Hx of right knee surgery S/P thyroid biopsy History of appendectomy Hx of left breast biopsy Hx of colonoscopy History of repair of right rotator cuff S/P removal of left ovary Family History Father HTN (hypertension) Heart disease Emphysema of lung Mother HTN (hypertension) Dementia Seizure Pneumonia Family/Other HTN (hypertension) Cancer Brother Cancer Social History Household Members: Spouse Housing: House Are you a primary career center advisor to a significant other at home: No Do you presently have visiting nurse or other home services: No Alcohol intake: current Alcohol intake frequency: holidays/special occasions only Comment: advised of trip hazard Patient Tobacco Use Status: Never used Tobacco e-Cigarette/Vaping Use: Never Used Second Hand Smoke Exposure: No service: No Current occupational status: employed 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 Gender identity: Female Cognitive needs: No Hearing needs: No Vision needs: Yes Review of Systems Const Denies weakness ENT Denies dizziness Card Denies chest pain, Denies chest pain with activity, Denies syncope, Denies rapid heart rate, Denies pedal edema, Denies edema, Denies leg edema, Denies lightheadedness, Denies palpitations, Denies dyspnea, Denies dyspnea on exertion and Denies orthopnea Resp Denies cough, Denies dyspnea and Denies dyspnea on exertion GI Denies hematochezia and Denies change in stool character Musc Denies abnormal gait, Denies muscle cramps, Denies muscle weakness, Denies numbness, Denies radiating pain into limb and Denies tingling Neuro Denies abnormal gait, Denies dizziness, Denies syncope, Denies numbness, Denies tingling and Denies weakness Endo Denies palpitations Physical Exam Vital Signs: Last Vital Signs Pulse 68 07/25/24 14:04 BP 118/60 07/25/24 14:04 BMI result Body Mass Index 28.3 Const General: cooperative, healthy appearing, comfortable and no acute distress Orientation/consciousness: patient oriented x3 HEENT Head: Yes normal to inspection Neck Neck: Yes normal visual inspection, Yes trachea midline and Yes supple Chest Chest palpation & inspection: normal inspection of the chest Resp Effort & Inspection: normal respiratory effort Auscultation: clear to auscultation bilaterally, no crackles, no rales, no rhonchi and no wheezes Cardio Jugular venous distension: no JVD Palpation: normal PMI Rate: regular rate Rhythm: regular rhythm Heart sounds: S1 normal heart sound present, S2 normal heart sound present, no click, no gallops, no murmurs and no rubs Peripheral pulses: Peripheral pulses 2+ throughout GI Inspection: Yes normal to inspection Palpation (GI): Soft to palpation Auscultation: normal bowel sounds Skin General skin exam: no rashes or lesions noted Neuro General: patient oriented x3 Extrem General: Yes normal to inspection, No no pedal edema and No calf tenderness Psych Appearance: grossly normal Mental Status: mental status grossly normal Speech and movement: Normal speech and movement present Assessment & Plan Assessment & Plan (1) Palpitations: Code(s): R00.2 - Palpitations Plan: 06/04/2024- echo study showed hyperdynamic LV ejection fraction greater than 70% with impaired relaxation filling pattern. 06/04/2024- Holter study showed underlying sinus rhythm with an average rate of 88 beats per minute, sinus tachycardia 15% of the time, with rare supraventricular and ventricular ectopies. Given these findings and ongoing symptoms of palpitations, we will try rate control. Patient notes that in the past she had tried beta blockers for palpitations which helps with the symptoms however started to get edematous and therefore had stopped it. We will try patient on a low-dose of diltiazem to hopefully reduce her symptoms of palpitations as well as help with her relaxation filling pattern. We will follow up to evaluate her response to this drug. We will check her labs periodically. (2) Essential hypertension: Code(s): I10 - Essential (primary) hypertension Category: Medical Plan: Blood pressure is well-controlled. Continue current regimen. Advised monitoring blood pressures at home and keeping a log of it. Ideally, blood pressure goal less than 130/80. (3) JASON on CPAP: Code(s): G47.33 - Obstructive sleep apnea (adult) (pediatric); Z99.89 - Dependence on other enabling machines and devices Category: Medical Plan: Continue CPAP therapy. Advised heart healthy diet, regular exercise, adequate hydration, low-salt diet, losing weight, med compliance, and management of her vascular risk factors. We will follow up in 1 month's time. In the interim, patient will call the office with any concerns or change in symptoms. This note was generated using voice recognition software. While every effort has been made to ensure accuracy and proper vp securities, there may be occasional errors that could affect the content or meaning of the described symptoms. Orders: Orders Basic Metabolic Panel 1 Month Hira Carbajal NP I10 - Essential (primary) hypertension Liver Panel 1 Month Hira Carbajal NP I10 - Essential (primary) hypertension Medications: New diltiazem HCl ER 60 mg PO DAILY 90 caps 1RF Hira Carbajal NP Changed From montelukast 10 mg PO BEDTIME 90 tabs 2RF To montelukast 10 mg PO BEDTIME PRN Jacqueline De Leon MD From azelastine-fluticasone 137-50 mcg/spray administer into each nostril 1 spray intranasal BID 23 grams 2RF To azelastine-fluticasone 137-50 mcg/spray administer into each nostril 1 spray intranasal BID PRN Jacqueline De Leon MD Coding Level of Care Code Est Pt Level 4 (89790) Complex EM visit Add On G2211 Diagnoses Palpitations R00.2 Essential hypertension I10 JASON on CPAP G47.33; Z99.89 Time Spent (min) 32 Comment Time spent in reviewing the chart, test results, assessment, counseling and documentation.
[2024-07-25 14:04] VITALS: BP 118/60; PULSE 68; BMI 28.3
--- OUTSIDE RECORDS SUMMARY | 2024-07-25 16:13 | XMS_ITS ---
Author Organization [facility] Address [address] [place] [address] Care Team Providers Care Foundation Director Name Role Phone YESI SANFORD, SHILPI Primary Care Provider Meghna Ambriz Unavailable [phone] Allergies No Known Allergies Results Component Value Reference Range Notes Urinalysis Reviewed date:02/22/2023 12:09:55 PM Interpretation: Performing Lab: Notes/Report: PH 5.0 PROTEIN NEG GLUCOSE NEG BLOOD NEG THIN PREP,HPV,IVY IF HPV+ ( >29YR)(DIAG) Reviewed date:03/01/2023 11:41:10 AM Interpretation: Performing Lab:Testing performed or reported by [facility], a Service of [facility], [address] [place] [address] Faustino Anthony MD, Aircraft Painter [facility]# [id number] Notes/Report: Patient Name: GALEN ANDUJAR Patient : 1965 (Age: 57) Lab Collection Date: 02/22/2023 Accession Date: 02/22/2023 Sign Out Date: 03/01/2023 Tissue Source: 1: THINPREP LINE STAKER PAP TEST, CERVICAL/VAGINAL: Final Diagnosis: NEGATIVE FOR INTRAEPITHELIAL LESION OR MALIGNANCY. Atrophy. Satisfactory for evaluation. Endocervical/transformation zone ABSENT. Procedures/Addenda: Human Papilloma Virus, High-Risk(Reflex GT) Status: Signed Out Interpretation: Negative Methodology: GridPoint Aptima HPV mRNA assay (Nucleic Acid Amplification Test, NAAT) Clinical History: Date of Last Menstrual Period: anoop Menstrual History: not available Contraceptive History: not available Ancillary Testing: HPV (Reflex GT) Case imaged by the ThinPrep Imaging System with manual rescreening or review. Performed at [facility] department of Cytology, [place], [facility] Clinical History (other): Z01.419 Phone #: [phone], On-Call Pathologist: [id number] REASON FOR VISIT Annual LINE STAKER Physical, Annual LINE STAKER Physical 50-59* Medications Medication SIG (Take, Route, [...] W/U Status Risk Notes Problem Autoimmune thyroiditis (75246071) Autoimmune thyroiditis (E06.3) Active confirmed Vital Signs Temperature 97.3 degrees Fahrenheit 02/23/20 23 Blood pressure systolic 122 mm Hg 02/23/20 23 Blood pressure diastolic 66 mm Hg 023 Height 61 in 02/22/2023 Weight 158 lbs 02/22/2023 BMI 29.85 kg/m2 02/22/2023 Encounters Encounter Location Date Provider Diagnosis Total [address] [place] [address] 02/22/2023 Meghna Hays Encounter for gynecological examination [...] Reason: Provider Name:Meghna cr, 03/06/2025 08:40:00 AM[facility] [address] [facility] [address], [place], [address], Progress Notes * REYES ANDUJAROB:1965 (57 yo F)Acc No.[id number]:02/22/2023 PROGRESS NOTES Patient:?GALEN ANDUJAR Appointment Provider:?Meghna cr M.D. :1965???Age:57 Y???Sex:Female D ate:02/22/2023 Address:[address] [place], [place] [id number] Pcp:SHILPI KEY MD Subjective: * Chief Complaints: * ???Annual LINE STAKER PhysicalAnnual LINE STAKER Physical 50-59* * HPI: ???New/Follow-up Patient Consult:? [...] DONE IN NOV 2022 WAS DONE AT [facility]. WE WILL GET THE RESULTS. [...] adequate calcium via diet and supplementation ?Significant LINE STAKER problems:?no significant health professor symptoms or problems * ROS:?general:?no?chest pain.?no?palpitations.?no?headache.?no?cough.?no?shortness of breath.?no?fever.?no?unexplained weight loss.?no?nausea/vomiting.?no?change in bowel movements.?no blood in stool.?no?genitourinary complaints.?no?skin complaints.? * Medical History:? 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 25796 Preventive Care New Pt. Age 40-64. 77911 Preventive Care Est Pt. Age 40-64. * Procedure Codes:? * Sign off status: Completed true * Appointment Provider:?Meghna Hays M.D. Date:?02/22/2023 Generated for Norbert escobar/Bola/Lesa on:?07/25/2024 04:13 PM EDT History and Physical Notes * HPI [...] DONE IN NOV 2022 WAS DONE AT [facility]. WE WILL GET THE RESULTS. HER LAST PAP TEST IN 2016 WAS NEGATIVE AND HPV NEGATIVE. SHE HAS NO HX OF ABNORMAL PAP TESTS. SHE HAD A COLONOSCOPY DONE IN 2015. [employer] X 3. Annual General Health Maintenance: Current breast complaints:: no breast pain, mass, discharge, or skin changes Urinary problems:: patient r eports no urinary health problems or bowel health problems Calcium intake:: takes adequ ate calcium via diet and supplementation Significant LINE STAKER problems:: n o significant health professor symptoms or problems Examination Category Sub-Category [...]
--- OUTSIDE RECORDS SUMMARY | 2024-07-25 16:13 | XMS_ITS | Patient Health Record ---
Author Organization [facility] Address [address] [place] [address] Care Team Providers Care Corn Detasseler Name Role Phone SHILPI KEY MD Primary Care Provider Meghna Ambriz Unavailable [phone] Allergies No Known Allergies Results Component Value [...] W/U Status Risk Notes Problem Autoimmune thyroiditis (32283254) Autoimmune thyroiditis (E06.3) Active confirmed Problem Imaging result abnormal (175461896) Abnormal findings on diagnostic imaging of other specified body structures (R93.89) Active confirmed Problem Candidal vulvovaginitis (02447529) Candidiasis of vulva and vagina (112.1) Active confirmed Other Problem Leiomyoma of uterus (23803604) Leiomyoma of uterus, unspecified (218.9) Active confirmed Major Problem Anemia (667358509) Unspecified anemia (285.9) Active confirmed Major Problem Excessive and frequent menstruation (703266972) Excessive or frequent menstruation (626.2) Active confirmed Major Problem Abnormal vaginal bleeding (137164648) Other disorder of menstruation and other abnormal bleeding from female genital tract (626.8) Active confirmed Major Problem Insertion of intrauterine contraceptive device (86788755) Insertion of intrauterine contraceptive device (V25.1) Active confirmed Major Problem Surveillance of intrauterine device contraception done (914867412146438) Surveillance of previously prescribed intrauterine contraceptive device (V25.42) Active confirmed Other Vital Signs Temperature 98.1 degrees Fahrenheit 02/28/2024 Blood pressure diastolic 64 mm Hg 02/28/2024 Height 61 in 02/28/2024 Blood pressure systolic 108 mm Hg 02/28/2024 Weight 143 lbs 02/28/2024 BMI 27.02 kg/m2 02/28/2024 Encounters Encounter Location Date Provider Diagnosis [address] [address] 02/28/2024 Meghna Hays Encounter for screening mammogram [...] Name:Meghna Ramirez shaye, 03/06/2025 08:40:00 AM, [address] [facility] [place], [address], [place], [address], Insurance Providers Payer Name Payer Address Payer Phone Subscriber Number Group Number Insured Name Patient Relationship to Insured Coverage Start Date Coverage End Date [facility] [address] [address] [place] [address] [phone] [id number] GALEN ANDUJAR Self - patient is the [...]
--- OUTSIDE RECORDS SUMMARY | 2024-07-25 16:13 | XMS_ITS | Clinical Summary ---
Author Organization [facility] Address [address] [place] [address] Care Team Providers Care Digital Watch Assembler Name Role Phone Jacqueline De Leon MD [...] age to complete this topic Care Teams Digital Watch Assembler Relationship Specialty Start Date End Date Jacqueilne De Leon MD [address] [place] [address] PCP - General Internal Medicine 04/01/21
--- OUTSIDE RECORDS SUMMARY | 2024-07-25 16:13 | XMS_ITS ---
Author Organization [facility] Address [address] [address] Care Team Providers Care Funeral Car Chauffeur Name Role Phone YESI SANFORD, SHILPI Primary Care Provider Meghna Ambriz Unavailable [phone] Allergies No Known Allergies Results Component Value Reference Range Notes Urinalysis Reviewed date:02/28/2024 08:39:44 AM Interpretation: Performing Lab: Notes/Report: PH 5.0 PROTEIN Neg GLUCOSE Neg BLOOD Neg REASON FOR VISIT Annual KNIT GOODS PRESS HAND Physical, Annual KNIT GOODS PRESS HAND Physical 60-85+ Medications Medication SIG (Take, Route, [...] 02/28/2024 Encounters Encounter Location Date Provider Diagnosis [facility] [address] [facility] [address] [place] [address] 02/28/2024 Meghna Hays Encounter for screening mammogram [...] Reason: Provider Name:Meghna cr, 03/06/2025 08:40:[address] [facility] [address], [place], [address], Progress Notes * REYES ANDUJAROB:1965 (58 yo F)Acc No.[id number]:02/28/2024 PROGRESS NOTES Patient:?GALEN ANDUJAR Appointment Provider:?Meghna cr M.D. :1965???Age:58 Y???Sex:Female D ate:02/28/2024 Address:[address] [place], [place] Pcp:SHILPI KEY MD Subjective: * Chief Complaints: * ???Annual KNIT GOODS PRESS HAND PhysicalAnnual KNIT GOODS PRESS HAND Physical 60-85+ * HPI: ???New/Follow-up Patient Consult:? PAT ENTERED MENOPAUSE IN 2019.? HER HAD PROSTATE CA.? THEY ARE NOT SEXUALLY ACTIVE. CT SCAN IN 2020 SHOWED A THICKENED ENDOMETRIUM.? PELVIC US SHOWED A 4.2MM THIN ENDOMETRIUM AND EMB WAS BENIGN. LEFT BREAST BX DONE IN 2014 AND RIGHT BREAST BIOPSY IN 2016 WERE BOTH NEGATIVE. SHE HAS HAD MAMMOGRAMS DONE AT [facility] IN 2022 AND 2023 BUT WE [...] adequate calcium via diet and supplementation ?Significant KNIT GOODS PRESS HAND problems:?no significant assembler type bar and segment symptoms or problems * ROS:?general:?no?chest pain.?no?palpitations.?no?headache.?no?cough.?no?shortness of breath.?no?fever.?no?unexplained weight loss.?no?nausea/vomiting.?no?change in bowel movements.?no blood in stool.?no?genitourinary complaints.?no?skin complaints.? * Medical History:? 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 * OB History:?Total pregnancies?4.?Total living children?3.?NVD?3.?Miscarriage(s)?1.? [...] SCR EENING * Labs:? * ?Lab: Urinalysis ([facility] tion Date & Time - 02/28/2024) [...] * Images: Billing Information: * Visit Code:? 49662 Preventive Care Est Pt. Age 65 and over. * Procedure Codes:? * Sign off status: Completed true * Appointment Provider:?Meghna Hays M.D. Date:?02/28/2024 Generated for Norbert escobar/Bola/Lesa on:?07/25/2024 04:13 PM [...] HAS HAD MAMMOGRAMS DONE AT [facility] IN 2022 AND 2023 BUT WE [...] ate calcium via diet and supplementation Significant KNIT GOODS PRESS HAND problems:: n o significant assembler type bar and segment symptoms or problems Examination Category Sub-Category Detail [...]
--- OUTSIDE RECORDS SUMMARY | 2024-07-25 16:13 | XMS_ITS | Clinical Summary ---
Author Organization [employer] Address [address] [place] [address] [address] [place] [address] Care Team Providers Care Almond Blancher Hand Name Role Phone Unavailable Primary Care Provider [...]
--- OUTSIDE RECORDS SUMMARY | 2024-07-25 16:13 | XMS_ITS | Encounter Summary ---
Author Organization [employer] Address [address] [place] [address] [address] [place] [address] Care Team Providers Care Poultry Hanger Name Role Phone Unavailable Primary Care Provider [...]
--- OUTSIDE RECORDS SUMMARY | 2024-07-25 16:13 | XMS_ITS ---
Author Organization [facility] Address [address] [place] [address] Care Team Providers Care Client Manager Name Role Phone YESI SANFORD, SHILPI Primary Care Provider Brandieleigha erica Meghna Hays Unavailable [phone] Results Component Value Reference Range Notes SURGICAL PATHOLOGY Reviewed date:03/09/2023 09:16:37 AM Interpretation: Performing Lab:Testing performed or reported by [facility], a Service of [facility], [address] [place] [address] Faustino Anthony MD, Wildlife Rehabilitator [facility]# [id number] Notes/Report: Patient Name: GALEN ANDUJAR Lab Patient : 1965 (Age: 57) Collection Date: 03/03/2023 Accession Date: 03/04/2023 Sign Out Date: 03/09/2023 Tissue Source: 1:ENDOMETRIUM BIOPSY Final Diagnosis: Endometrium, biopsy: - Scant superficial glandular tissue fragments (see note). - Endocervical glandular mucosa with squamous metaplasia, and abundant mucus. Note: The scant quantity of tissue received may not be sales representative groceries of the endometrium. Primary Pathologist:Nahomi Santana M.D.,Ph.D. electronically signed out by: Nahomi Santana M.D.,Ph.D. / [facility] [place] Clinical History: Abnormal findings on diagnostic imaging. Gross Description: Labeled EMB . Received in formalin is a 1.7 x 1.2 x 0.3 cm aggregate of predominantly mucus containing scant granados and red-brown tissue fragments which is entirely submitted in 1 cassette following filtering. 1?multiple pieces, x 2. (MN)* Phone #: [phone], On-Call Pathologist: [id number] REASON FOR VISIT HSONO/EB/? THICK ENDO Medications [...] Status Risk Notes Problem Imaging result abnormal (037178252) Abnormal findings on diagnostic imaging of other specified body structures (R93.89) Active confirmed Encounters Encounter Location Date Provider Diagnosis [facility] [address] [place] [address] 03/03/2023 Meghna Hays Abnormal findings on diagnostic [...] Provider Name:Meghna cr, 03/06/2025 08:40:00 AM, [address], [address], [place], [address], Procedure Notes * Category Sub-Category Detail Notes [...] Notes * CON REYESOB:1965 (57 yo F)Acc No.[id number]:03/03/2023 Patient:?GALEN ANDUJAR Appointment Provider:?Meghna cr M.D. :1965???Age:57 Y???Sex:Female D ate:03/03/2023 Address:[address] [place], [place] [id number] Pcp:SHILPI KEY MD Subjective: * Chief Complaints: [...] Hays M.D. Date:?03/03/2023 Generated for Norbert escobar/Bola/Jolynnitting on:?07/25/2024 04:12 PM EDT History and Physical Notes * [...]
== END 2024-07-25 14:25 | disposition home or self-care (01) ==
LOC: HO.HCS 13:48
PROVIDERS: PCP Internal Medicine
DX: R00.2 Palpitations (principal); I10 Essential (primary) hypertension; G47.33 Obstructive sleep apnea (adult) (pediatric); Z99.89 Dependence on other enabling machines and devices
CPT/HCPCS: 99214; G2211

== ENCOUNTER → 2024-07-25 13:48 | Outpatient (BNVA) | payer OTHER, SELFPAY | PROVIDERS: PCP Internal Medicine | DX: I10 Essential (primary) hypertension (principal); G47.33 Obstructive sleep apnea (adult) (pediatric); R00.2 Palpitations; Z99.89 Dependence on other enabling machines and devices | CPT/HCPCS: 99212 ==

== ENCOUNTER 2024-07-29 12:08 | Outpatient (REF) | payer OTHER, SELFPAY ==
--- NOTE | ~2024-07-29 | XR_ITS ---
EXAMINATION: XR KNEE, RIGHT CLINICAL INFORMATION: Z98.890 - Other specified postprocedural states COMPARISON: None available. TECHNIQUE: AP view bilateral knees standing, lateral and patellofemoral views right knee. FINDINGS: LEFT KNEE: No fracture, dislocation, or malalignment. No bone lesion. Minimal medial and lateral joint space narrowing. Normal soft tissues. RIGHT KNEE: There has been a hemiarthroplasty of the medial compartment. Femoral and tibial components appear well seated in anatomic alignment. No periprosthetic fracture or loosening. No fracture, dislocation, or suspicious bone lesion. Minimal degenerative change in the medial compartment. There is subtle chondrocalcinosis present. There is mild lateral patellar tilt. There are mild degenerative changes in the patellofemoral compartment, and there is subtle chondrocalcinosis present. There are small superior patellar enthesophytes. There is a small to moderate suprapatellar joint effusion. Normal soft tissues. XR/XR knee RT 3V IMPRESSION: 1. Right knee medial compartment hemiarthroplasty without complication. 2. Chondrocalcinosis of the right knee, with mild arthritic changes in the lateral compartment and mild to moderate moderate arthritic changes in the patellofemoral compartment. 3. Small to moderate right knee joint effusion. Electronically signed by: Den Elomre MD 07/31/2024 04:36 PM EDT
--- OUTSIDE RECORDS SUMMARY | 2024-07-29 14:27 | XMS_ITS ---
Author Organization [facility] Address [address] [place] [address] Care Team Providers Care Housing Counselor Name Role Phone YESI SANFORD, SHILPI Primary Care Provider Meghna Ambriz Unavailable [phone] Allergies No Known Allergies Results Component Value Reference Range Notes Urinalysis Reviewed date:02/22/2023 12:09:55 PM Interpretation: Performing Lab: Notes/Report: PH 5.0 PROTEIN NEG GLUCOSE NEG BLOOD NEG THIN PREP,HPV,IVY IF HPV+ ( >29YR)(DIAG) Reviewed date:03/01/2023 11:41:10 AM Interpretation: Performing Lab:Testing performed or reported by [facility], a Service of [facility], [address] [place] [address] Faustino Anthony MD, Monitoring Specialist [facility]# [id number] Notes/Report: Patient Name: GALEN ANDUJAR Patient : 1965 (Age: 57) Lab Collection Date: 02/22/2023 Accession Date: 02/22/2023 Sign Out Date: 03/01/2023 Tissue Source: 1: THINPREP TUFTER OPERATOR PAP TEST, CERVICAL/VAGINAL: Final Diagnosis: NEGATIVE FOR INTRAEPITHELIAL LESION OR MALIGNANCY. Atrophy. Satisfactory for evaluation. Endocervical/transformation zone ABSENT. Procedures/Addenda: Human Papilloma Virus, High-Risk(Reflex GT) Status: Signed Out Interpretation: Negative Methodology: eVropa Aptima HPV mRNA assay (Nucleic Acid Amplification Test, NAAT) Clinical History: Date of Last Menstrual Period: anoop Menstrual History: not available Contraceptive History: not available Ancillary Testing: HPV (Reflex GT) Case imaged by the ThinPrep Imaging System with manual rescreening or review. Performed at [facility] department of Cytology, [place], [facility] Clinical History (other): Z01.419 Phone #: [phone], On-Call Pathologist: [id number] REASON FOR VISIT Annual TUFTER OPERATOR Physical, Annual TUFTER OPERATOR Physical 50-59* Medications Medication SIG (Take, Route, [...] W/U Status Risk Notes Problem Autoimmune thyroiditis (13671313) Autoimmune thyroiditis (E06.3) Active confirmed Vital Signs Temperature 97.3 degrees Fahrenheit 02/23/20 23 Blood pressure systolic 122 mm Hg 02/23/20 23 Blood pressure diastolic 66 mm Hg 023 Height 61 in 02/22/2023 Weight 158 lbs 02/22/2023 BMI 29.85 kg/m2 02/22/2023 Encounters Encounter Location Date Provider Diagnosis [facility] [address] [place] [address] 02/22/2023 Meghna Hays Encounter for gynecological examination [...] Reason: Provider Name:Meghna cr, 03/06/2025 08:40:00 AM[address] [facility] [address], [place], [address], Progress Notes * REYES ANDUJAROB:1965 (57 yo F)Acc No.[id number]:02/22/2023 PROGRESS NOTES Patient:?GALEN ANDUJAR Appointment Provider:?Meghna cr M.D. :1965???Age:57 Y???Sex:Female D ate:02/22/2023 Address:[address] [place], [place] [id number] Pcp:SHILPI KEY MD Subjective: * Chief Complaints: * ???Annual TUFTER OPERATOR PhysicalAnnual TUFTER OPERATOR Physical 50-59* * HPI: ???New/Follow-up Patient Consult:? [...] DONE IN NOV 2022 WAS DONE AT [place]. WE WILL GET THE RESULTS. ?HER LAST [...] adequate calcium via diet and supplementation ?Significant TUFTER OPERATOR problems:?no significant nurse gynecology symptoms or problems * ROS:?general:?no?chest pain.?no?palpitations.?no?headache.?no?cough.?no?shortness of breath.?no?fever.?no?unexplained weight loss.?no?nausea/vomiting.?no?change in bowel movements.?no blood in stool.?no?genitourinary complaints.?no?skin complaints.? * Medical History:? * Environmental Services Technician History:?/ Para?4/3.?Sexual activity?currently sexually active.?Last Pap Smear:?01/31/17 [...] * Images: Billing Information: * Visit Code:? 02734 Preventive Care New Pt. Age 40-64. 42271 Preventive Care Est Pt. Age 40-64. * Procedure Codes:? * Sign off status: Completed true * Appointment Provider:?Meghna Hays M.D. Date:?02/22/2023 Generated for Norbert escobar/Bola/Lesa on:?07/29/2024 02:26 PM EDT History and Physical Notes * [...] DONE IN NOV 2022 WAS DONE AT [place]. WE WILL GET THE RESULTS. HER LAST PAP TEST IN 2016 WAS NEGATIVE AND HPV NEGATIVE. SHE HAS NO HX OF ABNORMAL PAP TESTS. SHE HAD A COLONOSCOPY DONE IN 2015. [employer] X 3. Annual General Health Maintenance: Current breast complaints:: no breast pain, mass, discharge, or skin changes Urinary problems:: patient r eports no urinary health problems or bowel health problems Calcium intake:: takes adequ ate calcium via diet and supplementation Significant TUFTER OPERATOR problems:: n o significant nurse gynecology symptoms or problems Examination Category Sub-Category Detail [...]
--- OUTSIDE RECORDS SUMMARY | 2024-07-29 14:27 | XMS_ITS ---
Author Organization [facility] Address [address] [place] [address] Care Team Providers Care Contact Assembler Name Role Phone YESI SANFORD, SHILPI Primary Care Provider Brandieleigha erica Meghna Hays Unavailable [phone] Results Component Value Reference Range Notes SURGICAL PATHOLOGY Reviewed date:03/09/2023 09:16:37 AM Interpretation: Performing Lab:Testing performed or reported by [facility], a Service of [facility], [address] [place] [address] Faustino Anthony MD, Police Magistrate [facility]# [id number] Notes/Report: Patient Name: GALEN ANDUJAR Lab Patient : 1965 (Age: 57) Collection Date: 03/03/2023 Accession Date: 03/04/2023 Sign Out Date: 03/09/2023 Tissue Source: 1:ENDOMETRIUM BIOPSY Final Diagnosis: Endometrium, biopsy: - Scant superficial glandular tissue fragments (see note). - Endocervical glandular mucosa with squamous metaplasia, and abundant mucus. Note: The scant quantity of tissue received may not be congressional representative of the endometrium. Primary Pathologist:Nahomi Santana M.D.,Ph.D. electronically signed out by: Nahomi Santana M.D.,Ph.D. / [facility] [place] Clinical History: Abnormal findings on diagnostic imaging. Gross Description: Labeled EMB . Received in formalin is a 1.7 x 1.2 x 0.3 cm aggregate of predominantly mucus containing scant granados and red-brown tissue fragments which is entirely submitted in 1 cassette following filtering. 1?multiple pieces, x 2. (MN)* Phone #: [phone], On-Call Pathologist: [id number] REASON FOR VISIT HSONO/EB/? THICK ENDO Medications [...] Status Risk Notes Problem Imaging result abnormal (829067974) Abnormal findings on diagnostic imaging of other specified body structures (R93.89) Active confirmed Encounters Encounter Location Date Provider Diagnosis [facility] [address] [place] [address] 03/03/2023 Meghna Hays Abnormal findings on diagnostic [...] Provider Name:Meghna cr, 03/06/2025 08:40:00 AM, [address], [address], [place], [address], Procedure Notes * Category Sub-Category Detail Notes [...] Notes * CON REYESOB:1965 (57 yo F)Acc No.[id number]:03/03/2023 Patient:?GALEN ANDUJAR Appointment Provider:?Meghna cr M.D. :1965???Age:57 Y???Sex:Female D ate:03/03/2023 Address:[address] [place], [place] [id number] Pcp:SHILPI KEY MD Subjective: * Chief Complaints: [...] Hays M.D. Date:?03/03/2023 Generated for Norbert escobar/Bola/Jolynnitting on:?07/29/2024 02:26 PM EDT History and Physical [...]
--- OUTSIDE RECORDS SUMMARY | 2024-07-29 14:27 | XMS_ITS | Clinical Summary ---
Author Organization [facility] Address [address] [place] [address] Care Team Providers Care Outsole Beveler Name Role Phone Jacqueline De Leon MD [...] age to complete this topic Care Teams Outsole Beveler Relationship Specialty Start Date End Date Jacqueline De Leon MD [address] [place] [address] PCP - General Internal Medicine 04/01/21
--- OUTSIDE RECORDS SUMMARY | 2024-07-29 14:27 | XMS_ITS ---
Author Organization [facility] Address [address] [address] Care Team Providers Care Film Coater Name Role Phone YESI SANFORD, SHILPI Primary Care Provider Meghna Ambriz Unavailable [phone] Allergies No Known Allergies Results Component Value Reference Range Notes Urinalysis Reviewed date:02/28/2024 08:39:44 AM Interpretation: Performing Lab: Notes/Report: PH 5.0 PROTEIN Neg GLUCOSE Neg BLOOD Neg REASON FOR VISIT Annual BEHAVIORAL PSYCHOLOGIST Physical, Annual BEHAVIORAL PSYCHOLOGIST Physical 60-85+ Medications Medication SIG (Take, Route, [...] 02/28/2024 Encounters Encounter Location Date Provider Diagnosis [facility] [address] [facility] [address] [place] [address] 02/28/2024 Meghna Hays Encounter for screening mammogram [...] Reason: Provider Name:Meghna cr, 03/06/2025 08:40:00 AM, [facility] [address] [facility] [address], [place], [address], Progress Notes * REYES ANDUJAROB:1965 (58 yo F)Acc No.[id number]:02/28/2024 PROGRESS NOTES Patient:?GALEN ANDUJAR Appointment Provider:?Meghna cr M.D. :1965???Age:58 Y???Sex:Female D ate:02/28/2024 Address:[address] [place], [place] Pcp:SHILPI KEY MD Subjective: * Chief Complaints: * ???Annual BEHAVIORAL PSYCHOLOGIST PhysicalAnnual BEHAVIORAL PSYCHOLOGIST Physical 60-85+ * HPI: ???New/Follow-up Patient Consult:? PAT ENTERED MENOPAUSE IN 2019.? HER HAD PROSTATE CA.? THEY ARE NOT SEXUALLY ACTIVE. CT SCAN IN 2020 SHOWED A THICKENED ENDOMETRIUM.? PELVIC US SHOWED A 4.2MM THIN ENDOMETRIUM AND EMB WAS BENIGN. LEFT BREAST BX DONE IN 2014 AND RIGHT BREAST BIOPSY IN 2016 WERE BOTH NEGATIVE. SHE HAS HAD MAMMOGRAMS DONE AT [facility] IN 2022 AND 2023 BUT [...] adequate calcium via diet and supplementation ?Significant BEHAVIORAL PSYCHOLOGIST problems:?no significant mixer pigment symptoms or problems * ROS:?general:?no?chest pain.?no?palpitations.?no?headache.?no?cough.?no?shortness of breath.?no?fever.?no?unexplained weight loss.?no?nausea/vomiting.?no?change in bowel movements.?no blood in stool.?no?genitourinary complaints.?no?skin complaints.? * Medical History:? * Promotional Demonstrator History:?/ Para?4/3.?Sexual activity?currently sexually active.?Last Pap Smear:?02/22/23 NIL, NEG HPV, 01/31/17 NIL, NEG HPV, 08/29/13, neg.?Mammogram:?12/2023 [place], 11/23/22, 10/2016 Bilateral Mammo with additional views and Biopsy Rt Breast - Benign.?LMP and menses?[place] 2019.?Colonoscopy?2016.? * OB History:?Total pregnancies?4.?Total living children?3.?NVD?3.?Miscarriage(s)?1.? [...] SCR EENING * Labs:? * ?Lab: Urinalysis ([facility] tion Date & Time - 02/28/2024) [...] * Images: Billing Information: * Visit Code:? 05273 Preventive Care Est Pt. Age 65 and over. * Procedure Codes:? * Sign off status: Completed true * Appointment Provider:?Meghna Hays M.D. Date:?02/28/2024 Generated for Norbert escobar/Bola/Lesa on:?07/29/2024 02:26 PM [...] NEGATIVE. SHE HAS HAD MAMMOGRAMS DONE AT [facility] IN 2022 AND 2023 BUT [...] ate calcium via diet and supplementation Significant BEHAVIORAL PSYCHOLOGIST problems:: n o significant mixer pigment symptoms or problems Examination Category Sub-Category Detail [...]
--- OUTSIDE RECORDS SUMMARY | 2024-07-29 14:27 | XMS_ITS | Clinical Summary ---
Author Organization [employer] Address [address] [place] [address] [address] [place] [address] Care Team Providers Care Machine Wood Sander Name Role Phone Unavailable Primary Care Provider [...]
--- OUTSIDE RECORDS SUMMARY | 2024-07-29 14:27 | XMS_ITS | Patient Health Record ---
Author Organization [facility] Address [address] [place] [address] Care Team Providers Care Tour Consultant Name Role Phone SHILPI KEY MD Primary Care Provider Meghna Ambriz Unavailable [phone] Allergies No Known Allergies Results Component Value [...] W/U Status Risk Notes Problem Autoimmune thyroiditis (56673631) Autoimmune thyroiditis (E06.3) Active confirmed Problem Imaging result abnormal (557434384) Abnormal findings on diagnostic imaging of other specified body structures (R93.89) Active confirmed Problem Candidal vulvovaginitis (55976511) Candidiasis of vulva and vagina (112.1) Active confirmed Other Problem Leiomyoma of uterus (46100753) Leiomyoma of uterus, unspecified (218.9) Active confirmed Major Problem Anemia (120491980) Unspecified anemia (285.9) Active confirmed Major Problem Excessive and frequent menstruation (461691182) Excessive or frequent menstruation (626.2) Active confirmed Major Problem Abnormal vaginal bleeding (118555130) Other disorder of menstruation and other abnormal bleeding from female genital tract (626.8) Active confirmed Major Problem Insertion of intrauterine contraceptive device (03901957) Insertion of intrauterine contraceptive device (V25.1) Active confirmed Major Problem Surveillance of intrauterine device contraception done (891241062619399) Surveillance of previously prescribed intrauterine contraceptive device (V25.42) Active confirmed Other Vital Signs Temperature 98.1 degrees Fahrenheit 02/28/2024 Blood pressure diastolic 64 mm Hg 02/28/2024 Height 61 in 02/28/2024 Blood pressure systolic 108 mm Hg 02/28/2024 Weight 143 lbs 02/28/2024 BMI 27.02 kg/m2 02/28/2024 Encounters Encounter Location Date Provider Diagnosis [address] [address] 02/28/2024 Meghna Hays Encounter for screening mammogram [...] Name:Meghna Ramirez shaye, 03/06/2025 08:40:00 AM, [address] [facility], [address], [place], [address], Insurance Providers Payer Name Payer Address Payer Phone Subscriber Number Group Number Insured Name Patient Relationship to Insured Coverage Start Date Coverage End Date [facility] [address] [address] [place] [address] [phone] [id number] GALEN ANDUJAR Self - patient is the [...]
--- OUTSIDE RECORDS SUMMARY | 2024-07-29 14:27 | XMS_ITS | Encounter Summary ---
Author Organization [employer] Address [address] [place] [address] [address] [place] [address] Care Team Providers Care Net Lead Developer Name Role Phone Unavailable Primary Care Provider [...]
== END 2024-07-29 12:09 | disposition home or self-care (01) ==
LOC: HO.HOSX 12:08
PROVIDERS: Visit Provider Orthopaedic Surgery
DX: M25.561 Pain in right knee (principal); M11.261 Other chondrocalcinosis, right knee; M17.11 Unilateral primary osteoarthritis, right knee; M25.461 Effusion, right knee; Z96.651 Presence of right artificial knee joint; Z98.890 Other specified postprocedural states
CPT/HCPCS: 73562; 99212

== ENCOUNTER 2024-07-29 12:43 | Outpatient (AMB) | payer OTHER, SELFPAY ==
--- NOTE | 2024-07-29 12:59 | MHC.OFFVIS ---
Intake Visit Reasons: 6WK PO: R Medial Compartment UKA w/NE 06/18/24 Intake Note: Barby is a 58 year old female who presents today for a post operative visit s/p right medial compartment UKA, DOS 06/18/24. Patient reports that she is doing well, she has some occasional soreness on the medial aspect of the knee and tightness across the top of the knee. Allergies adhesive [ADHESIVE] Allergy (Intermediate, Verified 07/09/24 08:58) ITCHING FRUIT, SKINS Allergy (Severe, Uncoded 07/09/24 08:58) THROAT CLOSES HPI HPI 6WK PO: R Medial Compartment UKA w/NE 06/18/24: Details: Six weeks status post right Uni. She is doing well. She has some anterior knee pain at the end of the day but overall feels fine. Her incision is doing well and she is walking comfortably. [facility] Medical History Essential hypertension Anemia Gout James thyroiditis Palpitations Arthritis Iron deficiency anemia Moreno's palsy Pre-diabetes Environmental and seasonal allergies Obesity JASON on CPAP Lactose intolerance Hyperuricemia Uterine fibroid Surgical History History of arthroplasty of right knee Hx of right knee surgery S/P thyroid biopsy History of appendectomy Hx of left breast biopsy Hx of colonoscopy History of repair of right rotator cuff S/P removal of left ovary Family History Father HTN (hypertension) Heart disease Emphysema of lung Mother HTN (hypertension) Dementia Seizure Pneumonia Family/Other HTN (hypertension) Cancer Brother Cancer Social History Household Members: Spouse Housing: House Are you a primary healthcare insurance sales agent to a significant other at home: No Do you presently have visiting nurse or other home services: No Alcohol intake: current Alcohol intake frequency: holidays/special occasions only Comment: advised of trip hazard Patient Tobacco Use Status: Never used Tobacco e-Cigarette/Vaping Use: Never Used Second Hand Smoke Exposure: No service: No Current occupational status: employed 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 No effusion. Results Reviewed Results Reviewed: I personally reviewed relevant radiographs. Right unicompartmental knee arthroplasty in expected post operative position with no hardware complications or evidence of loosening Assessment & Plan Assessment & Plan (1) S/P right unicompartmental knee replacement: Code(s): Z96.651 - Presence of right artificial knee joint Category: Surgical Plan: Doing well s/p right UKA. Continue activity as tolerated and focus of VMO strengthening. F/u 6 weeks Orders: Orders XR knee LT 1V Today M25.569 - Pain in unspecified knee Coding Level of Care Code Global (47278) Diagnoses S/P right unicompartmental knee replacement Z96.651
--- OUTSIDE RECORDS SUMMARY | 2024-07-29 15:03 | XMS_ITS | Clinical Summary ---
Author Organization [facility] Address [address] [place] [address] Care Team Providers Care Forest Fire Prevention Manager Name Role Phone Jacqueline De Leon MD [...] age to complete this topic Care Teams Forest Fire Prevention Manager Relationship Specialty Start Date End Date Jacqueline De Leon MD [address] [place] [address] PCP - General Internal Medicine 04/01/21
--- OUTSIDE RECORDS SUMMARY | 2024-07-29 15:03 | XMS_ITS | Clinical Summary ---
Author Organization [employer] Address [address] [place] [address] [address] [place] [address] Care Team Providers Care Die Engraving Supervisor Name Role Phone Unavailable Primary Care Provider [...]
--- OUTSIDE RECORDS SUMMARY | 2024-07-29 15:03 | XMS_ITS | Encounter Summary ---
Author Organization [employer] Address [address] [place] [address] [address] [place] [address] Care Team Providers Care Fast Food Manager Name Role Phone Unavailable Primary Care Provider [...]
== END 2024-07-29 13:10 | disposition home or self-care (01) ==
LOC: HO.HOS 12:44
PROVIDERS: PCP Internal Medicine; Visit Provider Orthopaedic Surgery
DX: Z96.651 Presence of right artificial knee joint (principal)
CPT/HCPCS: 99024

== ENCOUNTER → 2024-07-29 12:50 | Outpatient (BNV) | payer OTHER, SELFPAY | PROVIDERS: Visit Provider Radiology Diagnostic Radiology | DX: M11.261 Other chondrocalcinosis, right knee (principal); M17.11 Unilateral primary osteoarthritis, right knee; M25.461 Effusion, right knee | CPT/HCPCS: 73562 ==

== ENCOUNTER 2024-08-27 14:14 | Outpatient (AMB) | payer OTHER, SELFPAY ==
[2024-08-27 14:19] VITALS: BP 120/74; PULSE 99; O2SAT 100
--- NOTE | 2024-08-27 14:19 | A.OFFVIS_ITS ---
Vital Signs 08/27/24 14:19 BP 120/74 Blood Pressure Location Rt brachial Position Sitting Pulse 99 Pulse Source Pulse Oximeter Pulse Oximetry (%) 100 Oxygen Delivery Method Room Air Intake Visit Reasons: 1m follow up Intake Note: Patient presents for follow up Allergies adhesive [ADHESIVE] Allergy (Intermediate, Verified 08/27/24 14:26) ITCHING FRUIT, SKINS Allergy (Severe, Uncoded 08/27/24 14:26) THROAT CLOSES HPI Comments Details: This is a 58-year-old female patient coming for a follow-up visit. Patient with a history of hypertension, sleep apnea, and obesity. Patient has been having palpitations in the past for which she underwent an echocardiogram and Holter monitor that showed sinus tachycardia 15% of the time. Patient was started on low-dose diltiazem at her last visit. Today, patient reports mild improvement in her symptoms however she states that she has been feeling very tired since starting the diltiazem. Patient is otherwise denying any cardiac symptoms including exertional chest pain, shortness of breath, dizziness, orthopnea, PND, leg edema, presyncope, or syncope. Patient states she has been compliant with all her medications. [facility] Medical History Essential hypertension Anemia Gout James thyroiditis Palpitations Arthritis Iron deficiency anemia Moreno's palsy Pre-diabetes Environmental and seasonal allergies Obesity JASON on CPAP Lactose intolerance Hyperuricemia Uterine fibroid Surgical History History of arthroplasty of right knee Hx of right knee surgery S/P thyroid biopsy History of appendectomy Hx of left breast biopsy Hx of colonoscopy History of repair of right rotator cuff S/P removal of left ovary Family History Father HTN (hypertension) Heart disease Emphysema of lung Mother HTN (hypertension) Dementia Seizure Pneumonia Family/Other HTN (hypertension) Cancer Brother Cancer Social History Household Members: Spouse Housing: House Are you a primary palliative care physician to a significant other at home: No Do you presently have visiting nurse or other home services: No Alcohol intake: current Alcohol intake frequency: holidays/special occasions only Comment: advised of trip hazard Patient Tobacco Use Status: Never used Tobacco e-Cigarette/Vaping Use: Never Used Second Hand Smoke Exposure: No service: No Current occupational status: employed 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 Gender identity: Female Cognitive needs: No Hearing needs: No Vision needs: Yes Physical Exam Vital Signs: Last Vital Signs Pulse 99 08/27/24 14:19 BP 120/74 08/27/24 14:19 Pulse Ox 100 08/27/24 14:19 Oxygen Delivery Method Room Air 08/27/24 14:19 Const General: cooperative, healthy appearing, comfortable and no acute distress Orientation/consciousness: patient oriented x3 HEENT Head: Yes normal to inspection Neck Neck: Yes normal visual inspection, Yes trachea midline and Yes supple Chest Chest palpation & inspection: normal inspection of the chest Resp Effort & Inspection: normal respiratory effort Auscultation: clear to auscultation bilaterally, no crackles, no rales, no rhonchi and no wheezes Cardio Jugular venous distension: no JVD Palpation: normal PMI Rate: regular rate Rhythm: regular rhythm Heart sounds: S1 normal heart sound present, S2 normal heart sound present, no click, no gallops, no murmurs and no rubs Peripheral pulses: Peripheral pulses 2+ throughout GI Inspection: Yes normal to inspection Palpation (GI): Soft to palpation Auscultation: normal bowel sounds Skin General skin exam: no rashes or lesions noted Neuro General: patient oriented x3 Extrem General: Yes normal to inspection, No no pedal edema and No calf tenderness Psych Appearance: grossly normal Mental Status: mental status grossly normal Speech and movement: Normal speech and movement present Assessment & Plan Assessment & Plan (1) Sinus tachycardia: Code(s): R00.0 - Tachycardia, unspecified Category: Medical Plan: 06/04/2024- echo study showed hyperdynamic LV ejection fraction greater than 70% with impaired relaxation filling pattern. 06/04/2024- Holter study showed underlying sinus rhythm with an average rate of 88 beats per minute, sinus tachycardia 15% of the time, with rare supraventricular and ventricular ectopies. Due to her side effects on the beta blockers, we started patient on a low-dose diltiazem. Patient has reported some improvement in her symptoms however patient feels tired on us. Advised switching it to taking it at bedtime to see if there is any improvement. (2) Essential hypertension: Code(s): I10 - Essential (primary) hypertension Category: Medical Plan: Blood pressure today is well-controlled. Continue current regimen. Advised monitoring blood pressures at home and maintaining a log. Ideally, blood pressure goal less than 130/80. (3) JASON on CPAP: Comment: 12/12/2022 home sleep study showed moderate sleep apnea with AHI 18.4 per hour, O2 beronica 80% with SpO2 94% and SpO2 under 88% for 6.3 minutes of study time. Mild snoring. Code(s): G47.33 - Obstructive sleep apnea (adult) (pediatric); Z99.89 - Dependence on other enabling machines and devices Category: Medical Plan: Continue CPAP therapy. Advised heart healthy diet, regular exercise, adequate hydration, low-salt diet, losing weight, med compliance, and management of her vascular risk factors. We will follow up with the patient in 6 months. In the interim, patient will call the office with any concerns or change in symptoms. This note was generated using voice recognition software. While every effort has been made to ensure accuracy and proper floor layer apprentice, there may be occasional errors that could affect the content or meaning of the described symptoms. Coding Level of Care Code Est Pt Level 4 (19312) Complex EM visit Add On G2211 Diagnoses Sinus tachycardia R00.0 Essential hypertension I10 JASON on CPAP G47.33; Z99.89 Time Spent (min) 32 Comment Time spent in reviewing the chart, test results, assessment, counseling and documentation.
--- OUTSIDE RECORDS SUMMARY | 2024-08-27 14:24 | XMS_ITS | Clinical Summary ---
Author Organization [employer] Address [address] [place] [address] [address] [place] [address] Care Team Providers Care Television Operator Name Role Phone Unavailable Primary Care [...] 1963 FIT 1963 FOBT 1963 Sigmoidoscopy 1963 Disability Screening 1963 Alcohol/Substance Use Screening 1975 Tobacco Screening [...]
== END 2024-08-27 14:45 | disposition home or self-care (01) ==
LOC: HO.HCS 14:15
PROVIDERS: PCP Internal Medicine
DX: R00.0 Tachycardia, unspecified (principal); I10 Essential (primary) hypertension; G47.33 Obstructive sleep apnea (adult) (pediatric); Z99.89 Dependence on other enabling machines and devices
CPT/HCPCS: 99214; G2211

== ENCOUNTER → 2024-08-27 14:14 | Outpatient (BNVA) | payer OTHER, SELFPAY | PROVIDERS: PCP Internal Medicine | DX: I10 Essential (primary) hypertension (principal); R00.0 Tachycardia, unspecified; G47.33 Obstructive sleep apnea (adult) (pediatric); Z99.89 Dependence on other enabling machines and devices | CPT/HCPCS: 99212 ==

== ENCOUNTER 2024-09-12 09:12 | Outpatient (AMB) | payer OTHER, SELFPAY ==
--- NOTE | 2024-09-12 09:14 | A.OFFVIS_ITS ---
Vital Signs 09/12/24 09:15 Height 5 ft 1 in Weight 149 lb BMI 28.2 Intake Visit Reasons: PO: R Medial Compartment UKA w/NE 06/18/24 Intake Note: Barby is a 58 year old female who presents today for a post operative visit about 3 months s/p right medial compartment UKA, DOS 06/18/24. Patient reports that she is doing well, she has some pain after activity but explains that she believes this is normal Allergies adhesive [ADHESIVE] Allergy (Intermediate, Verified 08/27/24 14:26) ITCHING FRUIT, SKINS Allergy (Severe, Uncoded 08/27/24 14:26) THROAT CLOSES HPI HPI PO: R Medial Compartment UKA w/NE 06/18/24: Details: Barby is a 58 year old female who presents today for a post operative visit about 3 months s/p right medial compartment UKA, DOS 06/18/24. Patient reports that she is doing well, she has some pain after activity but explains that she believes this is normal [facility] Medical History Essential hypertension Anemia Gout James thyroiditis Palpitations Arthritis Iron deficiency anemia Moreno's palsy Pre-diabetes Environmental and seasonal allergies Obesity JASON on CPAP Lactose intolerance Hyperuricemia Uterine fibroid Surgical History History of arthroplasty of right knee Hx of right knee surgery S/P thyroid biopsy History of appendectomy Hx of left breast biopsy Hx of colonoscopy History of repair of right rotator cuff S/P removal of left ovary Family History Father HTN (hypertension) Heart disease Emphysema of lung Mother HTN (hypertension) Dementia Seizure Pneumonia Family/Other HTN (hypertension) Cancer Brother Cancer Social History Household Members: Spouse Housing: House Are you a primary pet care worker to a significant other at home: No Do you presently have visiting nurse or other home services: No Alcohol intake: current Alcohol intake frequency: holidays/special occasions only Comment: advised of trip hazard Patient Tobacco Use Status: Never used Tobacco e-Cigarette/Vaping Use: Never Used Second Hand Smoke Exposure: No service: No Current occupational status: employed 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 No effusion. Walking normally. Assessment & Plan Assessment & Plan (1) S/P right unicompartmental knee replacement: Code(s): Z96.651 - Presence of right artificial knee joint Category: Surgical Plan: Status post right unicompartmental knee arthroplasty. She is doing well. No intervention warranted. May follow up as needed. Coding Level of Care Code Global (17012) Diagnoses S/P right unicompartmental knee replacement Z96.651
[2024-09-12 09:15] VITALS: BMI 28.2
--- OUTSIDE RECORDS SUMMARY | 2024-09-12 09:54 | XMS_ITS | Clinical Summary ---
Author Organization [employer] Address [address] [place] [address] [address] [place] [address] Care Team Providers Care Arboriculture Instructor Name Role Phone Unavailable Primary Care [...] 2023 Influenza Vaccine (Season Ended) 2024 RSV Patients and Pa tients Aged 60 [...]
== END 2024-09-12 09:34 | disposition home or self-care (01) ==
LOC: HO.HOS 09:13
PROVIDERS: PCP Internal Medicine; Visit Provider Orthopaedic Surgery
DX: Z96.651 Presence of right artificial knee joint (principal)
CPT/HCPCS: 99024

== ENCOUNTER → 2024-09-12 09:12 | Outpatient (BNVA) | payer OTHER, SELFPAY | PROVIDERS: PCP Internal Medicine; Visit Provider Orthopaedic Surgery | DX: Z96.651 Presence of right artificial knee joint (principal); M25.561 Pain in right knee; Z98.890 Other specified postprocedural states | CPT/HCPCS: 99212 ==

== ENCOUNTER 2024-10-01 08:25 | Outpatient (RCR) | payer OTHER, SELFPAY ==
[2024-07-08 08:38] VITALS: BP 110/64; PULSE 74; O2SAT 98
--- NOTE | 2024-07-09 08:29 | MHC.PT.EP ---
[facility] [place] Office [place] Office [address] Hermelinda Valverde [address] [phone] F: [phone] F: [phone] F: [phone] F: [phone] Physical Therapy Plan of Care Date of Evaluation: 07/08/24 Date of Surgery: Diagnosis: PT eval and treat; Z96.651 Presence of Right artificial knee joint S/p right unicompartmental knee replacement, R medial compartment, ISABEL w/ NE 06/18/24- book after 07/04/24 post op- wants [place] office date of script 06/13/24 Jyoti Faustin PA-C Assessment: Pt is a RHD pleasant, 58 y/o female, referred to, PT eval and treat; Z96.651 Presence of Right artificial knee joint S/p right uni-compartmental knee replacement, R medial compartment, ISABEL w/ NE 06/18/24- book after 07/04/24 post op- wants [place] office date of script, 06/13/24 Jyoti Faustin PA-C 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 Pt would benefit from attending skilled PT services at a frequency of 2x/week x 4-6 weeks to address impairments, implement HEP, and restore core/hip/knee strength to prepare for return to golf. Pt currently not driving and reports surge of R sided sciatica/back pain since surgery (radiating to height of R posterior knee). Pt has a stationary bike at home and has transitioned to use of a std cane. Pt did have reaction/irritation to aquacel dressing (has rash/reaction outline of dressing on her knee with 4 steri-strips remaining over inferior aspect of 9 cm incision. Pt exhibits excellent rehab potential and has a high level of motivation for PT/recovery. Post initial evaluation, she was guided through encouragement to start using her stationary bike at home starting 5-10 minute increments, education for ice to benefit/knee/back, and reviewed HEP program verbally with her (increasing reps from 10 to 15>20 as able, isometric QS, SLR into flexion, lumbar back management with posterior pelvic tilt/icing ). Pt verbalized carryover. She reports she has not used oxycodone in the past week or so and reportedly stopped icing. She was encouraged to keep icing her knee prn post therext/activity to ease sx. Frequency and Duration: The patient will be seen 2x/week x 4-6 weeks tapering to 1x/weekly Short Term Goals: 1. AAROM>AROM R knee ext to 0 degrees. 2. Good strength during SLR full ROM with good endurance x 30R no issue. 3. Ambulate community distances with std cane with good dynamic balance. 4. Centralize R sciatica sx to height of the spine. 5. Resume driving and complete community distance MOD I (when cleared per Dr. Sweet to drive). Wastewater Treatment Plant Supervisor Goals: 1. AROM 0 to 120 degrees R knee. 2. Complete ADLS/IADLS MOD I with no R sided sciatica sx. 3. Negotiate a flight of stairs reciprocally. 4. Return to golf MOD I (when cleared per Dr. Sweet). 5. SLS R LE to 10 seconds. 6. Strength R knee 5/5 all planes. 7. R hip ext strength 5/5. 8. R hip abd strength 5/5. Treatment Plan: Modalities to reduce pain, spasms and effusion. Manual therapy to restore motion and function. Therapeutic exercise to improve strength and flexibility. Neuromuscular re-education for posture and balance. Therapeutic activities to return to functional activities of daily living. Electronically signed by: Aviva Quinteros, PT, DPT Please sign and return to therapist. Thank you for your referral.
== END 2024-11-29 09:56 | disposition home or self-care (01) ==
LOC: HO.PTS 08:25
PROVIDERS: PCP Internal Medicine; Visit Provider Physician Assistant
DX: Z96.651 Presence of right artificial knee joint (principal)
CPT/HCPCS: 97110; 97116; 97140; 97161; 97530; 97535

== ENCOUNTER 2024-10-11 07:47 | Outpatient (REF) | payer OTHER, SELFPAY ==
--- OUTSIDE RECORDS SUMMARY | 2024-10-11 07:49 | XMS_ITS | Patient Health Record ---
Author Organization [facility] Address [address] [place] [address] Care Team Providers Care Front End Engineer Name Role Phone SHILPI KEY MD Primary Care Provider Meghna Ambirz Unavailable [phone] Allergies No Known Allergies Results Component Value Reference Range Notes Urinalysis Reviewed date:02/28/2024 08:39:44 AM Interpretation: Performing Lab: Notes/Report: PH 5.0 PROTEIN Neg GLUCOSE Neg BLOOD Neg Reason For Referral No Information Medications Medication SIG (Take, Route, Frequency, Duration) Notes Start Date End Date Status hydroCHLOROthiazide 25 MG Oral; Duration: 90 Active Allopurinol 100 MG Oral; Duration: 90 Active Social History Tobacco Use: Social [...] W/U Status Risk Notes Problem Autoimmune thyroiditis (77008509) Autoimmune thyroiditis (E06.3) Active confirmed Problem Imaging result abnormal (198771647) Abnormal findings on diagnostic imaging of other specified body structures (R93.89) Active confirmed Problem Candidal vulvovaginitis (13209042) Candidiasis of vulva and vagina (112.1) Active confirmed Other Problem Leiomyoma of uterus (95432469) Leiomyoma of uterus, unspecified (218.9) Active confirmed Major Problem Anemia (088849805) Unspecified anemia (285.9) Active confirmed Major Problem Excessive and frequent menstruation (020821016) Excessive or frequent menstruation (626.2) Active confirmed Major Problem Abnormal vaginal bleeding (205404381) Other disorder of menstruation and other abnormal bleeding from female genital tract (626.8) Active confirmed Major Problem Insertion of intrauterine contraceptive device (27259871) Insertion of intrauterine contraceptive device (V25.1) Active confirmed Major Problem Surveillance of intrauterine device contraception done (004130396752759) Surveillance of previously prescribed intrauterine contraceptive device (V25.42) Active confirmed Other Vital Signs Temperature 98.1 degrees Fahrenheit 02/28/2024 Blood pressure diastolic 64 mm Hg 02/28/2024 Height 61 in 02/28/2024 Blood pressure systolic 108 mm Hg 02/28/2024 Weight 143 lbs 02/28/2024 BMI 27.02 kg/m2 02/28/2024 Encounters Encounter Location Date Provider Diagnosis [address] [address] 02/28/2024 Meghna Hays Encounter for screening mammogram [...] Name:Meghna Ramirez shaye, 03/06/2025 08:40:00 AM, [address] [facility], [address], [place], [address], Insurance Providers Payer Name Payer Address Payer Phone Subscriber Number Group Number Insured Name Patient Relationship to Insured Coverage Start Date Coverage End Date [employer] [address] [address] [place] [id number] GALEN ANDUJAR Self - patient is the [...]
--- OUTSIDE RECORDS SUMMARY | 2024-10-11 07:49 | XMS_ITS | Clinical Summary ---
Author Organization [employer] Address [address] [place] [address] [address] [place] [address] Care Team Providers Care Bible Teacher Name Role Phone Unavailable Primary Care Provider [...] 2023-2 5 season) 2023 Influenza Vaccine (#1) 2024 RSV Patients and Pa tients Aged [...]
--- OUTSIDE RECORDS SUMMARY | 2024-10-11 07:49 | XMS_ITS | Clinical Summary ---
Author Organization [facility] Address [address] [place] [address] Care Team Providers Care Last Sorter Name Role Phone Jacqueline De Leon MD [...] season) 2023 Influenza Vaccine (#1) 2024 RSV Immunization Adult Patie nts (1 [...] 5 Years) and At-Risk Patients (6 to 49 Years) Aged Out No longer eligible b ased on patient's age to complete this topic RSV Immunization Patients Un chapo 20 months Aged Out No longer eligible b ased on patient's age to complete this topic Varicella Vaccines Aged Out No longer eligible based on patient's age to complete this topic Care Teams Last Sorter Relationship Specialty Start Date End Date Jacqueline De Leon MD [address] [place] [address] PCP - General Internal Medicine 04/01/21
[2024-10-11 10:34] LABS: MANUAL DIFF FLAG NO
[2024-10-11 10:39] LABS: Hematocrit 36.5 % (37.0-47.0); Hemoglobin 12.0 g/dl (12.0-16.0); Imm Gran Abs Auto 0.02 X10*3/uL (0.00-0.03); Imm Gran Pct Auto 0.4 % (0.0-0.4); Lymphocytes Absolute Auto 1.2 X10*3/uL (1.2-4.9); Mean Corpuscular HGB Conc 32.9 g/dl (31.0-35.0); Mean Corpuscular Hemoglobin 31.0 pg (27.0-33.0); Mean Corpuscular Volume 94.3 fL (80.0-98.0); NRBC Abs Auto 0.000 X10*3/uL (0.0-0.012); NRBC Pct Auto 0.0 /100WBC (0.0-0.2); Platelet Count 277 X10*3/uL (160-400); Red Blood Count 3.87 X10*6/uL (4.20-5.50); White Blood Count 4.6 X10*3/uL (4.8-10.8)
[2024-10-11 11:14] LABS: Alanine Aminotransferase 12 U/L (0-31); Albumin Level 4.2 g/dL (3.5-5.0); Alkaline Phosphatase 65 U/L (39-117); Anion Gap 11 (12-20); Aspartate Amino Transferase 17 U/L (5-31); Blood Urea Nitrogen 18 mg/dL (9-16); Calcium 8.8 mg/dL (8.4-10.2); Carbon Dioxide 29 mmol/L (22-29); Chloride 105 mmol/L (96-108); Cholesterol 193 mg/dL (<200); Estimated Glomerular Filt Rate > 60; HDL Cholesterol 65 mg/dL (>40); Iron 115 mcg/dL (30-160); Percent Iron Saturation 57 % (15-50); Potassium 4.3 mmol/L (3.3-5.1); Sodium 141 mmol/L (135-145); Total Iron Binding Capacity 201 mcg/dL (228-428); Total Protein 7.5 g/dL (6.5-8.0); Triglycerides 72 mg/dL (<150); Unsaturated Iron Binding 86 ug/dL; Uric Acid 3.8 mg/dL (2.4-5.7)
[2024-10-11 11:40] LABS: Free T4 (Free Thyroxine) 1.09 ng/dL (0.71-1.85); Thyroid Stimulating Hormone 1.07 uIU/mL (0.32-4.0)
== END 2024-10-11 07:48 | disposition home or self-care (01) ==
LOC: HO.HMGCLDS 07:47
PROVIDERS: PCP Internal Medicine; Visit Provider Internal Medicine
DX: R73.03 Prediabetes (principal); D64.9 Anemia, unspecified; Z96.651 Presence of right artificial knee joint; E79.0 Hyperuricemia without signs of inflammatory arthritis and tophaceous disease; Z13.220 Encounter for screening for lipoid disorders; E06.3 Autoimmune thyroiditis; I10 Essential (primary) hypertension
CPT/HCPCS: 36415; 80048; 80061; 80076; 82306; 83540; 84439; 84443; 84550; 85025; 86376

== ENCOUNTER 2024-11-04 07:51 | Outpatient (AMB) | payer OTHER, SELFPAY ==
--- OUTSIDE RECORDS SUMMARY | 2024-11-04 07:54 | XMS_ITS | Clinical Summary ---
Author Organization [address] [place] [address] Address [address] [place] [address] Phone Care Team Providers Care Conductor Yard Name Role Phone Jacqueline De Leon MD Primary Care Provider [phone] Social History Tobacco Use Types Packs/Day Years [...] 2) 10/16/2013 Colorectal Cancer Screening: Colonoscopy 03/05/2022 HIV Screening 03/05/2022 Hepatitis C Screening 03/05/2022 Social Influencers of Health Screening 03/05/2022 COVID-19 Vaccine (1 - 2023-2 5 season) 2023 Depression Screening 04/03/2024 Influenza Vaccine (#1) 2024 RSV Immunization Adult [...] on patient's age to complete this topic Insurance [place] - [place] [facility] Care Teams Conductor Yard Relationship Specialty Start Date End Date Jacqueline De Leon MD [address] [place], [place] [id number] PCP - General Internal Medicine 04/01/21
--- OUTSIDE RECORDS SUMMARY | 2024-11-04 07:54 | XMS_ITS | Patient Health Record ---
Author Organization [facility] Address [address] [facility] [facility] [address] [place] [address] Care Team Providers Care Hall Porter Name Role Phone SHILPI KEY MD Primary Care Provider Meghna Ambriz Unavailable [phone] Allergies No Known Allergies Results Component Value [...] W/U Status Risk Notes Problem Autoimmune thyroiditis (70369992) Autoimmune thyroiditis (E06.3) Active confirmed Problem Imaging result abnormal (185557741) Abnormal findings on diagnostic imaging of other specified body structures (R93.89) Active confirmed Problem Candidal vulvovaginitis (16899947) Candidiasis of vulva and vagina (112.1) Active confirmed Other Problem Leiomyoma of uterus (33926281) Leiomyoma of uterus, unspecified (218.9) Active confirmed Major Problem Anemia (654318317) Unspecified anemia (285.9) Active confirmed Major Problem Excessive and frequent menstruation (109735692) Excessive or frequent menstruation (626.2) Active confirmed Major Problem Abnormal vaginal bleeding (013560368) Other disorder of menstruation and other abnormal bleeding from female genital tract (626.8) Active confirmed Major Problem Insertion of intrauterine contraceptive device (43872996) Insertion of intrauterine contraceptive device (V25.1) Active confirmed Major Problem Surveillance of intrauterine device contraception done (500749221837808) Surveillance of previously prescribed intrauterine contraceptive device (V25.42) Active confirmed Other Vital Signs Temperature 98.1 degrees Fahrenheit 02/28/2024 Blood pressure diastolic 64 mm Hg 02/28/2024 Height 61 in 02/28/2024 Blood pressure systolic 108 mm Hg 02/28/2024 Weight 143 lbs 02/28/2024 BMI 27.02 kg/m2 02/28/2024 Encounters Encounter Location Date Provider Diagnosis [address] [address] 02/28/2024 Meghna Hays Encounter for screening mammogram [...] BONE DENSITY 02/28/2024 [facility] Mammo Screening 02/22/2023 [facility] Digital Mammo Screening 01/31/2017 [facility] Digital Mammo Screening 02/28/2024 Next Appt Details Provider Name:Meghna Ramirez shaye, 03/06/2025 08:40:00 AM, [address] [facility], [address], [place], [address], Insurance Providers Payer Name Payer Address Payer Phone Subscriber Number Group Number Insured Name Patient Relationship to Insured Coverage Start Date Coverage End Date [facility] [address] [address] [place] [id number] GALEN ANDUJAR Self - patient is the [...]
--- OUTSIDE RECORDS SUMMARY | 2024-11-04 07:54 | XMS_ITS | Clinical Summary ---
Author Organization [employer] Address [address] [place] [address] [address] [place] [address] Care Team Providers Care Dean Of Admissions Name Role Phone Unavailable Primary Care Provider [...]
[2024-11-04 08:05] VITALS: BP 122/62; PULSE 83; RESP 16; TEMP 36.8; O2SAT 98; BMI 28.7
--- NOTE | 2024-11-04 08:05 | MHC.PC.OV ---
Vital Signs 11/04/24 08:05 Height 5 ft 1 in Weight 152 lb BMI 28.7 BP 122/62 Blood Pressure Location Rt brachial Position Sitting Respiration 16 Pulse 83 Pulse Source Pulse Oximeter Temp 98.3 F Temp Source Oral Pulse Oximetry (%) 98 Oxygen Delivery Method Room Air Intake Visit Reasons: 6 months f/up Intake Note: Pt is here today for her 6mo. f/u Allergies adhesive (ADHESIVE) Allergy (Intermediate, Verified 11/10/24 03:26) ITCHING FRUIT, SKINS Allergy (Severe, Uncoded 11/10/24 03:26) THROAT CLOSES Medication List - Last Reconciled 11/04/24 by Jacqueline De Leon MD acetaminophen 650 mg (2 x 325 mg) PO Q6H PRN 30 days allopurinol 300 mg PO QAM aspirin 325 mg PO BID 42 days azelastine-fluticasone 137-50 mcg/spray 1 spray intranasal BID PRN cholecalciferol (vitamin D3) 50 mcg PO DAILY diltiazem HCl ER 60 mg PO DAILY indomethacin 50 mg PO TID PRN lisinopril-hydrochlorothiazide 10-12.5 mg 1 tab PO DAILY loratadine-pseudoephedrine 5-120 mg ER (Claritin-D 12 Hour) 1 tab PO Q12H PRN montelukast 10 mg PO BEDTIME PRN tirzepatide (Mounjaro) 7.5 mg subcut Q3W walker Folding Front wheeled walker DURATION 99 DAYS Tobacco use date assessed: 11/04/24 Dental Screening Dental Screen Date: 11/04/24 Did you have a dental visit in the last 12 months?: Yes Did you have a dental problem in the last 6 months where you did not have access to dental care?: Yes Was dental information given to patient?: Patient has dentist HPI 6 months f/up HPI Details 58-year-old lady with history of hypertension, obesity, seasonal allergies, gout, James's thyroiditis, osteoarthritis, obstructive sleep apnea on CPAP, and prediabetes, here today for follow-up. Now ambulating with normal gait, no knee pain reported after arthroplasty in June 2024. Has been feeling well, continues to take Mounjaro now at 7.5 mg which she administers subcutaneously every 3 weeks, currently followed by a weight loss clinic in [place]. She has gained weight since her surgery, but has now been exercising and started playing golf again. Blood pressure is well controlled on current dose of lisinopril-HCTZ and diltiazem. Has not had any attacks of gout, now on allopurinol 300 mg taken daily. Reported severe abdominal pain when she took Indocin 50 mg during an attack of gout in the past. Has seasonal and environmental allergies, currently takes Claritin and an occasional Claritin D as needed for nasal congestion, has been compliant with taking montelukast and using her as azelastine-fluticasone nasal spray. Will be going to [place] this fall would like to see if she can get a prescription for Paxlovid, just in case she contracts COVID during her trip. [facility] Medical History (Updated 11/10/24 @ 03:43 by Jacqueline De Leon MD) Overweight (BMI 25.0-29.9) History of anemia Essential hypertension Gout James thyroiditis Arthritis Iron deficiency anemia Moreno's palsy Pre-diabetes Environmental and seasonal allergies JASON on CPAP Lactose intolerance Hyperuricemia Uterine fibroid Surgical History History of arthroplasty of right knee Hx of right knee surgery S/P thyroid biopsy History of appendectomy Hx of left breast biopsy Hx of colonoscopy History of repair of right rotator cuff S/P removal of left ovary Family History Father HTN (hypertension) Heart disease Emphysema of lung Mother HTN (hypertension) Dementia Seizure Pneumonia Family/Other HTN (hypertension) Cancer Brother Cancer Social History Household Members: Spouse Housing: House Are you a primary home care attendant to a significant other at home: No Do you presently have visiting nurse or other home services: No Alcohol intake: current Alcohol intake frequency: holidays/special occasions only Comment: advised of trip hazard Patient Tobacco Use Status: Never used Tobacco e-Cigarette/Vaping Use: Never Used Second Hand Smoke Exposure: No service: No Current occupational status: employed 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 Gender identity: Female Cognitive needs: No Hearing needs: No Vision needs: Yes Female Reproductive History Menstrual Menopause type: natural Questionnaire Thrive Questionnaire Date Thrive assessed: 04/16/24 I am a: Patient What is your living situation today?: I have a steady place to live Within the past 12 months, did the food you bought not last and you didn't have the money to get more?: Never true Within the past 12 months, did you worry whether your food would run out before you got money to buy more?: Never true Do you have trouble paying for medicines?: No Do you have trouble getting transportation to medical appointments?: No Do you have trouble paying your heating and electricity bill?: No Do you have trouble taking care of your child, family member or friend?: No Do you have trouble with day-to-day activities such as bathing, preparing meals, shopping, managing finances, etc.?: No Are you currently unemployed and looking for a job?: No Are you interested in more education?: No Please select the resources that you would like help with: None Currently or been in a relationship where the following occur: No concerns reported THRIVE Score: 0 MERCEDEZ-7 AMB Questionnaire MERCEDEZ-7 Date MERCEDEZ - 7 assessed: 04/16/24 Source: Developed by Drs. Garth Youssef, Maria Isabel Beckman, Jose Farley and colleagues, with an educational yahaira from [employer]. Review of Systems Const Denies weakness Eyes Reports no additional complaints ENT Denies dizziness Card Denies chest pain, Denies chest pain with activity, Denies rapid heart rate, Denies pedal edema, Denies irregular heart rhythm, Denies lightheadedness, Denies palpitations, Denies dyspnea, Denies dyspnea on exertion and Denies orthopnea Resp Denies cough, Denies dyspnea and Denies dyspnea on exertion GI Denies hematochezia and Denies change in stool character Reports no additional complaints Musc Denies abnormal gait, Denies muscle cramps, Denies muscle weakness, Denies numbness, Denies radiating pain into limb and Denies tingling Skin/Breast Denies breast pain, Denies breast mass and Denies rash Neuro Denies abnormal gait, Denies dizziness, Denies numbness, Denies tingling and Denies weakness Psych Reports no additional complaints Endo Denies palpitations Oral/Lymph Reports no additional complaints Aller/Immun Reports as per HPI Physical exam (Primary Care) Vital Signs: Last Vital Signs Temp 98.3 F 08/04/25 08:05 Pulse 83 11/04/24 08:05 Resp 16 11/04/24 08:05 BP 122/62 11/04/24 08:05 Pulse Ox 98 11/04/24 08:05 Oxygen Delivery Method Room Air 11/04/24 08:05 BMI result Body Mass Index 28.7 Tobacco/Smoking Status: Tobacco use Status Tobacco use date assessed 11/04/24 11/04/24 08:07 Patient Tobacco Use Status Never used Tobacco 11/04/24 08:07 e-Cigarette/Vaping Use Never Used 11/04/24 08:07 Thrive Assessment: Date of Thrive Assessment Date Thrive assessed 04/16/24 11/04/24 08:07 Currently or been in a relationship where the following occur: No concerns reported Const General: no acute distress and alert Nutritional Appearance: overweight Orientation/consciousness: patient oriented x3 HENMT Head: Yes normocephalic Ears: external ears normal General nose exam: Normal external nose present Face and sinus: Yes face symmetric Mouth: moist mucous membranes Eyes General: appearance normal, both eyes and all related structures Neck Other: Supple with no lymphadenopathy, full range of motion Chest Breast/axilla palpation: normal palpation of the breasts Resp Effort & Inspection: normal respiratory effort and able to speak in complete sentences Auscultation: clear to auscultation bilaterally Cardio Rate: regular rate Rhythm: regular rhythm Heart sounds: S1 normal heart sound present and S2 normal heart sound present GI Palpation (GI): Soft to palpation, nontender, no guarding and no masses Auscultation: normal bowel sounds General: Yes deferred Back/Spine/Pelvis Back: No back tenderness Skin General skin exam: no rashes or lesions noted Neuro General: patient oriented x3, tone normal, moves all extremities, Normal light touch and pain sensation, no focal motor deficits and CN's II-XI intact bilaterally Extrem Other: Dry surgical scar on anterior aspect of right knee, nontender, no swelling seen General: Yes full ROM, Yes no joint enlargement, Yes no clubbing, cyanosis or edema, Yes no calf tenderness and Yes normal gait Psych Appearance: grossly normal and well kempt Mental Status: mental status grossly normal Speech and movement: Normal speech and movement present Affect: normal affect Results Reviewed Results Reviewed: Name: Barby Steward Age/Sex: 58/F : 1965 Unit#: [id number] Attend Dr: Jacqueline De Leon MD Re10/11/24 Status: DEP REF Location: [facility] Disch: SPEC : [id number] DAIN: 10/11/24 STATUS: COMP REQ : [id number] RECD: 10/11/24-[address]: Jacqueline De Leon MD COMP: 10/11/24-1139 ENTERED: 10/11/[address]: Hira Carbajal MICROFABRICATION ENGINEER MANAGER ORDERED: Liver Panel, Met Prof Fast, Uric, IRON PROF, Lipid Panel, Vitamin D 25-O Free T4, TSH Test Result Flag Reference Sodium 141 135-145 mmol/L Potassium 4.3 3.3-5.1 mmol/L CL 105 96-108 mmol/L CO2 29 22-29 mmol/L Gap 11 L 12-20 BUN 18 H 9-16 mg/dL Creat 0.65 0.5-1.4 mg/dL eGFR > 60 Chronic Kidney Disease: Estimated GFR < 60 mL/min/1.73m2 Severe Kidney Disease: Estimated GFR < 15 mL/min/1.73m2 FBS 93 60-99 mg/dL Uric Acid 3.8 2.4-5.7 mg/dL CA 8.8 8.4-10.2 mg/dL Iron 115 30-160 mcg/dL TIBC 201 L 228-428 mcg/dL Saturation 57 H 15-50 % UIBC 86 ug/dL Total Bili 0.6 0.0-1.0 mg/dL Direct Bili 0.2 0.0-0.5 mg/dL AST (GOT) 17 5-31 U/L ALT (GPT) 12 0-31 U/L Protein, Total 7.5 6.5-8.0 g/dL Alb 4.2 3.5-5.0 g/dL Triglyceride 72 <150 mg/dL Desirable Triglyceride: less than 150 mg/dL Borderline High Triglyceride 150-199 mg/dL High Triglyceride: 200-499 mg/dL Very High Triglyceride: greater than or equal to 5OO mg/dL Cholesterol 193 <200 mg/dL Desirable Cholesterol: less than 200 mg/dL Borderline High Cholesterol: 200-239 mg/dL High Cholesterol: greater than 239 mg/dL LDL Calculated 114 H <100 mg/dL Desirable LDL: less than 100 mg/dL Near Optimal/Above Optimal LDL: 110-129 mg/dL Borderline High LDL: 130-159 mg/dL High LDL: 160-189 mg/dL Very High LDL: greater than or equal to 190 mg/dL HDL 65 >40 mg/dL Desirable HDL: greater than 40 mg/dL Note: This HDL assay may give artificially low results in patients with liver disease. Alk Phos 65 39-117 U/L Vitamin D 25-OH 108.6 >30 ng/mL Health Based Reference Values* < 20 ng/mL Deficient 20-30 ng/mL Insufficient > 30 ng/mL Sufficient *Sharee SOLIMAN. N Engl J Med. 2007;357:266-280 There is no well-established upper level of normal vitamin D levels. Some laboratories use 50 ng/mL as an upper limit of normal. However, toxicity is patient-dependent and may occur at any level. Careful correlation with the patient's presentation is necessary and, if there is concern for vitamin D toxicity, treatment should be considered irrespective of the serum level. Care must be taken in interpreting Vitamin D results from different laboratories and methodologies. Published data demonstrated that results from patients undergoing hemodialysis may show a negative bias when tested with various automated 25-OH vitamin D assays when compared to LC-MS/MS. When testing samples from patients whose predominant form of Vitamin D is Vitamin D2, such as patients receiving Vitamin D2 supplementation, results that are subtherapeutic should be confirmed with another method such as LC-MS/MS. Free T4 1.09 0.71-1.85 ng/dL TSH 3rd Gen. 1.07 0.32-4.0 uIU/mL TSH 3rd Generation ([facility]) Coding Level of Care Code Est Pt Level 4 (54913) Diagnoses Essential hypertension I10 Pre-diabetes R73.03 James thyroiditis E06.3 Environmental and seasonal allergies J30.89 Hyperuricemia E79.0 JASON on CPAP G47.33; Z99.89 Overweight (BMI 25.0-29.9) E66.3 Assessment & Plan Assessment & Plan (1) Essential hypertension: Code(s): I10 - Essential (primary) hypertension Category: Medical (2) Pre-diabetes: Code(s): R73.03 - Prediabetes Category: Medical (3) James thyroiditis: Comment: no Rx at present time-labs monitored by PCP Code(s): E06.3 - Autoimmune thyroiditis Category: Medical (4) Environmental and seasonal allergies: Comment: taking Montelukast Code(s): J30.89 - Other allergic rhinitis Category: Medical (5) Hyperuricemia: Code(s): E79.0 - Hyperuricemia without signs of inflammatory arthritis and tophaceous disease Category: Medical (6) JASON on CPAP: Comment: 12/12/2022 home sleep study showed moderate sleep apnea with AHI 18.4 per hour, O2 beronica 80% with SpO2 94% and SpO2 under 88% for 6.3 minutes of study time. Mild snoring. Code(s): G47.33 - Obstructive sleep apnea (adult) (pediatric); Z99.89 - Dependence on other enabling machines and devices Category: Medical (7) Overweight (BMI 25.0-29.9): Code(s): E66.3 - Overweight Category: Medical Plan Blood pressure and lipids stable and controlled on present treatment. Has been on Mounjaro, given at medical weight loss clinic, tolerating medication well, recent fasting labs showed normal electrolytes, renal function, fasting glucose liver enzymes, lipid levels, thyroid levels and vitamin-D levels. Continued on Claritin and an occasional Claritin D 12 hour tablet as needed for sinus congestion. Serum uric acid level improved and is now within normal limits, continued on allopurinol same dose Compliant with her CPAP with good results Prescription for given for Paxlovid to take on her trip to [place], only as needed she develops any severe symptoms due to COVID Medications: New Paxlovid 300 mg (150 mg x 2)-100 mg (nirmatrelvir-ritonavir) take TWO 150 mg tablets of nirmatrelvir with ONE 100 mg tablet of ritonavir twice daily for 5 days PO 30 ea 0RF NS
== END 2024-11-04 08:55 | disposition home or self-care (01) ==
LOC: HO.HMCC 07:52
PROVIDERS: PCP Internal Medicine; Visit Provider Internal Medicine
DX: I10 Essential (primary) hypertension (principal); R73.03 Prediabetes; E06.3 Autoimmune thyroiditis; J30.89 Other allergic rhinitis; E79.0 Hyperuricemia without signs of inflammatory arthritis and tophaceous disease; G47.33 Obstructive sleep apnea (adult) (pediatric); Z99.89 Dependence on other enabling machines and devices; E66.3 Overweight

== ENCOUNTER → 2024-11-04 07:51 | Outpatient (BNVA) | payer OTHER, SELFPAY | PROVIDERS: PCP Internal Medicine; Visit Provider Internal Medicine | DX: I10 Essential (primary) hypertension (principal); R73.03 Prediabetes; E06.3 Autoimmune thyroiditis; J30.89 Other allergic rhinitis; E79.0 Hyperuricemia without signs of inflammatory arthritis and tophaceous disease; E66.3 Overweight; Z68.28 Body mass index [BMI] 28.0-28.9, adult; G47.33 Obstructive sleep apnea (adult) (pediatric); Z79.899 Other long term (current) drug therapy; Z99.89 Dependence on other enabling machines and devices | CPT/HCPCS: 99212 ==

== ENCOUNTER 2025-02-25 13:30 | Outpatient (AMB) | payer OTHER, SELFPAY ==
--- NOTE | 2025-02-25 13:38 | A.OFFVIS_ITS ---
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: No Accompanied by: Self / Same As Patient Allergies adhesive (ADHESIVE) Allergy (Intermediate, Verified 02/25/25 13:41) ITCHING FRUIT, SKINS Allergy (Severe, Uncoded 11/10/24 03:26) THROAT CLOSES Medication List - Last Reconciled 02/25/25 by Hira Carbajal NP allopurinol 300 mg PO QAM azelastine-fluticasone 137-50 mcg/spray 1 spray intranasal BID PRN cholecalciferol (vitamin D3) 50 mcg PO DAILY diltiazem HCl ER 60 mg PO DAILY fluticasone propionate 50 mcg/actuation (Flonase Allergy Relief) 1 spray intranasal DAILY lisinopril-hydrochlorothiazide 10-12.5 mg 1 tab PO DAILY loratadine-pseudoephedrine 5-120 mg ER (Claritin-D 12 Hour) 1 tab PO Q12H PRN montelukast 10 mg PO BEDTIME PRN tirzepatide (Mounjaro) 7.5 mg subcut Q3W walker Folding Front wheeled walker DURATION 99 DAYS HPI Comments Details: This is a 59-year-old female patient coming in for a follow-up visit. Patient with a history of hypertension, sinus tachycardia, sleep apnea, and obesity. Patient in the past was seen for palpitations for which patient underwent Holter and an echocardiogram revealing sinus tachycardia 15% of the time with rare PACs and PVCs. Patient was previously on beta greg however patient did not tolerate this and was started on low-dose diltiazem. Today patient states that she has not been taking this either due to feeling tired on it. Patient is otherwise denying any symptoms of exertional chest pain, shortness of breath, palpitations, dizziness, orthopnea, PND, leg edema, presyncope or syncope. [facility] Medical History Overweight (BMI 25.0-29.9) History of anemia Essential hypertension Gout James thyroiditis Arthritis Iron deficiency anemia Moreno's palsy Pre-diabetes Environmental and seasonal allergies JASON on CPAP Lactose intolerance Hyperuricemia Uterine fibroid Surgical History History of arthroplasty of right knee Hx of right knee surgery S/P thyroid biopsy History of appendectomy Hx of left breast biopsy Hx of colonoscopy History of repair of right rotator cuff S/P removal of left ovary Family History Father HTN (hypertension) Heart disease Emphysema of lung Mother HTN (hypertension) Dementia Seizure Pneumonia Family/Other HTN (hypertension) Cancer Brother Cancer Social History Household Members: Spouse Housing: House Are you a primary career development associate to a significant other at home: No Do you presently have visiting nurse or other home services: No Alcohol intake: current Alcohol intake frequency: holidays/special occasions on ly Comment: advised of trip hazard Patient Tobacco Use Status: Never used Tobacco e-Cigarette/Vaping Use: Never Used Second Hand Smoke Exposure: No service: No Current occupational status: employed 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 Gender identity: Female Cognitive needs: No Hearing needs: No Vision needs: Yes Review of Systems Const Denies daytime sleepiness, Denies difficulty sleeping, Denies snoring, Denies stops breathing during sleep and Denies weakness Card Denies chest pain, Denies rapid heart rate, Denies irregular heart rhythm, Denies claudication, Denies leg edema, Denies lightheadedness, Denies palpitations, Denies dyspnea, Denies dyspnea on exertion, Denies orthopnea, Denies paroxysmal nocturnal dyspnea and Denies slow heart rate Resp Denies cough, Denies dyspnea, Denies dyspnea on exertion and Denies snoring GI Reports no additional complaints, Denies hematochezia, Denies change in stool character and Denies dyspepsia Musc Denies abnormal gait, Denies muscle weakness and Denies numbness Neuro Denies abnormal gait, Denies numbness and Denies weakness Endo Denies palpitations Physical Exam Vital Signs: Last Vital Signs Pulse 89 02/25/25 13:46 BP 110/54 L 02/25/25 13:46 Const General: cooperative, healthy appearing, comfortable and no acute distress Orientation/consciousness: patient oriented x3 HEENT Head: Yes normal to inspection Neck Neck: Yes normal visual inspection, Yes trachea midline and Yes supple Chest Chest palpation & inspection: normal inspection of the chest Resp Effort & Inspection: normal respiratory effort Auscultation: clear to auscultation bilaterally, no crackles, no rales, no rhonchi and no wheezes Cardio Jugular venous distension: no JVD Palpation: normal PMI Rate: regular rate Rhythm: regular rhythm Heart sounds: S1 normal heart sound present, S2 normal heart sound present, no click, no gallops, no murmurs and no rubs Peripheral pulses: Peripheral pulses 2+ throughout GI Inspection: Yes normal to inspection Palpation (GI): Soft to palpation Auscultation: normal bowel sounds Skin General skin exam: no rashes or lesions noted Neuro General: patient oriented x3 Extrem General: Yes normal to inspection, No no pedal edema and No calf tenderness Psych Appearance: grossly normal Mental Status: mental status grossly normal Speech and movement: Normal speech and movement present Assessment & Plan Assessment & Plan (1) Sinus tachycardia: Code(s): R00.0 - Tachycardia, unspecified Category: Medical Plan: 06/04/2024- echo study showed hyperdynamic LV ejection fraction greater than 70% with impaired relaxation filling pattern. 06/04/2024- Holter study showed underlying sinus rhythm with an average rate of 88 beats per minute, sinus tachycardia 15% of the time, with rare supraventricular and ventricular ectopies. Patient was previously started on beta blockers however did not tolerate this and was switched to a low-dose diltiazem. Patient states that she is no longer on this as she has been feeling very fatigued on it. Patient states that she has been feeling better overall without any palpitations recently. Advised on heart healthy diet, regular exercise, adequate hydration, and avoiding caffeinated beverages. Patient is planning to keep her diltiazem with her and we will take it on an as-needed basis. (2) Essential hypertension: Code(s): I10 - Essential (primary) hypertension Category: Medical Plan: Blood pressure today is well-controlled. Continue current regimen with a blood pressure goal less than 130/80. (3) JASON on CPAP: Comment: 12/12/2022 home sleep study showed moderate sleep apnea with AHI 18.4 per hour, O2 beronica 80% with SpO2 94% and SpO2 under 88% for 6.3 minutes of study time. Mild snoring. Code(s): G47.33 - Obstructive sleep apnea (adult) (pediatric); Z99.89 - Dependence on other enabling machines and devices Category: Medical Plan: Continue CPAP therapy. Follow up in 1 year, sooner if needed. In the interim, patient will call the office with any concerns or change in symptoms. This note was generated using voice recognition software. While every effort has been made to ensure accuracy and proper substance abuse counselor, there may be occasional errors that could affect the content or meaning of the described symptoms. Medications: Discontinued diltiazem HCl ER Discontinued Reason: Patient no longer taking 60 mg PO DAILY 90 caps 3RF Coding Level of Care Code Est Pt Level 3 (27472) Complex visit Add On G2211 Diagnoses Sinus tachycardia R00.0 Essential hypertension I10 JASON on CPAP G47.33; Z99.89 Time Spent (min) 28 Comment Time spent in reviewing the chart, test results, assessment, counseling and documentation.
[2025-02-25 13:46] VITALS: BP 110/54; PULSE 89
--- OUTSIDE RECORDS SUMMARY | 2025-02-25 17:23 | XMS_ITS | Encounter Summary ---
Author Organization [employer] Address [address] 7 [place] [address] Care Team Providers Care Assistant Professor Of Geography Name Role Phone Unavailable Primary Care Provider [...]
--- OUTSIDE RECORDS SUMMARY | 2025-02-25 17:23 | XMS_ITS | Clinical Summary ---
Author Organization [employer] Address [address] [place] [address] [address] [place] [address] Care Team Providers Care Certified Pharmacy Technician Name Role Phone Unavailable Primary Care Provider [...] of 2) 10/16/2013 COVID-19 Vaccine ( - 2024-2 6 season) 2024 Influenza Vaccine (#1) 2024 RSV Patients and [...]
--- OUTSIDE RECORDS SUMMARY | 2025-02-25 17:23 | XMS_ITS | Clinical Summary ---
Author Organization [address] [place] [address] Address [address] [place] [address] Phone Care Team Providers Care Clinical Nurse Manager Name Role Phone Jacqueline De Leon MD Primary Care Provider [phone] Encounters Date Type Department Care Team Description 01/23/2025 9:45 AM EDT Consult Orthopedic Surgery [facility] [address] [facility] [address] [place] [address] Lowell Dawson, DPM Tendinitis of left ankle (Primary Dx) from Last 3 Months Social History Tobacco Use Types Packs/Day Years [...] - Inhaled Oxygen Concentration - - Weight 68 kg (150 lb) 01/23/2025 9:54 AM EDT Height 154.9 cm (5' 1 ) 01/23/2025 9:54 AM EDT Body Mass Index 28.34 01/23/2025 9:54 AM EDT Plan of Treatment Health Maintenance Due Date Last Done Comments Breast Cancer Screening 1965 Colorectal Cancer Screening: Colonoscopy 1965 Cervical Cancer Screening: Pap Smear 10/16/1984 Pneumococcal Vaccine: 50+ Years (1 of 1 - PCV) 10/16/2013 Hepatitis B Vaccines (3 of 3 - 19+ 3-dose series) 12/03/2016 07/05/2016, 06/02/2016 HIV Screening 03/05/2022 Hepatitis C Screening 03/05/2022 Social Influencers of Health Screening 03/05/2022 Depression Screening 04/03/2024 COVID-19 Vaccine ( season) 2024 09/07/2021, 03/04/2021, 07/05/2020, Additional history exists Influenza Vaccine (#1) 2024 , 01/02/2020, 12/24/2017, Additional history exists DTaP,Tdap,and Td Vaccines (2 - Td or Tdap) 05/15/2027 05/15/2017 RSV Immunization Adult Patients (1 - 1-dose 75+ series) 10/16/2038 Zoster Vaccines Completed 03/29/2020, 01/29/2020 HIB Vaccines Aged Out No longer eligi [...] to complete this topic RSV Immunization Patients Under 20 months Aged Out No longer eligible based on patient's age to complete this topic Varicella Vaccines Aged Out No longer eligible based on patient's age to complete this topic Insurance MEDICAID - [place] [facility] Care Teams Clinical Nurse Manager Relationship Specialty Start Date End Date Jacqueline De Leon MD [address] [place] [address] PCP - General Internal Medicine 04/01/21
--- OUTSIDE RECORDS SUMMARY | 2025-02-25 17:23 | XMS_ITS | Patient Health Record ---
Author Organization [facility] Address [address] [place] [address] Care Team Providers Care Event Services Manager Name Role Phone SHILPI KEY MD Primary Care Provider Meghna Ambriz Unavailable [phone] Allergies No Known Allergies Results Component Value [...] W/U Status Risk Notes Problem Autoimmune thyroiditis (25490703) Autoimmune thyroiditis (E06.3) Active confirmed Problem Imaging result abnormal (616988739) Abnormal findings on diagnostic imaging of other specified body structures (R93.89) Active confirmed Problem Candidal vulvovaginitis (09901001) Candidiasis of vulva and vagina (112.1) Active confirmed Other Problem Leiomyoma of uterus (39672557) Leiomyoma of uterus, unspecified (218.9) Active confirmed Major Problem Anemia (292604939) Unspecified anemia (285.9) Active confirmed Major Problem Excessive and frequent menstruation (079015657) Excessive or frequent menstruation (626.2) Active confirmed Major Problem Abnormal vaginal bleeding (766315204) Other disorder of menstruation and other abnormal bleeding from female genital tract (626.8) Active confirmed Major Problem Insertion of intrauterine contraceptive device (99282948) Insertion of intrauterine contraceptive device (V25.1) Active confirmed Major Problem Surveillance of intrauterine device contraception done (157284591555975) Surveillance of previously prescribed intrauterine contraceptive device (V25.42) Active confirmed Other Vital Signs Temperature 98.1 degrees Fahrenheit 02/28/2024 Blood pressure diastolic 64 mm Hg 02/28/2024 Height 61 in 02/28/2024 Blood pressure systolic 108 mm Hg 02/28/2024 Weight 143 lbs 02/28/2024 BMI 27.02 kg/m2 02/28/2024 Encounters Encounter Location Date Provider Diagnosis [address] [address] 02/28/2024 Meghna Hays Encounter for screening mammogram [...] Name:Meghna Ramirez shaye, 03/06/2025 08:40:00 AM, [address], [address], [place], [address], Insurance Providers Payer Name Payer Address Payer Phone Subscriber Number Group Number Insured Name Patient Relationship to Insured Coverage Start Date Coverage End Date [facility] [address] [address] [place] [id number] GALEN ANDUJAR Self - patient is the [...]
== END 2025-02-25 14:09 | disposition home or self-care (01) ==
LOC: HO.HCS 13:31
PROVIDERS: PCP Internal Medicine
DX: R00.0 Tachycardia, unspecified (principal); I10 Essential (primary) hypertension; G47.33 Obstructive sleep apnea (adult) (pediatric); Z99.89 Dependence on other enabling machines and devices
CPT/HCPCS: 99213

== ENCOUNTER → 2025-02-25 13:30 | Outpatient (BNVA) | payer OTHER, SELFPAY | PROVIDERS: PCP Internal Medicine | DX: I10 Essential (primary) hypertension (principal); R00.0 Tachycardia, unspecified; G47.33 Obstructive sleep apnea (adult) (pediatric); Z99.89 Dependence on other enabling machines and devices | CPT/HCPCS: 99212 ==

== ENCOUNTER 2025-04-02 13:03 | Outpatient (REF) | payer OTHER, SELFPAY ==
--- NOTE | ~2025-04-02 | XR_ITS ---
EXAMINATION: XR CHEST 2 VIEWS HISTORY: J18.9 - Pneumonia, unspecified organism COMPARISON: Comparison is made with the prior examination dated 07/16/1999. FINDINGS: PA and lateral views of the chest are submitted. There is confluent airspace opacity in the right upper lobe, consistent with pneumonia. The left lung is clear. There is no pleural effusion, pneumothorax, or pulmonary vascular congestion. The heart is normal in size. There is degenerative disc disease of the spine. XR/XR chest 2V IMPRESSION: Confluent right upper lobe pneumonia. Follow-up is recommended to document resolution. Electronically signed by: Garth Tang MD 04/02/2025 03:28 PM [facility]
== END 2025-04-02 13:04 | disposition home or self-care (01) ==
LOC: HO.HMGCX 13:03
PROVIDERS: PCP Internal Medicine; Visit Provider Internal Medicine
DX: J18.9 Pneumonia, unspecified organism (principal)
CPT/HCPCS: 71046; 99212

== ENCOUNTER 2025-04-02 13:03 | Outpatient (AMB) | payer OTHER, SELFPAY ==
[2025-04-02 13:09] VITALS: BP 112/66; PULSE 86; O2SAT 97; BMI 27.6
--- NOTE | 2025-04-02 13:09 | MHC.PC.OV ---
Vital Signs 04/02/25 13:09 Height 5 ft 1 in Weight 146 lb BMI 27.6 BP 112/66 Blood Pressure Location Lt brachial Position Sitting Pulse 86 Pulse Source Pulse Oximeter Pulse Oximetry (%) 97 Oxygen Delivery Method Room Air Intake Visit Reasons: f/u urgent care/pneumonia Ceramic Research Engineer Required: No Accompanied by: Self / Same As Patient Allergies adhesive (ADHESIVE) Allergy (Intermediate, Verified 04/06/25 03:11) ITCHING FRUIT, SKINS Allergy (Severe, Uncoded 04/06/25 03:11) THROAT CLOSES Medication List - Last Reconciled 04/06/25 by Jacqueline De Leon MD allopurinol 300 mg PO QAM azelastine-fluticasone 137-50 mcg/spray 1 spray intranasal BID PRN cholecalciferol (vitamin D3) 50 mcg PO DAILY fluticasone propionate 50 mcg/actuation (Flonase Allergy Relief) 1 spray intranasal DAILY lisinopril-hydrochlorothiazide 10-12.5 mg 1 tab PO DAILY loratadine-pseudoephedrine 5-120 mg ER (Claritin-D 12 Hour) 1 tab PO Q12H PRN montelukast 10 mg PO BEDTIME PRN tirzepatide (Mounjaro) 7.5 mg subcut Q3W walker Folding Front wheeled walker DURATION 99 DAYS Tobacco use date assessed: 11/04/24 Dental Screening Dental Screen Date: 11/04/24 HPI f/u urgent care/pneumonia HPI Details 59-year-old lady here today for follow-up after recently being seen at the urgent care center in [place] 03/2025 and diagnosed with right upper lobe pneumonia. Patient states that she started having severe chills and fever accompanied by pain on inspiration and dyspnea on exertion while she was traveling in [place] 03/18/2025. She was prescribed doxycycline 100 mg taken twice a day for 10 days and amoxicillin 875 mg taken twice a day for 10 days, which she states has helped in relieving her symptoms but still having a dry cough and dyspnea on mild exertion, but fever has resolved. [facility] Medical History (Updated 04/03/25 @ 14:41 by Jacqueline De Leon MD) Pneumonia Overweight (BMI 25.0-29.9) History of anemia Essential hypertension Gout James thyroiditis Arthritis Iron deficiency anemia Moreno's palsy Pre-diabetes Environmental and seasonal allergies JASON on CPAP Lactose intolerance Hyperuricemia Uterine fibroid Surgical History History of arthroplasty of right knee Hx of right knee surgery S/P thyroid biopsy History of appendectomy Hx of left breast biopsy Hx of colonoscopy History of repair of right rotator cuff S/P removal of left ovary Family History Father HTN (hypertension) Heart disease Emphysema of lung Mother HTN (hypertension) Dementia Seizure Pneumonia Family/Other HTN (hypertension) Cancer Brother Cancer Social History Household Members: Spouse Housing: House Are you a primary healthcare marketer to a significant other at home: No Do you presently have visiting nurse or other home services: No Alcohol intake: current Alcohol intake frequency: holidays/special occasions only Comment: advised of trip hazard Patient Tobacco Use Status: Never used Tobacco e-Cigarette/Vaping Use: Never Used Second Hand Smoke Exposure: No service: No Current occupational status: employed 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 Gender identity: Female Cognitive needs: No Hearing needs: No Vision needs: Yes Questionnaire Thrive Questionnaire Date Thrive assessed: 04/16/24 I am a: Patient What is your living situation today?: I have a steady place to live Within the past 12 months, did the food you bought not last and you didn't have the money to get more?: Never true Within the past 12 months, did you worry whether your food would run out before you got money to buy more?: Never true Do you have trouble paying for medicines?: No Do you have trouble getting transportation to medical appointments?: No Do you have trouble paying your heating and electricity bill?: No Do you have trouble taking care of your child, family member or friend?: No Do you have trouble with day-to-day activities such as bathing, preparing meals, shopping, managing finances, etc.?: No Are you currently unemployed and looking for a job?: No Are you interested in more education?: No Currently or been in a relationship where the following occur: No concerns reported THRIVE Score: 0 AUDIT C Alcohol Use Questionnaire (AUDIT-C) 1. How often do you have a drink containing alcohol?: Monthly or less 2. How many drinks containing alcohol do you have on a typical day when you are drinking?: 1 or 2 3. How often do you have six or more drinks on one occasion?: Never Total Score: 1 MERCEDEZ-7 AMB Questionnaire MERCEDEZ-7 Date MERCEDEZ - 7 assessed: 04/16/24 Source: Developed by Drs. Garth Youssef, Maria Isabel Beckman, Jose Farley and colleagues, with an educational yahaira from [employer]. Review of Systems Const Reports as per HPI ENT Reports no additional complaints Card Reports no additional complaints Resp Reports as per HPI GI Reports no additional complaints Reports no additional complaints Musc Denies myalgias and Denies muscle weakness Neuro Reports no additional complaints Oral/Lymph Reports no additional complaints Physical exam (Primary Care) Vital Signs: Last Vital Signs Pulse 86 04/02/25 13:09 BP 112/66 04/02/25 13:09 Pulse Ox 97 04/02/25 13:09 BMI result Body Mass Index 27.6 Tobacco/Smoking Status: Tobacco use Status Tobacco use date assessed 11/04/24 04/02/25 13:13 Patient Tobacco Use Status Never used Tobacco 04/02/25 13:13 e-Cigarette/Vaping Use Never Used 04/02/25 13:13 Thrive Assessment: Date of Thrive Assessment Date Thrive assessed 04/16/24 04/02/25 13:13 Currently or been in a relationship where the following occur: No concerns reported Const General: no acute distress and alert Nutritional Appearance: overweight Orientation/consciousness: patient oriented x3 HENMT Head: Yes normocephalic Ears: external ears normal General nose exam: Normal external nose present Face and sinus: Yes face symmetric Mouth: moist mucous membranes Eyes General: appearance normal, both eyes and all related structures Neck Other: Supple with no lymphadenopathy, full range of motion Resp Effort & Inspection: normal respiratory effort and able to speak in complete sentences Auscultation: clear to auscultation bilaterally Cardio Rate: regular rate Rhythm: regular rhythm Heart sounds: S1 normal heart sound present and S2 normal heart sound present GI Palpation (GI): Soft to palpation, nontender, no guarding and no masses Auscultation: normal bowel sounds General: Yes deferred Back/Spine/Pelvis Back: No back tenderness Skin General skin exam: no rashes or lesions noted Neuro General: patient oriented x3, tone normal, moves all extremities, Normal light touch and pain sensation, no focal motor deficits and CN's II-XI intact bilaterally Extrem General: Yes full ROM, Yes no joint enlargement, Yes no clubbing, cyanosis or edema, Yes no calf tenderness and Yes normal gait Psych Appearance: grossly normal and well kempt Mental Status: mental status grossly normal Speech and movement: Normal speech and movement present Affect: normal affect Coding Level of Care Code Est Pt Level 4 (09028) Diagnoses Pneumonia of right upper lobe due to infectious organism J18.9 Pneumonia type: due to unspecified organism Assessment & Plan Assessment & Plan (1) Right upper lobe pneumonia: Code(s): J18.9 - Pneumonia, unspecified organism Qualifiers: Pneumonia type: due to unspecified organism Qualified Code(s): J18.9 - Pneumonia, unspecified organism Plan: Still mildly symptomatic, but afebrile. Ordered repeat chest x-ray and CBC with differential and added Legionella urine antigen. Continue with supportive measures. Will wait for results before deciding to see if she needs additional treatment Orders: Orders XR chest 2V 04/02/25 J18.9 - Pneumonia, unspecified organism Complete Blood Count Auto Diff 04/04/25 J18.9 - Pneumonia, unspecified organism
--- OUTSIDE RECORDS SUMMARY | 2025-04-02 14:35 | XMS_ITS | Clinical Summary ---
Author Organization [employer] Address [address] [place] [address] [address] [place] [address] Care Team Providers Care Corporate Legal Intern Name Role Phone Unavailable Primary Care Provider [...]
--- OUTSIDE RECORDS SUMMARY | 2025-04-02 14:36 | XMS_ITS | Clinical Summary ---
Author Organization [address] [place] [address] Address [address] [place] [address] Phone Care Team Providers Care Auto Mechanic Supervisor Name Role Phone Jacqueline De Leon MD Primary Care Provider [phone] Encounters Date Type Department Care Team Description 01/23/2025 9:45 AM EDT Consult Orthopedic Surgery [facility] [address] [address] Lowell Dawson, DPM Tendinitis of left [...] on file Sexual Orientation Not on file Last Filed Vital Signs Vital Sign Reading [...] to complete this topic Insurance MEDICAID - [place] [facility] Care Teams Auto Mechanic Supervisor Relationship Specialty Start Date End Date Jacqueline De Leon MD [address] [place] [address] PCP - General Internal Medicine 04/01/21
--- OUTSIDE RECORDS SUMMARY | 2025-04-02 14:36 | XMS_ITS | Patient Health Record ---
Author Organization [facility] Address [address] [place] [address] Care Team Providers Care Airport Traffic Controller Name Role Phone SHILPI KEY MD Primary Care Provider Meghna Ambriz Unavailable [phone] Allergies No Known Allergies Results Component Value Reference Range Notes Urinalysis Reviewed date:03/06/2025 08:56:51 AM Interpretation: Performing Lab: Notes/Report: PH 5.0 PROTEIN Neg GLUCOSE Neg BLOOD Neg Reason For Referral No Information Medications Medication SIG (Take, Route, Frequency, Duration) Notes Start Date End Date Status Fluticasone Propionate 50 MCG/ACT Nasal; Duration: 90 Days Act rajeev Montelukast Sodium 10 MG Oral; Duration: 90 Days Active Lisinopril-hydroCHLOROthiaz wendy 10-12.5 MG Oral; Duration: 90 Days Ac tive Allopurinol 100 MG Oral; Duration: 90 Active Glucosamine Chondro Complex Active Vitamin D3 50 MCG (1999) 1 capsule Or ally Once a day Active Social History Tobacco Use: Social History [...] W/U Status Risk Notes Problem Autoimmune thyroiditis (83334233) Autoimmune thyroiditis (E06.3) Active confirmed Problem Imaging result abnormal (417410561) Abnormal findings on diagnostic imaging of other specified body structures (R93.89) Active confirmed Problem Candidal vulvovaginitis (63114087) Candidiasis of vulva and vagina (112.1) Active confirmed Other Problem Leiomyoma of uterus (67075013) Leiomyoma of uterus, unspecified (218.9) Active confirmed Major Problem Anemia (592558425) Unspecified anemia (285.9) Active confirmed Major Problem Excessive and frequent menstruation (811971867) Excessive or frequent menstruation (626.2) Active confirmed Major Problem Abnormal vaginal bleeding (883373364) Other disorder of menstruation and other abnormal bleeding from female genital tract (626.8) Active confirmed Major Problem Insertion of intrauterine contraceptive device (77399973) Insertion of intrauterine contraceptive device (V25.1) Active confirmed Major Problem Surveillance of intrauterine device contraception done (313774190077340) Surveillance of previously prescribed intrauterine contraceptive device (V25.42) Active confirmed Other Vital Signs Temperature 98.2 degrees Fahrenheit 03/06/2025 Blood pressure diastolic 64 mm Hg 03/06/2025 Height 61 in 03/06/2025 Blood pressure systolic 118 mm Hg 03/06/2025 Weight 145 lbs 03/06/2025 BMI 27.39 kg/m2 03/06/2025 Encounters Encounter Location Date Provider Diagnosis [address] [address] 03/06/2025 Meghna Hays Encounter for gynecological examination (general) (routine) without abnormal findings Z01.419 ; Encounter for screening mammogram for malignant neoplasm of breast Z12.31 and Dense breasts, unspecified R92.30 Assessments Encounter Date Diagnosis (ICD Code) Assessment Notes Treatment Notes Treatment Clinical Notes Section Notes 03/06/2025 Encounter for gynecological examination (general) (routine) without abnormal findings (ICD-10 - Z01.419) NO PAP TEST, DUE IN 2025. 03/06/2025 Encounter for screening mammogram for malignant neoplasm of breast (ICD-10 - Z12.31) REGULAR MAMMOGRAMS AND SBE'S WERE RECOMMENDED. 03/06/2025 Dense breasts, unspecified (ICD-10 - R92.30) DISCUSSED DENSE BREASTS ON MAMMOGRAM AND ITS IMPLICATIONS. 3D MAMMOGRAMS WERE RECOMMENDED. Plan Of Treatment Pending Test Test Name Order Date Sonohysterogram 02/22/2023 MAMMOGRAM, SCREENING 02/28/2024 MAMMOGRAM, SCREENING 03/06/2025 ENDOMETRIAL BX 02/22/2023 COMPLETE URINALYSIS 02/08/2016 THIN PREP,HPV,IVY IF HPV+ (>29YR)(SCRN) 01/31/2017 URINE CULTURE 02/08/2016 BONE DENSITY 02/28/2024 MM Digital Mammo Screening 03/06/2025 MM Digital Mammo Screening 02/28/2024 MM Digital Mammo Screening 02/22/2023 MM Digital Mammo Screening 01/31/2017 Next Appt Details Provider Name:Meghna cr, 03/13/2026 08:30:00 AM, [address], [address], [place], [address], Insurance Providers Payer Name Payer Address Payer Phone Subscriber Number Group Number Insured Name Patient Relationship to Insured Coverage Start Date Coverage End Date [facility] [address] [address] [place] [address] [phone] [id number] GALEN ANDUJAR Self - patient is the insured Medical (General) History Medical History History ICD Code Excessive and frequent menstruation with regular cycle N92.0 Anemia, unspecified D64.9 Other specified abnormal uterine and vag inal bleeding N93.8 Leiomyoma of uterus, unspecified D25.9 Autoimmune thyroiditis E06.3 Abnormal findings on diagnostic imaging of other specified body structures R93.89 Surgical History Surgery Date(Month/Year) Rt Breast Bx - Benign 2016 Right Shoulder Torn Rotator Cuff 04/2019 Right Knee Surgery 03/2022 Appendectomy 1979 Hospitalization History Reason Date(Month/Year) See Surgical Hx 3 Vaginal Deliveries
--- OUTSIDE RECORDS SUMMARY | 2025-04-02 14:36 | XMS_ITS | Encounter Summary ---
Author Organization [employer] Address [address] [place] [address] Care Team Providers Care Patternmaker Hand Name Role Phone Unavailable Primary Care [...]
== END 2025-04-02 14:02 | disposition home or self-care (01) ==
LOC: HO.HMCC 13:04
PROVIDERS: PCP Internal Medicine; Visit Provider Internal Medicine
DX: J18.9 Pneumonia, unspecified organism (principal)

== ENCOUNTER → 2025-04-02 14:07 | Outpatient (BNV) | payer OTHER, SELFPAY | PROVIDERS: PCP Internal Medicine; Visit Provider Radiology Diagnostic Radiology | DX: J18.9 Pneumonia, unspecified organism (principal) | CPT/HCPCS: 71046 ==